=== PATIENT | female | born 1960 | race Caucasian/White ===

== ENCOUNTER 2021-11-20 15:12 | Emergency (ER) | payer OTHER, SELFPAY ==
[2021-11-20 15:18] VITALS: BP 172/86; PULSE 90; RESP 14; TEMP 36.7; O2SAT 97
[2021-11-20 15:22] VITALS: O2SAT 97
[2021-11-20 15:30] VITALS: O2SAT 96
--- NOTE | 2021-11-20 15:30 | DI.CT_ITS ---
Exam(s) CT HEAD WO EXAM: CT HEAD WO CLINICAL HISTORY: R frontal headache. TECHNIQUE: Imaging Protocol: Axial computed tomography images with coronal and sagittal reformatted images were created and reviewed COMPARISON: No exams were available for comparison FINDINGS: There are aneurysm clips on the right superior to the region of the sella creating artifact in the ri ght temporal lobe and right frontal lobe as well as portion of the left frontal lobe. A right-sided temporoparietal craniotomy defect is seen. No acute and infarct, hemorrhage or mass is seen. There is no evidence of skull fracture. There is mucosal thickening of the sinuses with some mucous retent ion in the left maxillary sinus. Mucous retention is also seen in the right sphenoid sinus. The mas toid air cells are clear. IMPRESSION: Prior aneurysm clipping. Chronic appearing sinus disease. No acute intracranial abnormality. RADIATION DOSE DELIVERED: 778.62mGy.cm Total DLP DATA REPOSITORY: All CT scans at this facility are submitted to the National Radiology Data Registry (NRDR) Dose Index Registry (DIR) with the [employer] ([employer]). RADIATION OPTIMIZATION: All CT scans at this facility use at least one of these dose optimization te chniques: automated exposure control; mA and/or kV adjustment per patient size (includes targeted exa ms where dose is matched to clinical indication); or iterative reconstruction.
--- NOTE | 2021-11-20 15:31 | ED.GENADUL_ITS ---
Discharge Plan Disposition Patient Disposition: HOME Condition: Improving Discharge Details Clinical Impression: Headache Primary Care Provider: Barry Hernandez ED Provider: Apollo Choi Home Meds and New Rx's Prescriptions: Continued zolpidem 5 MG tablet 5 mg PO HS PRN Qty: 30 RF: 5 valacyclovir 500 MG tablet 500 mg PO DAILY Qty: 90 RF: 0 Discharge Instructions Instructions: General Headache (ED) Additional Instructions: Your work-up included CAT scan of the head, blood laboratory analysis. Your CAT scan was reassuring. Home to rest today. May use Tylenol if needed for pain. Small, frequent sips of fluids so that you maintain good hydration. Return to the emerge department if you have recurrent headache, or any other acute concerns. Medical Decision Making This is a 61-year-old female who reports blowing her nose this morning, with the onset of abrupt right retro-orbital pain that lasted approximately 2 minutes and then dissipated on its own. He states the pain was severe and self-limited. She then developed a dull 1 out of 10 headache. She had no difficulty with speech, no facial droop or other focal neurologic deficits. She denies neck pain. Patient concerned because she had aneurysm coiling performed a proximal 10 years ago. Patient is afebrile, pleasant, well-appearing, without evidence of focal neurologic deficits. Patient screening labs obtained and referred for noncontrast CT scan of the head. There is no evidence of acute intracranial hemorrhage, mass-effect or midline shift. Mucosal thickening is present in the bilateral maxillary, left ethmoid and right sphenoid sinuses. Laboratories reveal white count 4, mild 42, platelets 185 chemistries reassuring. Patient improved and with no further headache. She feels better. Discussed with her the findings of likely chronic sinusitis. She is stable and appropriate for discharge to home HPI General Mode of arrival: ambulatory . Date/Time Provider Initiated Documentation: 11/20/21 15:15 . Limitations to Documentation: no limitations . Information obtained by: patient . History of Present Illness 61 year old F presents to the emergency department with the chief complaint of Right frontal headache, now improving, described as moderate, Quality is described as dull, and is localized to the head and right. Patient reports no radiation. Patient started experiencing this hour(s) No relieving factors improve symptom(s), No exacerbating factors reported . Patient notes headaches; denies nausea/vomiting, seizure, shortness of breath, syncope and weakness. Patient did receive the following treatments prior to arrival, none Related Data Home Medications Medication Instructions Recorded Confirmed zolpidem 5 mg PO HS PRN #30 tab 10/24/17 valacyclovir 500 mg PO DAILY #90 tab-cap 05/16/18 Previous Rx's Medication Instructions Recorded zolpidem 5 mg PO HS PRN #30 tab 10/24/17 valacyclovir 500 mg PO DAILY #90 tab-cap 05/16/18 Allergies Allergy/AdvReac Type Severity Reaction Status Date / Time No Known Allergies Allergy Unverified 03/29/15 12:38 General Stated Complaint: Headache [place]: 3 Review of Systems Narrative: Denies recent illness. She has otherwise been well. No fall or injury. No vomiting. 8 systems reviewed and otherwise negative. PFSH All Active Problems (Updated 11/20/21 @ 16:55 by Apollo Choi MD) Headache (Acute) Medical History Endometrial cancer stage III C Ovarian cancer stage IB Surgical History (Updated 08/07/18 @ 14:35 by [employer] [place]) Abdominal hysterectomy Oophrectomy, Both Social History Smoking/Tobacco Use Status: Never Smoking risk assessment performed?: Yes Alcohol Intake: current Alcohol Intake frequency: holidays/special occasions only Drug use: Never Substance use type: does not use Do you feel safe at home: Yes Do you feel safe in your relationship?: Yes Exam Narrative Exam Narrative: GEN: awake, alert, oriented 3. Pleasant, well groomed, interactive. HEAD: Normocephalic, atraumatic ENT: Mucous membranes moist, oropharynx unremarkable, External ear exam unremarkable EYES: PERRL, EOMI NECK: Full ROM, no KASSIE, no menigismus CHEST/RESP: Nontender, clear to auscultation bilateral, no wheeze/rhonchi/rales CARDIOVASCULAR: RRR, no murmur, rub susan. 2+ Rad pulse bilateral ABDOMEN: Soft, nontender, no mass. +Bowel sounds EXT: Full ROM, no edema, no rash Neuro: Cranial nerves II through XII intact, conversant, interactive. Psych: Speech fluent, thoughts congruent, affect normal Course Vital Signs Vital signs: Vital Signs Temperature 36.7 C 11/20/21 15:18 Pulse 90 11/20/21 15:18 Respiratory Rate 14 11/20/21 15:18 Blood Pressure 172/86 H 11/20/21 15:18 Pulse Oximetry 97 11/20/21 15:18 Temperature 36.7 C 11/20/21 15:18 Temperature Source Oral 11/20/21 15:18 Pulse 90 11/20/21 15:18 Respiratory Rate 14 11/20/21 15:18 Respiratory Effort Non-Labored 11/20/21 15:21 Blood Pressure 172/86 H 11/20/21 15:18 Blood Pressure Position Sitting 11/20/21 15:18 Pulse Oximetry 97 11/20/21 15:18 Oxygen Delivery Method Room Air 11/20/21 15:18 Oxygen Flow Rate 0 11/20/21 15:18 Pain Level 0 11/20/21 15:18
[2021-11-20 15:40] VITALS: O2SAT 97
[2021-11-20 15:40] LABS: Abs Immature Grans 0.01 10^3/uL (0.0-0.06); Absolute Basophil Count 0.05 10^3/uL (0.0-0.2); Absolute Eosinophil Count 0.25 10^3/uL (0.0-0.7); Absolute Lymphocyte Count 1.23 10^3/uL (1.2-3.4); Absolute Monocyte Count 0.49 10^3/uL (0.1-0.8); Absolute Neutrophil Count 2.13 10^3/uL (1.2-6.7); Basophils % 1.2; HCT 42.5 % (36.0-46.0); HGB 14.3 g/dL (11.2-15.7); Immature Grans % 0.2; Lymphocytes % 29.6; MCH 28.9 pg (27.0-33.0); MCHC 33.6 % (32.0-36.0); MPV 11.3 fL (8.0-11.0); Monocytes % 11.8; Neutrophils % 51.2; Nucleated RBC 0 %; Platelet Count 185 10^3/uL (130-400); RBC 4.94 10^6/uL (3.93-5.22); RDW-SD 40.4 fL; WBC 4.16 10^3/uL (4.4-10.8)
[2021-11-20 15:53] LABS: ALT 56 U/L (14-59); Albumin 4.2 g/dL (3.4-5.0); Alkaline Phosphatase 62 U/L (46-116); Anion Gap 8.3 mmol/L (3-11); BUN 15 mg/dL (7-18); Bilirubin, Total 0.5 mg/dL (0.2-1.0); CO2 25.7 mmol/L (21.0-32.0); Calcium 9.1 mg/dL (8.5-10.1); Chloride 105 mmol/L (98-107); Estimated GFR 56.75 (mL/min/1.73m2); Glucose 129 mg/dL (74-106); Sodium 139 mmol/L (136-145); Total Protein 7.7 g/dL (6.4-8.2)
[2021-11-20] MEDS: Normal Saline 1,000 ML 150 ML IV (16:00)
[2021-11-20 16:13] LABS: AST 40 U/L (15-37)
--- NOTE | 2021-11-20 16:24 | DI.VRAD_ITS ---
PROCEDURE INFORMATION: Exam: CT Head Without Contrast Exam date and time: 11/20/2021 3:31 PM Age: 61 years old Clinical indication: R frontal headache TECHNIQUE: Imaging protocol: Computed tomography of the head without contrast. COMPARISON: No relevant prior studies available. FINDINGS: Limitations: There is streak artifact from right aneurysm clipping, limiting evaluation of the brain parenchyma in this region. Brain: There is no acute intracranial hemorrhage in the regions well visualized. There is no mass effect or midline shift. There is no large acute territorial cerebral infarct. Cerebral ventricles: No ventriculomegaly. Paranasal sinuses: Mucosal thickening is seen in the bilateral maxillary, left ethmoid and right sphenoid sinuses. Mastoid air cells: Visualized mastoid air cells are well aerated. Vasculature: There is evidence of prior right ICA/MCA aneurysm clipping. Bones/joints: There is evidence of prior right frontotemporal craniotomy. No acute fracture. Soft tissues: Unremarkable. IMPRESSION: Slightly limited evaluation of the right frontal region secondary to streak artifact from aneurysm clipping. No definite acute intracranial hemorrhage, mass effect or midline shift. Dictated and Authenticated by: Kate Cruz MD. Ordering:PANDA Bustillos MD
[2021-11-20 16:50] VITALS: BP 128/84; PULSE 82; RESP 14; TEMP 36.6; O2SAT 97
[2021-11-20 16:53] VITALS: BP 128/84; PULSE 86; O2SAT 97
== END 2021-11-20 17:05 | disposition home or self-care (01) ==
PROVIDERS: Emergency Provider Emergency Medicine; PCP Internal Medicine
DX: R51.9 Headache, unspecified (principal); Z86.79 Personal history of other diseases of the circulatory system
CPT/HCPCS: 36415; 80053; 96360; 99284; 70450; 85025; 99283

== ENCOUNTER 2022-02-22 14:44 | Outpatient (REF) | payer OTHER, SELFPAY ==
[2022-02-22 15:34] LABS: ALT 67 U/L (14-59); AST 44 U/L (15-37); Albumin 4.1 g/dL (3.4-5.0); Alkaline Phosphatase 53 U/L (46-116); Anion Gap 10.9 mmol/L (3-11); BUN 16 mg/dL (7-18); Bilirubin, Total 0.4 mg/dL (0.2-1.0); CO2 26.1 mmol/L (21.0-32.0); Calcium 8.8 mg/dL (8.5-10.1); Calculated LDL 128 mg/dL (<100); Chloride 105 mmol/L (98-107); Cholesterol 223 mg/dL (<200); Estimated GFR 56.75 (mL/min/1.73m2); Glucose 116 mg/dL (74-106); HDL Cholesterol 34 mg/dL (40-60); Potassium 4.2 mmol/L (3.5-5.1); Sodium 142 mmol/L (136-145); Total Protein 7.2 g/dL (6.4-8.2); Triglyceride 305 mg/dL (<150)
[2022-02-23 02:01] LABS: Vitamin D 25 Total 14.6 ng/mL (30-100)
== END 2022-02-22 14:45 | disposition home or self-care (01) ==
LOC: NCHCN 14:44
PROVIDERS: PCP Internal Medicine; Visit Provider Family Medicine
DX: I10 Essential (primary) hypertension (principal); R53.83 Other fatigue; R19.7 Diarrhea, unspecified; Z79.899 Other long term (current) drug therapy
CPT/HCPCS: 80053; 80061; 82306

== ENCOUNTER 2023-02-25 19:15 | Emergency (ER) | payer OTHER, SELFPAY ==
[2023-02-25 19:18] VITALS: BP 141/95; PULSE 86; RESP 16; TEMP 37; O2SAT 98
--- NOTE | 2023-02-25 20:03 | W.ED.GENAD ---
Discharge Plan Disposition Patient Disposition: Home Condition: Stable Discharge Details Clinical Impression: Pain of right eyelid, Right facial pain Primary Care Provider: Barry Hernandez ED Provider: Tatum Vasquez Home Meds and New Rx's Prescriptions: New prednisone 20 mg tablet See Rx Instructions .ROUTE .COMPLEX Qty: 18 0RF Rx Instructions: Take 3 tabs daily for 3 days, then 2 tabs daily for 3 days, then 1 tab daily for 3 days. Continued valacyclovir 500 MG tablet 500 mg PO DAILY Qty: 90 0RF lisinopril 5 mg tablet 2.5 mg PO DAILY zolpidem 5 mg tablet 6.25 mg PO HS PRN Qty: 30 5RF Rx Instructions: 1 tab PO HS PRN early insomnia diphenoxylate-atropine 2.5-0.025 mg tablet 2 tab PO Q6H PRN Rx Instructions: take 1-2 tabs by mouth four times a day as directed Discharge Instructions Instructions: Trigeminal Neuralgia (ED), Atypical Facial Pain (ED) Additional Instructions: The cause of your symptoms is not clear at this time but possibilities include trigeminal neuralgia which is pain along the nerve in your face, shingles which is a viral rash related to a reactivation of chicken pox or a developing sinus infection. Drink plenty of fluids and get plenty of rest. Alternate tylenol and motrin as needed and directed for pain. Take the gabapentin for pain relief when you get home. Prescriptions for oral steroids for inflammation and pain and gabapentin for nerve pain relief-sent electronically to your pharmacy to take as directed. You have been placed on care management list to arrange for a follow-up appoint with your primary care doctor for reevaluation this week. Return immediately to the emergency department if you develop any worsening or new concerning symptoms. Discharge Data Discharge Date/Time-TO BE ENTERED AT DEPARTURE: 02/25/23 22:51 Discharge Physician: Tatum Vasquez Medical Decision Making 62 -year-old female with a history of brain aneurysm with clipping, endometrial and ovarian cancer, abdominal hysterectomy presents for tenderness to the skin of her upper lower eyelid since yesterday. She does admit to a hour long episode of right eye pain yesterday but denies any pain since then. No report of blurry vision. Patient appears fairly comfortable and nontoxic. PERRLA. EOMI. No focal deficits. She has exquisite tenderness to light palpation of her supraorbital infraorbital region. There is no edema, erythema, rash or lesions. Her right eye intraocular pressure was normal at 17. She has no fever or nasal discharge to suggest sinus infection. She has no dental pain or swelling to suggest dental infection. She has no rash and had a similar presentation of symptoms 1 year ago which would be unlikely to be shingles. She has no blurry vision, focal deficits or severe headache to suggest CVA. She has no fever, sore throat, neck pain, altered mental status to suggest meningitis. Discussed with patient that differential diagnosis can include trigeminal neuralgia or possibly shingles. Also discussed potential of developing sinus infection. Discussed that I do not see indication for antibiotics at this time but discussed the possibility of gabapentin or Tegretol. She states she had read about side effects of gabapentin in the past and had been nervous to take it. She will be staying with her daughter tao. We will give a dose of prednisone here and send home with 1 dose of gabapentin. Will send prescriptions for prednisone and gabapentin electronically to her pharmacy. She was placed on care management's list to arrange for follow-up appointment with her primary care doctor in the next week for reevaluation. Usual and customary return precautions given prior to discharge. Medical Records Medical records reviewed: Yes I reviewed the patient's medical records. HPI General Mode of arrival: ambulatory. Date/Time Provider Initiated Documentation: 02/25/23 20:02. Limitations to Documentation: no limitations. Information obtained by: patient. HPI Narrative: Patient is a 62-year-old female with a history of brain aneurysm status post clipping, endometrial and ovarian cancer with hysterectomy, hypertension who presents for pain around the outside of her right eye since yesterday. Patient states that when she even touches her eye with light touch, she has significant pain. She does admit to some tearing in her right eye and when she attempts to wipe her eye with the tissue it causes significant pain. She does admit to a brief episode of pain within her right eye yesterday for about 1 hour but then it resolved. She denies any pain within her eye since then. She denies any fever, blurry vision, eye discharge, injury to her eye or foreign body sensation. She states she had a similar history occur 1 year ago and was seen by her doctor and told it was possibly shingles. She states she never developed a rash or was treated with antivirals and states that resolved after 1 month. She denies any new soaps, lotions, detergents or exposures. She denies any significant pain with chewing or brushing her teeth. She denies any fever, headache, slurred speech, facial droop, neck pain, chest pain, difficulty breathing, abdominal pain or unilateral extremity numbness or weakness. Related Data Home Medications Medication Instructions Recorded Confirmed valacyclovir 500 mg tablet 500 mg PO DAILY #90 tab-caps 05/16/18 02/25/23 diphenoxylate-atropine 2.5 2 tab PO Q6H PRN 11/23/21 02/25/23 mg-0.025 mg tablet lisinopril 5 mg tablet 2.5 mg PO DAILY 11/23/21 02/25/23 zolpidem 5 mg tablet 6.25 mg PO HS PRN #30 tabs 11/23/21 02/25/23 prednisone 20 mg tablet See Rx Instructions .Route 02/25/23 .COMPLEX #18 tabs Previous Rx's Medication Instructions Recorded valacyclovir 500 mg tablet 500 mg PO DAILY #90 tab-caps 05/16/18 zolpidem 5 mg tablet 6.25 mg PO HS PRN #30 tabs 11/23/21 prednisone 20 mg tablet See Rx Instructions .Route 02/25/23 .COMPLEX #18 tabs Allergies Allergy/AdvReac Type Severity Reaction Status Date / Time No Known Allergies Allergy Unverified 02/25/23 19:27 General Stated Complaint: Headache [place]: 3 Review of Systems All systems reviewed & are unremarkable except as noted in HPI and below Constitutional Constitutional: Reports as per HPI, Denies chills, Denies fever(s) and Denies headache(s) Eyes Eyes: Denies blurry vision, Denies eye discharge, Denies floaters, Denies itchy eyes, Denies loss of vision, Reports eye pain (tenderness of skin of right upper and lower eyelid ) and Denies seeing flashes ENT Ears, Nose, Mouth, and Throat: Denies dizziness, Denies headache(s), Denies sore throat and Denies throat swelling Cardiovascular Cardiovascular: Denies chest pain and Denies dyspnea Respiratory Respiratory: Denies cough and Denies dyspnea Gastrointestinal Gastrointestinal: Denies abdominal pain, Denies diarrhea and Denies vomiting Genitourinary Genitourinary: Denies hematuria and Denies dysuria Musculoskeletal Musculoskeletal: Denies back pain and Denies numbness Integumentary/Breasts Skin/Breast: Denies lesions and Denies rash Neurologic Neurologic: Denies dizziness, Denies headache(s), Denies localized weakness, Denies loss of vision and Denies numbness Allergic/Immunologic Allergic/Immunologic: Denies itchy eyes and Denies throat swelling PFSH All Active Problems (Updated 02/25/23 @ 22:26 by Tatum Vasquez DO) Pain of right eyelid (Acute) Right facial pain (Acute) Hypertension (Chronic) Pain, eye, right (Acute) Medical History Endometrial cancer stage III C Ovarian cancer stage IB Surgical History (Updated 08/07/18 @ 14:35 by [employer] [place]) Abdominal hysterectomy Oophrectomy, Both Social History Smoking/Tobacco Use Status: Never Smoking risk assessment performed?: Yes Alcohol Intake: current Alcohol Intake frequency: holidays/special occasions only Drug use: Never Substance use type: does not use Do you feel safe at home: Yes Do you feel safe in your relationship?: Yes Exam Const General: cooperative and no acute distress Orientation: alert, awake and oriented x3 HENMT Head: normal to inspection Ears: hearing grossly normal bilaterally, external ears normal and TM's normal bilaterally General nose exam: external nose normal Face and sinus: normal facial exam Mouth: oral mucosae normal Throat: posterior oropharynx normal Eyes General: appearance normal, both eyes and all related structures Eyelids: eyelid abnormality right upper eyelid tenderness; without erythema and with no swelling and right lower eyelid tenderness; without erythema, without foreign bodies and with no swelling Conjunctivae: conjunctivae normal Sclera: sclerae normal Pupils: PERRL EOM: EOM intact bilaterally Neck Neck: normal visual inspection and No submandibular swelling Lymphatic: no lymphadenopathy noted Chest Chest: normal inspection of the chest and no tenderness Resp Effort & Inspection: normal respiratory effort and able to speak in complete sentences Auscultation: clear to auscultation bilaterally Cardio Rate: regular rate Rhythm: regular rhythm GI Inspection: normal to inspection Palpation: soft, not firm, not rigid and nontender Auscultation: normal bowel sounds Back/Spine/Pelvis Thoracic/Lumbar Spine: thoracic and lumbar spine normal to inspection Pelvis: no pain with anterior-posterior compression Skin General skin exam: no rashes or lesions noted Neuro General: patient alert, patient awake, patient oriented x3, moves all extremities and no meningeal signs Cranial Nerves: CN's II-XI intact bilaterally Cognition: normal cognition Speech: speech normal Motor: muscle tone normal throughout Sensory Exam: no sensory deficits noted Extrem General: normal to inspection, full ROM, capillary refill normal, no calf tenderness bilaterally and no edema Psych Appearance: grossly normal Mental Status: mental status grossly normal Speech and Movement: speech and movement normal Affect: normal affect Course Vital Signs Vital signs: Vital Signs Temperature 98.6 F 02/25/23 19:18 Pulse 86 02/25/23 19:18 Respiratory Rate 16 02/25/23 19:18 Blood Pressure 141/95 H 02/25/23 19:18 Pulse Oximetry 98 02/25/23 19:18 Temperature 98.6 F 02/25/23 19:18 Temperature Source Oral 02/25/23 19:18 Pulse 86 02/25/23 19:18 Respiratory Rate 16 02/25/23 19:18 Respiratory Effort Normal 02/25/23 19:24 Blood Pressure 141/95 H 02/25/23 19:18 Blood Pressure Position Sitting 02/25/23 19:18 Pulse Oximetry 98 02/25/23 19:18 Oxygen Delivery Method Room Air 02/25/23 19:18 Oxygen Flow Rate 0 02/25/23 19:18 Pain Level 0 02/25/23 19:24 Comment No pain currently. 02/25/23 19:18
[2023-02-25] MEDS: predniSONE 20 MG TAB 60 MG PO (21:16)
[2023-02-25] MEDS: Gabapentin 300 MG CAP PO (21:16)
[2023-02-25 22:58] VITALS: BP 148/88; PULSE 88; RESP 16; TEMP 36.5; O2SAT 98
--- NOTE | 2023-02-26 04:51 | NUR.NOTE ---
Referral to [facility] to f/u week of 02/26 for r eyelid/face pain.Nursing Note:
== END 2023-02-25 22:51 | disposition home or self-care (01) ==
PROVIDERS: Emergency Provider Physician Assistant; PCP Internal Medicine
DX: G50.1 Atypical facial pain (principal); Z86.79 Personal history of other diseases of the circulatory system
CPT/HCPCS: 99283; 99284; J7512

== ENCOUNTER 2023-02-27 23:38 | Emergency (ER) | payer OTHER, SELFPAY ==
[2023-02-27 23:40] VITALS: BP 142/92; PULSE 94; RESP 16; TEMP 36.4; O2SAT 95
--- NOTE | 2023-02-28 00:23 | ED.GENADUL_ITS ---
Discharge Plan Disposition Patient Disposition: Home Condition: Stable Discharge Details Clinical Impression: Pain of right eyelid, Right facial pain Primary Care Provider: Barry Hernandez ED Provider: Tatum Vasquez Home Meds and New Rx's Prescriptions: New gabapentin 300 mg capsule 300 mg PO TID PRN (Reason: pain) Qty: 14 0RF Continued valacyclovir 500 MG tablet 500 mg PO DAILY Qty: 90 0RF lisinopril 5 mg tablet 2.5 mg PO DAILY zolpidem 5 mg tablet 6.25 mg PO HS PRN Qty: 30 5RF Rx Instructions: 1 tab PO HS PRN early insomnia diphenoxylate-atropine 2.5-0.025 mg tablet 2 tab PO Q6H PRN Rx Instructions: take 1-2 tabs by mouth four times a day as directed prednisone 20 mg tablet See Rx Instructions .ROUTE .COMPLEX Qty: 18 0RF Rx Instructions: Take 3 tabs daily for 3 days, then 2 tabs daily for 3 days, then 1 tab daily for 3 days. Discharge Instructions Instructions: Trigeminal Neuralgia (ED) Additional Instructions: The source of your symptoms may be secondary to trigeminal neuralgia which is pain along the distribution of a specific nerve supply in your face. The pain can be worsened with light touch, chewing or brushing her teeth. Drink plenty of fluids and get plenty of rest. A prescription for gabapentin for pain relief has been sent electronically to your pharmacy. Take your steroids as directed until finished. Follow-up with your scheduled appointment with your primary care provider tomorrow morning. Another possible medication for pain relief includes carbamazepine or Tegretol. You may be referred to a specialist such as ENT or neurology for further evaluation of your symptoms. Return immediately to the emergency department if you develop any worsening or new concerning symptoms. Discharge Data Discharge Physician: Tatum Vasquez Medical Decision Making 62-year-old female with history of brain aneurysm status post coiling, endometrial and ovarian cancer presents for worsening pain of the skin around her right eye this evening. Patient was seen here 2 days ago for the same complaint that started the day prior and diagnosed with possible trigeminal neuralgia. Patient appears generally comfortable and nontoxic. She currently has no pain and the area around her eye appears normal to inspection without rash, cellulitis or trauma. PERRLA. EOMI and no pain with EOM. She has no focal deficits. She has no fever, periorbital edema or erythema to suggest periorbital or orbital cellulitis. She has no rash to suggest shingles. She has no focal deficits, blurry vision, significant headache or vomiting to suggest cva. As she now has worsening pain with chewing, brushing her teeth and even light touch or exposure to the wound, discussed with patient that I still suspect trigeminal neuralgia at this time. She is advised to continue her steroids until finished. Discussed that a prescription for gabapentin was supposed to be sent electronically to her pharmacy. We will give a dose of gabapentin now and send this prescription electronically and give a dose for her to take tomorrow morning. She was advised to follow-up with her appointment with her primary care doctor tomorrow. Usual and customary return precautions given prior to discharge. HPI General Mode of arrival: ambulatory . Date/Time Provider Initiated Documentation: 02/27/23 23:38 . Limitations to Documentation: no limitations . Information obtained by: patient . HPI Narrative: Patient is a 62-year-old female with a history of brain aneurysm status post coiling, endometrial and ovarian cancer who was seen here 2 days ago for pain on the skin of her right upper and lower eyelid and diagnosed with possible trigeminal neuralgia and started on steroids presents with worsening pain today. She states she has been taking her steroids as prescribed. Patient states she had relief when she took the gabapentin she was sent home with the other day. She states the prescription for gabapentin was not sent to her pharmacy after seen here 2 days ago. She states she had been doing well until this evening. She states she has had a few episodes of pain of the skin on the outside of her right eye. She states that it is exquisitely tender to touch as before. She states the pain today was worse with chewing when she ate a piece of pie and with brushing her teeth today. She states she was at a soccer game this evening and also noted significant pain just with the wind blowing on the right side of her face around her eye. She denies any fever, rash, blurry vision, nasal discharge, sore throat, ear pain, dizziness, unilateral extremity numbness or weakness. She states she has an appoint with her primary care doctor tomorrow. Related Data Home Medications Medication Instructions Recorded Confirmed valacyclovir 500 mg tablet 500 mg PO DAILY #90 tab-caps 05/16/18 02/25/23 diphenoxylate-atropine 2.5 2 tab PO Q6H PRN 11/23/21 02/25/23 mg-0.025 mg tablet lisinopril 5 mg tablet 2.5 mg PO DAILY 11/23/21 02/25/23 zolpidem 5 mg tablet 6.25 mg PO HS PRN #30 tabs 11/23/21 02/25/23 prednisone 20 mg tablet See Rx Instructions .Route 02/25/23 .COMPLEX #18 tabs gabapentin 300 mg capsule 300 mg PO TID PRN pain #14 caps 02/28/23 Previous Rx's Medication Instructions Recorded valacyclovir 500 mg tablet 500 mg PO DAILY #90 tab-caps 05/16/18 zolpidem 5 mg tablet 6.25 mg PO HS PRN #30 tabs 11/23/21 prednisone 20 mg tablet See Rx Instructions .Route 02/25/23 .COMPLEX #18 tabs gabapentin 300 mg capsule 300 mg PO TID PRN pain #14 caps 02/28/23 Allergies Allergy/AdvReac Type Severity Reaction Status Date / Time No Known Allergies Allergy Unverified 02/25/23 19:27 General Stated Complaint: FacialProb [place]: 3 Review of Systems All systems reviewed & are unremarkable except as noted in HPI and below Constitutional Constitutional: Reports as per HPI, Denies chills and Denies fever(s) Eyes Eyes: Denies blurry vision ENT Ears, Nose, Mouth, and Throat: Denies dizziness, Reports facial pain, Denies sore throat and Denies throat swelling Cardiovascular Cardiovascular: Denies chest pain and Denies dyspnea Respiratory Respiratory: Denies cough and Denies dyspnea Gastrointestinal Gastrointestinal: Denies abdominal pain, Denies diarrhea and Denies vomiting Genitourinary Genitourinary: Denies hematuria and Denies dysuria Musculoskeletal Musculoskeletal: Denies back pain and Denies numbness Integumentary/Breasts Skin/Breast: Denies lesions and Denies rash Neurologic Neurologic: Denies dizziness, Denies localized weakness and Denies numbness Allergic/Immunologic Allergic/Immunologic: Denies throat swelling PFSH All Active Problems (Updated 02/28/23 @ 00:23 by Tatum Vasquez DO) Pain of right eyelid (Acute) Right facial pain (Acute) Pain of right eyelid (Acute) Right facial pain (Acute) Hypertension (Chronic) Pain, eye, right (Acute) Medical History Endometrial cancer stage III C Ovarian cancer stage IB Surgical History (Updated 08/07/18 @ 14:35 by [facility]) Abdominal hysterectomy Oophrectomy, Both Social History Smoking/Tobacco Use Status: Never Smoking risk assessment performed?: Yes Alcohol Intake: current Alcohol Intake frequency: holidays/special occasions only Drug use: Never Substance use type: does not use Do you feel safe at home: Yes Do you feel safe in your relationship?: Yes Exam Const General: cooperative and no acute distress Orientation: alert, awake and oriented x3 HENMT Head: normal to inspection Ears: hearing grossly normal bilaterally, external ears normal and TM's normal bilaterally Face and sinus: normal facial exam Mouth: oral mucosae normal Teeth and gingiva: poor dentition Throat: posterior oropharynx normal Eyes General: appearance normal, both eyes and all related structures Eyelids: eyelids normal Conjunctivae: conjunctivae normal Sclera: sclerae normal Pupils: PERRL EOM: EOM intact bilaterally Neck Neck: normal visual inspection and No submandibular swelling Lymphatic: no lymphadenopathy noted Chest Chest: normal inspection of the chest and no tenderness Resp Effort & Inspection: normal respiratory effort and able to speak in complete sentences Cardio Rate: regular rate Rhythm: regular rhythm GI Inspection: normal to inspection Palpation: soft, not firm, not rigid and nontender Auscultation: normal bowel sounds Back/Spine/Pelvis Thoracic/Lumbar Spine: thoracic and lumbar spine normal to inspection Pelvis: no pain with anterior-posterior compression Skin General skin exam: no rashes or lesions noted Neuro General: patient alert, patient awake, patient oriented x3, moves all extremities and no meningeal signs Cranial Nerves: CN's II-XI intact bilaterally Cognition: normal cognition Speech: speech normal Motor: muscle tone normal throughout and strength 5/5 throughout Sensory Exam: no sensory deficits noted Extrem General: normal to inspection, full ROM, capillary refill normal, no calf tenderness bilaterally and no edema Psych Appearance: grossly normal Mental Status: mental status grossly normal Speech and Movement: speech and movement normal Affect: normal affect Course Vital Signs Vital signs: Vital Signs Temperature 97.6 F 02/27/23 23:40 Pulse 94 H 02/27/23 23:40 Respiratory Rate 16 05/09/23 23:40 Blood Pressure 142/92 H 02/27/23 23:40 Pulse Oximetry 95 02/27/23 23:40 Temperature 97.6 F 02/27/23 23:40 Temperature Source Oral 02/27/23 23:40 Pulse 94 H 02/27/23 23:40 Respiratory Rate 16 02/27/23 23:40 Respiratory Effort Normal, Non-Labored 02/27/23 23:47 Blood Pressure 142/92 H 02/27/23 23:40 Blood Pressure Position Sitting 02/27/23 23:40 Pulse Oximetry 95 02/27/23 23:40 Oxygen Delivery Method Room Air 02/27/23 23:40 Oxygen Flow Rate 0 02/27/23 23:40 Pain Level 0 02/27/23 23:40
[2023-02-28] MEDS: Gabapentin 300 MG CAP PO ×2 (00:33→00:46)
== END 2023-02-28 00:40 | disposition home or self-care (01) ==
PROVIDERS: Emergency Provider Physician Assistant; PCP Internal Medicine
DX: G50.1 Atypical facial pain (principal)
CPT/HCPCS: 99283; 99284

== ENCOUNTER 2023-03-28 12:51 | Outpatient (REF) | payer OTHER, SELFPAY ==
[2023-03-28 15:05] LABS: Abs Immature Grans 0.02 10^3/uL (0.0-0.06); Absolute Basophil Count 0.03 10^3/uL (0.0-0.2); Absolute Eosinophil Count 0.15 10^3/uL (0.0-0.7); Absolute Lymphocyte Count 1.14 10^3/uL (1.2-3.4); Absolute Monocyte Count 0.39 10^3/uL (0.1-0.8); Absolute Neutrophil Count 2.05 10^3/uL (1.2-6.7); Basophils % 0.8; HCT 41.5 % (36.0-46.0); HGB 13.7 g/dL (11.2-15.7); Immature Grans % 0.5; Lymphocytes % 30.2; MCH 29.1 pg (27.0-33.0); MCV 88 fL (80-95); Monocytes % 10.3; Neutrophils % 54.2; Platelet Count 198 10^3/uL (130-400); RDW 13.6 % (11.7-14.6); RDW-SD 42.8 fL; WBC 3.78 10^3/uL (4.4-10.8)
[2023-03-28 15:11] LABS: ESR 3 mm/hr (0-30)
[2023-03-28 15:33] LABS: Anion Gap 6.7 mmol/L (3-11); BUN 17 mg/dL (7-18); C-Reactive Protein 0.59 mg/dL (0.0-0.3); CO2 30.3 mmol/L (21.0-32.0); CREATININE 1.1 mg/dL (0.55-1.02); Calcium 9.5 mg/dL (8.5-10.1); Chloride 101 mmol/L (98-107); Estimated GFR 57.52 (mL/min/1.73m2); Glucose 218 mg/dL (74-106); Potassium 4.2 mmol/L (3.5-5.1); Sodium 138 mmol/L (136-145); TSH 3.41 uIU/mL (0.36-3.74)
[2023-03-28 22:06] LABS: FREE T4 0.83 ng/dL (0.76-1.46)
== END 2023-03-28 12:52 | disposition home or self-care (01) ==
LOC: NCHCN 12:51
PROVIDERS: PCP Family Medicine; Visit Provider Family Medicine
DX: I10 Essential (primary) hypertension (principal); R53.83 Other fatigue; G50.0 Trigeminal neuralgia; R79.89 Other specified abnormal findings of blood chemistry
CPT/HCPCS: 80048; 85652; 84436; 84439; 84443; 85025; 86140

== ENCOUNTER 2023-06-26 18:31 | Outpatient (REF) | payer OTHER, SELFPAY ==
[2023-06-26 17:22] LABS: ALT 76 U/L (14-59); AST 60 U/L (15-37); Albumin 4.4 g/dL (3.4-5.0); Alkaline Phosphatase 44 U/L (46-116); Anion Gap 8.2 mmol/L (3-11); BUN 17 mg/dL (7-18); Bilirubin, Total 0.9 mg/dL (0.2-1.0); CO2 27.8 mmol/L (21.0-32.0); CREATININE 1.1 mg/dL (0.55-1.02); Calcium 9.6 mg/dL (8.5-10.1); Calculated LDL 87 mg/dL (<100); Chloride 102 mmol/L (98-107); Cholesterol 172 mg/dL (<200); Estimated GFR 57.52 (mL/min/1.73m2); Glucose 113 mg/dL (74-106); HDL Cholesterol 36 mg/dL (40-60); Sodium 138 mmol/L (136-145); Total Protein 7.4 g/dL (6.4-8.2); Triglyceride 246 mg/dL (<150)
== END 2023-06-26 18:32 | disposition home or self-care (01) ==
LOC: NCHCN 18:31
PROVIDERS: PCP Family Medicine; Visit Provider Family Medicine
DX: Z00.00 Encounter for general adult medical examination without abnormal findings (principal); I10 Essential (primary) hypertension; R73.03 Prediabetes; E78.1 Pure hyperglyceridemia; Z79.899 Other long term (current) drug therapy
CPT/HCPCS: 80053; 80061; 82306

== ENCOUNTER → 2023-07-18 00:40 | Outpatient (CLI) | payer OTHER, SELFPAY ==
--- NOTE | 2023-07-18 | DI.MAMMO_ITS ---
Exam(s) MAMMO SCREENING EXAM: MAMMO SCREENING CLINICAL HISTORY: SCREENING, Z12.31 TECHNIQUE: Bilateral full field digital CC and MLO mammographic images were obtained with 3D tomosyn thesis and utilizing computer aided detection (CAD). COMPARISON: Available for comparison. FINDINGS: Masses/Architectural Distortion: There is a new area of nodularity in the retroareolar region of the right breast on the craniocaudad view. Additional right CC and MLO views are requested. In the left breast, there is an area of nodularity in the upper central left breast on the MLO view. Spot compr ession views requested for further evaluation. Microcalcifications: No suspicious pleomorphic-type are seen. Skin Thickening/Nipple Retraction: None. IMPRESSION: 1. Bilateral additional views as described above. 2. Bilateral breast ultrasound may be indicated at that time. BI-RADS Category 0 - Assessment Incomplete: Need additional imaging evaluation Breast Density - Category B - Scattered areas of fibroglandular density Breast density category C or D implies that the patient has dense breast tissue. Dense breast tissue is very common and is not abnormal but dense breast tissue can make it harder to find cancer on a ma mmogram. Also, dense breast tissue may increase their breast cancer risk. This information about the result of the mammogram report was provided to the patient to raise their awareness. Use this report when you speak with the patient about their risks for breast cancer, which includes their family hist ory. At that time, you may recommend for more screening tests (Ultrasound or MRI) as they might be us eful based on their risk. A negative radiographic report should not delay biopsy if a dominant or clinically suspicious mass is present. Up to ten percent of cancers are not identified on mammography. A negative report may reinforce clinical impression. Adenosis and dense breasts may obscure an underlying neoplasm. False positive reports average 6 to 10%. Patient will receive a letter notifying them of these results.
== END ==
PROVIDERS: PCP Family Medicine; Visit Provider Family Medicine
DX: Z12.31 Encounter for screening mammogram for malignant neoplasm of breast (principal); N63.21 Unspecified lump in the left breast, upper outer quadrant
CPT/HCPCS: 77063; 77067

== ENCOUNTER → 2023-07-27 00:23 | Outpatient (CLI) | payer OTHER, SELFPAY ==
--- NOTE | 2023-07-27 | DI.US_ITS ---
Exam(s) US BREAST RT LIMITED MG MAMMO SCREEN CALL BACK BI EXAM: MG MAMMO SCREEN CALL BACK BI CLINICAL HISTORY: NODULARITY BILAT BREAST R92.8 ABNL MAMMO. TECHNIQUE: Craniocaudal and mediolateral oblique spot compression digital Mammography views of the right breast with Tomosynthesis and right breast ultrasound. COMPARISON: MG Screening Bilat Mammo from 02/10/2015 MG Screening Bilat Mammo from 03/01/2017 MG SCREEN MAMMO BL INCLUDES CAD from 09/06/2021 MG MG MAMMO SCREENING from 07/18/2023 US US BREAST RT LIMITED from 07/27/2023 FINDINGS: Mammography/Tomosynthesis: Masses/Architectural Distortion: Stable areas nodularity the subareolar region the right breast sligh tly lateral to the level of the nipple. Microcalcifictions: No suspicious pleomorphic-type are seen. Skin Thickening/Nipple Retraction: None. Right breast US: Echotexture: Normal appearance of the glandular tissue. Shadowing: No suspicious foci. Cyst: cluster of microcysts measuring 10 by 5 by 6 millimeter in the 9 o'clock position, lateral to t he nipple. This likely accounts for the nodule seen on mammogram. Solid lesions: None seen. Ductal dilation: None. IMPRESSION: 1. No evidence of malignancy is noted. Cluster of cysts in lateral subareolar region. 2. Unless there is more urgent need, follow-up screening mammography is recommended, as per [place] [employer] guidelines. 3. The findings were discussed with the patient on the date of the examination. BI-RADS Category 2 - Benign Findings Breast Density - Category B - Scattered areas of fibroglandular density A negative radiographic report should not delay biopsy if a dominant or clinically suspicious mass is present. Up to ten percent of cancers are not identified on mammography. A negative report may reinforce clinical impression. Adenosis and dense breasts may obscure an underlying neoplasm. False positive reports average 6 to 10%. Patient will receive a letter notifying them of these results.
== END ==
PROVIDERS: PCP Family Medicine; Visit Provider Obstetrics & Gynecology Gynecology
DX: Z12.31 Encounter for screening mammogram for malignant neoplasm of breast (principal); N63.15 Unspecified lump in the right breast, overlapping quadrants
CPT/HCPCS: 76642; 77063; 77067

== ENCOUNTER 2024-04-18 14:19 | Emergency (ER) | payer OTHER, SELFPAY ==
[2024-04-18 14:27] VITALS: BP 134/89; PULSE 86; RESP 18; TEMP 36.6; O2SAT 96
[2024-04-18] MEDS: Tetracaine 0.5% 4 ML BTL (14:45)
[2024-04-18] MEDS: Fluorescein STRIPS 100/BOX 1 MG OP (14:45)
--- NOTE | 2024-04-18 15:27 | ED.GENADUL_ITS ---
Discharge Plan Disposition Patient Disposition: Home Discharge Details Clinical Impression: Corneal abrasion of left eye due to contact lens Primary Care Provider: Linda Gaytan ED Provider: Sourav Jo Home Meds and New Rx's Prescriptions: New cyclopentolate 1 % drops 1 drp ophthalmic (eye) ONCE PRN5 Days Qty: 2 0RF Rx Instructions: compress lacrimal sac for 1-2 minutes after instillation Continued lisinopril 5 mg tablet 2.5 mg PO DAILY diphenoxylate-atropine 2.5-0.025 mg tablet 2 tab PO Q6H PRN Rx Instructions: take 1-2 tabs by mouth four times a day as directed trazodone 100 mg tablet 100 mg PO DAILY PRN Patient Comments: TAKE ONE TABLET BY MOUTH EVERY EVENING Discharge Instructions Instructions: Corneal Abrasion ED Additional Instructions: You are seen in the emergency department for your left eye pain. You are found to have a corneal abrasion. Please go to [facility] eye care this afternoon. Please take these antibiotics and use 2 drops every 2 hours for 5 days. Please return to the emergency department if you develop any fevers or have any other concerns. HPI General Date/Time Provider Initiated Documentation: 04/18/24 14:21 . HPI Narrative: MDM This is an overall well-appearing normothermic and not tachycardic 63-year-old female with left corneal abrasion contact lens use for which patient will receive moxifloxacin. No pain out of proportion to suggest necrotizing soft tissue infection. In the event that there is a component of ciliary spasm we will treat with cyclopentolate. Health equal opportunity officer Jasmina was in touch with [facility] who advised that the patient could be sent over for assessment today. She had a negative Roxi sign so I was not concerned for globe rupture. No trauma and no hyphema so no indication to avoid NSAIDs. Her anterior chamber was deep and quiet so I was not suspicious for endophthalmitis. No proptosis nor trauma to suggest retrobulbar hematoma. No fevers nor skin changes so I was not concerned for orbital cellulitis. Her pain did not occur after leaving a dark room and she had only minor headache so I was not suspicious for acute closed angle glaucoma. She was neurologically intact so my suspicion was low for CVA so I did not feel that she required an MRI. Given no significant trauma to eye there was no suspicious for retained foreign body. I discussed with patient that she should return to the ED if she developed any worsening pain nausea vomiting or if she had any other concerns. Her pain felt markedly improved following tetracaine. Visual acuity was concerning and that she could only count fingers on the left. She had no purulent drainage to suggest conjunctivitis. We discussed return indications including any fevers worsening pain or any falls. She understood her return indications and was discharged with empiric trial of expectant outpatient management. HPI This is a 63-year-old contact lens wearing female arrived to the emergency department via private vehicle in the setting of left eye pain. Patient reports that she wears her contacts for approximately 1 week at a time. She had not been wearing them for several days but put them back in yesterday. This morning she woke up and had left eye pain. She had difficulty in opening her left eye. She denies any trauma to her eye. She reported that her symptoms began approximately 30 minutes after waking up. This is led to a slight headache. She denies any fevers nausea vomiting chest pain and shortness of breath. Exam General: Uncomfortable-appearing in no acute distress speaking in complete sentences. Head: Normocephalic, atraumatic. Eye:[Pupils equal, round reactive to light.] Extraocular eye movements intact. Left-sided conjunctival injection. No scleral icterus. Visual acuity as documented by nursing both eyes 20/20. Right eye 20/30. Left eye patient was unable to see. For me on the left eye she was able to count fingers. On fluorescein stain patient had increased uptake at approximately the 4 o'clock position just off of the visual axis. Negative Roxi sign. On slit-lamp exam Lids and lashes appear normal. Patient has significant left-sided conjunctival injection. Anterior chamber deep and quiet. No hypopyon. No hyphema. No proptosis. Ear, nose, mouth, throat: Grossly normal inspection. Normal voice, handling secretions normally. No signs of cellulitis around the eye. Neck: Trachea midline. Cardiovascular: Well-perfused distal extremities. Respiratory: Nonlabored respiration. Gastrointestinal: Nondistended abdomen. Musculoskeletal: No edema. Moving all 4 extremities spontaneously. Skin: Normal for age and race, grossly normal temperature and turgor. No acute rash. Neurologic: Alert and appropriate, no apparent acute deficits. Psychiatric: Mood and manner are appropriate. Grooming and personal hygiene are appropriate. Related Data Home Medications Medication Instructions Recorded Confirmed diphenoxylate-atropine 2.5 2 tab PO Q6H PRN 11/23/21 04/18/24 mg-0.025 mg tablet lisinopril 5 mg tablet 2.5 mg PO DAILY 11/23/21 04/18/24 cyclopentolate 1 % eye drops 1 drp ophthalmic (eye) ONCE PRN 5 04/18/24 days #2 mL trazodone 100 mg tablet 100 mg PO DAILY PRN 04/18/24 04/18/24 Previous Rx's Medication Instructions Recorded cyclopentolate 1 % eye drops 1 drp ophthalmic (eye) ONCE PRN 5 04/18/24 days #2 mL Allergies Allergy/AdvReac Type Severity Reaction Status Date / Time No Known Allergies Allergy Unverified 04/18/24 14:29 General Stated Complaint: EyeProblem [place]: 4 Course Vital Signs Vital signs: Vital Signs Temperature 36.6 C 04/18/24 14:27 Pulse 86 04/18/24 14:27 Respiratory Rate 18 04/18/24 14:27 Blood Pressure 134/89 04/18/24 14:27 Pulse Oximetry 96 04/18/24 14:27 Temperature 36.6 C 04/18/24 14:27 Temperature Source Temporal Artery Scan 04/18/24 14:27 Pulse 86 04/18/24 14:27 Respiratory Rate 18 04/18/24 14:27 Respiratory Effort Normal, Non-Labored 04/18/24 14:29 Blood Pressure 134/89 04/18/24 14:27 Blood Pressure Position Sitting 04/18/24 14:27 Pulse Oximetry 96 04/18/24 14:27 Oxygen Delivery Method Room Air 04/18/24 14:27 Oxygen Flow Rate 0 04/18/24 14:27 Pain Level 6 04/18/24 14:27 Medical Decision Making Quality:SDOH Health Related Social Needs: No Data to Display PFSH All Active Problems (Updated 04/18/24 @ 15:28 by Sourav Jo MD) Corneal abrasion of left eye due to contact lens (Acute) Hypertension (Chronic) Pain, eye, right (Acute) Medical History Endometrial cancer stage III C Ovarian cancer stage IB Surgical History (Updated 08/07/18 @ 14:35 by [facility]) Oophrectomy, Both Abdominal hysterectomy Social History Smoking/Tobacco Use Status: Never Smoking risk assessment performed?: Yes Alcohol Intake: current Alcohol Intake frequency: holidays/special occasions only Drug use: Never Substance use type: does not use Do you feel safe at home: Yes Do you feel safe in your relationship?: Yes
--- NOTE | 2024-04-18 15:38 | NUR.NOTE ---
medication was not available from [facility]. [facility] called and stated pt needed to leave now to get to there in time to be seen. [facility] stated they would give all medications necessary for patient. Pt was discharged without medication.
== END 2024-04-18 15:41 | disposition home or self-care (01) ==
PROVIDERS: Emergency Provider Emergency Medicine; PCP Family Medicine
DX: H57.12 Ocular pain, left eye (principal); H18.822 Corneal disorder due to contact lens, left eye
CPT/HCPCS: 99283

== ENCOUNTER 2024-09-09 09:30 | Outpatient (REF) | payer OTHER, SELFPAY ==
--- OUTSIDE RECORDS SUMMARY | 2024-09-09 09:33 | XMS_ITS | Encounter Summary ---
Author Organization [facility] Address [address] [place] [address] Care Team Providers Care Carpet Layer Name Role Phone Unavailable Primary Care Provider Unavailabl e Encounter Details Date Type Department Care Team (Late st Contact Info) Description 06/06/2011 Results Only [facility] [phone] Mary Nunez MD [address] [place] [address] Social History Tobacco Use Types Packs/Day Years Used Date Smoking Tobacco: Never Assessed Comments Unknown Sex and Gender Information Value Date Recorded Sex Assigned at Not on file Legal Sex Female 17:29 EST Gender Identity Not on file Sexual Orientation Not on file documented as of this encounter Plan of Treatment Not on file documented as of this encounter Procedures Procedure Name Priority Date/Time Associated Diagnosis Comments PAP TEST- RESULT ONLY Routine 06/06/2011 0:00 EDT SURGICAL PATHOLOGY Routine 06/06/2011 0:00 EDT documented in this encounter Results * PAP TEST- RESULT ONLY (06/06/2011 0:00 EDT) Pathology Report: CYTOPATHOLOGY REPORT ? Reports generated via electronic interface contain original data; ? however they are lacking the format of the original report. ? Caution should be taken when reading/interpreti ng unformatted reports. ? Name: ? SUNDAY KATZ ? Accession #: ? [id number] ? : ? 1960 (Age: 50) ??F ?Collect Date: ? 06/06/2011 ? Location: ? [facility] ? Receive Date: ? 06/07/2011 ? Provider: MARY S LUDWIG MD ? Copy to: ? Final Report ? SPECIMEN ADEQUACY ? Satisfactory for Evaluation ? - transformation zone component present ? - scant squamous epithelial component secondary to excessive blood ? GENERAL CATEGORIZATION ? Malignant Neoplasm ? INTERPRETATION ? Adenocarcinoma, endometrial. ? Specimen/Source: ??Pap Test, Cervix/Endocervix, ThinPrep Imaging System with ? manual evaluation ? Document reviewed and electronically signed by: ? GLADWAXEL GEORGESMAN MBBCh ? Report ??Date: 06/08/2011 13:26 ? HPV with Pap Test ? Date Ordered: ? 06/08/2011 ? Status: ?? Signed Out ?Date Complete: ? 06/09/2011 ? By: ??System Interface ? Date Reported: ? 06/09/2011 ? Interpretation ? RESULT: Quantity not sufficient. ? Credit Issued ? [email or web address] ? Comments ? Document reviewed and electronically signed by: ? System Interface ? Report date: 06/09/2011 ? By the signature above, the attending physician certifies that he/she has ? personally conducted a gross and/or microscopic examination of the described ? specimens and rendered or confirmed the above diagnosis. ? End of Report ? [facility] 06/06/2011 06/07/2011 us Mary Nunez MD PATHOLOGY ORDERABLES Final Resu lt [facility] [address] [place] [address] * SURGICAL PATHOLOGY (06/06/2011 0:00 EDT) Pathology Report: SURGICAL PATHOLOGY REPORT ? Reports generated via electronic interface contain original data; ? however they are lacking the format of the original report. ? Caution should be taken when reading/interpreting unformatted reports. ? Name: ? BRILL, SUNDAY ? Accession #: ? [id number] ? : ? 1960 (Age: 50) ??F ? Collect Date: ? 06/06/2011 ? Location: ? [facility] ? Receive Date: ? 06/07/2011 ? Provider: MARY S LUDWIG MD ? Copy to: RIVERA CARMEN MD ? Final Pathologic Diagnosis: ? A. ?Cervix, polyp, biopsy: ? 1. ?Endocervical polyp with squamous metaplasia. ? B. ?Endocervix, curettage: ? 1. ?Adenocarcinoma, endometrioid type, FIGO grade II. ??See comment. ? C. ?Endometrium, biopsy: ? 1. ?Adenocarcinoma, endometrioid type, FIGO grade III. ? 2. ? Complex hyperplasia. ? Comment: ? The results of this report were communicated to Dr. Nunez's nurse on June 08, 2011, at 9:00 a.m. ??Director Of Product Marketing sections of this case have been reviewed at the intradepartmental consultation conference. ??(Dr. Pate)/carly ? Document reviewed and electronically signed by: ? ANAND PATE MD ? Report ??Date: 06/08/2011 14:55 ? By the signature above, the attending physician certifies that he/she has ? personally conducted a gross and/or microscopic examination of the described ? specimens and rendered or confirmed the above diagnosis. ? Specimen(s) Received: ? A. ?Cervical polyp ? B. ? ECC ? C. ? Endometrial bx ? Clinical History: ? A ??cervical polyp; B+C ??menorrhagia to anemia ? Gross Description: ? Received in formalin labelled Brking, Sunday and cervix polyp is a ? ames-pink 0.5 x 0.5 x 0.3 cm polypoid soft tissue. ??The specimen is entirely ? submitted as (A). ? Received in formalin labelled Brking, Sunday and ECC is 2.5 x 2.0 x 1.5 cm of ames-red, hemorrhagic soft tissue fragments. ??The specimen is entirely submitted as (B1) to (B3) following filtration. ? Received in formalin labelled Brill, Sunday and endometrial bx is 3.0 x 3.0 x 1.0 cm of multiple ames-pink to red, hemorrhagic, irregular soft tissue ? fragments. ??The specimen is entirely submitted as (C1) to (C4) following ? filtration. ??(M. Pulido)/ljn ? End of Report ? [facility] 06/06/2011 06/07/2011 8:1 9 EDT us Mary Nunez MD PATHOLOGY ORDERABLES Final Resu lt [facility] [address] [place] [address] documented in this encounter Visit Diagnoses Not on filedocumented in this encounter
--- OUTSIDE RECORDS SUMMARY | 2024-09-09 09:33 | XMS_ITS | Referral Summary ---
Author Organization [facility] Address [address] [place] [address] Care Team Providers Care Weld Fitter Name Role Phone Barry Hernandez MD Primary Care Provider [phone] Allergies No known active allergies Medications zolpidem (AMBIEN) 5 mg tablet Take 5 mg by mouth daily. Active lisinopril (PRINIVIL) 2.5 mg tablet Take 2.5 mg by mouth daily. Active diphenoxylate-at ropine (LOMOTIL) 2.5-0.025 mg/5 mL liquid Take 5 mg by mouth 4 times daily. Active Social History Tobacco Use Types Packs/Day Years Used Date Smoking Tobacco: Never Assessed Comments Unknown Sex and Gender Information Value Date Recorded Sex Assigned at Not on file Legal Sex Female 17:29 EST Gender Identity Not on file Sexual Orientation Not on file Plan of Treatment Not on file Insurance [facility] Care Teams Weld Fitter Relationship Specialty Start Date End Date Barry Hernandez MD [address] [place] [address] PCP - General 06/09/11
--- OUTSIDE RECORDS SUMMARY | 2024-09-09 09:33 | XMS_ITS | Clinical Summary ---
Author Organization [facility] Address [address] [place] [address] Care Team Providers Care Senior Premium Auditor Name Role Phone Barry Hernandez MD Primary Care Provider [phone] Allergies No known active allergies Medications zolpidem (AMBIEN) 5 mg tablet Take 5 mg by mouth daily. Active lisinopril (PRINIVIL) 2.5 mg tablet Take 2.5 mg by mouth daily. Active diphenoxylate-at ropine (LOMOTIL) 2.5-0.025 mg/5 mL liquid Take 5 mg by mouth 4 times daily. 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 History of blood transfusion Family History Medical History Relation Comments Cataract Father Diabetes Father Arthritis Maternal Aunt Cancer Maternal Aunt Cancer Mother Diabetes Mother Hypertension Mother Blindness Neg Hx Glaucoma Neg Hx Keratoconus Neg Hx Kidney Disease Neg Hx Macular Degeneration Neg Hx Retinal Detachment Neg Hx Retinitis Pigmentosa Neg Hx SLE Neg Hx Stroke Neg Hx Thyroid Disease Neg Hx Tuberculosis Neg Hx Relation Status Comments Father Maternal Aunt Mother Social History Tobacco Use Types Packs/Day Years Used Date Smoking Tobacco: Never Assessed Comments Unknown Sex and Gender Information Value Date Recorded Sex Assigned at Not on file Legal Sex Female 17:29 EST Gender Identity Not on file Sexual Orientation Not on file Obstetrics History Plan of Treatment Health Maintenance Due Date Last Done Comments Hepatitis C Screen 1960 COVID-19 Vaccine (2023-25 season) 2024 RSV Immunization ( o r 60+ Years) (1 - 1-dose 75+ series) 2037 Insurance [facility] Care Teams Senior Premium Auditor Relationship Specialty Start Date End Date Barry Hernandez MD [address] [place] [address] PCP - General 06/09/11
--- OUTSIDE RECORDS SUMMARY | 2024-09-09 09:33 | XMS_ITS | Encounter Summary ---
Author Organization [facility] Address [address] [place] [address] Care Team Providers Care Telephone Plant Power Operator Name Role Phone Barry Hernandez MD Primary Care Provider [phone] Reason for Visit * Reason Comments Eye Problem * Consult, Test and Treat (Urgent) - Receiving Office to Obtain Authorization Specialty Diagnoses / Procedures Referred By Anyi palma Referred To Contact Diagnoses Vitreous degeneration, right eye Jami Esquivel, OD [address] [place] [address] Phone: tel: fax: [facility] - [facility] [address] [place] [address] Phone: tel: fax: Referral ID Status Reason Start Date Expiration Date Visits Requested Visits Authorized [id number] Receiving Office to Obtain Authorization 1 1 Encounter Details Date Type Department Care Team (Late st Contact Info) Description 06/21/2022 10:30 EDT Office Visit [facility] - [address] [place] [address] Cal Mascorro MD [address] [facility], [facility] [address] [place] [address] Social History Tobacco Use Types Packs/Day Years Used Date Smoking Tobacco: Never Assessed Comments Unknown Sex and Gender Information Value Date Recorded Sex Assigned at Not on file Legal Sex Female 17:29 EST Gender Identity Not on file Sexual Orientation Not on file documented as of this encounter Progress Notes * Cal Mascorro MD - 06/21/2022 1030 EDT Chief Complaint Patient presents with ??? Eye Problem Comments ERV- PVD with pre retinal heme right eye HPI Location: Right eye Pain: 0 - No pain Quality: Blurry Severity: Mild Duration: Days Timing: Constant Lasts: Continuous Context: ERV- PVD with pre retinal heme right eye Modifying factors: Associated Signs & Symptoms: Flashes and floaters right eye- spider web likex x 4 days. Vison stable both eyes- denies loss of peripheral vision. Slight FIELDS. No pain No F/F left eye Visual Fluctuations: Attestation: The above HPI has been reviewed by the Attending PhysicianNew flashes and floaters right eye since the weekened. No pain no visual loss Base Eye Exam Visual Acuity (Snellen - Linear) Right Left Dist cc 20/25 -2 20/25 Correction: Glasses Tonometry (Applanation, 10:56) Right Left Pressure 20 20 Pupils Pupils Right PERRL Left PERRL Visual Hannah Right Left Full Full Extraocular Movement Right Left Full Full Neuro/Psych Oriented x3: Yes Mood/Affect: Normal Dilation Both eyes: Tropicamide 1%, Phenylephrine 2.5% @ 10:56 Slit Lamp and Fundus Exam Slit Lamp Exam Right Left Lids/Lashes Normal Normal Conjunctiva/Sclera White and quiet White and quiet Cornea Clear Clear Anterior Chamber Deep and quiet Deep and quiet Iris Round and reactive Round and reactive Lens Nuclear sclerosis Nuclear sclerosis Vitreous PVD Normal Fundus Exam Right Left Disc Healthy Rim C/D Ratio 0.3 0.3 Macula Normal Normal Vessels Normal Normal Periphery line of inferior pre retinal heme, premacular/prepapillary pre retinal heme, tiny fully operculated hole at 7 o'clock, 360SD exam pig clump, white without pressure at 10 o'clock Please refer to large retinal drawing. IMPRESSION: 1. PVD (posterior vitreous detachment), right eye 2. Retinal hole of right eye 3. Nuclear sclerosis of both eyes PLAN: Posterior vitreous detachment right eye With pre retinal heme With small fully operculated hole not requiring treatment Retinal detachment symptoms were reviewed with the patient. The patient was instructed to return immediately for flashing lights, floaters in the vision, or curtaining of the vision. No restrictions Follow Fully operculated retinal hole left eye No tx required Retinal detachment Follow Nuclear sclerotic cataract both eyes Not visually significant follow Return in about 6 weeks (around 08/02/2022), or if symptoms worsen or fail to improve. I, Dr. Cal Mascorro, have performed my own HPI and reviewed the tech's ROS. I have also reviewed the patient's past medical, family, social and surgical history, as well as the patient's medications, allergies, and problem list. I am scribing for Dr. Cal Mascorro MD while he is personally performing the service. Emily LICEA (Scribe) documented in this encounter Plan of Treatment Not on file documented as of this encounter Visit Diagnoses Diagnosis PVD (posterior vitreous detachment), right eye- Primary Vitreous degeneration Retinal hole of right eye Nuclear sclerosis of both eyes documented in this encounter Historical Medications * This list may reflect changes made after this encounter. diphenoxylate-atro pine (LOMOTIL) 2.5-0.025 mg/5 mL liquid Take 5 mg by mouth 4 times daily. lisinopril (PRINIVIL) 2.5 mg tablet Take 2.5 mg by mouth daily. zolpidem (AMBIEN) 5 mg tablet Take 5 mg by mouth daily. added in this encounter Eye Exam Visual Acuity (Snellen - Linear) Right eye Left eye Dist cc 20/25 -2 20/25 Correction: Glasses Tonometry (Applanation, 10:56) Right eye Left eye Pressure 20 20 Pupils Pupils Right eye PERRL Left eye PERRL Visual Hannah Right eye Left eye Full Full Extraocular Movement Right eye Left eye Full Full Neuro/Psych Oriented x3: Yes Mood/Affect: Normal Dilation Both eyes: Tropicamide 1%, P henylephrine 2.5% @ 10:56 Slit Lamp Exam Right eye Left eye Lids/Lashes Normal Normal Conjunctiva/Sclera White and quiet White and jane et Cornea Clear Clear Anterior Chamber Deep and quiet Deep and quiet Iris Round and reactive Round and kemi ctive Lens Nuclear sclerosis Nuclear sclero sis Vitreous PVD Normal Fundus Exam Right eye Left eye Disc Healthy Rim C/D Ratio 0.3 0.3 Macula Normal Normal Vessels Normal Normal Periphery line of inferior pre retinal heme, premacular/prepapillary pre retinal heme, tiny fully operculated hole at 7 o'clock, 360SD exam pig clump, white without pressure at 10 o'clock Care Teams Telephone Plant Power Operator Relationship Specialty Start Date End Date Barry Hernandez MD [address] [place] [address] PCP - General 06/09/11 documented as of this encounter
--- OUTSIDE RECORDS SUMMARY | 2024-09-09 09:33 | XMS_ITS | Encounter Summary ---
Author Organization [facility] Address [address] [place] [address] Care Team Providers Care Medical Support Assistant Name Role Phone Barry Hernandez MD Primary Care Provider [phone] Reason for Visit * Reason Comments Follow-up Encounter Details Date Type Department Care Team (Late st Contact Info) Description 07/27/2022 9:30 EDT Office Visit [facility] - [address] [address] Cal Mascorro MD [address] [facility], [facility] [address] [place] [address] Social History Tobacco Use Types Packs/Day Years Used Date Smoking Tobacco: Never Assessed Comments Unknown Sex and Gender Information Value Date Recorded Sex Assigned at Not on file Legal Sex Female 17:29 EST Gender Identity Not on file Sexual Orientation Not on file documented as of this encounter Progress Notes * Cal Mascorro MD - 07/27/2022 0930 EDT Chief Complaint Patient presents with ??? Follow-up Comments 6 week follow PVD right eye. HPI Location: Right eye Pain: 0 - No pain Quality: Blurry Severity: Mild Duration: Weeks Timing: Constant Lasts: Continuous Context: 6 week follow PVD right eye, Modifying factors: Operculated retinal hole right eye, high myopia and NSC both eyes. Associated Signs & Symptoms: Vision is stable. Still has the same floaters but no more flashes in the right eye. Left eye is stable, no new floater or flashes. No eye pain Visual Fluctuations: Floaters Attestation: The above HPI has been reviewed by the Attending Physician Base Eye Exam Visual Acuity (Snellen - Linear) Right Left Dist cc 20/25 -1 20/25 +1 Correction: Glasses Tonometry (Applanation, 9:50) Right Left Pressure 20 18 Neuro/Psych Oriented x3: Yes Mood/Affect: Normal Dilation Right eye: Tropicamide 1%, Phenylephrine 2.5% @ 9:50 Slit Lamp and Fundus Exam Slit Lamp Exam Right Left Lids/Lashes Normal Normal Conjunctiva/Sclera White and quiet White and quiet Cornea Clear Clear Anterior Chamber Deep and quiet Deep and quiet Iris Dilated Dilated Lens Nuclear sclerosis Nuclear sclerosis Vitreous Posterior vitreous detachment Fundus Exam Right Left Disc Healthy Rim C/D Ratio 0.3 Macula Normal Vessels Normal Periphery Retina attached with pigment clump at 4, tiny fully operculated retinal hole at 7 and white without pressure temporally. Please refer to large retinal drawing. IMAGING: IMPRESSION: 1. PVD (posterior vitreous detachment), right eye 2. Retinal hole of right eye 3. Nuclear sclerosis of both eyes PLAN: Posterior vitreous detachment right eye Resolved pre-retinal hemorrhage Stable tiny fully operculated hole, no treatment required No new holes, tear or breaks seen on scleral depressed exam Retinal detachment symptoms were reviewed with the patient. The patient was instructed to return immediately for flashing lights, floaters in the vision, or curtaining of the vision. Fully operculated hole right eye No treatment required Retinal detachment precautions Monitor Nuclear sclerosis both eyes Not visually significant No surgical intervention needed att this time Follow up with Retina PRN Continue general eye lerma with Dr. Cabral and will send over our findings from today's visit I, Dr. Cal Mascorro, have performed my own HPI and reviewed the tech's ROS. I have also reviewed the patient's past medical, family, social and surgical history, as well as the patient's medications, allergies, and problem list. I am scribing for Dr. Cal Mascorro MD while he is personally performing the service. TASHIA ARAYA (Scribe) documented in this encounter Plan of Treatment Not on file documented as of this encounter Visit Diagnoses Diagnosis PVD (posterior vitreous detachment), right eye- Primary Vitreous degeneration Retinal hole of right eye Nuclear sclerosis of both eyes documented in this encounter Eye Exam Visual Acuity (Snellen - Linear) Right eye Left eye Dist cc 20/25 -1 20/25 +1 Correction: Glasses Tonometry (Applanation, 9:50) Right eye Left eye Pressure 20 18 Neuro/Psych Oriented x3: Yes Mood/Affect: Normal Dilation Right eye: Tropicamide 1%, P henylephrine 2.5% @ 9:50 Slit Lamp Exam Right eye Left eye Lids/Lashes Normal Normal Conjunctiva/Sclera White and quiet White and jane et Cornea Clear Clear Anterior Chamber Deep and quiet Deep and quiet Iris Dilated Dilated Lens Nuclear sclerosis Nuclear sclero sis Vitreous Posterior vitreous detachment Fundus Exam Right eye Left eye Disc Healthy Rim C/D Ratio 0.3 Macula Normal Vessels Normal Periphery Retina attached with pigment clump at 4, tiny fully operculated retinal hole at 7 and white without pressure temporally. Care Teams Medical Support Assistant Relationship Specialty Start Date End Date Barry Hernandez MD [address] [place] [address] PCP - General 06/09/11 documented as of this encounter
--- OUTSIDE RECORDS SUMMARY | 2024-09-09 09:33 | XMS_ITS | Encounter Summary ---
Author Organization [facility] Address [address] [place] [address] Care Team Providers Care Portrait Consultant Name Role Phone Unavailable Primary Care Provider Unavailabl e Encounter Details Date Type Department Care Team (Late st Contact Info) Description 12/12/2001 Results Only [facility] [address] [place] [address] Sourav Rizvi MD [address] [place] [address] Social History Tobacco Use Types Packs/Day Years [...] Procedure Name Priority Date/Time Associated Diagnosis Comments SURGICAL PATHOLOGY Routine 12/12/2001 0:00 EST documented in this encounter Results * SURGICAL PATHOLOGY (12/12/2001 0:00 EST) Pathology Report: SURGICAL PATHOLOGY REPORT Reports generated via electronic interface contain original data; however they are lacking the format of the original report. Caution should be taken when reading/interpreti ng unformatted reports. Name: ? SUNDAY KATZ ? Accession #: ? [id number] ? : ? 1960 (Age: 41) ??F ? Collect Date: ? 12/12/2001 ? Location: ? [facility] ? Receive Date: ? 12/13/2001 ? Provider: JESUS RIZVI MD Copy to: RIVERA RODGERS MD ? Final Pathologic Diagnosis: ? Gallbladder, cholecystectomy: 1. ?Chronic cholecystitis with fibrosis. 2. ?Cholelithiasis. Comment: ? Deeper levels have been examined. This case was reviewed at the intradepartmental consultation conference. ??(Dr. Garcia)/[facility] Document reviewed and electronically signed by: Chyna Zhu MD Report ??Date: 12/20/2001 06:36 By the signature above, the attending physician certifies that he/she has personally conducted a gross and/or microscopic examination of the described specimens and rendered or confirmed the above diagnosis. Specimen(s) Received: ? Gallbladder Clinical History: ? Cholelithiasis Gross Description: ? Received in formalin labelled Brill and gallbladder is the product of an intact cholecystectomy measuring 10.2 cm in length, 4.3 cm in diameter, and is surfaced by a ames, glistening serosa. ??Upon sectioning, the mucosa is ames-pink, smooth to granular, and the underlying wall averages 0.3 cm in thickness. ??The lumen contains two yellow-mulberry choleliths measuring 1.6 in greatest dimension. ??There is scant amount of slightly mucoid bile. The cystic duct measures 0.3 cm in length, 0.2 cm in diameter, and is not grossly patent. The cystic duct node is not grossly identified. ??Three traveling representative sections, including the cystic duct margin, are submitted in one cassette. ??(Kenn De Guzman)/[facility] End of Report [facility] 12/12/2001 12/13/2001 14: 29 EST us Sourav Rizvi MD PATHOLOGY ORDERABLES Final Res ult Performing Organization Address City/State/[facility] Co de Phone Number [facility] [address] [place] [address] documented in this encounter Visit Diagnoses Not on filedocumented in this encounter
--- OUTSIDE RECORDS SUMMARY | 2024-09-09 09:34 | XMS_ITS | Encounter Summary ---
Author Organization [facility] Address [facility] [place] [address] Care Team Providers Care Associate Professor Of Musicology Name Role Phone Barry Hernandez MD Primary Care Provider [phone] Reason for Visit * Reason Comments Established 6 month check Encounter Details Date Type Department Care Team (Late st Contact Info) Description 09/15/2015 12:30 PM EST Office Visit [place] [address] Kelsey Sandoval, SET STA[employer]TER [facility] [place] [address] Endometrial cancer; Vulvar lesion Social History Tobacco Use Types Packs/Day Years Used Date Smoking Tobacco: Never Smokeless Tobacco: Never Alcohol Use Standard Drinks/Week Comments Yes 0 (1 standard drink = 0.6 oz pur e alcohol) very seldom; once a year Sex and Gender Information Value Date Recorded Sex Assigned at Not on file Gender Identity Not on file Sexual Orientation Not on file documented as of this encounter Last Filed Vital Signs Vital Sign Reading Time Taken Comments Blood Pressure - - Pulse - - Temperature - - Respiratory Rate - - Oxygen Saturation - - Inhaled Oxygen Concentration - - Weight 72.6 kg (160 lb 0.9 oz) 09/15/2015 1:03 P M EST Height - - Body Mass Index 28.97 01/05/2015 2:36 PM EDT documented in this encounter Progress Notes * Kelsey Sandoval APRN - 09/15/2015 12:38 PM EST Division [place] [address] Reason For Visit: Post Treatment Surveillance Exam History of Present Illness: Farzana Garcia is a 55 y.o. woman who presents today for her surveillance exam. She has a hx of stage IIIC1, FIGO grade 3 adenocarcinoma of endometrium - s/p robotic TLH/BSO, pelvic + paraaortic lymphadenectomy 06/27/11 - final path stage IIIC1, bilateral ovarian involvement associated w/endometriosis - felt to be endometrial primaries. 1 L pelvic nodes positive, 0/ Rpelvic nodes, no leroy-aortic nodes identified in paraaortic specimen. March 2012 she completed sandwich therapy of carboplatin/paclitaxel chemotherapy x 3 cycles, RT and an additional 3 cycles of carboplatin/paclitaxel. (chemo done in [place], [place]) Interim Health: Feeling pretty good. No new medical issues, surgeries or hospitalizations since her last visit 02/2015. No questions/concerns today. ROS: No fever, chills, nausea, vomiting, diarrhea No Pelvic/abdominal pain or bloating No Bowel changes. Continues to have loose stool 2x day. Will take imodium prn. No incontinence. No bladder changes or concerns. No hematuria, dysuria, urgency or frequency. Energy level: better No Vaginal bleeding or discharge No Lower extremity edema Weight is stable Reports appetite is good No SOB, cough or chest pain Sexual function: sexually active with decreased frequency d/t partner's medical issues, no discomfort. Health Habits: Tobacco:non-smoker ETOH: 1-3 drinks a month Exercise: No formal exercise. Health Maintenance: Mammogram: Doesn't recall, has them at [facility], ? over due. Colonoscopy: 03/2015, repeat 5 years Social History: Lives with her boyfriend, though things are not going well- she is looking for her own place. 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 2 adult children Patient Active Problem List Diagnosis Code ??? Endometrial cancer C54.1 ??? Brain aneurysm I67.1 ??? Diverticulitis K57.92 Past Surgical History Procedure Laterality Date ??? Brain aneurysm surgery 2000 ? ? Pro laparoscopy w tot hysterectuterus <=250 gram w tube/ovary 06/27/2011 LAPAROSCOPY,TOTAL HYST, UTERUS<250GM, SYDNEY TYBE &/OR OVARY, ROBOTIC ASSIST performed by DECLAN POWERS at [facility] MAIN OR ??? Pro lap, pelvic lymphadenectomy/bx 06/27/2011 LAPAROSCOPY,W\BILATERAL TOTAL PELVIC LYMPHADENECTOMY, PERIAORTIC LYMPH NODE SAMPLING, ROBOTIC performed by DECLAN POWERS at [facility] MAIN OR ??? Cholecystectomy 2001 For gallstones Allergies Allergen Reactions ??? Red Blood Cells Other (See Comments) Antibodies-Difficult to Crossmatch ??? Dilaudid [Hydromorphone] Nausea And Vomiting Current Outpatient Prescriptions on File Prior to Visit Medication Sig Dispense Refill ??? zolpidem (AMBIEN) 5 mg tablet Take 5 mg by mouth nightly as needed. ??? valACYclovir (VALTREX) 500 mg tablet Take 500 mg by mouth daily. No current facility-administered medications on file prior to visit. Vital Signs: Wt 72.6 kg (160 lb 0.9 oz) PHYSICAL EXAM: Gen: Pleasant, NAD, Alert, appears well HEENT: No clavicular adenopathy or thyromegaly Lungs: clear to auscultation Cor: heart RRR without appreciable murmurs. Abdomen: soft, not distended, not tender, no masses palpable, no appreciable inguinal adenopathy Lower Extremities: without edema Pelvic exam: external female genitalia: 3-4 mm area of raised, grainy, white epithelium at the posterior fourchette/perineum at 5 o'clock. Speculum exam: Vagina with atrophic changes and mild erythema/petechiae (post radiation changes). Bimanual exam: cuff with scarring, no appreciable masses, nodularity or tenderness. Uterus and adnexae surgically absent. Rectovaginal exam: no appreciable massesor tenderness. Vulvar biopsy:Procedure for vulvar biopsy discussed with patient. Verbal consent obtained. Lesion was cleansed with betadine x 3, f/b injection of 1% lidocaine. 3.5 mm vulvar biopsy was obtained without difficulty. Bleeding was controlled with silver nitrate stick. Specimen placed in container and sent to pathology. ASSESSMENT/PLAN: Farzana Garcia is a 55 y.o. woman who is 3.5 years post treatment of stage IIIC1, FIGO grade 3 adenocarcinoma of endometrium with bilateral ovarian involvement . She has no evidence of recurrent disease. We reviewed signs and symptoms of recurrent disease. Vulvar lesion: Biopsy taken and sent to pathology. Will f/u once results are available. She will RTC in 6 months per current surveillance guidelines, (Current Society of Gynecologic Oncologists (SGO) Surveillance Guidelines: Posttreatment surveillance and diagnosis of recurrence in women with gynecologic malignancies: Society of Gynecologic Oncologists recommendations (Forrest, et al; AJOG, March 2011). She will call/rtc sooner prn with questions/concerns. Kelsey Sandoval APRN documented in this encounter Plan of Treatment Not on file documented as of this encounter Procedures Procedure Name Priority Date/Time Associated Diagnosis Comments SPECIMEN TO PATHOLOGY (NON-OR) Routine 09/15/2015 1:38 PM EST Endometrial cancer SURGICAL PATHOLOGY REPORT Routine 09/15/2015 1:38 PM EST documented in this encounter Results * Surgical Pathology Report (09/15/2015 1:38 PM EST) Final Diagnosis The signing pathologist has (i) examined the relevant preparation(s) for the specimen(s) and (ii) rendered or confirmed the diagnosis(es). Accession Number: [id number] ?Location: . ?Surgical Pathology DIAGNOSIS Vulvar biopsy: Condyloma. CR-0 09/17/15 LJT 09/20/15 Verified by: ? Evan LUNSFORD, Poonam Benavidez ?Pathologist ?(Electronic Signature) The attending pathologist whose signature appears on this report has reviewed all diagnostic slides and has edited the gross and/or microscopic portion of the report in rendering the final pathologic diagnosis. DISCUSSION Multiple step levels were examined. CLINICAL INFORMATION Specimen Submitted: A - Vulvar biopsy Clinical History: Raised white epithelium Clinical Diagnosis: Rule out RICHAR SPECIMEN PROCESSING A - Labeled/Fixativ e: Patient demographics, formalin. Quantity/Size: Single, 0.3 x 0.3 x 0.2 cm. Tissue Description: Soft, ames-pink tissue. Sections/Proces sing: (T1) ??kef 09/20/2015 9:53 AM EST [facility] VULVAL STRUCTURE / Unknown 09/15/2015 1:38 PM EST 09/15/2015 1:38 PM EST Kelsey Sandoval APRN PATHOLOGY/CYTOLO GY ORDERABLES [facility] [place] [address] * Specimen to Pathology (NON-OR) (09/15/2015 1:38 PM EST) AP Specimen 09/15/2015 1:38 PM EST 09/15/2015 1:38 PM EST Narrative [facility] - 09/15/2015 1:38 PM EST Specimen requisition ordered. ??Separate Pathology report to follow Sissy Parisi MD PATHOLOGY/CYTOLOGY O RDERABLES Performing Organization Address City/[facility]/ZIP Co de Phone Number [facility] documented in this encounter Visit Diagnoses Diagnosis Endometrial cancer Malignant neoplasm of corpus uteri, except isthmus Vulvar lesion Other specified noninflammatory disorder of vulva and perineum documented in this encounter Care Teams Associate Professor Of Musicology Relationship Specialty Start Date End Date Barry Hernandez MD [address] [place] [address] PCP - General 11/26/14 03/05/23 documented as of this encounter
--- OUTSIDE RECORDS SUMMARY | 2024-09-09 09:34 | XMS_ITS | Encounter Summary ---
Author Organization [facility] [place] [address] Care Team Providers Care Seat Mender Name Role Phone Barry Hernandez MD Primary Care Provider [phone] Encounter Details Date Type Department Care Team (Late st Contact Info) Description 06/17/2020 Telephone [place] [address] Tri Patel MD [facility] OBSTETRICS [place] [address] Social History Tobacco Use Types Packs/Day Years [...] on file documented as of this encounter Miscellaneous Notes * Telephone Encounter - Tri Patel MD - 06/17/2020 3:00 PM EDT Tel call: pathology benign. Patient reassured. documented in this encounter Plan of Treatment Not on file documented as of this encounter Visit Diagnoses Not on filedocumented in this encounter Care Teams Seat Mender Relationship Specialty Start Date End Date Barry Hernandez MD [address] [place] [address] PCP - General 11/26/14 03/05/23 documented as of this encounter
--- OUTSIDE RECORDS SUMMARY | 2024-09-09 09:34 | XMS_ITS | Encounter Summary ---
Author Organization [facility] Address [facility] [address] Care Team Providers Care Head Of Merchandise Buying Name Role Phone Ricky Casieluis angel Miranda APRN Primary Care Provider [phone] Encounter Details Date Type Department Care Team (Latest Contact Info) Description 10/10/2012 11:25 AM EST - 10/10/2012 11:59 PM [facility] Hospital Encounter [place] [address] Judy Horton MD [facility] [place] [address] Discharge Disposition: Home Social History Tobacco Use Types Packs/Day Years [...] on file documented as of this encounter Medications at Time of Discharge Medication Sig Dispensed Refills Start Date End Date HYDROmorphone (DILAUDID) 2 mg tablet Take 1 tablet by mouth every 3 hours as needed for Pain. 40 tablet 0 10/10/2012 10/18/2012 cephALEXin (KEFLEX) 500 mg capsule Take 1 capsule by mouth 3 times daily. 30 capsule 0 10/10/2012 12/19/2012 ESZOPICLONE (LUNESTA ORAL) Take 5 mg by mouth daily. 06/19/2013 documented as of this encounter Miscellaneous Notes * Miscellaneous - Provider, Scanning - 10/17/2012 10:44 AM EST documented in this encounter Plan of Treatment Not on file documented as of this encounter Visit Diagnoses Not on filedocumented in this encounter Care Teams Head Of Merchandise Buying Relationship Specialty Start Date End Date Casie García APRN PCP - General 01/15/12 11/25/14 documented as of this encounter
--- OUTSIDE RECORDS SUMMARY | 2024-09-09 09:34 | XMS_ITS | Encounter Summary ---
Author Organization [facility] [place] [address] Care Team Providers Care Clinical Trials Assistant Name Role Phone Casie García APRN Primary Care Provider [phone] Reason for Visit * Reason Comments Endometrial Cancer Encounter Details Date Type Department Care Team (Late st Contact Info) Description 12/19/2012 3:00 PM EST Follow-Up Hematology Oncology at [address] [id number] Augustus Grimes MD [address] [place] [address] Endometrial carcinoma (Primary Dx) Discharge Disposition: Home Social History Tobacco Use [...] Sign Reading Time Taken Comments Blood Pressure 112/74 12/19/2012 2:57 PM EST Pulse 81 12/19/2012 2:57 PM EST Temperature 37 ??C (98.6 ??F) 12/19/2012 2:57 PM EST Respiratory Rate 18 12/19/2012 2:57 PM EST Oxygen Saturation 100% 12/19/2012 2:57 PM EST Inhaled Oxygen Concentration - - Weight 59.4 kg (131 lb) 12/19/2012 2:57 PM EST Height 157.4 cm (5' 1.97) 12/19/2012 2:57 PM ES T Body Mass Index 23.98 12/19/2012 2:57 PM EST documented in this encounter Progress Notes * Augustus Grimes MD - 12/19/2012 4:23 PM EST Diagnosis: Adenocarcinoma of the endometrium, endometrioid type with squamous differentiation FIGO grade 3 with tumor 4.8 cm in diameter and 50% invasion of the myometrium. Status post hysterectomy and bilateral salpingo-oophorectomy and total pelvic lymphadenectomy both ovaries showed involvement with adenocarcinoma representing either metastatic spread or synchronous primary's (tumor was better differentiated in the ovaries than in the uterus) she had one of 5 left pelvic nodes involved cervix was free of tumor. S/P chemotherapy and radiation therapy completed February 2012. 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 Fortunately they confirm the infection and things have gotten better on acyclovir. She is currently on her suppressive dosage and not having any lesions or symptoms. She feels fine otherwise. Review systems is negative.she will be seeing radiation therapy for followup next week and also has followup appointments with GI at [facility] and oncology. Past medical history and social history are reviewed and unchanged from when I saw her 8 weeks ago. Review of Systems Constitutional: Negative for fever, chills, activity change, fatigue and unexpected weight change. HENT: Negative for sore throat, mouth sores and trouble swallowing. Eyes: Negative. Respiratory: Negative for cough, shortness of breath and wheezing. Cardiovascular: Negative for chest pain, palpitations and leg swelling. Gastrointestinal: Positive for nausea, vomiting, abdominal pain, diarrhea, but no constipation or abdominal distention. Genitourinary: Negative for dysuria and difficulty urinating. Musculoskeletal: Negative. Skin: Negative. Neurological: Negative. Hematological: Negative for adenopathy. Head: Normocephalic, without obvious abnormality, atraumatic Eyes: PERRL, conjunctiva/corneas clear, EOM's intact, fundi benign, both eyes Ears: Normal TM's and external ear canals, both ears Nose: Nares normal, septum midline, mucosa normal, no drainage or sinus tenderness Throat: Lips, mucosa, and tongue normal; teeth and gums normal.I really do not see any significant gum disease or evidence for active infection. Neck: Supple, symmetrical, trachea midline, no adenopathy, thyroid: not enlarged, symmetric, no tenderness/mass/nodules, no carotid bruit or JVD Back: Symmetric, no curvature, ROM normal, no CVA tenderness Lungs: Clear to auscultation bilaterally, respirations unlabored Chest Wall: No tenderness or deformity Heart: Regular rate and rhythm, S1, S2 normal, no murmur, rub or gallop Abdomen: Soft, non-tender, bowel sounds active all four quadrants, no masses, no organomegaly. She has some small well-healed incisions in her upper abdomen from her robot assisted surgery. Extremities: Extremities normal, atraumatic, no cyanosis or edema Pulses: 2+ and symmetric Skin: Skin color, texture, turgor normal, no rashes or lesions Lymph nodes: Cervical, supraclavicular, and axillary nodes normal Neurologic: Normal CBC continues to show somewhat depressed blood counts from her therapy. White count is 2.03 neutrophil count 1.2 hemoglobin of 11.4 and platelet count 125. CMP is completely normal with creatinine of1.0 and normal of her tests and electrolytes. Assessment/Plan: Farzana is doing well overall. She has no evidence recurrent cancer at this time. Her blood counts are a bit lower than one would like to see at this point, however she did have both combined chemotherapy and radiation therapy. Considering this I think her counts are probably appropriate and should slowly improve. Her hemoglobin is continuing to come up and that's good to see. We'll see her back in6 months time with a CBC and CMP. She is also being followed closely by [facility] and radiation therapy in the interim.She knows to call if she has other issues. documented in this encounter Procedure Notes * Provider, Scanning - 12/19/2012 2:48 PM ESTAssociated Order(s): SCAN DOC: LAB documented in this encounter Plan of Treatment Not on file documented as of this encounter Procedures Procedure Name Priority Date/Time Associated Diagnosis Comments LAB SCAN 12/19/2012 2:48 PM EST documented in this encounter Results * SCAN DOC: LAB (12/19/2012 2:48 PM EST) Narrative 12/19/2012 2:48 PM EST Procedure Note Provider, Scanning - 12/19/2012 2:48 PM EST Scanning Provider MEDIA MGR SCAN EXT O RDR/RSLT documented in this encounter Visit Diagnoses Diagnosis Endometrial carcinoma- Primary Malignant neoplasm of corpus uteri, except isthmus documented in this encounter Care Teams Clinical Trials Assistant Relationship Specialty Start Date End Date Casie García APRN PCP - General 01/15/12 11/25/14 documented as of this encounter
--- OUTSIDE RECORDS SUMMARY | 2024-09-09 09:34 | XMS_ITS | Encounter Summary ---
Author Organization [facility] Address [facility] [place] [address] Care Team Providers Care Collar Packer Name Role Phone Barry Hernandez MD Primary Care Provider [phone] Reason for Visit * Reason Onset Date Comments Results 09/21/2015 Encounter Details Date Type Department Care Team (Late st Contact Info) Description 09/21/2015 Telephone [place] [address] Kelsey Sandoval APRN [facility] [place] [address] Results Social History Tobacco Use Types Packs/Day Years [...] encounter Miscellaneous Notes * Telephone Encounter - Kelsey Sandoval APRN - 09/21/2015 4:12 PM EST TC to patient to review recent vulvar biopsy which showed condyloma. Discussion re: treatment with aldara vs. continued observation. She would like continued observation for now. She will continue tomonitor and RTC in 6 months as scheduled, she will RTC sooner with questions/concerns. documented in this encounter Plan of Treatment Not on file documented as of this encounter Visit Diagnoses Not on filedocumented in this encounter Care Teams Collar Packer Relationship Specialty Start Date End Date Barry Hernandez MD [address] [place] [address] PCP - General 11/26/14 03/05/23 documented as of this encounter
--- OUTSIDE RECORDS SUMMARY | 2024-09-09 09:34 | XMS_ITS | Encounter Summary ---
Author Organization [facility] [place] [address] Care Team Providers Care Skiver Uppers Or Linings Name Role Phone García Casieluis angel Miranda APRN Primary Care Provider [phone] Reason for Visit * Reason Onset Date Comments Pain 10/11/2012 Pain medication not effective Encounter Details Date Type Department Care Team (Late st Contact Info) Description 10/11/2012 Telephone [place] [address] Judy Millard MD [facility] [place] [address] Pain (Pain medication not effective) Social History Tobacco Use Types Packs/Day Years [...] encounter Miscellaneous Notes * Telephone Encounter - Judy Millard MD - 10/11/2012 12:16 PM EST Returned patient's call as requested. No answer on home phone. Requested patient to call back or will need to talk to design verification engineer physician. * Telephone Encounter - Georgie Davies RN - 10/11/2012 10:38 AM EST TC from pt = Seen by Veronika Duvall APRN on 10/10/12. Given Dilaudid 2 mg PO every 3 hours. It'snot even touching it Pt called to request another pain medication. Still having abdominal pain even though taking Dilaudid as ordered. Pt taking Keflex as ordered. Scheduled to return to clinic on 10/18/[address] Millard. Pt's request communicated to Dr Millard via In Basket. documented in this encounter Plan of Treatment Not on file documented as of this encounter Visit Diagnoses Not on filedocumented in this encounter Care Teams Skiver Uppers Or Linings Relationship Specialty Start Date End Date Casie García APRN PCP - General 01/15/12 11/25/14 documented as of this encounter
--- OUTSIDE RECORDS SUMMARY | 2024-09-09 09:34 | XMS_ITS | Encounter Summary ---
Author Organization [facility] Address [facility] [address] Care Team Providers Care Content Coordinator Name Role Phone Barry Hernandez MD Primary Care Provider [phone] Reason for Visit * Reason Comments Established Encounter Details Date Type Department Care Team (Late st Contact Info) Description 05/21/2018 3:30 PM EDT Office Visit [place] [address] Kelsey Sandoval, MILL RECORDER [facility] [address] Endometrial cancer Social History Tobacco Use Types Packs/Day Years [...] Sign Reading Time Taken Comments Blood Pressure 120/79 05/21/2018 3:42 PM EDT Pulse 101 05/21/2018 3:42 PM EDT Temperature 36.4 ??C (97.6 ??F) 05/21/2018 3:42 PM ED T Respiratory Rate - - Oxygen Saturation 99% 05/21/2018 3:42 PM EDT Inhaled Oxygen Concentration - - Weight 76.7 kg (169 lb 1.5 oz) 05/21/2018 3:42 P M EDT Height 158.3 cm (5' 2.32) 05/21/2018 3:42 PM ED T Body Mass Index 30.61 05/21/2018 3:42 PM EDT documented in this encounter Progress Notes * Kelsey Sandoval, MILL RECORDER - 05/21/2018 3:30 PM EDT Division [place] [address] Reason For Visit: Post Treatment Surveillance Exam History of Present Illness: Farzana Garcia is a 57 y.o. woman who presents today for her surveillance exam. She has a hx of stage IIIC1, FIGO grade 3 adenocarcinoma of endometrium - s/p robotic TLH/BSO, pelvic + paraaortic lymphadenectomy 06/27/11 - final path stage IIIC1, bilateral ovarian involvement associated w/endometriosis - felt to be endometrial primaries. 1/5 L pelvic nodes positive, 0/11 Rpelvic nodes, no leroy-aortic nodes identified in paraaortic specimen. March 2012 she completed sandwich therapy of carboplatin/paclitaxel chemotherapy x 3 cycles, RT and an additional 3 cycles of carboplatin/paclitaxel. (chemo done in [place], [place]) Interim Health: Feeling good. No new medical issues, surgeries or hospitalizations since her last visit. No SILVER SOLUTION MIXER concerns/complaints ROS: No Pelvic/abdominal pain or bloating No Bowel changes. Continues to have loose stool. Will take imodium prn. occasional incontinence. No bladder changes or concerns. Treated for UTI. Energy level is fine No Vaginal bleeding or discharge No Lower extremity edema Weight is up Reports appetite is good No SOB, cough or chest pain Sexual function: Not sexually active. Hasn't been using her dilator Health Habits: Tobacco:non-smoker ETOH: occasional wine cooler Exercise: walks when she can. Health Maintenance: Mammogram: up to date, done annually . Colonoscopy: 03/2015, repeat 5 years Social History: . Lives with her son and his family- which she enjoys and has been working out well. Working at [employer]) full-time, which has been much better. Patient Active Problem List Diagnosis Code ??? Endometrial cancer C54.1 ??? Brain aneurysm I67.1 ??? Diverticulitis K57.92 Past Surgical History: Procedure Laterality Date ??? BRAIN ANEURYSM SURGERY 2000 ??? CHOLECYSTECTOMY 2001 For gallstones ??? PRO LAP, PELVIC LYMPHADENECTOMY/BX 06/27/2011 LAPAROSCOPY,W\BILATERAL TOTAL PELVIC LYMPHADENECTOMY, PERIAORTIC LYMPH NODE SAMPLING, ROBOTIC performed by DECLAN POWERS at [facility] MAIN OR ? ? PRO LAPAROSCOPY W TOT HYSTERECTUTERUS <=250 GRAM W TUBE/OVARY 06/27/2011 LAPAROSCOPY,TOTAL HYST, UTERUS<250GM, SYDNEY TYBE &/OR OVARY, ROBOTIC ASSIST performed by DECLAN POWERS at [facility] MAIN OR Allergies Allergen Reactions ??? Red Blood Cells Other (See Comments) Antibodies-Difficult to Crossmatch ??? Dilaudid [Hydromorphone] Nausea And Vomiting Current Outpatient Prescriptions on File Prior to Visit Medication Sig Dispense Refill ??? diphenoxylate-atropine (LOMOTIL) 2.5-0.025 mg Tablet Take 1 tablet by mouth 4 times daily as needed for Diarrhea. May take 1 or 2 tablets 4 times daily as needed for Diarrhea 30 tablet 5 ??? diphenhydrAMINE (BENADRYL) 25 mg Capsule Take 25 mg by mouth nightly. ??? loperamide (IMODIUM) 2 mg Capsule Take 2 mg by mouth 3 times daily as needed for Diarrhea. ??? zolpidem (AMBIEN) 5 mg tablet Take 5 mg by mouth nightly as needed. ??? valACYclovir (VALTREX) 500 mg tablet Take 500 mg by mouth daily. No current facility-administered medications on file prior to visit. Vital Signs: BP 120/79 (Patient Position: Sitting) Pulse (!) 101 Temp 36.4 ??C (97.6 ??F) (Tympanic) Wt 76.7 kg (169 lb 1.5 oz) SpO2 99% BMI 30.61 kg/m2 PHYSICAL EXAM: Gen: Pleasant, NAD, Alert, appears well HEENT: No clavicular adenopathy or thyromegaly Lungs: clear to auscultation Cor: heart RRR without appreciable murmurs. Abdomen: soft, not distended, not tender, no masses palpable, no appreciable inguinal adenopathy Lower Extremities: without edema Pelvic exam: Mons with 2 hyperpigmented skin tags, otherwise external female genitalia with atrophic changes, no visible lesions. Speculum exam: Vagina with atrophic changes, scarring at the cuff, vagina with erythema/petechiae c/w post radiation changes. Bimanual exam: cuff with scarring, adhesions are lysed digitally. no appreciable masses, nodularity or tenderness. Uterus and adnexae surgically absent. Rectovaginal exam: no appreciable masses or tenderness. ASSESSMENT/PLAN: Farzana Garcia is a 57 y.o. 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 She has no evidence of recurrent disease. We reviewed signs and symptoms of recurrent disease. Explained rationale for dilator and recommended use 1x week. She will RTC 1 year, sooner prn with questions/concerns. Kelsey Sandoval APRN documented in this encounter Plan of Treatment Not on file documented as of this encounter Visit Diagnoses Diagnosis Endometrial cancer Malignant neoplasm of corpus uteri, except isthmus documented in this encounter Care Teams Content Coordinator Relationship Specialty Start Date End Date Barry Hernandez MD [address] [place] [id number] PCP - General 11/26/14 03/05/23 documented as of this encounter
--- OUTSIDE RECORDS SUMMARY | 2024-09-09 09:34 | XMS_ITS | Encounter Summary ---
Author Organization [facility] [place] [address] Care Team Providers Care Financial Sales Associate Name Role Phone Linda Gaytan MD Primary Care Provider [phone] Encounter Details Date Type Department Care Team (Latest Contact Info) Description 03/27/2023 Travel Social History Tobacco Use Types Packs/Day Years [...] on filedocumented in this encounter Care Teams Financial Sales Associate Relationship Specialty Start Date End Date Linda Gaytan MD [address] [place] [address] PCP - General Family Medicine 03/06/23 documented as of this encounter
--- OUTSIDE RECORDS SUMMARY | 2024-09-09 09:34 | XMS_ITS | Encounter Summary ---
Author Organization [facility] [place] [address] Care Team Providers Care Horse Doctor Name Role Phone Linda Gaytan MD Primary Care Provider [phone] Encounter Details Date Type Department Care Team (Latest Contact Info) Description 06/03/2023 Travel Social History Tobacco Use Types Packs/Day [...] on filedocumented in this encounter Care Teams Horse Doctor Relationship Specialty Start Date End Date Linda Gaytan MD [address] [place] [address] PCP - General Family Medicine 03/06/23 documented as of this encounter
--- OUTSIDE RECORDS SUMMARY | 2024-09-09 09:34 | XMS_ITS | Encounter Summary ---
Author Organization [facility] Address [facility] [place] [address] Care Team Providers Care Hand Hose Cutter Name Role Phone Barry Hernandez MD Primary Care Provider [phone] Reason for Visit * Reason Comments Follow-up Encounter Details Date Type Department Care Team (Late st Contact Info) Description 05/11/2017 2:00 PM EDT Office Visit [place] [address] Kelsey Sandoval, RISK ENGINEER [facility] [place] [address] Endometrial cancer Social History Tobacco Use Types [...] Sign Reading Time Taken Comments Blood Pressure 111/64 05/11/2017 1:50 PM EDT Pulse 80 05/11/2017 1:50 PM EDT Temperature 37 ??C (98.6 ??F) 05/11/2017 1:50 PM EDT Respiratory Rate 18 05/11/2017 1:50 PM EDT Oxygen Saturation 97% 05/11/2017 1:50 PM EDT Inhaled Oxygen Concentration - - Weight 75.6 kg (166 lb 10.7 oz) 05/11/2017 1:50 PM EDT Height 158.3 cm (5' 2.32) 05/11/2017 1:50 PM ED T Body Mass Index 30.17 05/11/2017 1:50 PM EDT documented in this encounter Progress Notes * Kelsey Sandoval, RISK ENGINEER - 05/11/2017 2:00 PM EDT Division [place] [address] Reason For Visit: Post Treatment Surveillance Exam History of Present Illness: Farzana Garcia is a 56 y.o. woman who presents today for her [...] 3 cycles of carboplatin/paclitaxel. (chemo done in [place], [place]) Interim Health: Feeling overall ok. Recently dx with hypertension and started on medication (does not recall the name of her new med). No surgeries or hospitalizations since her last visit. No PRINT LINE SUPERVISOR concerns/complaints ROS: No fever, chills, nausea, vomiting No Pelvic/abdominal pain or bloating No Bowel changes. Continues to have loose stool. Will take imodium prn. occasional incontinence. No bladder changes or concerns. Occasional slow stream Energy level is ok No Vaginal bleeding or discharge No Lower extremity edema Weight is up a few pounds Reports appetite is good No SOB, cough or chest pain Sexual function: Not sexually active, has not been using dilator. Mood: Overall ok. Feels like she is managing/coping fine, up and down days. Good supports with friends and family. Health Habits: Tobacco:non-smoker ETOH: glass of wine nightly Exercise: No formal exercise Health Maintenance: Mammogram: up to date, done this past winter. . Colonoscopy: 03/2015, repeat 5 years Social History: Partner [employer] of many years Summer 2015. She is living with her son and his family. 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 Things have been stressful at work lately. Patient Active Problem List Diagnosis Code ??? Endometrial cancer C54.1 ??? Brain aneurysm I67.1 ??? Diverticulitis K57.92 Past Surgical History: Procedure Laterality Date ??? BRAIN ANEURYSM SURGERY 2000 ??? CHOLECYSTECTOMY 2001 For gallstones ??? PRO LAP, PELVIC LYMPHADENECTOMY/BX 06/27/2011 LAPAROSCOPY,W\BILATERAL TOTAL PELVIC LYMPHADENECTOMY, PERIAORTIC LYMPH NODE SAMPLING, ROBOTIC performed by DECLAN POWERS at [facility] MAIN OR ? ? PRO LAPAROSCOPY W TOT HYSTERECTUTERUS <=250 GRAM W TUBE/OVARY 06/27/2011 LAPAROSCOPY,TOTAL HYST, UTERUS<250GM, SYDNEY TYBE &/OR OVARY, ROBOTIC ASSIST performed by DECLAN POWERS at [facility] MAIN OR Allergies Allergen Reactions ??? Red Blood Cells Other (See Comments) Antibodies-Difficult to Crossmatch ??? Dilaudid [Hydromorphone] Nausea And Vomiting Current Outpatient Prescriptions on File Prior to Visit Medication Sig Dispense Refill ??? diphenhydrAMINE (BENADRYL) 25 mg Capsule Take 25 mg by mouth nightly. ??? loperamide (IMODIUM) 2 mg Capsule Take 2 mg by mouth 3 times daily as needed for Diarrhea. ??? diphenoxylate-atropine (LOMOTIL) 2.5-0.025 mg Tablet Take 1 tablet by mouth 4 times daily as needed for Diarrhea. May take 1 or 2 tablets 4 times daily as needed for Diarrhea 30 tablet 3 ??? zolpidem (AMBIEN) 5 mg tablet Take 5 mg by mouth nightly as needed. ??? valACYclovir (VALTREX) 500 mg tablet Take 500 mg by mouth daily. No current facility-administered medications on file prior to visit. Vital Signs: BP 111/64 (Patient Position: Sitting) Pulse 80 Temp 37 ??C (98.6 ??F) (Oral) Resp 18 Ht 158.3 cm (5' 2.32) Wt 75.6 kg (166 lb 10.7 oz) SpO2 97% BMI 30.17 kg/m2 PHYSICAL EXAM: Gen: Pleasant, NAD, Alert, appears well HEENT: No clavicular adenopathy or thyromegaly Lungs: clear to auscultation Cor: heart RRR without appreciable murmurs. Abdomen: soft, not distended, not tender, no masses palpable, no appreciable inguinal adenopathy Lower Extremities: without edema Pelvic exam: external female genitalia with atrophic changes, no visible lesions. Speculum exam: Vagina with atrophic changes, scarring at the cuff, vagina with erythema/petechiae c/w post radiation changes. Bimanual exam: cuff with scarring, adhesions are lysed digitally. no appreciable masses, nodularity or tenderness. Uterus and adnexae surgically absent. Rectovaginal exam: no appreciable masses or tenderness. ASSESSMENT/PLAN: Farzana Garcia is a 56 y.o. 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 She has no evidence of recurrent disease. We reviewed signs and symptoms of recurrent disease. Explained rationale for dilator and recommended use 1x week. Per SGO guidelines, patient may resume care with her local PCP or PRINT LINE SUPERVISOR for on- going follow up care. Pap testing is no longer indicated. Farzana prefers to continue [place] [facility] She will RTC 1 year, sooner prn with questions/concerns. Kelsey Sandoval APRN documented in this encounter Plan of Treatment Not on file documented as of this encounter Visit Diagnoses Diagnosis Endometrial cancer Malignant neoplasm of corpus uteri, except isthmus documented in this encounter Care Teams Hand Hose Cutter Relationship Specialty Start Date End Date Barry Hernandez MD [address] [place] [address] PCP - General 11/26/14 03/05/23 documented as of this encounter
--- OUTSIDE RECORDS SUMMARY | 2024-09-09 09:34 | XMS_ITS | Encounter Summary ---
Author Organization [facility] Address [facility] [place] [address] Care Team Providers Care Transverse Abdominal Muscle Nurse Name Role Phone García Casieluis angel Miranda APRN Primary Care Provider [phone] Reason for Visit * Reason Comments Established recurrence? /plan Encounter Details Date Type Department Care Team (Late st Contact Info) Description 10/18/2012 11:20 AM EST Follow-Up Gynecology [place] [address] Judy Millard MD [facility] [place] [address] Vulvitis (Primary Dx) Discharge Disposition: Home Social History [...] Sign Reading Time Taken Comments Blood Pressure 100/70 10/18/2012 11:07 AM EST Pulse - - Temperature - - Respiratory Rate - - Oxygen Saturation - - Inhaled Oxygen Concentration - - Weight 53.5 kg (117 lb 15.1 oz) 012 11:07 AM EST Height - - Body Mass Index 21.59 09/19/2012 1:48 PM EST documented in this encounter Progress Notes * Judy Millard MD - 10/23/2012 7:30 PM EST Provider: Dr. Millard Division [place] [address] Follow-up Visit: Patient Active Problem List Diagnoses Code ??? Endometrial cancer 182.0 ??? Brain aneurysm 437.3 ??? Diverticulitis 562.11 Subjective: Sunday Katz returns to the office today in follow-up of her c/o pelvic pain, fever, watery vaginal discharge and pain with urination. She is S/P sandwich chemotherapy and radiation for stage 11B endometrial cancer. She completed therapy in March 2012 in [place], [place] She was seen by MALINI Keith and thought to have possible recurrent disease. 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 She continue to have exquisitely painful vulva with ongoing vaginal discharge. She has been afebrile recently, but she reports low grade fevers to 101 at home prior to her visit with Veronika. Nausea with little appetite. Bowels are regular but infrequent, which she attributes to decreased oral intake. The pain is rated 7/10, is aggravated with urination. She was given dilaudid for pain, which she did not tolerate, and was not effective. She would like to try additional pain medication. CT scan done for suspicion of recurrent disease: Findings Chest: Dependent bibasilar atelectasis. No pulmonary nodules, pleural effusions or pneumothorax. No filling defects within the main pulmonary arteries to suggest pulmonary embolism. The bronchial airways are patent. No mediastinal, hilar or axillary lymphadenopathy. Heart appears normal with no evidence pericardial effusion. Abdomen: No free intraperitoneal air. The gallbladder is surgically removed no evidence of intra or extrahepatic biliary ductal dilatation. The liver, pancreas, spleen, adrenal glands and kidneys appear normal. No hydronephrosis or hydroureter. The small bowel is normal in course and caliber without evidence of wall thickening oredema. The appendix is not visualized but there are no inflammatory mesenteric changes in the rightlower quadrant. No abdominal free fluid or lymphadenopathy. Pelvis: The uterus and adnexa are absent. There is thickening and enhancement of the vagina with stranding of the adjacent ischiorectal fat. There also appears to be thickening of the posterior bladder wall.Without prior imaging for comparison is are none of these are new findings or sequelae of prior treatment. Otherwise, the bladder appears normal. The large bowel appears normal in caliber with no evidence of obstruction. No pelvic or inguinal lymphadenopathy. No pelvic free fluid. No suspicious osseous abnormalities. Impression 1. Enhancement and thickening of the vagina with associated ischiorectal fat stranding and slight thickening of the posterior bladder wall. These findings may be secondary to a prior treatment versusa malignant process and followup MRI is recommended to better evaluate these findings. Prior to Admission medications Medication Sig Start Date End Date Taking? Authorizing Provider cephALEXin (KEFLEX) 500 mg capsule Take 1 capsule by mouth 3 times daily. 10/10/12 Yes Veronika Duvall APRN ESZOPICLONE (LUNESTA ORAL) Take 5 mg by mouth daily. Yes Casie García APRN OXYcodone (ROXICODONE) 5 mg immediate release tablet Take 1-2 tablets by mouth every 4 hours as needed for Pain. 10/18/12 Judy Millard MD lidocaine (XYLOCAINE) 2 % jelly Apply topically as needed. 10/18/12 Judy Millard MD Allergies Allergen Reactions ??? Red Blood Cells Other (See Comments) Antibodies-Difficult to Crossmatch ??? Dilaudid (Hydromorphone) Nausea And Vomiting Review of systems ABOVE Objective: Filed Vitals: 10/18/12 1107 BP: 100/70 General: Sunday Yanes is conversant, able to ambulate, sitting in chair. Abdomen: soft, non-distended, non-tender, no inguinal adenopathy Extremities: no edema Pelvic: On the vulva are large violaceous ulcers that are exquisitely tender to touch, with 5 smallvesicles on an erythematous base on the left buttock. By speculum exam the cuff is intact and without lesion. Vaginal anguiano show WE and ulceration. Bimanual exam done using lidocaine jelly for lubrication shows no abnormal masses or nodularity. Vulva cleaned and area anesthetized with 1% lidocaine. 3mm punch biopsy done. 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 Biopsy pending. If herpes, this should resolve soon, no indication at present for antiviral therapy. Will check biopsy. Script given for lidocaine jelly and oxycodone. Patient instructed to keep lesions clean and dry. documented in this encounter Plan of Treatment Not on file documented as of this encounter Procedures Procedure Name Priority Date/Time Associated Diagnosis Comments SURGICAL PATHOLOGY REPORT Routine 10/18/2012 3:39 PM EST SPECIMEN TO PATHOLOGY (NON-OR) Routine 10/18/2012 12:12 PM EST Vulvitis documented in this encounter Results * Surgical Pathology Report (10/18/2012 3:39 PM EST) Surgical Pathology Report ? [facility] ? Provider: ?? JUDY MILLARD ?Pt. Name: ?? SUNDAY KATZ ? Acc #: ?[id number] ?Pt. ? Col Date: ?? 10/18/2012 ?/Sex: ?1960,(52 years),Female ? Rec Date: ?? 10/18/2012 ?LOC: ?3K ? SURGICAL PATHOLOGY ? ---Pathologic Diagnosis--- ? Right labia, biopsy; ?Ulceration with herpesvirus infection (see Comment). ? CR-0 ? 10/21/12 ? ARS ? 10/21/12 Verified by: ? Perico Ponce MD ? Pathologist ? (Electronic Signature) ? The attending pathologist whose signature appears on this report has ? reviewed all diagnostic slides and has edited the gross and/or ? microscopic portion of the report in rendering the final pathologic ? diagnosis. ? ---Comment--- ? Multiple step sections are examined. ??Dr. Villalpando reviewed this biopsy and ? concurs with this interpretation. ? ---Microscopic Description--- ? Slides reviewed, microscopic description not recorded. ? Special Stains: ? Formalin-fixed, paraffin-embedd ed tissue sections are studied with ? appropriate positive controls. ? Block ?Special Stain ?Result (Positive/Negat pj) ? A1 ? PAS/Fungal ? Negative ? ---Gross Description--- ? Labeled/Fixativ e: ? R labia, formalin. ? Qty/Size/Weight : ?Single punch, 0.3 cm, with a pale ames-friend skin ? surface. ? Sections/Proces sing: ??(T1) ??aje/PPS ? ---Clinical Information--- ? Specimen Submitted: ? A - Right labia biopsy (1) ? Clinical History/Diagnos is: ? Two weeks intense vulvar pain, swelling, ulceration ? herpes vulvitis [facility] 10/18/2012 3:39 PM EST Judy Millard MD PATHOLOGY/CYTOLOGY O RDERABLES [facility] * Specimen to Pathology (NON-OR) (10/18/2012 12:12 PM EST) AP Specimen 10/18/2012 12:1 2 PM EST 10/18/2012 12:12 PM EST Narrative MELANIE QUIROZ - 10/18/2012 12:12 PM EST Specimen requisition ordered. ??Separate Pathology report to follow Judy Millard MD PATHOLOGY/CYTOLOGY O RDERABLES MELANIE QUIROZ documented in this encounter Visit Diagnoses Diagnosis Vulvitis- Primary Vaginitis and vulvovaginitis, unspecified documented in this encounter Care Teams Transverse Abdominal Muscle Nurse Relationship Specialty Start Date End Date Casie García, HOUSING MANAGEMENT REPRESENTATIVE PCP - General 01/15/12 11/25/14 documented as of this encounter
--- OUTSIDE RECORDS SUMMARY | 2024-09-09 09:34 | XMS_ITS | Encounter Summary ---
Author Organization [facility] [place] [address] Care Team Providers Care Chef Teacher Name Role Phone Barry Hernandez MD Primary Care Provider [phone] Encounter Details Date Type Department Care Team (Late st Contact Info) Description 02/09/2020 Telephone [place] [address] Kelsey Sandoval JIG AND FIXTURE BUILDER APPRENTICE [facility] [place] [address] Social History Tobacco Use Types Packs/Day Years [...] Telephone Encounter - Kelsey Sandoval APRN - 02/09/2020 1:30 PM EDT TC to patient to notifiy that I will be leaving [facility] and to discuss transition of care. She has a hx of stage IIIC1, FIGO grade 3 adenocarcinoma of endometrium - s/p robotic TLH/BSO, pelvic + paraaortic lymphadenectomy 06/27/11 - final path stage IIIC1, bilateral ovarian involvement associated w/endometriosis - felt to be endometrial primaries. 1/5 L pelvic nodes positive, 0/11 R pelvicnodes, no leroy- aortic nodes identified in paraaortic specimen. March 2012 she completed sandwich therapy of carboplatin/paclitaxel chemotherapy x 3 cycles, RT and an additional 3 cycles of carboplatin/paclitaxel. (chemo done in [place], [place]) ?? Due to the degree of post radiation changes, she has been continuing to follow here in [facility]. Shewill f/u in [facility] for her next surveillance exam due 05/2020, and will discuss with MD at that time if referral to HOUSE DETECTIVE is appropriate or if she should cont follow up with [facility]. She will call/RTC sooner if she has any urgent issues/concerns. * Telephone Encounter - Kelsey Sandoval APRN - 02/09/2020 1:30 PM EDT ----- Message from Olimpia Montano RN sent at 02/09/2020 9:22 AM EDT ----- ----- Message ----- From: Anel Gonzalez Sent: 02/09/2020 8:54 AM EDT To: Olimpia Montano RN Patient called and stated that she got a letter letting her know that Kelsey is leaving. She called wondering what this means for her if she is needing to stay in as CK told her that she would have to keep coming back for the rest of her life? She is also wondering if she just needs to follow up with regular Collar [employer] Cre[employer] if she can just do this with her primary care? She is asking for a call back at Thank you, Mary Jane documented in this encounter Plan of Treatment Not on file documented as of this encounter Visit Diagnoses Not on filedocumented in this encounter Care Teams Chef Teacher Relationship Specialty Start Date End Date Barry Hernandez MD [address] [place] [address] PCP - General 11/26/14 03/05/23 documented as of this encounter
--- OUTSIDE RECORDS SUMMARY | 2024-09-09 09:34 | XMS_ITS | Encounter Summary ---
Author Organization [facility] [place] [address] Care Team Providers Care Director Of Housing And Energy Services Name Role Phone Barry Hernandez MD Primary Care Provider Encounter Details Date Type Department Care Team (Late st Contact Info) Description 08/02/2017 Orders Only [facility] at [address] [address] Bhavana Cuellar APRN Diarrhea, unspecified type Social History Tobacco Use Types Packs/Day Years [...] as of this encounter Visit Diagnoses Diagnosis Diarrhea, unspecified type documented in this encounter Care Teams Director Of Housing And Energy Services Relationship Specialty Start Date End Date Barry Hernandez MD [address] [place] [address] PCP - General 11/26/14 03/05/23 documented as of this encounter
--- OUTSIDE RECORDS SUMMARY | 2024-09-09 09:34 | XMS_ITS | Encounter Summary ---
Author Organization [facility] Address [facility] [place] [address] Care Team Providers Care Media Production Support Manager Name Role Phone Linda Gaytan MD Primary Care Provider [phone] Reason for Referral * Diagnostic Test (Routine) - Closed Specialty Diagnoses / Procedures Referred By Contac t Referred To Contact Radiology Diagnoses [place] (trigeminal neuralgia) Procedures MRI Brain wwo Contrast (Generic) Susanna Strong APRN [facility] [place] [address] [place] [address] Referral ID Status Reason Start Date Expiration Date V isits Requested Visits Authorized [id number] Closed Specialty Service Requested 03/27/2023 09/26/2024 1 1 Reason for Visit * Diagnostic Test (Routine) - Closed Specialty Diagnoses / Procedures Referred By Contac t Referred To Contact Radiology Diagnoses TN (trigeminal neuralgia) Procedures MRI Brain wwo Contrast (Generic) Susanna Strong APRN [facility] [place] [address] [place] [address] Referral ID Status Reason Start Date Expiration Date V isits Requested Visits Authorized [id number] Closed Specialty Service Requested 03/27/2023 09/26/2024 1 1 Encounter Details Date Type Department Care Team (Latest Contact Info) Description 06/03/2023 12:22 PM EDT - 06/03/2023 11:59 PM EDT Hospital Encounter MRI at [facility] [place] [address] [facility] [place] [address] [place] (trigeminal neuralgia) Discharge Disposition: Home Social History Tobacco Use [...] Sig Dispensed Refills Start Date End Date gabapentin (Neurontin) 600 mg tablet Take 1,200 mg by mouth 3 times daily. 03/10/2023 sucralfate (Carafate) 1 gram tablet TAKE 1 TABLET BY MOUTH FOUR TIMES A DAY NEEDED 12/21/2022 diazePAM (Valium) 2 mg tablet Take 1 tablet by mouth 4 times daily as needed for Anxiety (as needed prior to MRI. Start with 1 tablet 30 minutes away from hospital, take 1 tablet upon arrival to hospital, and may repeat up to 2 times as needed after initial dosing). 4 tablet 03/27/2023 lisinopril (PRINIVIL;ZESTRIL) 5 mg Tablet TAKE ONE TABLET BY MOUTH EVERY DAY 3 03/24/2018 diphenoxylate-atropine (LOMOTIL) 2.5-0.025 mg TabletIndications:Diarrh ea, unspecified type Take 1 tablet by mouth 4 times daily as needed for Diarrhea. May take 1 or 2 tablets 4 times daily as needed for Diarrhea 30 tablet 5 08/02/2017 loperamide (IMODIUM) 2 mg Capsule Take 2 mg by mouth 3 times daily as needed for Diarrhea. zolpidem (AMBIEN) 5 mg tablet Take 5 mg by mouth nightly as needed. valACYclovir (VALTREX) 500 mg tablet Take 500 mg by mouth daily. documented as of this encounter Plan of Treatment Not on file documented as of this encounter Procedures Procedure Name Priority Date/Time Associated Diagnosis Comments MRI BRAIN WWO CONTRAST (GENERIC) Routine 06/03/2023 1:52 PM EDT TN (trigeminal neuralgia) documented in this encounter Results * MRI Brain wwo Contrast (Generic) (06/03/2023 1:52 PM EDT) Anatomical Region Laterality Modality Head Magnetic Resonan ce Impressions 06/03/2023 2:01 PM EDT Small artery courses adjacent to the right 5th cranial nerve. There is no mass or abnormal enhancement. Thank you for letting us participate in the care of this patient. ??If you are a health care provider and have any questions regarding this report, please contact the number below. ??For patients who have questions please contact the health medical care administrator that requested your imaging first. ? Electronically signed by: Osvaldo Wilder MD, [facility] ([phone]), at 06/03/2023 2:01 PM Narrative 06/03/2023 2:01 PM EDT EXAMINATION: MRI BRAIN WWO CONTRAST (GENERIC) CLINICAL HISTORY: right sided TN, rule out trigeminal compression or abnormality, ??trigeminal ganglion and heavy T2 weighted TECHNIQUE: MRI of the brain was performed before and after the intravenous administration of 16cc Dotarem. COMPARISON: None FINDINGS: Metallic artifact related to PCOM region clip obscures the right cavernous sinus. The right 5th cranial nerve is fairly well-visualized. There is no abnormal enhancement along the course of the 5th cranial nerve. The artery passes adjacent to the mesial aspect of the 5th cranial nerve. There is nondisplaced. There is no facial soft tissue abnormality. Ventricles are normal in size and contour. Areas of T2 signal alteration are present in the periventricular white matter. Procedure Note Osvaldo Wilder MD - 06/03/2023 EXAMINATION: MRI BRAIN WWO CONTRAST (GENERIC) CLINICAL HISTORY: right sided TN, rule out trigeminal compression or abnormality, trigeminal ganglion and heavy T2 weighted TECHNIQUE: MRI of the brain was performed before and after the intravenousadministration of 16cc Dotarem. COMPARISON: None FINDINGS: Metallic artifact related to PCOM region clip obscures the rightcavernous sinus. The right 5th cranial nerve is fairly well-visualized. There isno abnormal enhancement along the course of the 5th cranial nerve. Theartery passes adjacent to the mesial aspect of the 5th cranial nerve. There is nondisplaced. There is no facial soft tissue abnormality. Ventricles arenormal in size and contour. Areas of T2 signal alteration are present in the periventricular white matter. IMPRESSION Small artery courses adjacent to the right 5th cranial nerve. There is nomass or abnormal enhancement. Thank you for letting us participate in the care of this patient. If youare a health care provider and have any questions regarding this report,please contact the number below. For patients who have questions please contactthe health medical care administrator that requested your imaging first. Electronically signed by: Osvaldo Wilder MD, [facility]([phone]), at 06/03/2023 2:01 PM Susanna Strong APRN IMMelyssa MRI ORDERABLE S documented in this encounter Visit Diagnoses Diagnosis TN (trigeminal neuralgia) Trigeminal neuralgia documented in this encounter Administered Medications Inactive Administered Medications - up to 3 most recent administrations Medication Order MAR Action Action Date Dose Rate Site gadoterate meglumine (Dotarem) (0.5 mMol/mL) injection solution 0-100 mL 0-100 mL, Intravenous, ONCE PRN, 1 dose, Starting on 06/03/23 at 1329, Until 06/03/23 at 1329, Per Protocol, Radiology Contrast, Routine Given 06/03/2023 1:29 PM EDT 16 mLs documented in this encounter Care Teams Media Production Support Manager Relationship Specialty Start Date End Date Linda Gaytan MD [address] [place] [address] PCP - General Family Medicine 03/06/23 documented as of this encounter
--- OUTSIDE RECORDS SUMMARY | 2024-09-09 09:34 | XMS_ITS | Encounter Summary ---
Author Organization [facility] [address] Care Team Providers Care Foot Caster Name Role Phone Casie García APRN Primary Care Provider [phone] Reason for Visit * Reason Comments Endometrial Cancer Encounter Details Date Type Department Care Team (Late st Contact Info) Description 06/19/2013 3:30 PM EDT Follow-Up Hematology Oncology at [address] [address] Augustus Grimes MD [address] [place] [address] Endometrial cancer (Primary Dx) Discharge Disposition: Home Social History [...] Sign Reading Time Taken Comments Blood Pressure 123/79 06/19/2013 3:06 PM EDT Pulse 73 06/19/2013 3:06 PM EDT Temperature 37 ??C (98.6 ??F) 06/19/2013 3:06 PM EDT Respiratory Rate 18 06/19/2013 3:06 PM EDT Oxygen Saturation 99% 06/19/2013 3:06 PM EDT Inhaled Oxygen Concentration - - Weight 65.3 kg (144 lb) 06/19/2013 3:06 PM EDT Height 157.4 cm (5' 1.97) 06/19/2013 3:06 PM ED T Body Mass Index 26.36 06/19/2013 3:06 PM EDT documented in this encounter Progress Notes * Augustus Grimes MD - 06/19/2013 3:26 PM EDT Diagnosis: Adenocarcinoma of the endometrium, endometrioid type [...] 2012. Subjective: Farzana comes in today for followup. And doing quite well overall with the only sequelae as far she can tell from her treatment being a bit more frequent bowel movements usually postprandial. She's doing well with no specific complaints. She's having no bladder problems. Review systems is otherwise negative Past medical history and social history are reviewed and unchanged from when I saw her 6 months ago. 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 Review of Systems Constitutional: Negative for fever, chills, activity change, fatigue and unexpected weight change. HENT: Negative for sore throat, mouth sores and trouble swallowing. Eyes: Negative. Respiratory: Negative for cough, shortness of breath and wheezing. Cardiovascular: Negative for chest pain, palpitations and leg swelling. Gastrointestinal:negative for nausea, vomiting, abdominal pain, diarrhea, no constipation or abdominal distention. Bowel movements are more frequent Genitourinary: Negative for dysuria and difficulty urinating. [...] supraclavicular, and axillary nodes normal Neurologic: Normal Lab today has improved. Her white count is 2.5 to but neutrophil count is up in the normal range. Post radiation her lymphocyte count is low as expected. Hemoglobin is 12.9 hematocrit 38% and platelet count is 134. CMP is completely normal. Assessment/Plan: Farzana is doing well overall. She has no evidence recurrent cancer at this time. Except for lymphopenia her blood counts have returned to normal. At this point in time she has regular followup with [facility] [facility] oncology at [facility] and does not need to come here to the [facility] Office office unless there is a specific problem. She knows that, and we'll see her back on a when necessary basis. documented in this encounter Procedure Notes * Provider, Scanning - 06/19/2013 3:35 PM EDTAssociated Order(s): SCAN DOC: LAB documented in this encounter Plan of Treatment Not on file documented as of this encounter Procedures Procedure Name Priority Date/Time Associated Diagnosis Comments LAB SCAN 06/19/2013 3:35 PM EDT documented in this encounter Results * SCAN DOC: LAB (06/19/2013 3:35 PM EDT) Narrative 06/19/2013 3:35 PM EDT Procedure Note Provider, Scanning - 06/19/2013 3:35 PM EDT Scanning Provider MEDIA MGR SCAN EXT O RDR/RSLT documented in this encounter Visit Diagnoses Diagnosis Endometrial cancer- Primary Malignant neoplasm of corpus uteri, except isthmus documented in this encounter Care Teams Foot Caster Relationship Specialty Start Date End Date Casie García APRN PCP - General 01/15/12 11/25/14 documented as of this encounter
--- OUTSIDE RECORDS SUMMARY | 2024-09-09 09:34 | XMS_ITS | Encounter Summary ---
Author Organization [facility] Address [facility] [place] [address] Care Team Providers Care Purifying Plant Operator Name Role Phone Barry Hernandez MD Primary Care Provider [phone] Reason for Visit * Reason Onset Date Comments Medication Refill 08/02/2017 lomotil needs refill please Encounter Details Date Type Department Care Team (Late st Contact Info) Description 08/02/2017 Telephone Hematology/Oncology at [address] [address] Maeve Harmon, bench carpenter Refill (lomotil needs refill please) Social History Tobacco Use Types Packs/Day Years [...] encounter Miscellaneous Notes * Telephone Encounter - Maeve Harmon, RN - 08/02/2017 11:35 AM EDT [place], [facility]. I spoke to patient and she needs a refill send to this pharmacy before the end of the month please. Diphenoxylate-Atropine 2.5-0.025; 1-2 tablets by mouth four times daily as needed for diarrhea, dispense 30 tablets documented in this encounter Plan of Treatment Not on file documented as of this encounter Visit Diagnoses Not on filedocumented in this encounter Care Teams Purifying Plant Operator Relationship Specialty Start Date End Date Barry Hernandez MD [address] [place] [address] PCP - General 11/26/14 03/05/23 documented as of this encounter
--- OUTSIDE RECORDS SUMMARY | 2024-09-09 09:34 | XMS_ITS | Encounter Summary ---
Author Organization [facility] Address [facility] [place] [address] Care Team Providers Care Gear Shaver Set Up Operator Name Role Phone Barry Hernandez MD Primary Care Provider [phone] Reason for Visit * Reason Comments Established 6 month check Encounter Details Date Type Department Care Team (Late st Contact Info) Description 11/21/2016 3:00 PM EST Office Visit [place] [address] Kelsey Sandoval, JUSTICE COURT DEPUTY CLERK [facility] [place] [address] Endometrial cancer Social History Tobacco Use Types [...] Sign Reading Time Taken Comments Blood Pressure 142/86 11/21/2016 3:03 PM EST Pulse 78 11/21/2016 3:03 PM EST Temperature 36.8 ??C (98.2 ??F) 11/21/2016 3:03 PM ES T Respiratory Rate 18 11/21/2016 3:03 PM EST Oxygen Saturation 100% 11/21/2016 3:03 PM EST Inhaled Oxygen Concentration - - Weight 73.5 kg (162 lb 0.6 oz) 11/21/2016 3:03 P M EST Height - - Body Mass Index 29.33 01/05/2015 2:36 PM EDT documented in this encounter Progress Notes * Kelsey Sandoval, JUSTICE COURT DEPUTY CLERK - 11/21/2016 3:00 PM EST Division [place] [address] Reason For Visit: Post Treatment Surveillance Exam [...] 3 cycles of carboplatin/paclitaxel. (chemo done in [place], [place]) Interim Health: Feeling pretty good. No new medical issues, surgeries or hospitalizations since her last visit. No vulvar/vaginal concerns/comlaints. Hx of vulvar condyloma, elected for observation, reports no vulvar sx or noticeable bumps. ROS: No fever, chills, nausea, vomiting, diarrhea No Pelvic/abdominal pain or bloating No Bowel changes. Continues to have loose stool. Will take imodium prn. occasional incontinence. No bladder changes or concerns. No hematuria, dysuria, urgency or frequency, occasional nocturia. Energy level seems to be better No Vaginal bleeding or discharge No Lower extremity edema Weight is overall stable Reports appetite is good No SOB, cough or chest pain Sexual function: Not sexually active, has not been using dilator. Mood: Overall ok. Health Habits: Tobacco:non-smoker ETOH: glass of wine nightly Exercise: No formal exercise- active with her grand kids Health Maintenance: Mammogram: over due, will plan to schedule. Colonoscopy: 03/2015, repeat 5 years Social History: Boyfriend Que of many years Summer 2015. She is living with her son and his family, things are going well. 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 Patient Active Problem List Diagnosis Code ??? Endometrial cancer C54.1 ??? Brain aneurysm I67.1 ??? Diverticulitis K57.92 Past Surgical History Procedure Laterality Date ??? Brain aneurysm surgery 2000 ? ? Pro laparoscopy w tot hysterectuterus <=250 gram w tube/ovary 06/27/2011 LAPAROSCOPY,TOTAL HYST, UTERUS<250GM, SYDNEY TYBE &/OR OVARY, ROBOTIC ASSIST performed by DECLAN POWERS at [facility] MA[facility] OR ??? Pro lap, pelvic lymphadenectomy/bx 06/27/2011 LAPAROSCOPY,W\BILATERAL TOTAL PELVIC LYMPHADENECTOMY, PERIAORTIC LYMPH NODE SAMPLING, ROBOTIC performed by DECLAN POWERS at [facility] OR ??? Cholecystectomy 2001 For gallstones [...] file prior to visit. Vital Signs: BP 142/86 Pulse 78 Temp 36.8 ??C (98.2 ??F) Resp 18 Wt 73.5 kg (162 lb 0.6 oz) SpO2 100% BMI 29.33 kg/m2 PHYSICAL EXAM: Gen: Pleasant, NAD, Alert, appears well HEENT: No clavicular adenopathy or thyromegaly Lungs: clear to auscultation Cor: heart RRR without appreciable murmurs. Abdomen: soft, not distended, not tender, no masses palpable, no appreciable inguinal adenopathy Lower Extremities: without edema Pelvic exam: external female genitalia with atrophic changes, no visible lesions, condyloma appearsto have resolved. Speculum exam: Vagina with atrophic changes and mild erythema/petechiae (post radiation changes). Bimanual exam: cuff with scarring, no appreciable masses, nodularity or tenderness.Uterus and adnexae surgically absent. Rectovaginal exam: no appreciable masses or tenderness. ASSESSMENT/PLAN: Farzana Garcia is a 56 y.o. 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 She has no evidence of recurrent disease. We reviewed signs and symptoms of recurrent disease. She will RTC 6 months for her next surveillance exam.She will call/rtc sooner prn with questions/concerns. Kelsey Sandoval APRN documented in this encounter Plan of Treatment Not on file documented as of this encounter Visit Diagnoses Diagnosis Endometrial cancer Malignant neoplasm of corpus uteri, except isthmus documented in this encounter Care Teams Gear Shaver Set Up Operator Relationship Specialty Start Date End Date Barry Hernandez MD [address] [place] [id number] PCP - General 11/26/14 03/05/23 documented as of this encounter
--- OUTSIDE RECORDS SUMMARY | 2024-09-09 09:34 | XMS_ITS | Encounter Summary ---
Author Organization [facility] Address [facility] [place] [address] Care Team Providers Care Mamma Logist Name Role Phone Jovana Garcíaluis angel Miranda APRN Primary Care Provider [phone] Reason for Visit * Reason Comments Established 6 month check Encounter Details Date Type Department Care Team (Late st Contact Info) Description 07/14/2013 10:20 AM EDT Follow-Up [place] [address] Judy Millard MD [facility] [address] [place] [address] Endometrial cancer Discharge Disposition: Home Social History Tobacco Use [...] Sign Reading Time Taken Comments Blood Pressure 124/80 07/14/2013 10:17 AM EDT Pulse - - Temperature - - Respiratory Rate - - Oxygen Saturation - - Inhaled Oxygen Concentration - - Weight 67 kg (147 lb 11.3 oz) 07/14/2013 10:17 A M EDT Height - - Body Mass Index 27.04 06/19/2013 3:06 PM EDT documented in this encounter Progress Notes * Gianni Tinoco MD - 07/14/2013 10:39 AM EDT Division [place] [address] Follow-up Visit: Endometrial cancer surveillance Patient Active Problem List Diagnosis ??? Diverticulitis ??? Endometrial cancer Overview Note: Stage IIIC1, FIGO grade 3 adenocarcinoma of endometrium - s/p robotic TLH/BSO, pelvic + paraaortic lymphadenectomy 06/27/11 - final path stage IIIC1, bilateral ovarian involvement associated w/endometriosis - felt to be endometrial primaries. 1/5 L pelvic nodes positive, 0/11 R pelvic nodes, no leroy-aortic nodes identified in paraaortic specimen followed by sandwich carboplatin + paclitaxel chemo (3 cycles)/RT/chemo (3 cycles) completed March 2012 (chemo done in [place], [place]) ??? Brain aneurysm Overview Note: S/p surgery 2000 Subjective: Ms Garcia returns to the office today for surveillance visit. She is s/p robotic TLH/BSO, pelvic+paraaortic lymphadenectomy 06/27/11 and completion of [place] chemotherapy/radiation (Carbo/Taxol, total 6 cycles) for stage IIIC1 endometrial cancer. Her disease is followed by exam. She complains of patches of dry skin on anterior thighs and previously on her arms which have been new. She has had a 30# unintentional weight gain over the past year, as well as continued hod flashes which awaken her from sleep 2-3x/night. She also notes chronic diarrhea since completion of radiation treatment. She is sexually active and denies pain with intercourse. Complete ROS is otherwise negative (as below). ROS: 12 systems reviewed, otherwise negative. Prior to Admission medications Medication Sig Start Date End Date Taking? Authorizing Provider ALPRAZolam (XANAX) 0.5 mg tablet Take 0.5 mg by mouth nightly as needed. Yes Provider, MD Jessy valACYclovir (VALTREX) 500 mg tablet Take 500 mg by mouth daily. Yes Provider, MD Jessy Allergies Allergen Reactions ??? Red Blood Cells Other (See Comments) Antibodies-Difficult to Crossmatch ??? Dilaudid (Hydromorphone) Nausea And Vomiting Objective: BP 124/80 Wt 67 kg (147 lb 11.3 oz) Gen: appears comfortable, in no acute distress HEENT: no cervical/supraclavicular adenopathy, no thyromegaly Cardiac: RRR, S1, S2, no rub/gallop/murmur Pulm: CTAB, no rales/wheeze/rhonchi Abd: soft, symmetric, nontender, no palpable masses : NEFG, BUS negative. Speculum exam shows normal, atrophic appearing vaginal tissue and cuff withmild erythema/petechiae Bimanual exam shows no abnormal masses or nodularity, slight irregularity of vaginal cuff consistent with prior radiation.. RV confirms Extremities: nontender, no edema Assessment and Plan: Farzana Garcia is a 53 year old with history of IIIC1 endometrial cancer s/p robotic TLH/BSO, pelvic+paraaortic lymphadenectomy 06/27/11 and completion of [place] chemotherapy/radiation (Carbo/Taxol, total 6 cycles). 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 Signs/symptoms of recurrent disease discussed. Strategies for weight loss and regular exercise discussed in detail. No evidence of recurrent disease by history or exam. Return in 6 months for routine surveillance. Patient seen/examined and plan formulated with Dr. Millard, attending Gianni Tinoco MD, PGY3 resident I saw and evaluated the patient with Dr. Tinoco, and I confirmed the history and physical findingsas outlined, and I agree with the note as written. documented in this encounter Plan of Treatment Not on file documented as of this encounter Visit Diagnoses Diagnosis Endometrial cancer Malignant neoplasm of corpus uteri, except isthmus documented in this encounter Care Teams Mamma Logist Relationship Specialty Start Date End Date Casie García APRN PCP - General 01/15/12 11/25/14 documented as of this encounter
--- OUTSIDE RECORDS SUMMARY | 2024-09-09 09:34 | XMS_ITS | Encounter Summary ---
Author Organization [facility] Address [facility] [place] [address] Care Team Providers Care Baling Press Operator Name Role Phone Casie García APRN Primary Care Provider [phone]- [phone] Reason for Visit * Reason Comments Established pain bleeding Encounter Details Date Type Department Care Team (Late st Contact Info) Description 10/10/2012 9:00 AM EST Follow-Up [place] [address] Veronika Duvall CONTA[facility] CONSULTANT [facility] [place] [address] Ovarian cancer; Endometrial cancer Discharge Disposition: Home Social History [...] Sign Reading Time Taken Comments Blood Pressure 120/74 10/10/2012 8:53 AM EST Pulse - - Temperature - - Respiratory Rate - - Oxygen Saturation - - Inhaled Oxygen Concentration - - Weight 55.5 kg (122 lb 5.7 oz) 10/10/2012 8:53 A M EST Height - - Body Mass Index 22.4 09/19/2012 1:48 PM EST documented in this encounter Progress Notes * Veronika Duvall - 10/10/2012 9:33 AM EST Division [place] [address] Follow-up Visit: Patient Active Problem List Diagnoses Code ??? Endometrial cancer 182.0 ??? Brain aneurysm 437.3 ??? Diverticulitis 562.11 Subjective: Farzana Garcia returns to the office today with C/o pelvic pain, fever, watery vaginal discharge andpain with urination. She is S/P sandwich chemotherapy and radiation for stage 11B endometrial cancer. She completed therapy in March 2012 in [place], [place] She presented to her oncologist there with these above complaints. The thought was that she had a UTI, and was given a sulfa drug on Sunday.The office called her yesterday to report a negative urine culture. Today she reports low grade fevers to 101 at home. Nausea with little appetite. Bowels are regular but infrequent, which she attributes to decreased oral intake. The pain is rated 7/10, is aggravatedwith urination. She is having watery clear vaginal discharge. Review of systems ABOVE Objective: Filed Vitals: 10/10/12 0853 BP: 120/74 General: Farzana Garcia Appears to be in obvious pain. She is holding onto her lower abdomen.she is here withher parents. Abdomen: soft, hypoactive BS x4. Pelvic: moderate amount of clear grayish fluid in vagina. There is necrotic, friend friable mass on the right side of the vaginal wall, which bleed easily with exam Assessment and Plan: Farzana Garcia is a 52 y.o. year old with History of stage 11B endometrial cancer. Exam concerning for recurrent disease.CT scan today. Preliminary report from CT - vaginal fornices abnormal. Areas of enhancement and thickening in the anterior of the perineum, concerning for metastasis Discussed result with Jesus and her parents. They understand that the final report will be available later this week. I have written for Keflex TID and Dilaudid 2mg , 40 tab every 3 hours prn for pain. No sexual intercourse. Appointment made with Dr. Horton next Sunday at 1120 for follow up and plan of care. documented in this encounter Plan of Treatment Not on file documented as of this encounter Procedures Procedure Name Priority Date/Time Associated Diagnosis Comments CREATININE STAT 10/10/2012 9:45 AM EST Ovarian cancer documented in this encounter Results * (ABNORMAL) Creatinine, serum (10/10/2012 9:45 AM EST) Creatinine 1.22(H) 0.70 - 1.20 mg/dL [facility] Comment: Please note that the pediatric reference intervals supplied above were not validated at [facility]. Results from pediatric patients should be interpreted in conjunction to the patient's age, height and muscle mass. Est Glomerular Filtration Rate 47(L) >=60 [facility] Comment: The National Kidney Disease Education Program (NKDEP) has recommended all laboratories report estimated GFR (eGFR) along with plasma creatinine measurements to assist you with recognition of early kidney disease. Caveats: ??Plasma creatinine should be at steady-state (unchanged within the past week). For patients multiply eGFR by 1.2. The MDRD equation was developed using patients between the ages of 18 and 70 years. ?? The MDRD equation has not been validated for patients < 18 years of age and should not be used to assess renal function in the pediatric population. ??The MDRD eGFR equation will also overestimate the true GFR of patients above the age of 70. ??This overestimation is variable but increases with age. At present, NKDEP does NOT recommend using the MDRD equation for drug dosing purposes and pharmacists should continue to use their current dosing methods. In addition, numerical eGFR values greater than 60 ml/min/1.73 square meters should be treated as > 60, and not an exact number due to greater inaccuracies at these higher values. Per NKDEP, they classify normal renal function as any GFR >60ml/min/1.73 square meters; chronic kidney disease when GFR <60, and renal failure when GFR <15. ??This calculation may not be valid for patients with atypical muscle mass (very lean or obese), acute renal failure, and in patients with diabetic kidney disease. References: http://nkdep.nih.gov/resources/NKDEP_Suggestn4Labs_0606_508.pdf http://www.kidney.org/professionals/kls/pdf/faq_gfr.pdf Naman K, Negrito NA, Paloma AK, David TS, Elsa AD, Ashley CHRISTIE. Relative performance of the MDRD and CKD-EPI equations for estimating glomerular filtration rate among patients with varied clinical presentations. Clin J Am Soc Nephrol;6:1963-72. Blood specimen (specimen) 10/10/2012 9:45 AM EST 10/10/2012 10:19 AM EST Narrative Resulting Agency Comment Spec In Lab Judy Horton MD CHEMISTRY ORDERABLES [facility] documented in this encounter Visit Diagnoses Diagnosis Ovarian cancer Malignant neoplasm of ovary Endometrial cancer Malignant neoplasm of corpus uteri, except isthmus documented in this encounter Care Teams Baling Press Operator Relationship Specialty Start Date End Date Casie García APRN PCP - General 01/15/12 11/25/14 documented as of this encounter
--- OUTSIDE RECORDS SUMMARY | 2024-09-09 09:34 | XMS_ITS | Clinical Summary ---
Author Organization [facility] Address [facility] [place] [address] Care Team Providers Care General Partner Name Role Phone Jai Gaytan MD Primary Care Provider [phone] Allergies Active Allergy Reactions Criticality Noted Date Comments Hydromorphone Nausea And Vomiting 10/18/2012 Red Blood Cells Other (See Comments) High 06/27/2011 Antibodies-Difficult to Crossmatch Medications Medication Sig Dispensed Refills Start Date End Date Status valACYclovir (VALTREX) 500 mg tablet Take 500 mg by mouth daily. Active zolpidem (AMBIEN) 5 mg tablet Take 5 mg by mouth nightly as needed. Active loperamide (IMODIUM) 2 mg Capsule Take 2 mg by mouth 3 times daily as needed for Diarrhea. Active diphenoxylate-atropin e (LOMOTIL) 2.5-0.025 mg TabletIndications:Jovana rrhea, unspecified type Take 1 tablet by mouth 4 times daily as needed for Diarrhea. May take 1 or 2 tablets 4 times daily as needed for Diarrhea 30 tablet 5 08/02/2017 Active lisinopril (PRINIVIL;ZESTRIL) 5 mg Tablet TAKE ONE TABLET BY MOUTH EVERY DAY 3 03/24/2018 Active gabapentin (Neurontin) 600 mg tablet Take 1,200 mg by mouth 3 times daily. 03/10/2023 Active sucralfate (Carafate) 1 gram tablet TAKE 1 TABLET BY MOUTH FOUR TIMES A DAY NEEDED 12/21/2022 Active diazePAM (Valium) 2 mg tablet Take 1 tablet by mouth 4 times daily as needed for Anxiety (as needed prior to MRI. Start with 1 tablet 30 minutes away from hospital, take 1 tablet upon arrival to hospital, and may repeat up to 2 times as needed after initial dosing). 4 tablet 03/27/2023 Active Active Problems Problem Noted Date Diagnosed Date TN (trigeminal neuralgia) 03/27/2023 Diverticulitis 08/16/2012 Endometrial cancer 06/20/2011 Cancer Staging:Clinical:Stage IIIC- Unsigned Pathologic:FIGO Stage IIIB- Unsigned Overview (07/14/2013): Stage IIIC1, FIGO grade 3 adenocarcinoma of [...] cycles) completed March 2012 (chemo done in [place], [place]) Brain aneurysm 06/20/2011 Overview (07/21/2012): S/p surgery 2001 Family History Medical History Relation Comments Breast Cancer Maternal Aunt Cancer Maternal Grandfather colon cance r Cancer Paternal Grandmother not sure wh ere the cancer was Cancer Paternal Uncle leukemia Lung Cancer Paternal Uncle Relation Status Comments Maternal Aunt Maternal Grandfather Paternal Grandmother Paternal Uncle Social History Tobacco Use Types Packs/Day Years Used Date Smoking Tobacco: Never Smokeless Tobacco: Never Alcohol Use Standard Drinks/Week Comments Yes 0 (1 standard drink = 0.6 oz pur e alcohol) very seldom; once a year Sex and Gender Information Value Date Recorded Sex Assigned at Not on file Gender Identity Not on file Sexual Orientation Not on file Last Filed Vital Signs Vital Sign Reading Time Taken Comments Blood Pressure 137/83 03/27/2023 3:15 PM EDT Pulse 83 03/27/2023 3:15 PM EDT Temperature 36.2 ??C (97.1 ??F) 05/17/2020 8:37 AM ED T Respiratory Rate 16 05/17/2020 8:37 AM EDT Oxygen Saturation 98% 05/17/2020 8:37 AM EDT Inhaled Oxygen Concentration - - Weight 77.1 kg (170 lb) 03/27/2023 3:15 PM EDT Height 157.5 cm (5' 2) 03/27/2023 3:15 PM EDT r eported Body Mass Index 31.09 03/27/2023 3:15 PM EDT Plan of Treatment Health Maintenance Due Date Last Done Comments CT Colonography 1962 Colonoscopy 1962 Colorectal Cancer Screening 1962 FIT DNA 1962 FIT 1962 Sigmoidoscopy (10 year) with FIT yearly 1962 Sigmoidoscopy 1962 HIV screen 1980 Hepatitis C Screening 1980 Lipid Screening 1980 Tetanus/Diphtheria/Pertussis Vaccines (1 - Tdap) 1981 HPV test 1992 PAP Smear 1992 Breast Cancer Share Decision Needed 2002 Zoster vaccine (1 of 2) 2012 Diabetes Screening (HgbA1C or Glucose) 02/17/2017 Advance Directive 2017 Breast Cancer screening 09/06/2023 09/06/2021, 09/06 Covid-19 Vaccine ( - 2023- season) 2024 Influenza (Flu) vaccine (1 o f 1 - Influenza standard series) 06/22/2024 Medical Devices Implanted Type Area Inpatient Care Manager Rn Device Identifier Shelf Expiration Date Model / Serial / Lot [employer] Anerysm Clip-11/15/2000 Implanted:Qty: 2 on 11/15/2000 by Jace Greenberg MD IMPLANTS Brain Description:All Aneurysm Cli ps placed here @ [facility], after 1992 that are Titanium are MRI Safe Davy Duque RT(R)(CT)(MR)(ARRT), MRI Safety Technologist, 05/02/2023 Procedures Procedure Name Priority Date/Time Associated Diagnosis Comments MAMMO SCREENING CAD BILATERAL Routine 09/06/2021 4:57 PM EST COMPREHENSIVE METABOLIC PANEL Routine 02/17/2014 3:35 PM EDT Fatigue from Last 3 Months or Most Recently Relevant to Health Maintenance Results * Mammo Screening Cad Bilateral (09/06/2021 4:57 PM EST) PT CLASS O RAD ADMITDTTM RAD PT RAD INFO [id number]^BI SSON^JAI RAD EXAM DESC MADDSC^SCREEN MAMMO BL INCLUDES CAD^RIS RAD Anatomical Region Laterality Modality Breast Bilateral Mammography Impressions 09/07/2021 4:18 PM EST BI-RADS ??category 1: negative- No mammographic evidence of malignancy. RECOMMENDATION: * ??Regular screening mammograms starting between age 40 and 50 reduces the risk of from breast cancer. * ??All screening tests have both risks and benefits. These risks and benefits should be assessed for each individual patient through discussion with their provider to determine their preferred breast cancer screening schedule. * ??Women should report any breast changes to a health care provider right away. * ??Some women, because of their family history, a genetic tendency, or other factors, should be screened with annual breast MRI as well as with mammograms. (The number of women who fall into this category is very small). Patients and health care providers should discuss the history of each patient to decide if earlier screening and/or breast MRI are appropriate. * ??Screening should continue as long as a woman is in good health and is expected to live 10 years or longer. * ??Screening mammography may not detect 10-15% of breast cancers. Thank you for letting us participate in the care of this patient. ??If you are a health care provider and have any questions regarding this report, please contact the number below. ??For patients who have questions please contact the health wound care nurse that requested your imaging first. ? Narrative 09/07/2021 4:18 PM EST EXAMINATION: BREAST SCREEN TOMOSYNTHESIS BI, SCREEN MAMMO BL INCLUDES CAD CLINICAL HISTORY: screen Family history of breast cancer: None Reproductive history: Parous No personal history of breast cancer. COMPARISON: Previous mammograms were reviewed. TECHNIQUE: ??Bilateral MLO and CC digital mammograms were obtained and reviewed with CAD. ?? 2-D and 3-D tomosynthesis images were obtained. FINDINGS: There are no suspicious microcalcifications, masses, or areas of distortion. No changes compared to prior studies. Breast density: There are scattered areas of fibroglandular density. Procedure Note Rashi Sharma MD - 09/07/2021 EXAMINATION: BREAST SCREEN TOMOSYNTHESIS BI, SCREEN MAMMO BL INCLUDESCAD CLINICAL HISTORY: screen Family history of breast cancer: None Reproductive history: Parous No personal history of breast cancer. COMPARISON: Previous mammograms were reviewed. TECHNIQUE: Bilateral MLO and CC digital mammograms were obtained andreviewed with CAD. 2-D and 3-D tomosynthesis images were obtained. FINDINGS: There are no suspicious microcalcifications, masses, or areasof distortion. No changes compared to prior studies. Breast density: There are scattered areas of fibroglandular density. IMPRESSION BI-RADS category 1: negative- No mammographic evidence of malignancy. RECOMMENDATION: * Regular screening mammograms starting between age 40 and 50 reduces therisk of from breast cancer. * All screening tests have both risks and benefits. These risks andbenefits should be assessed for each individual patient through discussion withtheir provider to determine their preferred breast cancer screening schedule. * Women should report any breast changes to a health care provider rightaway. * Some women, because of their family history, a genetic tendency, orother factors, should be screened with annual breast MRI as well as withmammograms. (The number of women who fall into this category is very small). Patientsand health care providers should discuss the history of each patient to decideif earlier screening and/or breast MRI are appropriate. * Screening should continue as long as a woman is in good health and is expected to live 10 years or longer. * Screening mammography may not detect 10-15% of breast cancers. Thank you for letting us participate in the care of this patient. If youare a health care provider and have any questions regarding this report,please contact the number below. For patients who have questions please contactthe health wound care nurse that requested your imaging first. Jai Gaytan MD IMG MAMMO ORDERABLES * (ABNORMAL) Comprehensive metabolic panel (non-fasting) (02/17/2014 3:35 PM EDT) Glucose 89 60 - 199 mg/dL [facility] Comment:Diabetes: >=200 mg/d L plus symptoms Blood Urea Nitrogen 16 8 - 18 mg/dL [facility] Creatinine 1.00 0.70 - 1.20 mg/dL [facility] Comment: Please note that the pediatric reference intervals supplied above were not validated at [facility]. Results from pediatric patients should be interpreted in conjunction to the patient's age, height and muscle mass. Sodium 140 135 - 145 mmol/L [facility] Potassium 3.9 3.5 - 5.0 mmol/L [facility] Comment: Please note: ??Patients with WBC >100,000 may have falsely elevated Potassium levels. ??For accurate Potassium quantification in these patients send serum separator tube (gold top) for subsequent determinations. ??Contact the Clinical Chemistry Laboratory if there are any questions. Chloride 104 98 - 107 mmol/L [facility] Carbon Dioxide 25 22 - 31 mmol/L [facility] Anion Gap 11 5 - 15 mmol/L [facility] Calcium 10.0 8.5 - 10.5 mg/dL [facility] Protein, Total 7.5 6.4 - 8.3 gm/dL [facility] Albumin 4.6 3.2 - 5.2 gm/dL [facility] Aspartate Aminotransferase 41(H) 0 - 30 unit/L [facility] Alanine Aminotransferase 57(H) 0 - 30 unit/L [facility] Alkaline Phosphatase 48 40 - 104 unit/L [facility] Bilirubin, Total 0.6 0.2 - 1.3 mg/dL [facility] Bilirubin, Direct 0.1 0.0 - 0.3 mg/dL [facility] Est Glomerular Filtration Rate 58(L) >=60 [facility] Comment: This estimated GFR (eGFR) value was calculated using the MDRD equation which has been validated on patients between the ages of 18 and 70. The MDRD should not be used to assess kidney function in patients < 18 years of age or in patients with extremes of body mass, or in patients with acute kidney failure. This value should be multiplied by 1.2 for patients. For further information please copy and paste the following links into your internet browser. http://www.nkdep.nih.gov/lab-evaluation.shtml http://www.kidney.org/professionals/ Blood specimen (specimen) 02/17/2014 3:35 PM EDT 02/17/2014 3:38 PM EDT Narrative Resulting Agency Comment Spec In Lab Judy Horton MD CHEMISTRY ORDERABLES [facility] from Last 3 Months or Most Recently Relevant to Health Maintenance Advance Directives * Full Code (Latest Code Status on File) Date Activated Date Inactivated Comments 06/27/2011 9:00 PM 06/28/2011 6:03 PM Question Answer Comments Order Status: Initial Order Does patient have decision m aking capacity? Yes, Order is based on Patients wishes. * Full Code Date Activated Date Inactivated Comments 06/27/2011 11:03 AM 06/27/2011 7:45 PM Question Answer Comments Order Status: Initial Order Does patient have decision m aking capacity? Yes, Order is based on Patients wishes. Care Teams General Partner Relationship Specialty Start Date End Date Jai Gaytan MD [address] [place] [address] PCP - General Family Medicine 03/06/23
--- OUTSIDE RECORDS SUMMARY | 2024-09-09 09:34 | XMS_ITS | Encounter Summary ---
Author Organization [facility] [place] [address] Care Team Providers Care Neuropsychiatrist Name Role Phone Casie García APRN Primary Care Provider [phone]- [phone] Reason for Visit * Reason Comments Radiation Follow-up endometrial cancer Encounter Details Date Type Department Care Team (Late st Contact Info) Description 01/30/2013 3:30 PM EDT Follow-Up Radiation Oncology at [address] [phone] Manju Farris APRN [address] [place] [address] [place] [address] Endometrial cancer (Primary Dx) Discharge Disposition: [...] Sign Reading Time Taken Comments Blood Pressure 113/70 01/30/2013 3:25 PM EDT Pulse 69 01/30/2013 3:25 PM EDT Temperature 36.7 ??C (98.1 ??F) 01/30/2013 3:25 PM ED T Respiratory Rate 16 01/30/2013 3:25 PM EDT Oxygen Saturation 98% 01/30/2013 3:25 PM EDT Inhaled Oxygen Concentration - - Weight 61.9 kg (136 lb 8 oz) 01/30/2013 3:25 PM EDT Height - - Body Mass Index 24.99 12/19/2012 2:57 PM EST documented in this encounter Progress Notes * Manju Farris, [employer] - 01/30/2013 3:40 PM EDT Subjective: Patient ID: Farzana Garcia is a 52 y.o. female who was treated with radiation therapy for endometrial cancer. She is in clinic for scheduled follow up. HPI Mrs Garcia presented with severe anemia requiring transfusions and was found to have endometrial ca,endometrioid type w/squamous diff, FIGO gr 3, s/p total laparoscopic/robotic hys w/BSO, laparoscopic pelvic & paraaortic lymphadenectomy followed by carbo/taxol x 3; path showing ovarian mets vs synchronous ovarian primary; + involvement 1 L pelvic lymph node; stage IIIC1, pN1. Her xrt was comprised of external beam to pelvis followed by 3 intravag brachy. Chemotherapy: -- 10/05/11 - cycle 2 Carbo/Taxol - 3 planned cycles, then see Rad Onc. -- 10/26/10 - cycle #3 Carbo/Taxol - final prior to Rad Onc. -- XRT 11/20/11 - - 01/25/12 - cycle #4 Carbo/Taxol plan to complete six cycles. -- 02/15/12 - C#5: held, neutropenia, and dental infection - on ABX --03/28/2012--final cycle of chemotherapy Surveillance: --CT of abdomen and pelvis: Impression Enhancement and thickening of the vagina with associated ischiorectal fat stranding and slight thickening of the posterior bladder wall. These findings may be secondary to a prior treatment versus a malignant process and followup MRI is recommended to better evaluate these findings. Past Medical History Diagnosis Date ??? Endometrial cancer 06/20/2011 ??? Brain aneurysm 2000 Found incidentally when eval'd for headache; clipped. Past Surgical History Procedure Date ??? Brain aneurysm surgery 2000 ? ? Laparoscopy w tot hysterectuterus <=250 gram w tube/ovary 06/27/2011 LAPAROSCOPY,TOTAL HYST, UTERUS<250GM, SYDNEY TYBE &/OR OVARY, ROBOTIC ASSIST performed by DECLAN HORTON at [facility] MAIN OR ??? Lap, pelvic lymphadenectomy/bx 06/27/2011 LAPAROSCOPY,W\BILATERAL TOTAL PELVIC LYMPHADENECTOMY, PERIAORTIC LYMPH NODE SAMPLING, ROBOTIC performed by DECLAN HORTON at [facility] MAIN OR ??? Cholecystectomy 2001 For gallstones Allergies Allergen Reactions ??? Red Blood Cells Other (See Comments) Antibodies-Difficult to Crossmatch ??? Dilaudid (Hydromorphone) Nausea And Vomiting Current Outpatient Prescriptions on File Prior to Visit Medication Sig Dispense Refill ??? valACYclovir (VALTREX) 500 mg tablet Take 500 mg by mouth daily. ??? ESZOPICLONE (LUNESTA ORAL) Take 5 mg by mouth daily. ??? DISCONTD: OXYcodone (ROXICODONE) 5 mg immediate release tablet Take 1-2 tablets by mouth every 4 hours as needed for Pain. 30 tablet 0 Interim History: Mrs Garcia reports that she is doing well. She does continues with fatigue and requires a nap daily. She was hospitalized (06/2012) due to diverticulitis. A Ct of the abdomen done in September 2012 was negative for cancer recurrence. She was seen by Dr Horton again 12/2012 who did a complete pelvic exam. She remains sexually active and has no bleeding vaginally. She has no dyspareunia, no vaginal discharge. She continues with a vaginal dilator and reports no difficulty. She denies any other pain. Shedenies any urinary problems ie no dysuria, no hematuria, no urinary flow resistance. She continues with some loose bowels with bowels moving 2-4 times a day. She denies hematochezia and melena. She asked if she should be screened with a colonoscopy and this was encouraged. She will discuss having the screening done at [facility]. Review of Systems Constitutional: Positive for fatigue. Negative for chills, activity change and unexpected weight change. Exercises daily walking one mile tolerating exercise well. Working 20 hours a week and it is a flexible schedule. HENT: Negative. Respiratory: Negative. Negative for cough and shortness of breath. Cardiovascular: Negative. Negative for chest pain and leg swelling. Gastrointestinal: Negative. Negative for nausea, abdominal pain, constipation, blood in stool and rectal pain. Bowels move 2-4 times a day. No blood. + mucus. Stomach cramps occ does not take imodium bowels are not really a problem Genitourinary: Negative. Negative for dysuria, urgency, frequency, hematuria, decreased urine volume, vaginal bleeding, vaginal discharge, difficulty urinating, vaginal pain and pelvic pain. No burning No blood urine Good stream Nocturia--none Sexually active--no pain--no blood with sexual activity--adequate lubrication No leakage of urine. Musculoskeletal: Negative. Skin: Negative. Neurological: Negative. Negative for dizziness, weakness and headaches. Hematological: Negative. Psychiatric/Behavioral: Negative. Recent Review Flowsheet Data Oncology Vitals Recent Review Flowsheet Data View Complete Flowsheet Oncology Vitals 01/30/2013 Weight 61.916 kg Temp 98.1 Temp src 1 Pulse 69 Heart Rate Source Right;NIBP Resp 16 BP 113/70 BP Location Right arm Patient Position Sitting SpO2 98 Pain Level 0 KPS: 100 Objective: Physical Exam Vitals reviewed. Constitutional: She is oriented to person, place, and time. She appears well- developed and well-nourished. No distress. HENT: Head: Normocephalic and atraumatic. Eyes: Conjunctivae and EOM are normal. Right eye exhibits no discharge. Left eye exhibits no discharge. No scleral icterus. Neck: Normal range of motion. Neck supple. No tracheal deviation present. No thyromegaly present. Cardiovascular: Normal rate, regular rhythm and normal heart sounds. Exam reveals no gallop and no friction rub. No murmur heard. Pulmonary/Chest: Effort normal and breath sounds normal. No stridor. No respiratory distress. She has no wheezes. She has no rales. She exhibits no tenderness. Abdominal: Soft. Bowel sounds are normal. She exhibits no distension and no mass. There is no tenderness. There is no rebound and no guarding. Genitourinary: Pelvic exam was performed with patient supine. Patient did not want speculum exam given recent exam by Dr Horton. Musculoskeletal: Normal range of motion. She exhibits no edema and no tenderness. Lymphadenopathy: Head (right side): No submental, no submandibular, no preauricular, no posterior auricular and no occipital adenopathy present. Head (left side): No submental, no submandibular, no preauricular, no posterior auricular and no occipital adenopathy present. She has no cervical adenopathy. Right: No inguinal and no supraclavicular adenopathy present. Left: No inguinal and no supraclavicular adenopathy present. Neurological: She is alert and oriented to person, place, and time. No cranial nerve deficit. She exhibits normal muscle tone. Coordination normal. Skin: Skin is warm and dry. No rash noted. She is not diaphoretic. No erythema. No pallor. Psychiatric: She has a normal mood and affect. Her behavior is normal. Judgment and thought contentnormal. Assessment and Plan: Endometrial cancer. Mrs Garcia is doing well with CARMEN. Diverticulitis: Provided patient with dietary information for persons with diverticulitis. Given that she had pelvic radiation she was also advised to start metamucil 1 tsp a day to help regulate bowel function. We reviewed late effects of radiation therapy to the pelvis including risk for radiation cystitis and radiation proctitis. He is encouraged to keep well hydrated and we reviewed bowel care. We reviewed signs and symptoms he needs to report including blood in his urine or stool, problems with urinary flow or new persistent pain. She will discuss with her PCP having a screening colonoscopy done at [facility]. She continues follow up with Dr Grimes and Dr Horton and she is to F/U in Rad Onc in 9 months documented in this encounter Plan of Treatment Not on file documented as of this encounter Visit Diagnoses Diagnosis Endometrial cancer- Primary Malignant neoplasm of corpus uteri, except isthmus documented in this encounter Care Teams Neuropsychiatrist Relationship Specialty Start Date End Date Casie García APRN PCP - General 01/15/12 11/25/14 documented as of this encounter
--- OUTSIDE RECORDS SUMMARY | 2024-09-09 09:34 | XMS_ITS | Encounter Summary ---
Author Organization [facility] Address [facility] [place] [address] Care Team Providers Care Embedded Firmware Engineer Name Role Phone Barry Hernandez MD Primary Care Provider Reason for Visit * Reason Comments Radiation Follow-up cancer of the endome trium Encounter Details Date Type Department Care Team (Late st Contact Info) Description 11/26/2014 2:30 PM EST Follow-Up Radiation Oncology at [address] [place] [phone] Manju Farris APRN [address] [place] [address] [place] [address] Cancer of endometrium; Acquired hypothyroidism; Exposure to hepatitis C Discharge Disposition: Home Social History Tobacco Use [...] Sign Reading Time Taken Comments Blood Pressure 136/85 11/26/2014 2:27 PM EST Pulse 85 11/26/2014 2:27 PM EST Temperature 37.2 ??C (99 ??F) 11/26/2014 2:27 PM EST Respiratory Rate 18 11/26/2014 2:27 PM EST Oxygen Saturation 96% 11/26/2014 2:27 PM EST Inhaled Oxygen Concentration - - Weight 73.9 kg (163 lb) 11/26/2014 2:27 PM EST Height - - Body Mass Index 29.84 11/20/2013 11:21 AM EST documented in this encounter Progress Notes * Manju Farris, POLICY DIRECTOR - 11/26/2014 12:01 PM EST Subjective: Patient ID: Farzana Garcia is a 54 y.o. female who was treated with radiation therapy for endometrial cancer. She is in clinic for scheduled follow up. HPI Mrs Garcia presented with severe anemia requiring transfusions and was found to have endometrialca, endometrioid type w/squamous diff, FIGO gr 3, s/p total laparoscopic/robotic hys w/BSO, laparoscopic pelvic & paraaortic lymphadenectomy followed by carbo/taxol x 3; path showing ovarian metsvs synchronous ovarian primary; + involvement 1 L pelvic lymph node; stage IIIC1, pN1. Her xrt was comprised of external beam to pelvis followed by 3 intravag brachy. Chemotherapy: -- 10/05/11 - cycle 2 Carbo/Taxol - 3 planned cycles, then see Rad Onc. -- 10/26/10 - cycle #3 Carbo/Taxol - final prior to Rad Onc. -- XRT --11/20/11 through 12/25/11 45 Gy/25 fxs to pelvis. 12/29/11 through 01/12/12, 15 Gy/3 fxs to vaginal apex w/Ir-192 HDR & 2.6 cm vaginal cylinder. - - 01/25/12 - cycle #4 Carbo/Taxol plan to complete six cycles. -- 02/15/12 - C#5: held, neutropenia, and dental infection - on ABX --03/28/2012--final cycle of chemotherapy Surveillance: --10/10/2012--CT of abdomen and pelvis: Impression Enhancement and thickening of the vagina with associated ischiorectal fat stranding and slight thickening of the posterior bladder wall. These findings may be secondary to a prior treatment versus a malignant process and followup MRI is recommendedto better evaluate these findings. Past Medical History Diagnosis Date ??? Endometrial cancer 06/20/2011 ??? Brain aneurysm 2001 Found incidentally when eval'd for headache; clipped. Past Surgical History Procedure Laterality Date ??? Brain aneurysm surgery 2000 ? ? Laparoscopy w tot hysterectuterus <=250 gram w tube/ovary 06/27/2011 LAPAROSCOPY,TOTAL HYST, UTERUS<250GM, SYDNEY TYBE &/OR OVARY, ROBOTIC ASSIST performed by DECLAN MILLARD at [facility] MAIN OR ??? Lap, pelvic lymphadenectomy/bx 06/27/2011 LAPAROSCOPY,W\BILATERAL TOTAL PELVIC LYMPHADENECTOMY, PERIAORTIC LYMPH NODE SAMPLING, ROBOTIC performed by DECLAN MILLARD at [facility] MAIN OR ??? Cholecystectomy 2001 For gallstones Allergies Allergen Reactions ??? Red Blood Cells Other (See Comments) Antibodies-Difficult to Crossmatch ??? Dilaudid [Hydromorphone] Nausea And Vomiting Current Outpatient Prescriptions on File Prior to Visit Medication Sig Dispense Refill ??? zolpidem (AMBIEN) 5 mg tablet Take 5 mg by mouth nightly as needed. ??? ALPRAZolam (XANAX) 0.5 mg tablet Take 0.5 mg by mouth nightly as needed. ??? valACYclovir (VALTREX) 500 mg tablet Take 500 mg by mouth daily. No current facility-administered medications on file prior to visit. History Social History ??? Marital Status: Spouse Name: N/A Number of Children: N/A ??? 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 Smoking status: Never Smoker ??? Smokeless tobacco: Never Used ??? Alcohol Use: 0.0 oz/week 0 drink(s) per week Comment: very seldom; once a year ??? Drug Use: No ??? Sexual Activity: Yes Other Topics Concern ??? Not on file Social History Narrative Patient is . Two children. Alienated from daughter. One son with whom she is close. Four grand daughters. Son's daughter with Down's syndrome. 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 She does continues with fatigue and requires a nap daily. She is now working about 20 hours a week which has been well tolerated. She was last seen by Dr Millard again 02/17/2014. She remains sexually active but is finding that she has no libido and as a result has not been sexually active as often. She has no pain with intercourse. She has no bleeding vaginally. She does not use dilator. She reports that her boyfriend was recently diagnosed with hepatitis C and is concernedabout her exposure. She denies any urinary problems ie no dysuria, no hematuria, no urinary flow resistance. She continues with some loose bowels with bowels moving 2-4 times a day. She denies hematochezia and melena. Review of Systems Constitutional: Positive for diaphoresis and fatigue. Negative for chills, activity change and unexpected weight change. Working 20 hours a week and it is a flexible schedule. She has tolerated working up to 40 hours a week occasionally + hot flashes--not bad Patient has not been exercising No pain HENT: Negative. Respiratory: Negative. Negative for cough, chest tightness and shortness of breath. Cardiovascular: Negative. Negative for chest pain and leg swelling. Gastrointestinal: Negative. Negative for nausea, abdominal pain, constipation, blood in stool, abdominal distention and rectal pain. Bowels move 2-4 times a day. No blood. + mucus. --does not take imodium and has taken Metamucil occasionally No abdominal pain Genitourinary: Negative. Negative for dysuria, urgency, frequency, hematuria, decreased urine volume, vaginal bleeding, vaginal discharge, difficulty urinating, vaginal pain and pelvic pain. No burning No blood urine Good stream Nocturia--none Sexually active--no pain--no blood with sexual activity--adequate lubrication --no desire for intercourse No leakage of urine. Musculoskeletal: Negative. Skin: Negative. Dry skin patches resolved currently Neurological: Negative. Negative for dizziness, weakness and headaches. Hematological: Negative. Psychiatric/Behavioral: Negative. Recent Review Flowsheet Data Filed Vitals: 11/26/14 1427 BP: 136/85 Pulse: 85 Temp: 37.2 ??C (99 ??F) TempSrc: Oral Resp: 18 Weight: 73.936 kg (163 lb) SpO2: 96% VVC=788 Pain: none Objective: Physical Exam Constitutional: She is oriented to person, place, [...] Effort normal and breath sounds normal. No respiratory distress. She has no wheezes. She has no rales. She exhibits no tenderness. Abdominal: Soft. Bowel sounds are normal. She exhibits no distension and no mass. There is no tenderness. There is no rebound and no guarding. Genitourinary: Guaiac negative stool. Pelvic exam was performed with patient supine. No vaginal discharge found. External genitalia without masses, no lesions, no induration, no tenderness, no vaginal discharge, no bleeding Speculum exam shows normal, atrophic appearing vaginal tissue and cuff with mild erythema/petechiae Bimanual exam shows no abnormal masses or nodularity. Guaiac negative Musculoskeletal: Normal range of motion. She exhibits no edema or tenderness. Lymphadenopathy: Head (right side): No submental, [...] behavior is normal. Judgment and thought contentnormal. Vitals reviewed. Assessment and Plan: Ms Garcia is a atilio 54 year old woman with endometrial ca, endometrioid type w/squamous diff, FIGOgr 3, s/p total laparoscopic/robotic hys w/BSO, laparoscopic pelvic & paraaortic lymphadenectomy followed by carbo/taxol x 3; path showing ovarian mets vs synchronous ovarian primary; + involvement 1 L pelvic lymph node; stage IIIC1, pN1. She was treated with adjuvant radiation therapy Her xrt was comprised of external beam to pelvis followed by 3 intravag brachy. Chemotherapy: -- 10/05/11 - cycle 2 Carbo/Taxol - 3 planned cycles, then see Rad Onc. -- 10/26/10 - cycle #3 Carbo/Taxol - final prior to Rad Onc. -- XRT --11/20/11 through 12/25/11 45 Gy/25 fxs to pelvis. 12/29/11 through 01/12/12, 15 Gy/3 fxs to vaginal apex w/Ir-192 HDR & 2.6 cm vaginal cylinder. - - 01/25/12 - cycle #4 Carbo/Taxol plan to complete six cycles. -- 02/15/12 - C#5: held, neutropenia, and dental infection - on ABX --03/28/2012--final cycle of chemotherapy Mrs Garcia is doing well with CARMEN. Bowel frequency: Given that she had pelvic radiation she was also advised to start metamucil 1 tsp a day to help regulate bowel function. We reviewed late effects of radiation therapy to the pelvis including risk for radiation cystitis and radiation proctitis. She is encouraged to keep well hydrated and we reviewed bowel care. Exposure to hepatitis C-- serum antibody to be done tomorow Patient given new vaginal dilator given that she is not frequently sexually active--discussed use of condom by partner Labs--CBC, CMP to be done. We will see patient again in six months for clinical evaluation. Patient is to call in the interim if she has any questions or concerns, documented in this encounter Plan of Treatment Not on file documented as of this encounter Visit Diagnoses Diagnosis Cancer of endometrium Malignant neoplasm of corpus uteri, except isthmus Acquired hypothyroidism Unspecified hypothyroidism Exposure to hepatitis C Contact with or exposure to other viral diseases documented in this encounter Care Teams Embedded Firmware Engineer Relationship Specialty Start Date End Date Barry Hernandez MD [address] [place] [address] PCP - General 11/26/14 03/05/23 documented as of this encounter
--- OUTSIDE RECORDS SUMMARY | 2024-09-09 09:34 | XMS_ITS | Encounter Summary ---
Author Organization [facility] [place] [address] Care Team Providers Care Boat Assembler Name Role Phone Casie García APRN Primary Care Provider [phone] Encounter Details Date Type Department Care Team (Late st Contact Info) Description 10/10/2012 11:26 AM EST - 10/10/2012 11:59 PM [facility] Hospital [place] [address] Ovarian cancer Social History Tobacco Use Types Packs/Day [...] daily. 06/19/2013 documented as of this encounter Plan of Treatment Not on file documented as of this encounter Procedures Procedure Name Priority Date/Time Associated Diagnosis Comments CT CHEST ABDOMEN PELVIS W CONTRAST (GENERIC) STAT 10/10/2012 2:06 PM EST Malignant neoplasm of ovary documented in this encounter Results * CT chest, abdomen, & pelvis with contrast (10/10/2012 2:06 PM EST) Anatomical Region Laterality Modality Computed Tomogra phy 10/10/2012 2:06 PM EST Narrative 10/11/2012 8:[address] Chest / Abdomen / Pelvis With Contrast Clinical History Abdominal or pelvic pain, fever Completed radiation and chemotherapy March 2012 for stage 1b endometrial cancer Comparison CT of the abdomen dated July 11, 2012. Technique On CT of the chest, abdomen and pelvis following the administration 110 cc of Omnipaque 350. Coronal and sagittal reformats obtained. Findings Chest: ?? Dependent bibasilar atelectasis. No pulmonary nodules, pleural effusions or pneumothorax. No filling defects within the main pulmonary arteries to suggest pulmonary embolism. The bronchial airways are patent. No mediastinal, hilar or axillary lymphadenopathy. Heart appears normal with no evidence pericardial effusion. ?? Abdomen: ?? No free intraperitoneal air. The gallbladder is surgically removed no evidence of intra or extrahepatic biliary ductal dilatation. The liver, pancreas, spleen, adrenal glands and kidneys appear normal. No hydronephrosis or hydroureter. The small bowel is normal in course and caliber without evidence of wall thickening or edema. The appendix is not visualized but there are no inflammatory mesenteric changes in the right lower quadrant. No abdominal free fluid or lymphadenopathy. ?? Pelvis: ?? The uterus and adnexa are absent. There is thickening and enhancement of the vagina with stranding of the adjacent ischiorectal fat. There also appears to be thickening of the posterior bladder wall. Without prior imaging for comparison is are none of these are new findings or sequelae of prior treatment. ??Otherwise, the bladder appears normal. The large bowel appears normal in caliber with no evidence of obstruction. No pelvic or inguinal lymphadenopathy. No pelvic free fluid. ?? No suspicious osseous abnormalities. ?? Impression 1. Enhancement and thickening of the vagina with associated ischiorectal fat stranding and slight thickening of the posterior bladder wall. These findings may be secondary to a prior treatment versus a malignant process and followup MRI is recommended to better evaluate these findings. ?? Film and interpretation reviewed by the attending Procedure Note Dante Richardson MD - 10/11/[address] Chest / Abdomen / Pelvis With Contrast Clinical History Abdominal or pelvic pain, fever Completed radiation and chemotherapy March 2012 for stage 1b endometrialcancer Comparison CT of the abdomen dated July 11, 2012. Technique On CT of the chest, abdomen and pelvis following the administration 110 ccof Omnipaque 350. Coronal and sagittal reformats obtained. Findings Chest: Dependent bibasilar atelectasis. No pulmonary nodules, pleural effusionsor pneumothorax. No filling defects within the main pulmonary arteries tosuggest pulmonary embolism. The bronchial airways are patent. No mediastinal,hilar or axillary lymphadenopathy. Heart appears normal with no evidencepericardial effusion. Abdomen: No free intraperitoneal air. The gallbladder is surgically removed noevidence of intra or extrahepatic biliary ductal dilatation. The liver, pancreas, spleen, adrenal glands and kidneys appear normal. No hydronephrosis or hydroureter. The small bowel is normal in course and caliber withoutevidence of wall thickening or edema. The appendix is not visualized but there areno inflammatory mesenteric changes in the right lower quadrant. No abdominalfree fluid or lymphadenopathy. Pelvis: The uterus and adnexa are absent. There is thickening and enhancement ofthe vagina with stranding of the adjacent ischiorectal fat. There also appearsto be thickening of the posterior bladder wall. Without prior imaging for comparison is are none of these are new findings or sequelae of prior treatment. Otherwise, the bladder appears normal. The large bowel appears normal in caliber with no evidence of obstruction. No pelvic or inguinal lymphadenopathy. No pelvic free fluid. No suspicious osseous abnormalities. Impression 1. Enhancement and thickening of the vagina with associated ischiorectalfat stranding and slight thickening of the posterior bladder wall. Thesefindings may be secondary to a prior treatment versus a malignant process andfollowup MRI is recommended to better evaluate these findings. Film and interpretation reviewed by the attending Judy Horton MD IM CT ORDERABLES documented in this encounter Visit Diagnoses Diagnosis Ovarian cancer Malignant neoplasm of ovary documented in this encounter Administered Medications Inactive Administered Medications - up to 3 most recent administrations Medication Order MAR Action Action Date Dose Rate Site iohexol (OMNIPAQUE) 350 mg iodine/mL injection 17,500 mg 17,500 mg (50 mL), Oral, ONCE PRN, 1 dose, Starting on Sue 10/10/12 at 1400, Until Sue 10/10/12 at 1130, Per Protocol, Routine Given 10/10/2012 11:30 AM EST 17,500 mg iohexol (OMNIPAQUE) 350 mg iodine/mL injection 38,500 mg 38,500 mg (110 mL), Intravenous, ONCE PRN, 1 dose, Starting on Sue 10/10/12 at 1400, Until Sue 10/10/12 at 1402, Per Protocol, Routine Given 10/10/2012 2:02 PM EST 38,500 mg documented in this encounter Care Teams Boat Assembler Relationship Specialty Start Date End Date Casie García APRN PCP - General 01/15/12 11/25/14 documented as of this encounter
--- OUTSIDE RECORDS SUMMARY | 2024-09-09 09:34 | XMS_ITS | Encounter Summary ---
Author Organization [facility] [address] Care Team Providers Care Medicare Insurance Specialist Name Role Phone Barry Hernandez MD Primary Care Provider Reason for Visit * Reason Comments Radiation Follow-up endometrial cancer Encounter Details Date Type Department Care Team (Late st Contact Info) Description 12/02/2015 2:30 PM EST Office Visit Radiation Oncology at [address] [phone] Manju Farris APRN [address] [place] [address] RADIATION ONCOLOGY [place], [place] [id number] Health care maintenance Social History Tobacco Use Types Packs/Day Years [...] Sign Reading Time Taken Comments Blood Pressure 119/82 12/02/2015 2:40 PM EST Pulse 90 12/02/2015 2:40 PM EST Temperature 36 ??C (96.8 ??F) 12/02/2015 2:40 PM EST Respiratory Rate 16 12/02/2015 2:40 PM EST Oxygen Saturation 99% 12/02/2015 2:40 PM EST Inhaled Oxygen Concentration - - Weight 76.9 kg (169 lb 8 oz) 12/02/2015 2:40 PM EST Height - - Body Mass Index 30.68 01/05/2015 2:36 PM EDT documented in this encounter Progress Notes * Manju Farris, ETHNOLOGY PROFESSOR - 12/02/2015 1:01 PM EST Patient ID: Farzana Garcia is a 55 y.o. female who was treated with radiation [...] MRI is recommendedto better evaluate these findings. --09/15/2015--biopsy of 3 mm lesion vulva--condyloma. Past Medical History Diagnosis Date ??? Endometrial cancer 06/20/2011 ??? Brain aneurysm 2000 Found incidentally when eval'd for headache; clipped. Past Surgical History Procedure Laterality Date ??? Brain aneurysm surgery 2000 ? ? Pro laparoscopy w tot hysterectuterus <=250 gram w tube/ovary 06/27/2011 LAPAROSCOPY,TOTAL HYST, UTERUS<250GM, SYDNEY TYBE &/OR OVARY, ROBOTIC ASSIST performed by DECLAN POWERS at [facility] MAIN OR ??? Pro lap, pelvic lymphadenectomy/bx 06/27/2011 LAPAROSCOPY,W\BILATERAL TOTAL PELVIC LYMPHADENECTOMY, PERIAORTIC LYMPH NODE SAMPLING, ROBOTIC performed by DECLAN POWERS at [facility] MAIN OR ??? Cholecystectomy 2001 For [...] Years of Education: N/A Occupational History ??? 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 Son's daughter with Down's syndrome. 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 Stressors with boyfriend due to health issues. Advance Directive: not on file Interim History: Mrs Garcia reports that she is doing well. She reports that her energy level has improved and that she would like to find multimedia developer work at this time. She was last seen at [facility] 08/2015--there was a small lesion involving her vulva which was biopsied and was found to be a condyloma. She is not currently sexually active reporting that her boyfriend has ED issues. She has a dilator but has not been using it and does not intend to use it. She has no bleeding vaginally. She denies any urinary problems ie no dysuria, no hematuria, no urinary flow resistance. She continues with some loose bowels with bowels moving 2-4 times a day. She denies hematochezia and melena. She reports no pain. Review of Systems Constitutional: Negative for chills, diaphoresis, activity change, fatigue and unexpected weight change. Working 20 hours a week and it is a flexible schedule. Patient has not been exercising No pain HENT: Positive for dental problem. Patient has broken plate and was seen by dentist--cannot afford dental work that was recommended. Respiratory: Negative. Negative for cough, chest tightness and shortness of breath. Cardiovascular: Negative. Negative for chest pain and leg swelling. Gastrointestinal: Negative. Negative for nausea, abdominal pain, constipation, blood in stool, abdominal distention and rectal pain. Bowels move 2-4 times a day. No blood. + mucus. --takes imodium if she will be traveling to slow bowel function. Has not been using metamucil No abdominal pain Genitourinary: Negative. Negative for [...] Negative. Psychiatric/Behavioral: Negative. Recent Review Flowsheet Data There were no vitals filed for this visit. YMA=[id number] Pain: none Objective: Physical Exam Constitutional: She [...] adenopathy present. She has no cervical adenopathy. She has no axillary adenopathy. Right: No inguinal and no supraclavicular [...] and Plan: Ms Garcia is a atilio 55 year old woman with endometrial ca, endometrioid [...] tsp a day to help regulate bowel function and that imodium can be used for diarrhea We reviewed late effects of radiation therapy to the pelvis including risk for radiation cystitis and radiation proctitis. She is encouraged to keep well hydrated and we reviewed bowel care. Patient is encouraged to use her vaginal dilator. Screening follow up--patient has not screening mammogram in a couple of years and is encouraged to schedule We will see patient again in six months for clinical evaluation. Patient is to call in the interim if she has any questions or concerns, documented in this encounter Plan of Treatment Not on file documented as of this encounter Visit Diagnoses Diagnosis Health care maintenance Unspecified general medical examination documented in this encounter Care Teams Medicare Insurance Specialist Relationship Specialty Start Date End Date Barry Hernandez MD [address] [place] [address] PCP - General 11/26/14 03/05/23 documented as of this encounter
--- OUTSIDE RECORDS SUMMARY | 2024-09-09 09:34 | XMS_ITS | Encounter Summary ---
Author Organization [facility] [place] [address] Care Team Providers Care Rotary Cutter Name Role Phone Casie García APRN Primary Care Provider [phone]- [phone] Encounter Details Date Type Department Care Team (Late st Contact Info) Description 10/10/2012 11:30 AM EST Clinical Support [facility] [place] [address] Social History Tobacco Use Types Packs/Day Years [...] on filedocumented in this encounter Care Teams Rotary Cutter Relationship Specialty Start Date End Date Casie García APRN PCP - General 01/15/12 11/25/14 documented as of this encounter
--- OUTSIDE RECORDS SUMMARY | 2024-09-09 09:34 | XMS_ITS | Encounter Summary ---
Author Organization [facility] [place] [address] Care Team Providers Care Pensionholder Information Clerk Name Role Phone Linda Gaytan MD Primary Care Provider [phone] Encounter Details Date Type Department Care Team (Late st Contact Info) Description 07/13/2023 Notes Only Neurology at [facility] [address] [place] [address] Susanna Strong, CORPORATE ACCOUNTING MANAGER [facility] [place] [address] Social History Tobacco Use Types Packs/Day Years [...] as of this encounter Progress Notes * Susanna Strong APRN - 07/13/2023 7:11 AM EDT Neurology Headache Clinic Follow up via telephone Patient name: Farzana Garcia Date of : 1960 PCP: Linda Gaytan MD HPI: Farzana Garcia is a 63 y.o. female with PMH brain aneurysm, right sided TN V1, V2 distribution, endometrial cancer, and diverticulosis. I called the patient this morning to have discussion about brainMRI. [facility] 07/2022 Ophthalmology IMPRESSION: 1. PVD (posterior vitreous detachment), right [...] No surgical intervention needed att this time TN first remembered: Right sided facial pain started in 2021. She denies inciting event like illness or trauma. She was seen in the ED for this r/t concern that this was related to brain aneurysm. Dull headaches happens after TN episodes that are bilateral and achy pain. She went for a year without TN episodes, but in January 2023 experienced right sided pain again. No pain/TN episodes with gabapentin increase dose after mother's day February 2023 She might experience up to Four episodes in an hour period. Each episode of stabbing pain up to 5 minutes. Denies agitation or gritty feeling in eye. Family Hx: No TN history Yes -intracranial aneurysm in the patient Vision changes?: Denies Hearing changes?: Denies Time to peak: Immediate, severe pain Quality: sharp, stabbing, burning, electric, morel, stab, pressure Severity of pain: 10/10 pain Location: Right sided V1, V2 Neck pain and or tension? No Is your headache worse with activity, improve with rest? Doesn't matter Associated sx: denies nausea, vomiting, photophobia, phonophobia, or osmophobia Autonomic symptoms: yes +tearing in her right eye Triggers: Chewing, wind, brushing teeth, touching her face, talking Trauma: Denies Previous work-up: MRI brain wwo contrast 05/2023 FINDINGS: Metallic artifact related to PCOM region [...] There is no mass or abnormal enhancement. Head CT wo contrast 2021 Aneurysm clips noted region of the sella No acute intracranial abnormality Component Ref Range & Units 9 yr ago TSH 0.27 - 4.20 mcIU/mL 4.55 High Resulting Agency [facility] Lab Contraception: post menopausal Interval History: Farzana has weaned herself off gabapentin, and is not having TN pain at this time. Medications Tried ([x] checked have been tried in the past) Anti-seizure: [] Carbamazepine (Tegretol) [x] Gabapentin (Neurontin) -effective at 1200mg TID [] Lamotragine (Lamictal) [] Levetiracetam (Keppra) [] Oxcarbazepine (Trileptal) [] Phenobarbital [] Phenytoin (Dilantin) [] Pregabalin (Lyrica) [] Sodium Valproate (Depakote) [] Topiramate (Topamax) [] Zonisamide (Zonegran) Anti-Depressants: SSRI: [] Citalopram (Celexa) [] Escitalopram (Lexapro) [] Fluvoxamine (Luvox) [] Fluoxetine (Prozac) [] Sertraline (Zoloft) [] Paroxetine (Paxil) SNRI: [] Desvenlafaxine (Pristiq/Khedezla) [] Duloxetine (Cymbalta) [] Venlafaxine (Effexor) [] Milnacipran (Savella) [] Levomilnacipran (Fetzima) TCA: [] Amitriptyline (Elavil) [] Amoxapine [] Clomipramine (Anafranil) [] Desipramine (Norpramin) [] Doxepin (Sinequan) [] Imipramine (Tofranil) [] Maprotiline (Ludiomil) [] Nortriptiline (Pamelor) [] Protriptyline (Vivactil) [] Trimipramine (Surmontil) MAOI: [] Phenelzine (Nardil) [] Selegiline (Emsam) [] Tranylcypromine (Parnate) Atypicals: [] Bupropion (Wellbutrin) [] Mirtazapine (Remeron) [] Nefazodone (Serzone) [] Trazodone [] Vilazodone (Viibryd) [] Vortioxetine (Trintellix) Anti-Hypertensives: WENDY Inhibitors: [] Benazepril (Lotensin) [] Captopril [] Enalapril (Vasotec) [] Fosinopril [] Lisinopril (Prinivil) Angiotensin II Receptor Blockers: [] Azilsartan (Edarbi) [] Candesartan (Atacand) [] Eprosartan [] Irbesartan (Avapro) [] Losartan (Cozaar) [] Olmesartan (Benicar) [] Telmisartan (Misardis) [] Valsartan (Diovan) Beta Blockers [] Acebutolol (Sectral) [] Atenolol (Tenormin) [] Bisoprolol (Zebeta) [] Metoprolol (Lopressor) [] Nadolol (Cogard) [] Nebivolol (Bystolic) [] Propranolol (Inderal) [] Timolol Calcium Channel Blockers: [] Amlodipine (Norvasc) [] Bepridil (Vascor) [] Diltiazem (Cardiazem) [] Felodipine (Plendil) [] Nicardipine (Cardene) [] Nifedipine (Procardia) [] Nisoldipine (Sular) [] Verapamil Alpha-1 Blockers [] Doxazosin [] Prazosin [] Tetrazosin Diuretics: [] Furosemide (Lasix) [] Hydrochlorothiazide (Microzide) [] Spironolactone (Aldactone) Monoclonal Antibodies: [] Erenumab (Aimovig) [] Fgremanezumab (Ajovy) [] Galcanezumab (Emgality) [] Eptinezumab (Vyepti) Other Headache Management: [] Doxycycline [] Memantine (Namenda) [] Montelukast (Singulair) [] OnabotulinumtoxinA (Botox) Ditan: [] Lasmiditan (Reyvow) 2nd Generation gPANTS: [] Ubrelvy (Ubrogepant) [] Nurtec (Remigepant) Supplements: [] Butterbur [] Coenzyme Q10 [] Feverfew [] Magnesium [] Melatonin [] Vit. B2 (riboflavin) NSAIDS: [] Aspirin [] Celecoxib (Celebrex) [] Diclofenac potassium [] Ibuprofen (Advil) [] Indomethacin [] Ketoprofen [] Ketorolac (Toradol) [] Meloxicam (Mobic) [] Nabumetone [] Naproxen sodium (Aleve) [] Acetaminophen (tylenol) Combination Analgesics: Anti-Histamines: [] Cyproheptadine (Periactin) [] Diphenhydramine (Benadryl) [] Hydroxyzine (vistaril/atarax) Anti-emetics: [] Aprepitant (Emend) [] Granisetron [] Metoclopramide (Reglan) [] Ondansetron (Zofran) [] Meclizine (Bonine) [] Prochlorperazine (compazine) [] Promethazine (Phenergan) [] Chlorpromazine (thorazine) Muscle relaxers: [] Baclofen (lioresal) [] Cyclobenzaprine (flexeril) [] Metaxalone (skelaxin) [] Methocarbamol (robaxin) [] Tizanidine (zanaflex) Steroids: [] Dexamethasone (decadron) [] Prednisone Benzodiazepines: [] Diazepam (Valium) Opioids/Narcotics/Controlled Substances: [] Procedures: [] Auriculotemporal blocks [] Lumbar puncture [] Occipital nerve blocks [] Sphenopalatine ganglion blocks [] Supraorbital blocks [] Trigger point injections Neuromodulation: [] Cefaly [] nVNS/Gammacore [] Nerivio Migra [] Spring TMS [] Relivion Non-pharmacologic Tx [] Acupuncture [] Acupressure [] Biofeedback [] Freezer Operator [] Cognitive Behavioral Therapy [] Massage therapy [] Physical therapy [] Craniosacral therapy Past Medical History: Past Medical History: Diagnosis Date Brain aneurysm 2000 Found incidentally when eval'd for headache; clipped. Endometrial cancer 06/20/2011 Past Surgical History: Procedure Laterality Date BRAIN ANEURYSM SURGERY 2000 CHOLECYSTECTOMY 2001 For gallstones PRO LAP, PELVIC LYMPHADENECTOMY/BX 06/27/2011 LAPAROSCOPY,W\BILATERAL TOTAL PELVIC LYMPHADENECTOMY, PERIAORTIC LYMPH NODE SAMPLING, ROBOTIC performed by DECLAN POWERS at [facility] MAIN OR PRO LAPAROSCOPY W TOT HYSTERECTUTERUS <=250 GRAM W TUBE/OVARY 06/27/2011 LAPAROSCOPY,TOTAL HYST, UTERUS<250GM, SYDNEY TYBE &/OR OVARY, ROBOTIC ASSIST performed by DECLAN POWERS at [facility] MAIN OR Medications: Current Outpatient Medications Medication Sig Dispense Refill gabapentin (Neurontin) 600 mg tablet Take 1,200 mg by mouth 3 times daily. sucralfate (Carafate) 1 gram tablet TAKE 1 TABLET BY MOUTH FOUR TIMES A DAY NEEDED diazePAM (Valium) 2 mg tablet Take 1 tablet by mouth 4 times daily as needed for Anxiety (as neededprior to MRI. Start with 1 tablet 30 minutes away from hospital, take 1 tablet upon arrival to hospital, and may repeat up to 2 times as needed after initial dosing). 4 tablet 0 lisinopril (PRINIVIL;ZESTRIL) 5 mg Tablet TAKE ONE TABLET BY MOUTH EVERY DAY 3 diphenoxylate-atropine (LOMOTIL) 2.5-0.025 mg Tablet Take 1 tablet by mouth 4 times daily as neededfor Diarrhea. May take 1 or 2 tablets 4 times daily as needed for Diarrhea 30 tablet 5 loperamide (IMODIUM) 2 mg Capsule Take 2 mg by mouth 3 times daily as needed for Diarrhea. zolpidem (AMBIEN) 5 mg tablet Take 5 mg by mouth nightly as needed. valACYclovir (VALTREX) 500 mg tablet Take 500 mg by mouth daily. No current facility-administered medications for this visit. Allergy: Allergies Allergen Reactions Red Blood Cells Other (See Comments) Antibodies-Difficult to Crossmatch Dilaudid [Hydromorphone] Nausea And Vomiting Family History: Family History Problem Relation Age of Onset Cancer Maternal Grandfather colon cancer Breast Cancer Maternal Aunt Lung Cancer Paternal Uncle Cancer Paternal Uncle leukemia Cancer Paternal Grandmother not sure where the cancer was Labs: No results found for this or any previous visit (from the past 24 hour(s)). Diagnostic Tests and Imaging: See HPI Assessment: Farzana Garcia is a 63 y.o. female with PMH brain aneurysm, right sided TN V1, V2 distribution, endometrial cancer, and diverticulosis. I called the patient this morning to have discussion about brain MRI. #TN Patient's history and physical examination is consistent with a dx of right sided TN with V1V2 distribution. Patient has completed MRI in order to better visualize trigeminal nerve and to rule out compression or structural brain lesions. Results are discussed with the patient: Metallic artifact related to PCOM region clip [...] There is no mass or abnormal enhancement. Patient has weaned off gabapentin and denies pain at this time. We discussed that she may continue gabapentin as needed or switch to carbamazepine if pain not well controlled. Investigations to date: Please see HPI for further details. PLAN: INVESTIGATIONS: -Nothing further REFERRALS: -None at the present time NON-PHARMACOLOGICAL TREATMENTS: - avoid triggers ACUTE TREATMENT OF TN: -Future considerations for: baclofen if needed TN PREVENTION: -continue gabapentin as needed for TN -consider Trileptal in the future FOLLOW UP: - as needed The pathophysiology, natural history, aggravating factors, and my diagnostic/management plan were discussed with the patient. The risks and benefits of this treatment plan were discussed with the patient. Individual side effect profiles for each medication were discussed in detail. Instructions on how to properly take each medication was discussed in detail. The patient was given an opportunity to askquestions. All questions were answered and the patient was satisfied with the explanations. Susanna Strong (she/her) ABNER, BREASTFEEDING EDUCATOR-[facility] Neurology Headache Clinic Please note that this consultative letter was completed with the assistance of voice recognition software. As result unintentional beach expert errors and/or typographical mistakes are possible. If you notice errors please bring them to my attention. If any area requires explanation or clarification please do not hesitate to contact me. documented in this encounter Plan of Treatment Not on file documented as of this encounter Visit Diagnoses Diagnosis TN (trigeminal neuralgia) Trigeminal neuralgia documented in this encounter Care Teams Pensionholder Information Clerk Relationship Specialty Start Date End Date Linda Gaytan MD [address] [place] [address] PCP - General Family Medicine 03/06/23 documented as of this encounter
--- OUTSIDE RECORDS SUMMARY | 2024-09-09 09:34 | XMS_ITS | Encounter Summary ---
Author Organization [facility] [place] [address] Care Team Providers Care Dopeman Name Role Phone Linda Gaytan MD Primary Care Provider [phone] Reason for Referral * Consultation (Urgent) - Closed Specialty Diagnoses / Procedures Referred By Contac t Referred To Contact Neurology Diagnoses Trigeminal neuralgia Linda Gaytan MD [address] [place] [address] [facility] Neurology [address] [place] [address] Referral ID Status Reason Start Date Expiration Date V isits Requested Visits Authorized [id number] Closed Consult, Test & Treat PCP Updated and/or Approved 03/06/2023 03/05/2024 6 6 Encounter Details Date Type Department Care Team (Latest Contact Info) Description 03/06/2023 Transcribe Orders eDH Incoming Referrals [phone] Linda Gaytan MD [address] [place] [address] Trigeminal neuralgia Social History Tobacco Use Types Packs/Day Years [...] as of this encounter Plan of Treatment Scheduled Referrals Name Type Priority Associated Diagnoses Orde r Schedule Referral to Neurology Outpatient Referral Urgent Trigeminal neuralgia Ordered: 03/06/2023 documented as of this encounter Visit Diagnoses Diagnosis Trigeminal neuralgia documented in this encounter Care Teams Dopeman Relationship Specialty Start Date End Date Linda Gaytan MD [address] [place] [address] PCP - General Family Medicine 03/06/23 documented as of this encounter
--- OUTSIDE RECORDS SUMMARY | 2024-09-09 09:34 | XMS_ITS | Encounter Summary ---
Author Organization [facility] Address [facility] [place] [address] Care Team Providers Care Mixer Runner Name Role Phone Barry Hernandez MD Primary Care Provider [phone] Reason for Visit * Reason Comments Established 6 month check Encounter Details Date Type Department Care Team (Late st Contact Info) Description 06/23/2016 2:00 PM EDT Office Visit [place] [address] Kelsey Sandoval, PEDODONTIST [facility] [place] [address] Endometrial cancer Social History Tobacco Use Types [...] Sign Reading Time Taken Comments Blood Pressure 148/86 06/23/2016 1:46 PM EDT Pulse 64 06/23/2016 1:46 PM EDT Temperature 36.9 ??C (98.4 ??F) 06/23/2016 1:46 PM ED T Respiratory Rate 18 06/23/2016 1:46 PM EDT Oxygen Saturation 99% 06/23/2016 1:46 PM EDT Inhaled Oxygen Concentration - - Weight 71.8 kg (158 lb 4.6 oz) 06/23/2016 1:46 P M EDT Height - - Body Mass Index 28.65 01/05/2015 2:36 PM EDT documented in this encounter Progress Notes * [place], PEDODONTIST - 06/23/2016 2:00 PM EDT Division [place] [address] Reason For Visit: Post Treatment Surveillance Exam [...] 3 cycles of carboplatin/paclitaxel. (chemo done in [place], [place]) Interim Health: Her health has been good, though notes increase life stressors d/t her partner Que's recent . Farzana notes no new medical issues, surgeries or hospitalizations since her last visit 02/2015. No questions/concerns today. She was dx with condyloma at her last visit, reports no vulvar sx or noticeable bumps. ROS: No fever, chills, nausea, vomiting, diarrhea No Pelvic/abdominal pain or bloating No Bowel changes. Continues to have loose stool. Will take imodium prn if she is going out/work. occasional incontinence. No bladder changes or concerns. No hematuria, dysuria, urgency or frequency, occasional nocturia. Energy level ok, some days better than others No Vaginal bleeding or discharge No Lower extremity edema Weight is down 11 lbs Reports appetite is good No SOB, cough or chest pain Sexual function: Not sexually active, has not been using dilator. Mood: Overall ok, feels like she is coping all right, has good supports. Health Habits: Tobacco:non-smoker ETOH: a wine cooler in the evening Exercise: No formal exercise, tries to walk Health Maintenance: Mammogram: over due, will plan to schedule. Colonoscopy: 03/2015, repeat 5 years Social History: Living with her son and his family. Boyfriend recently from liver cancer. 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 Patient Active Problem List Diagnosis Code ??? Endometrial cancer C54.1 ??? Brain aneurysm I67.1 ??? Diverticulitis K57.92 Past Surgical History Procedure Laterality Date ??? Brain aneurysm surgery 2000 ? ? Pro laparoscopy w tot hysterectuterus <=250 gram w tube/ovary 06/27/2011 LAPAROSCOPY,TOTAL HYST, UTERUS<250GM, SYDNEY TYBE &/OR OVARY, ROBOTIC ASSIST performed by DECLAN POWERS at [facility] MAIN OR ??? Pro lap, pelvic lymphadenectomy/bx 06/27/2011 LAPAROSCOPY,W\BILATERAL TOTAL PELVIC LYMPHADENECTOMY, PERIAORTIC LYMPH NODE SAMPLING, ROBOTIC performed by DECLAN POWERS at [facility] MAIN OR ??? Cholecystectomy 2001 For [...] file prior to visit. Vital Signs: BP 148/86 Pulse 64 Temp 36.9 ??C (98.4 ??F) Resp 18 Wt 71.8 kg (158 lb 4.6 oz) SpO2 99% BMI 28.65 kg/m2 PHYSICAL EXAM: Gen: Pleasant, NAD, Alert, appears well HEENT: No clavicular adenopathy or thyromegaly Lungs: clear to auscultation Cor: heart RRR without appreciable murmurs. Abdomen: soft, not distended, not tender, no masses palpable, no appreciable inguinal adenopathy Lower Extremities: without edema Pelvic exam: external female genitalia: 2 mm area of raised white epithelium at the posterior fourchette/perineum at 5 o'clock.(bx proven condyloma) Speculum exam: Vagina with atrophic changes and mild erythema/petechiae (post radiation changes). Bimanual exam: cuff with scarring, no appreciable masses, nodularity or tenderness. Uterus and adnexae surgically absent. Rectovaginal exam: no appreciable masses or tenderness. ASSESSMENT/PLAN: Farzana Garcia is a 55 y.o. 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 She has no evidence of recurrent disease. We reviewed signs and symptoms of recurrent disease. She will RTC in 6 months per current surveillance guidelines, (Current Society of Gynecologic Oncologists (SGO) Surveillance Guidelines: Posttreatment surveillance and diagnosis of recurrence in women with gynecologic malignancies: Society of Gynecologic Oncologists recommendations (Forrest, et al; AJOG, March 2011). She will call/rtc sooner prn with questions/concerns. Condyloma: reviewed treatment options including destruction with TCA, Aldara or continued observation. She desires continued observation for now. Kelsey Sandoval APRN documented in this encounter Plan of Treatment Not on file documented as of this encounter Visit Diagnoses Diagnosis Endometrial cancer Malignant neoplasm of corpus uteri, except isthmus documented in this encounter Care Teams Mixer Runner Relationship Specialty Start Date End Date Barry Hernandez MD [address] [place] [address] PCP - General 11/26/14 03/05/23 documented as of this encounter
--- OUTSIDE RECORDS SUMMARY | 2024-09-09 09:34 | XMS_ITS | Encounter Summary ---
Author Organization [facility] Address [facility] [place] [address] Care Team Providers Care Diaphragm Builder Name Role Phone Linda Gaytan MD Primary Care Provider [phone] Reason for Visit * Reason Onset Date Comments Other 04/25/2023 Aneurysm Clip in formation Encounter Details Date Type Department Care Team (Late st Contact Info) Description 04/25/2023 Telephone Neurology at [facility] [address] [place] [phone] Susanna Strong APRN [facility] [place] [address] Other (Aneurysm Clip information) Social History Tobacco Use Types Packs/Day Years [...] encounter Miscellaneous Notes * Telephone Encounter - Emeli Osborne RN - 04/25/2023 9:40 AM EDT documented in this encounter Plan of Treatment Not on file documented as of this encounter Visit Diagnoses Not on filedocumented in this encounter Care Teams Diaphragm Builder Relationship Specialty Start Date End Date Linda Gaytan MD [address] [place] [address] PCP - General Family Medicine 03/06/23 documented as of this encounter
--- OUTSIDE RECORDS SUMMARY | 2024-09-09 09:34 | XMS_ITS | Encounter Summary ---
Author Organization [place] [address] Care Team Providers Care Broadcast Operations Director Name Role Phone Barry Hernandez MD Primary Care Provider [phone] Encounter Details Date Type Department Care Team (Late st Contact Info) Description 12/07/2016 3:15 PM EST Office Visit Hematology/Oncology at [address] [address] Bhavana Cuellar APRN Diarrhea, unspecified type Social [...] Sign Reading Time Taken Comments Blood Pressure 134/95 12/07/2016 3:16 PM EST Pulse 91 12/07/2016 3:16 PM EST Temperature 36.9 ??C (98.4 ??F) 12/07/2016 3:16 PM ES T Respiratory Rate 18 12/07/2016 3:16 PM EST Oxygen Saturation 99% 12/07/2016 3:16 PM EST Inhaled Oxygen Concentration - - Weight 74.1 kg (163 lb 6.4 oz) 12/07/2016 3:16 P M EST Height - - Body Mass Index 29.58 01/05/2015 2:36 PM EDT documented in this encounter Patient Instructions * Patient Instructions* Bhavana Cuellar APRN - 12/07/2016 3:15 PM EST She will not need any followup at this time. documented in this encounter Progress Notes * Bhavana Cuellar APRN - 12/07/2016 3:15 PM EST Patient ID: Farzana Garcia is a 56 y.o. female who was treated with radiation [...] vulva--condyloma. Past Medical History Diagnosis Date ??? Brain aneurysm 2000 Found incidentally when eval'd for headache; clipped. ??? Endometrial cancer 06/20/2011 Past Surgical History Procedure Laterality Date ??? Brain aneurysm surgery 2000 ? ? Pro laparoscopy w tot hysterectuterus <=250 gram w tube/ovary 06/27/2011 LAPAROSCOPY,TOTAL HYST, UTERUS<250GM, SYDNEY TYBE &/OR OVARY, ROBOTIC ASSIST performed by DECLAN POWERS at [facility] MAIN OR ??? Pro lap, pelvic lymphadenectomy/bx 06/27/2011 LAPAROSCOPY,W\BILATERAL TOTAL PELVIC LYMPHADENECTOMY, PERIAORTIC LYMPH NODE SAMPLING, ROBOTIC performed by DECLAN POWERS at [facility] MA[facility] OR ??? Cholecystectomy 2001 For [...] facility-administered medications on file prior to visit. Social History Social History ??? Marital status: Spouse name: N/A ??? Number of children: N/A ??? Years of education: N/A Occupational History ??? 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 Smoking status: Never Smoker ??? Smokeless tobacco: Never Used ??? Alcohol use 0.0 oz/week 0 drink(s) per week Comment: very seldom; once a year ??? Drug use: No ??? Sexual activity: Yes Other Topics Concern ??? Not on file Social History Narrative Patient is . Two children. Alienated from daughter. One son with whom she is close. Four grand daughters. Son's daughter with Down's syndrome. 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 Stressors have continued in her life. Her boyfriend was diagnosed with advanced cancer and 8 months ago. Shecared for him until his . 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 She had to move out of the apartment they shared and move in with her son and daughter in law. It is working but she has little privacy. At some point she will look for an apartment for herself again but not right now. Her son and his family are supportive and helpful for her. Advance Directive: not on file Interim History: Mrs Garcia reports that she is doing well. She reports that her energy level is good. She was last seen at [facility] several weeks ago-- She is not currently sexually active. Her boyfriend and she is now living with her son. She has no bleeding vaginally. She denies [...] dentist--cannot afford dental work that was recommended. this has not been done yet. Respiratory: Negative. Negative for cough, chest tightness [...] blood urine Good stream Nocturia--none Sexually active--no she has not been active for at least 12 months. --no desire for intercourse No leakage of urine. Musculoskeletal: Negative. Skin: Negative. Neurological: Negative. Negative for dizziness, weakness and headaches. Hematological: Negative. Psychiatric/Behavioral: Negative. Recent Review Flowsheet Data Vitals: 12/07/16 1516 BP: (!) 134/95 Patient Position: Sitting Pulse: 91 Resp: 18 Temp: 36.9 ??C (98.4 ??F) TempSrc: Oral SpO2: 99% Weight: 74.1 kg (163 lb 6.4 oz) [id number] Pain: none Objective: Physical Exam Constitutional: She is oriented to person, place, and time. She appears well- developed and well-nourished. No distress. HENT: Head: Normocephalic and atraumatic. Eyes: Conjunctivae and EOM are normal. Neck: Normal range of motion. Neck supple. Cardiovascular: Normal rate, regular rhythm and normal heart sounds. No murmur heard. Pulmonary/Chest: Effort normal and breath sounds normal. No respiratory distress. Abdominal: Soft. Bowel sounds are normal. She exhibits no distension and no mass. There is no tenderness. There is no rebound and no guarding. Genitourinary: Guaiac negative stool. Pelvic exam was not performed External genitalia without masses, no lesions, no induration, no tenderness, no vaginal discharge, no bleeding Guaiac negative Musculoskeletal: Normal range of motion. She exhibits no edema or tenderness. Lymphadenopathy: She has no cervical adenopathy. She has [...] and Plan: Ms Garcia is a atilio 56 y.o. woman with endometrial ca, endometrioid type w/squamous diff, FIGO gr 3, s/p total laparoscopic/robotic hys w/BSO, laparoscopic pelvic & paraaortic lymphadenectomy followed by carbo/taxol x 3; path showing ovarian mets vs synchronous ovarian primary; + involvement 1L pelvic lymph node; stage IIIC1, pN1. She [...] Mrs Garcia is doing well with CARMEN. She is now 5 yrs from her diagnosis. She continues to be followedby [facility] Sales Representative Oncology. Bowel frequency: Given that she had pelvic radiation she was also advised to start metamucil 1 tsp a day to help regulate bowel function and that imodium can be used for diarrhea. She uses the imodium only for the diarrhea when she goes out. She does not want to take any other medication. She will not need any followup at this time. She will continue with every 6 month followup with GynOncology. Patient is to call in the interim if she has any questions or concerns, documented in this encounter Plan of Treatment Not on file documented as of this encounter Visit Diagnoses Diagnosis Diarrhea, unspecified type documented in this encounter Care Teams Broadcast Operations Director Relationship Specialty Start Date End Date Barry Hernandez MD [address] [place] [address] PCP - General 11/26/14 03/05/23 documented as of this encounter
--- OUTSIDE RECORDS SUMMARY | 2024-09-09 09:34 | XMS_ITS | Encounter Summary ---
Author Organization [facility] Address [facility] [place] [address] Care Team Providers Care Environmental Services Tech Name Role Phone Jovana Garcíaluis angel Miranda APRN Primary Care Provider [phone] Reason for Visit * Reason Comments Established 6 MONTH CHECK Encounter Details Date Type Department Care Team (Late st Contact Info) Description 01/08/2013 2:00 PM EDT Follow-Up [place] [address] Judy Millard MD [facility] [place] [address] Endometrial cancer (Primary Dx) Discharge Disposition: Home [...] Sign Reading Time Taken Comments Blood Pressure 108/60 01/08/2013 2:11 PM EDT Pulse - - Temperature - - Respiratory Rate - - Oxygen Saturation - - Inhaled Oxygen Concentration - - Weight 60 kg (132 lb 4.4 oz) 01/08/2013 2:11 PM EDT Height - - Body Mass Index 24.22 12/19/2012 2:57 PM EST documented in this encounter Progress Notes * Judy Millard MD - 01/08/2013 3:19 PM EDT Provider: Dr. Millard Division [place] [address] Follow-up Visit: Patient Active Problem List Diagnoses ??? Diverticulitis ??? 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 Brain aneurysm S/p surgery 2000 Subjective: Farzana Garcia returns to the office today for surveillance visit. She is S/P sandwich chemotherapy and radiation for stage 11B endometrial cancer. She completed therapy in March 2012 in [place] Since her last visit, when she was diagnosed with herpes and treated with acyclovir, she has not had any recurrence of herpes. She feels much better and had has no vaginal bleeding, back pain, leg swelling or other symptoms to suggest recurrent disease. Jesus reports that she has developed loose stools over the last two months. She has not changed herdiet. She has not seen any blood in her stools or urine. She has had no fevers or chills. Her granddaughter recently had a viral illness with diarrhea. Prior to Admission medications Medication Sig Start Date End Date Taking? Authorizing Provider valACYclovir (VALTREX) 500 mg tablet Take 500 mg by mouth daily. Yes Provider, MD Jessy ESZOPICLONE (LUNESTA ORAL) Take 5 mg by mouth daily. Yes Casie García APRN OXYcodone (ROXICODONE) 5 mg immediate release tablet Take 1-2 tablets by mouth every 4 hours as needed for Pain. 10/18/12 Judy Millard MD Allergies Allergen Reactions ??? Red Blood Cells Other (See Comments) Antibodies-Difficult to Crossmatch ??? Dilaudid (Hydromorphone) Nausea And Vomiting Review of systems: otherwise negative Objective: Filed Vitals: 01/08/13 1411 BP: 108/60 Farzana is conversant, in NAD HEENT: no adenopathy or thyromegaly Abdomen: soft, non-distended, non-tender, no inguinal adenopathy Extremities: no edema Pelvic: NEFG, BUS negative. Speculum exam shows normal vagina and cuff. Bimanual exam shows no abnormal masses or nodularity. RV confirms Assessment and Plan: No evidence of recurrent disease. Return in 6 months. Loose stools either viral illness that should be resolving shortly, but might be related to acyclovir, as it started after Farzana started the medication. She will manage loose stools with immodium, but if persistent, she'll stop acyclovir. If still persistent, consider GI evaluation. documented in this encounter Plan of Treatment Not on file documented as of this encounter Visit Diagnoses Diagnosis Endometrial cancer- Primary Malignant neoplasm of corpus uteri, except isthmus documented in this encounter Care Teams Environmental Services Tech Relationship Specialty Start Date End Date Casie García APRN PCP - General 01/15/12 11/25/14 documented as of this encounter
--- OUTSIDE RECORDS SUMMARY | 2024-09-09 09:34 | XMS_ITS | Encounter Summary ---
Author Organization [facility] [place] [address] Care Team Providers Care Resident Caregiver Name Role Phone Barry Hernandez MD Primary Care Provider Encounter Details Date Type Department Care Team (Late st Contact Info) Description 09/06/2021 Interpretation Only [address] [phone] Jai Gaytan MD [address] [place] [address] Social History Tobacco Use Types Packs/Day Years [...] Date/Time Associated Diagnosis Comments MAMMO SCREENING CAD AND TANNER BILATERAL Routine 09/06/2021 4:57 PM EST documented in this encounter Results * Mammo Screening Cad and Tanner Bilateral (09/06/2021 4:57 PM EST) PT CLASS O RAD ADMITDTTM RAD PT SUZAN LUNSFORD INFO [id number]^VALENTÍN ^JAI DH RAD EXAM DESC MADDSCTO^BREAST SCREEN TOMOSYNTHESIS BI^RIS RAD Anatomical Region Laterality Modality Breast Bilateral [...] who have questions please contact the health career development coordinator/teacher that requested your imaging first. ? Narrative [...] patients who have questions please contactthe health career development coordinator/teacher that requested your imaging first. Jai Gaytan MD IMG MAMMO ORDERABLES documented in this encounter Visit Diagnoses Not on filedocumented in this encounter Care Teams Resident Caregiver Relationship Specialty Start Date End Date Barry Hernandez MD [address] [place] [address] PCP - General 11/26/14 03/05/23 documented as of this encounter
--- OUTSIDE RECORDS SUMMARY | 2024-09-09 09:34 | XMS_ITS | Encounter Summary ---
Author Organization [facility] Address [facility] [place] [address] Care Team Providers Care Outer Diameter Technician Name Role Phone Casie García APRN Primary Care Provider [phone] Encounter Details Date Type Department Care Team (Late st Contact [facility]) Description 10/11/2012 Telephone Hematology Oncology at [address] [phone] Augustus Grimes MD [address] [place] [address] Social History Tobacco Use Types Packs/Day Years [...] encounter Miscellaneous Notes * Telephone Encounter - Kira Raymond RN - 10/11/2012 10:28 AM EST Patient called and stated, my cancer is back, I went and saw Dr. Duvall [facility] yesterday. States she had a CAT scan and the cancer showed up in her bladder and is havingabdominal pain. Adds the pain medication Dr. Duvall gave her is not touching it. She would like to call Dr. Duvall's office, but does not know the number. Gave Farzana the number to [facility], and told her to call us back if we could help her in any other way. documented in this encounter Plan of Treatment Not on file documented as of this encounter Visit Diagnoses Not on filedocumented in this encounter Care Teams Outer Diameter Technician Relationship Specialty Start Date End Date Casie García APRN PCP - General 01/15/12 11/25/14 documented as of this encounter
--- OUTSIDE RECORDS SUMMARY | 2024-09-09 09:34 | XMS_ITS | Encounter Summary ---
Author Organization [facility] Address [facility] [place] [address] Care Team Providers Care Cryptographer Name Role Phone Barry Hernandez MD Primary Care Provider [phone] Reason for Visit * Reason Comments Established 1 yr follow up Encounter Details Date Type Department Care Team (Late st Contact Info) Description 06/18/2019 3:30 PM EDT Office Visit [place] [phone] Kelsey Sandoval, AUTOMATIC PACKER OPERATOR [facility] [place] [address] Endometrial cancer Social History Tobacco Use Types [...] Sign Reading Time Taken Comments Blood Pressure 115/79 06/18/2019 3:14 PM EDT Pulse 80 06/18/2019 3:14 PM EDT Temperature 36.4 ??C (97.6 ??F) 06/18/2019 3:14 PM ED T Respiratory Rate 16 06/18/2019 3:14 PM EDT Oxygen Saturation 100% 06/18/2019 3:14 PM EDT Inhaled Oxygen Concentration - - Weight 76 kg (167 lb 8 oz) 06/18/2019 3:14 PM ED T Height 157.5 cm (5' 2) 06/18/2019 3:14 PM EDT Body Mass Index 30.64 06/18/2019 3:14 PM EDT documented in this encounter Progress Notes * Kelsey Sandoval, AUTOMATIC PACKER OPERATOR - 06/18/2019 3:30 PM EDT Division [place] [address] Reason For Visit: Post Treatment Surveillance Exam History of Present Illness: Farzana Garcia is a 58 y.o. woman who presents today for her surveillance exam. She has a hx of stage IIIC1, FIGO grade 3 adenocarcinoma of endometrium - s/p robotic TLH/BSO, pelvic + paraaortic lymphadenectomy 06/27/11 - final path stage IIIC1, bilateral ovarian involvement associated w/endometriosis - felt to be endometrial primaries. 1/ L pelvic nodes positive, 0/ Rpelvic nodes, no leroy-aortic nodes identified in paraaortic specimen. March 2012 she completed sandwich therapy of carboplatin/paclitaxel chemotherapy x 3 cycles, RT and an additional 3 cycles of carboplatin/paclitaxel. (chemo done in [place], [place]) Interim Health: Health has been stable this past year, feeling well. No new medical issues, surgeries or hospitalizations since her last visit. 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 Continues to have loose stool. Will take imodium prn. occasional incontinence. No bladder changes or concerns. Energy level is good No Vaginal bleeding or discharge No Lower extremity edema Weight is stable Reports appetite is good No SOB, cough or chest pain Sexual function: Not sexually active. Health Habits: Tobacco:non-smoker ETOH: occasional wine cooler Exercise: nothing formal Health Maintenance: Mammogram: up to date, done annually . Colonoscopy: 03/2015, repeat 5 years Social History: . Lives with her son and his family.Enjoys her 2 grandchildren. Working at [employer] Patient Active Problem List Diagnosis Code ??? Endometrial cancer C54.1 ??? Brain aneurysm I67.1 ??? Diverticulitis K57.92 Past Surgical History: Procedure Laterality Date ??? BRAIN ANEURYSM SURGERY 2000 ??? CHOLECYSTECTOMY 2001 For gallstones ??? PRO LAP, PELVIC LYMPHADENECTOMY/BX 06/27/2011 LAPAROSCOPY,W\BILATERAL TOTAL PELVIC LYMPHADENECTOMY, PERIAORTIC LYMPH NODE SAMPLING, ROBOTIC performed by DECLAN POWERS at [facility] MAIN OR ? ? PRO LAPAROSCOPY W TOT HYSTERECTUTERUS <=250 GRAM W TUBE/OVARY 06/27/2011 LAPAROSCOPY,TOTAL HYST, UTERUS<250GM, SYDNEY TYBE &/OR OVARY, ROBOTIC ASSIST performed by DECLAN POWERS at [facility] MAIN OR Allergies Allergen Reactions ??? Red Blood Cells Other (See Comments) Antibodies-Difficult to Crossmatch ??? Dilaudid [Hydromorphone] Nausea And Vomiting Current Outpatient Medications on File Prior to Visit Medication Sig Dispense Refill ??? lisinopril (PRINIVIL;ZESTRIL) 5 mg Tablet TAKE ONE TABLET BY MOUTH EVERY DAY 3 ??? diphenoxylate-atropine (LOMOTIL) 2.5-0.025 mg Tablet Take [...] file prior to visit. Vital Signs: BP 115/79 (Patient Position: Sitting) Pulse 80 Temp 36.4 ??C (97.6 ??F) (Tympanic) Resp 16 Ht 157.5 cm (5' 2) Wt 76 kg (167 lb 8 oz) SpO2 100% BMI 30.64 kg/m?? PHYSICAL EXAM: Gen: Pleasant, NAD, Alert, appears [...] radiation changes. Bimanual exam: cuff with scarring, no appreciable masses, nodularity or tenderness. Uterus and adnexae surgically absent. Rectovaginal exam: noappreciable masses or tenderness. ASSESSMENT/PLAN: Farzana Garcia is a 58 y.o. 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 She has no evidence of recurrent disease. We reviewed signs and symptoms of recurrent disease. She will RTC 1 year, sooner prn with questions/concerns. Kelsey Sandoval APRN documented in this encounter Plan of Treatment Not on file documented as of this encounter Visit Diagnoses Diagnosis Endometrial cancer Malignant neoplasm of corpus uteri, except isthmus documented in this encounter Care Teams Cryptographer Relationship Specialty Start Date End Date Barry Hernandez MD [address] [place] [address] PCP - General 11/26/14 03/05/23 documented as of this encounter
--- OUTSIDE RECORDS SUMMARY | 2024-09-09 09:34 | XMS_ITS | Encounter Summary ---
Author Organization [facility] [place] [address] Care Team Providers Care Wallpaper Printer Helper Name Role Phone Casie García APRN Primary Care Provider [phone] Reason for Visit * Reason Comments Radiation Follow-up endometrial cancer Encounter Details Date Type Department Care Team (Late st Contact Info) Description 05/28/2014 11:00 AM EDT Follow-Up Radiation Oncology at [address] [phone] Manju Farris ACID REGENERATOR [address] [place] [address] [place] [address] Endometrial ca (Primary Dx) Discharge Disposition: Home Social History [...] Sign Reading Time Taken Comments Blood Pressure 129/89 05/28/2014 10:40 AM EDT Pulse 79 05/28/2014 10:40 AM EDT Temperature 36.6 ??C (97.9 ??F) 05/28/2014 10:40 AM E DT Respiratory Rate 18 05/28/2014 10:40 AM EDT Oxygen Saturation 97% 05/28/2014 10:40 AM EDT Inhaled Oxygen Concentration - - Weight 74.2 kg (163 lb 8 oz) 05/28/2014 10:40 AM EDT Height - - Body Mass Index 29.93 11/20/2013 11:21 AM EST documented in this encounter Progress Notes * Manju Farris, ACID REGENERATOR - 05/28/2014 11:00 AM EDT Subjective: Patient ID: Farzana Garcia is a 53 y.o. female who was treated with radiation [...] ROBOTIC ASSIST performed by DECLAN MILLARD at [facility] MAIN OR ??? Lap, pelvic lymphadenectomy/bx 06/27/2011 LAPAROSCOPY,W\BILATERAL TOTAL PELVIC LYMPHADENECTOMY, PERIAORTIC LYMPH NODE SAMPLING, ROBOTIC performed by DECLAN MILLARD at [facility] MAIN OR ??? Cholecystectomy 2001 For gallstones Allergies Allergen Reactions ??? Red Blood Cells Other (See Comments) Antibodies-Difficult to Crossmatch ??? Dilaudid (Hydromorphone) Nausea And Vomiting Current Outpatient Prescriptions on File Prior to Visit Medication Sig Dispense Refill ??? valACYclovir (VALTREX) 500 mg tablet Take 500 mg by mouth daily. ??? zolpidem (AMBIEN) 5 mg tablet Take 5 mg by mouth nightly as needed. ??? ALPRAZolam (XANAX) 0.5 mg tablet Take 0.5 mg by mouth nightly as needed. History Social History ??? Marital Status: Spouse Name: N/A Number of Children: N/A ??? 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 Smoking status: Never Smoker ??? Smokeless tobacco: Never Used ??? Alcohol Use: 0.0 oz/week 0 drink(s) per week Comment: very seldom; once a year ??? Drug Use: No ??? Sexually Active: Yes Other Topics Concern ??? Not on file Social History Narrative Patient is . Two children. Alienated from daughter. One son with whom she is close. Four grand daughters. Son's daughter with Down's syndrome. 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 She does continues with fatigue and requires a nap daily. She was hospitalized (06/2012) due to diverticulitis. A Ct of the abdomen done in September 2012 was negative for cancer recurrence. She was seen by Dr Millard again 02/17/2014 who did acomplete pelvic exam. Patient will be seen by her again in July. She remains sexually active and has no bleeding vaginally. She does not use dilator. She has no dyspareunia, no vaginal discharge and no vaginal bleeding.She denies any pain. She denies any urinary problems ie no [...] 40 hours a week occasionally + hot flashes. Trying to lose weight HENT: Negative. Respiratory: Negative. Negative for cough, chest tightness and shortness of breath. Cardiovascular: Negative. Negative for chest pain and leg swelling. Gastrointestinal: Negative. Negative for nausea, abdominal pain, constipation, blood in stool and rectal pain. Bowels move 2-4 times a day. No blood. + mucus. does not take imodium and has not started metamuci No abdominal pain Genitourinary: Negative. Negative for [...] weakness and headaches. Hematological: Negative. Psychiatric/Behavioral: Negative. Stress due to son Recent Review Flowsheet Data Filed Vitals: 05/28/14 1040 BP: 129/89 Pulse: 79 Temp: 36.6 ??C (97.9 ??F) TempSrc: Oral Resp: 18 Weight: 74.163 kg (163 lb 8 oz) SpO2: 97% LGZ=945 Pain: none Objective: Physical Exam Vitals reviewed. Constitutional: She is oriented to person, place, and time. She appears well- developed and well-nourished. No distress. HENT: Head: Normocephalic and atraumatic. Eyes: Conjunctivae normal and EOM are normal. Right eye exhibits no discharge. Left eye exhibits nodischarge. No scleral icterus. Neck: Normal range of [...] supine. Patient did not want speculum exam External genitalia without masses, no lesions, no induration, no tenderness, no vaginal discharge, no bleeding Musculoskeletal: Normal range of motion. She exhibits [...] is not diaphoretic. No erythema. No pallor. D Psychiatric: She has a normal mood and affect. Her behavior is normal. Judgment and thought contentnormal. Assessment and Plan: Endometrial cancer. Mrs Garcia is doing well with CARMEN. Bowel frequency: Given that she had pelvic radiation she was also advised to start metamucil 1 tsp a day to help regulate bowel function. Dry skin patch: resolved We reviewed late effects of radiation therapy to the pelvis including risk for radiation cystitis and radiation proctitis. She is encouraged to keep well hydrated and we reviewed bowel care. She continues follow up with Dr Millard in July and she is to F/U in Rad Onc in 6 months She is to call ifshe has questions or concerns. documented in this encounter Plan of Treatment Not on file documented as of this encounter Visit Diagnoses Diagnosis Endometrial ca- Primary Malignant neoplasm of corpus uteri, except isthmus documented in this encounter Care Teams Wallpaper Printer Helper Relationship Specialty Start Date End Date Casie García APRN PCP - General 01/15/12 11/25/14 documented as of this encounter
--- OUTSIDE RECORDS SUMMARY | 2024-09-09 09:34 | XMS_ITS | Encounter Summary ---
Author Organization [facility] [place] [address] Care Team Providers Care Tracer Bullet Charging Machine Operator Name Role Phone Barry Hernandez MD Primary Care Provider [phone] Encounter Details Date Type Department Care Team (Late st Contact Info) Description 09/06/2021 Interpretation Only [address] [phone] Jai Gaytan MD [address] [place] [address] Social History Tobacco Use Types [...] CAD BILATERAL Routine 09/06/2021 4:57 PM EST documented in this encounter Results * Mammo Screening Cad Bilateral (09/06/2021 4:57 PM EST) PT CLASS O RAD ADMITDTTM RAD PT RAD INFO [id number]^BI SSON^JAI RAD EXAM [facility]^SCREEN MAMMO BL INCLUDES CAD^RIS RAD Anatomical Region [...] who have questions please contact the health rn progressive care that requested your imaging first. ? Electronically signed by: Rashi hSarma MD, [facility] ([phone]), at 09/07/2021 4:18 PM Narrative 09/07/2021 4:18 PM EST EXAMINATION: BREAST [...] patients who have questions please contactthe health rn progressive care that requested your imaging first. Jai Gaytan MD IMG MAMMO ORDERABLES documented in this encounter Visit Diagnoses Not on filedocumented in this encounter Care Teams Tracer Bullet Charging Machine Operator Relationship Specialty Start Date End Date Barry Hernandez MD [address] [place] [address] PCP - General 11/26/14 03/05/23 documented as of this encounter
--- OUTSIDE RECORDS SUMMARY | 2024-09-09 09:34 | XMS_ITS | Encounter Summary ---
Author Organization [facility] [address] Care Team Providers Care Woodworking Belt Sander Name Role Phone Barry Hernandez MD Primary Care Provider [phone] Encounter Details Date Type Department Care Team (Late st Contact Info) Description 08/02/2017 Orders Only [facility] at [address] [phone] Bhavana Cuellar APRN Diarrhea, unspecified [...] type documented in this encounter Care Teams Woodworking Belt Sander Relationship Specialty Start Date End Date Barry Hernandez MD [address] [place] [address] PCP - General 11/26/14 03/05/23 documented as of this encounter
--- OUTSIDE RECORDS SUMMARY | 2024-09-09 09:34 | XMS_ITS | Encounter Summary ---
Author Organization [facility] Address [facility] [place] [address] Care Team Providers Care Employment Legal Assistant Name Role Phone Barry Hernandez MD Primary Care Provider [phone] Reason for Visit * Reason Comments Established endometrial ca, March 2012 completed sandwich therapy Encounter Details Date Type Department Care Team (Late st Contact Info) Description 05/17/2020 8:40 AM EDT Office Visit [place] [address] Tri Patel MD [facility] OBSTETRICS [place] [address] Endometrial cancer determined by uterine biopsy; Vaginal atrophy; Vulvar lesion; S/P chemotherapy, time since greater than 12 weeks; Functional diarrhea; Effects of radiation, sequela Social History Tobacco Use Types Packs/Day Years [...] Sign Reading Time Taken Comments Blood Pressure 131/79 05/17/2020 8:37 AM EDT Pulse 85 05/17/2020 8:37 AM EDT Temperature 36.2 ??C (97.1 ??F) 05/17/2020 8:37 AM ED T Respiratory Rate 16 05/17/2020 8:37 AM EDT Oxygen Saturation 98% 05/17/2020 8:37 AM EDT Inhaled Oxygen Concentration - - Weight 76 kg (167 lb 8.8 oz) 05/17/2020 8:37 AM EDT Height 158.3 cm (5' 2.32) 05/17/2020 8:37 AM ED T Body Mass Index 30.33 05/17/2020 8:37 AM EDT documented in this encounter Progress Notes * Tri Patel MD - 05/17/2020 8:40 AM EDT Division of [place]necologic [place] [address] Farzana KATZ 05/16/2020 Reason For Visit: Post Treatment Surveillance Exam History of Present Illness: Farzana Katz is a 59 y.o. woman who presents today for her [...] 3 cycles of carboplatin/paclitaxel. (chemo done in [place], [place]) Last visit: 05/2019 [facility]: Health has been stable this past year, feeling well. No new medical issues, surgeries or hospitalizations since her last visit. 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 Working at [employer]) Patient Active Problem List Diagnosis Code ??? Endometrial cancer C54.1 ??? Brain aneurysm I67.1 ??? Diverticulitis K57.92 Past Surgical History: Procedure Laterality Date ??? BRAIN ANEURYSM SURGERY 2000 ??? CHOLECYSTECTOMY 2001 For gallstones ??? PRO LAP, PELVIC LYMPHADENECTOMY/BX 06/27/2011 LAPAROSCOPY,W\BILATERAL TOTAL PELVIC LYMPHADENECTOMY, PERIAORTIC LYMPH NODE SAMPLING, ROBOTIC performed by DECLAN POWERS at [facility] MAIN OR ? ? PRO LAPAROSCOPY W TOT HYSTERECTUTERUS <=250 GRAM W TUBE/OVARY 06/27/2011 LAPAROSCOPY,TOTAL HYST, UTERUS<250GM, SYDNEY TYBE &/OR OVARY, ROBOTIC ASSIST performed by DECLAN POWERS at [facility] MAIN OR Allergies Allergen Reactions ??? Red Blood Cells Other (See Comments) Antibodies-Difficult to Crossmatch ??? Dilaudid [Hydromorphone] Nausea And Vomiting DATA: CT 2011 no evidence of disease Current Outpatient Medications on File Prior to [...] on file prior to visit. Vital Signs: There were no vitals taken for this visit. PHYSICAL EXAM: Gen: Pleasant, NAD, Alert, appears [...] exam: noappreciable masses or tenderness. ASSESSMENT/PLAN: Farzana Katz is a 59 y.o. 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 She has no evidence of recurrent disease. We reviewed signs and symptoms of recurrent disease. She will RTC 1 year, sooner prn with questions/concerns. Kelsey Sandoval APRN * Fabiola Tran MD - 05/17/2020 8:40 AM EDT Division of [place]necologic [place] [address] Farzana KATZ 05/16/2020 Reason For Visit: Post Treatment Surveillance Exam History of Present Illness: Farzana Katz is a 59 y.o. woman who presents today for her [...] 3 cycles of carboplatin/paclitaxel. (chemo done in [place], [place]) Last visit: 05/2019 [facility]: Health has been stable this past year, feeling well. No new medical issues, surgeries or hospitalizations since her last visit. 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 States she has moved to [place] apartment down the [address] from her grandchildren. Patient notes new hyperpigmented lesion of right mons irritation. Patient has smaller hyperpigmented area mons chronic nature. ROS: No Pelvic/abdominal pain or bloating No Bowel changes. Continues to have loose stool. Will take imodium prn. occasional incontinence. No bladder changes or concerns. Energy level is good No Vaginal bleeding or discharge No Lower extremity edema Weight is stable Reports appetite is good No SOB, cough or chest pain Sexual function: Not sexually active, boyfriend 4 years ago. Health Habits: Tobacco:non-smoker ETOH: occasional wine cooler Exercise: nothing formal Health Maintenance: Mammogram: up to date, done annually, last done this year. Colonoscopy: 03/2015, repeat 5 years Social History: . Lives with her son and his family.Enjoys her 2 grandchildren. Patient Active Problem List Diagnosis Code ??? Endometrial cancer C54.1 ??? Brain aneurysm I67.1 ??? Diverticulitis K57.92 Past Surgical History: Procedure Laterality Date ??? BRAIN ANEURYSM SURGERY 2000 ??? CHOLECYSTECTOMY 2001 For gallstones ??? PRO LAP, PELVIC LYMPHADENECTOMY/BX 06/27/2011 LAPAROSCOPY,W\BILATERAL TOTAL PELVIC LYMPHADENECTOMY, PERIAORTIC LYMPH NODE SAMPLING, ROBOTIC performed by DECLAN POWERS at [facility] MAIN OR ? ? PRO LAPAROSCOPY W TOT HYSTERECTUTERUS <=250 GRAM W TUBE/OVARY 06/27/2011 LAPAROSCOPY,TOTAL HYST, UTERUS<250GM, SYDNEY TYBE &/OR OVARY, ROBOTIC ASSIST performed by DECLAN POWERS at [facility] MAIN OR Allergies Allergen Reactions ??? Red Blood Cells Other (See Comments) Antibodies-Difficult to Crossmatch ??? Dilaudid [Hydromorphone] Nausea And Vomiting DATA: CT 2011 no evidence of disease Current Outpatient Medications on File Prior to [...] on file prior to visit. Vital Signs: There were no vitals taken for this visit. PHYSICAL EXAM: Gen: Pleasant, NAD, Alert, appears well HEENT: No clavicular adenopathy or thyromegaly Lungs: clear to auscultation FARRUKH SURVEY: NO masses or asymmetry or tenderness. CARDIOVASCULAR: Chest expands symmetrically without any labored breathing. BREASTS: No masses, adenopathy or asymmetry AXILLA: No masses or adenopathy Abdomen: soft, not distended, not tender, no masses palpable, no appreciable inguinal adenopathy Lower Extremities: without edema Psych: appropriate with questions and responses during interview Pelvic exam: Mons with 2 hyperpigmented skin tags. One is flat and the patient reports a new pruritic raised lesion on the right aspect of her perineum. On visual examination, appears to be a new seborrheic keratosis. Otherwise external female genitalia with atrophic changes, no visible lesions. Speculum exam: Vagina with atrophic changes, scarring at the cuff, vagina with erythema/petechiae c/w post radiation changes. Mild bleeding after palpation with a sponge stick. Bimanual exam: cuff with scarring, no appreciable masses, nodularity or tenderness. Uterus and adnexae surgically absent. Rectovaginal exam: no appreciable masses or tenderness. PROCEDURE: After obtaining verbal consent, the raised lesion was covered with numbing cream, then prepped with iodine and alcohol. About 3 cc of 1% lidocaine with epinephrine was infiltrated at the base. After ensuring appropriate numbness, the lesion was removed with a scalpel and sent to Pathology. Hemostasis was achieved with silver nitrate, following by a subcuticular closure with 4-0 monocryl. ASSESSMENT/PLAN: Farzana Katz is a 59 y.o. 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 She has no evidence of recurrent disease. We reviewed signs and symptoms of recurrent disease. The patient would like one more visit with our clinicprior to returning to her PCP or establishing with a benign superintendent nonselling for her care. She will 10 years s/p treatment in 2021. We discussed that her lesion was likely a seborrheic keratosis, however, there is always concern for malignancy for any new onset lesion and therefore, for diagnostic and symptom relief purposes, the lesion was removed. Patient tolerated the procedure well and was recommended to ice the area for 24 hours. Patient agrees with this plan. RTC in one year. Fabiola Tran MD PGy-3 Discussed and seen with Dr. Patel, Attending Block Breaker Operator-Oncologist I have seen the patient and reviewed the resident's above history and I agree with the details as written. The assessment and plan were formulated in discussion with me and I agree with them as documented. Pertinent History: Remote history IIIC1 endometrial carcinoma in 2010 treated with chemoRT. Patientremains no evidence of disease. Discussed with the patient that her lack of any significant symptoms or findings on physical exam are reassuring that the patient has no change in disease status. D/w the patient again rationale for ongoing surveillance and limitations of exam. The patient and I reviewed symptoms associated with disease that might merit further evaluation. Plan for repeat exam in 12 months. We discussed use of and rationale for subsequent imaging based upon any new symptoms or findings on exam. We dicussed at 10 years patient could likely follow with local primary care providerwho can do pelvic exams annually. Pertinent Exam: S/p hyst, atrophy of vagina cervix uterus and adnexa surgically absent., raised hyperpigmented 1.5 x 1 cm flap of right mons. No associated ulceration or induration. Major issues addressed: Endometrial carcinoma S/p chemotherapy S/p RT Vulvar lesion Vaginal atrophy could use lubricants for additional symptoms Diarrhea radiation therapy induced Health care maintenance Ongoing cancer screening with primary care provider D/w patient surveillance natural history endometrial carcinoma. D/w patient likely seborrheic keratosis of mons. Plan: Call patient with path. Return to clinic 1 year. Tri Patel MD documented in this encounter Plan of Treatment Not on file documented as of this encounter Procedures Procedure Name Priority Date/Time Associated Diagnosis Comments SPECIMEN TO PATHOLOGY Routine 05/17/2020 10:40 AM EDT Endometrial cancer determined by uterine biopsy SURGICAL PATHOLOGY REPORT Routine 05/17/2020 8:40 AM EDT documented in this encounter Results * Specimen to Pathology (05/17/2020 10:40 AM EDT) AP Specimen 05/17/2020 10:4 0 AM EDT 05/17/2020 10:40 AM EDT Narrative [facility] - 05/17/2020 10:40 AM EDT Specimen requisition ordered. ??Separate Pathology report to follow Tri Patel MD PATHOLOGY/CYTOLOGY O [facility] [place] [address] * Surgical Pathology Report (05/17/2020 8:40 AM EDT) Final Diagnosis [id number] ? Location: 3K The signing pathologist has (i) examined the relevant preparation(s) for the specimen(s) and (ii) rendered or confirmed the diagnosis(es). . ?Surgical Pathology DIAGNOSIS Mons right, biopsy: Seborrheic keratosis. Electronically signed by: ??Poonam Gordon MD Verified: ??05/25/2020 ?Pathologist Performed at: ??-[facility] [place], [place], [place] SPECIMEN(S) SUBMITTED A - mons right, biopsy (1) CLINICAL INFORMATION History of uterine cancer 2010 status post radiation and chemo. New vulvar lesion, irritation SPECIMEN PROCESSING A - Labeled/Fixative : Patient demographics, formalin. Quantity/Size: ??Two, 0.7 and 1.0 cm. Tissue Description: Medina-brown, lobulated, pedunculated papules. Sections/Process ing: Inked, trisected and entirely submitted in 2 cassettes labeled A1-A2. ??sns 05/25/2020 12:34 PM EDT [facility] VULVAL STRUCTURE / Unknown 05/17/2020 8:40 AM EDT 05/17/2020 8:40 AM EDT Tri Patel MD PATHOLOGY/CYTOLOGY O KG [facility] [place] [address] documented in this encounter Visit Diagnoses Diagnosis Endometrial cancer determined by uterine biopsy Vaginal atrophy Postmenopausal atrophic vaginitis Vulvar lesion Other specified noninflammatory disorder of vulva and perineum S/P chemotherapy, time since greater than 12 weeks Convalescence following chemotherapy Functional diarrhea Effects of radiation, sequela documented in this encounter Care Teams Employment Legal Assistant Relationship Specialty Start Date End Date Barry Hernandez MD [address] [place] [id number] PCP - General 11/26/14 03/05/23 documented as of this encounter
--- OUTSIDE RECORDS SUMMARY | 2024-09-09 09:34 | XMS_ITS | Encounter Summary ---
Author Organization [facility] Address [facility] [place] [address] Care Team Providers Care File Conversion Operator Name Role Phone Jovana Garcíaluis angel Miranda APRN Primary Care Provider [phone] Reason for Visit * Reason Comments Established 6 month check Encounter Details Date Type Department Care Team (Late st Contact Info) Description 02/17/2014 2:40 PM EDT Follow-Up [place] [address] Judy Millard MD [facility] DR [place] [address] Fatigue (Primary Dx); Endometrial cancer; Unspecified vitamin D deficiency Discharge Disposition: Home Social History Tobacco Use [...] Sign Reading Time Taken Comments Blood Pressure 130/84 02/17/2014 2:44 PM EDT Pulse - - Temperature - - Respiratory Rate - - Oxygen Saturation - - Inhaled Oxygen Concentration - - Weight 72 kg (158 lb 11.7 oz) 02/17/2014 2:44 PM EDT Height - - Body Mass Index 29.06 11/20/2013 11:21 AM EST documented in this encounter Progress Notes * Judy Millard MD - 02/17/2014 2:58 PM EDT Division [place] [address] Follow-up Visit: Endometrial cancer surveillance Patient Active Problem List Diagnosis ??? Diverticulitis ??? Endometrial cancer Overview Note: Stage IIIC1, FIGO grade 3 adenocarcinoma of endometrium - s/p robotic TLH/BSO, pelvic + paraaortic lymphadenectomy 06/27/11 - final path stage IIIC1, bilateral ovarian involvement associated w/endometriosis - felt to be endometrial primaries. 1 L pelvic nodes positive, 0 R pelvic nodes, no leroy-aortic nodes identified in paraaortic specimen followed by sandwich carboplatin + paclitaxel chemo (3 cycles)/RT/chemo (3 cycles) completed March 2012 (chemo done in [place], [place]) ??? Brain aneurysm Overview Note: S/p surgery 2000 Subjective: Ms Garcia returns to the office today for surveillance visit. She is s/p robotic TLH/BSO, pelvic+paraaortic lymphadenectomy 06/27/11 and completion of sandwich chemotherapy/radiation (Carbo/Taxol, total 6 cycles) for stage IIIC1 endometrial cancer. Her disease is followed by exam. She complains of patches of dry skin on anterior thighs and previously on her arms which have been new. She has had a 30# unintentional weight gain over the past year, as well as continued hod flashes which awaken her from sleep 2-3x/night. She is also concerned about ongoing fatigue. She is unable to perform her normal functions. Farzana notes that her diarrhea has improved. She is infrequently sexually active and denies pain with intercourse. Complete ROS is otherwise negative (as below). ROS: 12 systems reviewed, otherwise negative. Prior to Admission medications Medication Sig Start Date End Date Taking? Authorizing Provider zolpidem (AMBIEN) 5 mg tablet Take 5 mg by mouth nightly as needed. Yes Provider, MD Jessy ALPRAZolam (XANAX) 0.5 mg tablet Take 0.5 mg by mouth nightly as needed. Yes Provider, MD Jessy valACYclovir (VALTREX) 500 mg tablet Take 500 mg by mouth daily. Yes Provider, MD Jessy Allergies Allergen Reactions ??? Red Blood Cells Other (See Comments) Antibodies-Difficult to Crossmatch ??? Dilaudid (Hydromorphone) Nausea And Vomiting Filed Vitals: 02/17/14 1444 BP: 130/84 Weight: 72 kg (158 lb 11.7 oz) Objective: Gen: appears comfortable, in no acute distress [...] TLH/BSO, pelvic+paraaortic lymphadenectomy 06/27/11 and completion of [place] chemotherapy/radiation (Carbo/Taxol, total 6 cycles). 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 Signs/symptoms of recurrent disease discussed. No evidence of recurrent disease by history or exam. Persistent fatigue is a concern for Farzana. Etiology is not clear at this point, but disturbed sleep, hypothyroid, depression, metabolic abnormalities all a concern. Will check CBC, CMP, vit D, TSH Plan: Check labs, notify patient of results. Return in 6 months for routine surveillance. documented in this encounter Plan of Treatment Not on file documented as of this encounter Procedures Procedure Name Priority Date/Time Associated Diagnosis Comments DIFFERENTIAL, AUTOMATED Routine 02/17/2014 3:35 PM EDT VITAMIN D, 25-HYDROXY Routine 02/17/2014 3:35 PM EDT Unspecified vitamin D deficiency Fatigue CBC (WITH DIFF) Routine 02/17/2014 3:35 PM EDT Fatigue TSH Routine 02/17/2014 3:35 PM EDT Fatigue COMPREHENSIVE METABOLIC PANEL Routine 02/17/2014 3:35 PM EDT Fatigue documented in this encounter Results * (ABNORMAL) Differential, Automated (02/17/2014 3:35 PM EDT) Neutrophil % 54.6 34.0 - 71.0 % CERNER MILLENNIUM Neutrophil Absolute 1.76 1.50 - 6.30 x10(3)/mc L CERNER MILLENNIUM Lymph % 28.0 19.0 - 53.0 % CERNER MILLENNIUM Lymphocytes Abs 0.9(L) 1.0 - 3.6 x10(3)/mc L CERNER MILLENNIUM Monocyte % 11.5 4.0 - 13.0 % CERNER MILLENNIUM Monocyte Abs 0.4 0.2 - 1.0 x10(3)/mc L CERNER MILLENNIUM Eos % 4.7 0.0 - 7.0 % CERNER MILLENNIUM Eosinophils Abs 0.2 0.0 - 0.5 x10(3)/mc L CERNER MILLENNIUM Basophil % 0.9 0.0 - 2.0 % CERNER MILLENNIUM Baso Absolute 0.0 0.0 - 0.2 x10(3)/mc L CERNER MILLENNIUM Immature Gran % 0.30 0.00 - 0.66 % CERNER MILLENNIUM Comment: Immature granulocytes(IG's)percentage and absolute count will include metamyelocytes, myelocytes, and promyelocytes. Blood smears from CBCs yielding IG's will be scanned manually for concordance. If this scan disagrees with the automated IG or if promyelocytes are noted, a manual differential will be performed. Immature Gran Absolute 0.01 0.00 - 0.05 x10(3)/mc L CERNER MILLENNIUM Blood specimen (specimen) 02/17/2014 3:35 PM EDT 02/17/2014 3:38 PM EDT Judy Millard MD HEMATOLOGY ORDERABLE S CERNER MILLENNIUM * (ABNORMAL) VIT D Total Evaluation (02/17/2014 3:35 PM EDT) Vitamin D Total 25 OH 25(L) 30 - 100 ng/mL [facility] Comment: Deficient <10 ng/mL Insufficient 10 to 29 ng/mL Sufficient 30 to 100 ng/mL Potential Intoxication >100 ng/mL According to the [place] National Osteoporosis Foundation, Vitamin D concentrations >30 ng/mL are sufficient to protect bone health. ??The National Kidney Foundation has similarly stated that patients with Vitamin D concentrations <30ng/mL should be considered to be insufficient or deficient. http://www.kidney.org/professionals/KDOQI/guidelines_bone/Guide7.htm http://nof.org/files/nof/public/content/clinicalupdates/clinicalupdates/Issue2 5VitaminD/2012_VitaminD.html The IDS iSYS Vitamin D Immunoassay detects both 25-OH Vitamin D2 and 25-OH Vitamin D3, but only a total Vitamin D concentration is reported. Blood specimen (specimen) 02/17/2014 3:35 PM EDT 02/17/2014 3:38 PM EDT Narrative Resulting Agency Comment Spec In Lab Judy Millard MD CHEMISTRY ORDERABLES Performing Organization Address City/[facility]/ZIP Co de Phone Number [facility] * (ABNORMAL) TSH (02/17/2014 3:35 PM EDT) Thyroid Stimulating Hormone 4.55(H) 0.27 - 4.20 mcIU/mL [facility] Blood specimen (specimen) 02/17/2014 3:35 PM EDT 02/17/2014 3:38 PM EDT Narrative Resulting Agency Comment Spec In Lab Judy Millard MD CHEMISTRY ORDERABLES Performing Organization Address [facility]/ZIP Co de Phone Number [facility] * (ABNORMAL) Comprehensive metabolic panel (non-fasting) (02/17/2014 3:35 PM EDT) Glucose 89 60 - 199 mg/dL CERNER MILLENNIUM Comment:Diabetes: >=200 mg/d L plus symptoms Blood Urea Nitrogen 16 8 - 18 mg/dL CERNER MILLENNIUM Creatinine 1.00 0.70 - 1.20 mg/dL CERNER MILLENNIUM Comment: Please note that the pediatric reference intervals supplied above were not validated at [facility]. Results from pediatric patients should be interpreted [...] Resulting Agency Comment Spec In Lab Judy Millard MD CHEMISTRY ORDERABLES Performing Organization Address City/[facility]/ZIP Co de Phone Number [facility] * (ABNORMAL) CBC (with Diff) (02/17/2014 3:35 PM EDT) White Blood Cell 3.2(L) 4.0 - 10.0 x10(3)/mc L CERNER MILLENNIUM Red Blood Cell 4.74 3.93 - 5.22 x10(6)/mc L CERNER MILLENNIUM Hemoglobin 13.9 11.2 - 15.7 gm/dL CERNER MILLENNIUM Hematocrit 40.7 34.0 - 45.0 % CERNER MILLENNIUM Mean Cell Volume 85.9 79.0 - 94.0 fL CERNER MILLENNIUM Mean Cell Hemoglobin 29.3 26.6 - 32.2 pg CERNER MILLENNIUM Mean Cell Hemoglobin Concentration 34.2 32.0 - 36.5 gm/dL CERNER MILLENNIUM Platelet 155 145 - 370 x10(3)/mc L CERNER MILLENNIUM RDW Standard Deviation 43.0 35.0 - 46.0 fL CERNER MILLENNIUM RDW coefficient of variation 14.0 10.9 - 14.4 % CERNER MILLENNIUM Mean Platelet Volume 11.1 9.0 - 12.0 fL CERNER MILLENNIUM Blood specimen (specimen) 02/17/2014 3:35 PM EDT 02/17/2014 3:38 PM EDT Narrative Resulting Agency Comment Spec In Lab Judy Millard MD HEMATOLOGY ORDERABLE S MELANIE QUIROZ documented in this encounter Visit Diagnoses Diagnosis Fatigue- Primary Other malaise and fatigue Endometrial cancer Malignant neoplasm of corpus uteri, except isthmus Unspecified vitamin D deficiency Unspecified vitamin D deficiency documented in this encounter Care Teams File Conversion Operator Relationship Specialty Start Date End Date Casie García APRN PCP - General 01/15/12 11/25/14 documented as of this encounter
--- OUTSIDE RECORDS SUMMARY | 2024-09-09 09:34 | XMS_ITS | Encounter Summary ---
Author Organization Formerly [facility] Address [facility] [place] [address] Care Team Providers Care Fruit Pitter Name Role Phone Barry Hernandez MD Primary Care Provider [phone] Reason for Visit * Reason Comments Established 6 month check Encounter Details Date Type Department Care Team (Late st Contact Info) Description 01/05/2015 3:00 PM EDT Follow-Up [place] [address] Kelsey Sandoval INSTANT PRINT OPERATOR [facility] [place] [address] Endometrial cancer Discharge Disposition: Home Social History [...] Sign Reading Time Taken Comments Blood Pressure 120/80 01/05/2015 2:36 PM EDT Pulse - - Temperature - - Respiratory Rate - - Oxygen Saturation - - Inhaled Oxygen Concentration - - Weight 74.8 kg (164 lb 14.5 oz) 01/05/2015 2:36 PM EDT Height 158.3 cm (5' 2.32) 01/05/2015 2:36 PM ED T Body Mass Index 29.85 01/05/2015 2:36 PM EDT documented in this encounter Progress Notes * ElizabethKelsey, INSTANT PRINT OPERATOR - 01/05/2015 2:56 PM EDT [place] [address] Reason For Visit: Post Treatment Surveillance Exam History of Present Illness: Farzana Garcia is a 54 y.o. woman who presents today with her boyfriend for her surveillance exam. She has a hx of stage IIIC1, FIGO grade 3 adenocarcinoma of endometrium -s/p robotic TLH/BSO, pelvic + paraaortic lymphadenectomy 06/27/11 - final path stage IIIC1, bilateralovarian involvement associated w/endometriosis - felt to be endometrial primaries. 1/ L pelvic node s positive, 0/11 R pelvic nodes, no leroy-aortic nodes identified in paraaortic specimen. Followed by sandwich carboplatin + paclitaxel chemo (3 cycles)/RT/chemo (3 cycles) completed March 2012 (chemo done in [place], [place]) Interim Health: Feeling fine. No new medical issues, surgeries or hospitalizations since her last visit. No questions/concerns or complaints today. ROS: No Pelvic/abdominal pain or bloating No Bowel changes. Continues to have loose stool 2x day. She typically doesn't take metamucil, but will take imodium if she is traveling. No incontinence. No bladder changes or concerns. No hematuria, dysuria, urgency or frequency. Energy level: varies, still has some difficulty with insomnia-- though notes it is overall better. . No Vaginal bleeding or discharge No Lower extremity edema No reports of Wt. Loss Reports appetite is good No SOB, cough or chest pain Sexual function: Occasionally sexually active, no discomfort. Health Habits: Tobacco:non-smoker ETOH: 1-2 drinks a month Exercise: No formal exercise. Hopes to start walking again in the nicer weather. Health Maintenance: Mammogram: Done locally- over due. Colonoscopy: No baseline yet. Social History: Lives with her boyfriend of >2 years. 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 2 adult children Patient Active Problem List Diagnosis Code ??? Endometrial cancer 182.0 ??? Brain aneurysm 437.3 ??? Diverticulitis 562.11 Past Surgical History Procedure Laterality Date ??? Brain aneurysm surgery 2000 ? ? Laparoscopy w tot hysterectuterus <=250 gram w tube/ovary 06/27/2011 LAPAROSCOPY,TOTAL HYST, UTERUS<250GM, SYDNEY TYBE &/OR OVARY, ROBOTIC ASSIST performed by DECLAN POWERS at [facility] MAIN OR ??? Lap, pelvic lymphadenectomy/bx 06/27/2011 LAPAROSCOPY,W\BILATERAL TOTAL PELVIC LYMPHADENECTOMY, PERIAORTIC LYMPH NODE SAMPLING, ROBOTIC performed by DECLAN POWERS at [facility] MAIN OR ??? Cholecystectomy 2001 For [...] file prior to visit. Vital Signs: BP 120/80 Ht 158.3 cm (5' 2.32) Wt 74.8 kg (164 lb 14.5 oz) BMI 29.85 kg/m2 PHYSICAL EXAM: Gen: Pleasant, NAD, Alert, appears well HEENT: No clavicular adenopathy or thyromegaly Lungs: clear to auscultation Cor: heart RRR without appreciable murmurs. Abdomen: soft, not distended, no organomegaly, not tender, no masses palpable, no appreciable inguinal adenopathy Lower Extremities: without edema Pelvic exam: normal appearing external female genitalia; vulva, urethral meatus, perineum and perianal area without lesions. Speculum exam: Vagina with atrophic changes and mild erythema/petechiae (post radiation changes). Bimanual exam: cuff with scarring, no appreciable masses, nodularity or tenderness. Uterus and adnexae surgically absent Rectovaginal exam: no appreciable masses or tenderness. ASSESSMENT/PLAN: Farzana Garcia is a 54 y.o. 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 She has no evidence of recurrent disease. We reviewed signs and symptoms of recurrent disease. She will RTC in 6 months, sooner prn with questions/concerns. She will f/u with her PCP re: scheduling colonoscopy. Kelsey Sandoval APRN documented in this encounter Plan of Treatment Not on file documented as of this encounter Visit Diagnoses Diagnosis Endometrial cancer Malignant neoplasm of corpus uteri, except isthmus documented in this encounter Care Teams Fruit Pitter Relationship Specialty Start Date End Date Barry Hernandez MD [address] [place] [id number] PCP - General 11/26/14 03/05/23 documented as of this encounter
--- OUTSIDE RECORDS SUMMARY | 2024-09-09 09:34 | XMS_ITS | Encounter Summary ---
Author Organization [facility] Address [facility] [place] [address] Care Team Providers Care Network Security Engineer Name Role Phone Linda Gaytan MD Primary Care Provider [phone] Reason for Visit * Reason Onset Date Comments Other 06/27/2023 Encounter Details Date Type Department Care Team (Late st Contact Info) Description 06/27/2023 Telephone Neurology at [facility] [address] [place] [phone] Susanna Strong APR[place] [facility] [place] [address] Other Social History Tobacco Use Types Packs/Day Years [...] encounter Miscellaneous Notes * Telephone Encounter - Evelyn Herrera RN - 07/12/2023 12:56 PM EDT Called and spoke to patient. I apologized for the delay in responding to her phone call request andrelayed that staffing issues have affected our usual response time and we are working to respond asquickly as possible. I relayed that I sent a message to Susanna Strong APRN regarding patient's request to review her MRI results. * Telephone Encounter - Waldo Hickey - 07/12/2023 10:26 AM EDT Farzana Garcia called to ask again for the test results for this imaging from 06/03/23. Please contact Farzana to discuss. * Telephone Encounter - Michael Clarke - 07/10/2023 1:24 PM EDT Patient called to check status of this request. Please call to advise. * Telephone Encounter - Cari Hendricks LNA - 06/27/2023 2:36 PM EDT Copied from [facility] #[id number]. Topic: Specialty Dept CRMs - Test Results >> Jun 27, 2023 11:07 AM Nneka Gomes wrote: Test Results Request Specialist: Susanna Strong Relationship (if other than patient-full name): patient Ordering Provider: Susanna Strong Type of Test: MRI BRAIN WWO CONTRAST Date of Test: 06/03 Where Was This Test Performed: [facility] – [place] documented in this encounter Plan of Treatment Not on file documented as of this encounter Visit Diagnoses Not on filedocumented in this encounter Care Teams Network Security Engineer Relationship Specialty Start Date End Date Linda Gaytan MD [address] [place] [address] PCP - General Family Medicine 03/06/23 documented as of this encounter
--- OUTSIDE RECORDS SUMMARY | 2024-09-09 09:34 | XMS_ITS | Encounter Summary ---
Author Organization [facility] [place] [address] Care Team Providers Care Weigher Packing Name Role Phone Casie García APRN Primary Care Provider [phone] Reason for Visit * Reason Comments Endometrial Cancer Encounter Details Date Type Department Care Team (Late st Contact Info) Description 11/20/2013 11:30 AM EST Follow-Up Radiation Oncology at [address] [phone] Manju Farris MACHINE FILLER [address] [place] [address] [place] [address] Endometrial cancer (Primary Dx) Discharge [...] Sign Reading Time Taken Comments Blood Pressure 128/81 11/20/2013 11:21 AM EST Pulse 80 11/20/2013 11:21 AM EST Temperature 36.8 ??C (98.2 ??F) 11/20/2013 11:[address] Respiratory Rate 16 11/20/2013 11:21 AM EST Oxygen Saturation 96% 11/20/2013 11:21 AM EST Inhaled Oxygen Concentration - - Weight 71.7 kg (158 lb) 11/20/2013 11:21 AM EST Height 157.4 cm (5' 1.97) 11/20/2013 11:[address] copied Body Mass Index 28.93 11/20/2013 11:21 AM EST documented in this encounter Progress Notes * Manju Farris, MACHINE FILLER - 11/20/2013 11:54 AM EST Subjective: Patient ID: Farzana Garcia is [...] ROBOTIC ASSIST performed by DECLAN MILLARD at [facility] MAIN OR ??? Lap, pelvic lymphadenectomy/bx 06/27/2011 LAPAROSCOPY,W\BILATERAL TOTAL PELVIC LYMPHADENECTOMY, PERIAORTIC LYMPH NODE SAMPLING, ROBOTIC performed by DECLAN MILLARD at [facility] MAIN OR ??? Cholecystectomy 2001 For gallstones Allergies Allergen Reactions ??? Red Blood Cells Other (See Comments) Antibodies-Difficult to Crossmatch ??? Dilaudid (Hydromorphone) Nausea And Vomiting Current Outpatient Prescriptions on File Prior to Visit Medication Sig Dispense Refill ??? ALPRAZolam (XANAX) 0.5 mg tablet Take 0.5 mg by mouth nightly as needed. ??? valACYclovir (VALTREX) 500 mg tablet Take 500 mg by mouth daily. History Social History ??? Marital Status: Spouse Name: N/A Number of Children: N/A ??? 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 Son's daughter with Down's syndrome. 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 She does continues with fatigue and requires a nap daily. She was hospitalized (06/2012) due to diverticulitis. A Ct of the abdomen done in September 2012 was negative for cancer recurrence. She was seen by Dr Millard again 12/2012 who did a complete pelvic exam. She remains sexually active and has no bleeding vaginally. She has no dyspareunia, no vaginal discharge. She does not use her vaginal dilator because she is sexually active. She denies any pain. She denies any urinary problems ie no dysuria, no hematuria, no urinary flow resistance. She continues with some loose bowels with bowels moving 2-4 times a day. She denies hematochezia and melena. Review of Systems Constitutional: Positive for fatigue. [...] of urine. Musculoskeletal: Negative. Skin: Negative. Dry patches of skin x couple of months--moves and goes away. + itching Not using anything on this Neurological: Negative. Negative for dizziness, weakness and headaches. Hematological: Negative. Psychiatric/Behavioral: Negative. Stress due to son Recent Review Flowsheet Data Filed Vitals: 11/20/13 1121 BP: 128/81 Pulse: 80 Temp: 36.8 ??C (98.2 ??F) TempSrc: Oral Resp: 16 Height: 157.4 cm (5' 1.97) Weight: 71.668 kg (158 lb) SpO2: 96% AHT=005 Pain: none Objective: Physical Exam Vitals reviewed. [...] want speculum exam External genitalia without masses, lesion,no vaginal discharge, no bleeding Musculoskeletal: Normal range [...] normal. Skin: Skin is warm and dry. Rash noted. She is not diaphoretic. No erythema. No pallor. Dry flaking--psoriatic appearing rash scattered Psychiatric: She has a normal mood and affect. Her behavior is normal. Judgment and thought contentnormal. Assessment and Plan: Endometrial cancer. Mrs Garcia is doing well with CARMEN. Bowel frequency: Given that she had pelvic radiation she was also advised to start metamucil 1 tsp a day to help regulate bowel function. Dry skin patch: mild psoriatic appearing rash --steroid cream--to follow up with dermatology if no improvement We reviewed late effects of radiation therapy to the pelvis including risk for radiation cystitis and radiation proctitis. She is encouraged to keep well hydrated and we reviewed bowel care. She continues follow up with Dr Millard in December and she is to F/U in Rad Onc in 6 months She is to call if she has questions or concerns. documented in this encounter Plan of Treatment Not on file documented as of this encounter Visit Diagnoses Diagnosis Endometrial cancer- Primary Malignant neoplasm of corpus uteri, except isthmus documented in this encounter Care Teams Weigher Packing Relationship Specialty Start Date End Date Casie García APRN PCP - General 01/15/12 11/25/14 documented as of this encounter
--- OUTSIDE RECORDS SUMMARY | 2024-09-09 09:34 | XMS_ITS | Encounter Summary ---
Author Organization [facility] [place] [address] Care Team Providers Care Audio Engineer Name Role Phone Linda Gaytan MD Primary Care Provider [phone] Reason for Referral * Diagnostic Test (Routine) - Closed Specialty Diagnoses / Procedures Referred By Contac t Referred To Contact Radiology Diagnoses TN (trigeminal neuralgia) Procedures MRI Brain wwo Contrast (Generic) [place] [address] [place] [address] Referral ID Status Reason Start Date Expiration Date V isits Requested Visits Authorized [id number] Closed Specialty Service Requested 03/27/2023 09/26/2024 1 1 Reason for Visit * Consultation (Urgent) - Closed Specialty Diagnoses / Procedures Referred By Contac t Referred To Contact Neurology Diagnoses Trigeminal neuralgia Linda Gaytan MD [address] [place] [address] [facility] Neurology [address] [place] [address] Referral ID Status Reason Start Date Expiration Date V isits Requested Visits Authorized [id number] Closed Consult, Test & Treat PCP Updated and/or Approved 03/06/2023 03/05/2024 6 6 Encounter Details Date Type Department Care Team (Late st Contact Info) Description 03/27/2023 3:30 PM EDT [facility] [place] [phone] Susanna Strong APRN [facility] [place] [address] [place] (trigeminal neuralgia) Social History Tobacco Use Types Packs/Day Years [...] Pulse 83 03/27/2023 3:15 PM EDT Temperature - - Respiratory Rate - - Oxygen Saturation - - Inhaled Oxygen Concentration - - Weight 77.1 kg (170 lb) 03/27/2023 3:15 PM EDT Height 157.5 cm (5' 2) 03/27/2023 3:15 PM EDT r eported Body Mass Index 31.09 03/27/2023 3:15 PM EDT documented in this encounter Patient Instructions * Patient Instructions* Susanna Strong APRN - 03/27/2023 3:30 PM EDT Gabapentin 1200mg three times a day To wean 7 days at a time at each dose change 900mg in am 1200mg noon 1200mg nightly 900mg in am 900mg noon 1200mg nightly 900mg in am 900mg noon 900mg nightly And continue to decrease by 300mg increments documented in this encounter Progress Notes * Susanna Strong APRN - 03/27/2023 3:30 PM EDT Neurology Headache Clinic Initial Consultation Patient name: Farzana Garcia Date of : 1960 PCP: Linda Gaytan MD CC: Headache I have been asked to see Farzana Garcia in consultation by Linda Gaytan for TN in my capacity as Headache Medicine Specialist. HPI: Farzana Garcia is a 62 y.o. female with PMH brain aneurysm, right sided TN V1, V2 distribution, endometrial cancer, and diverticulosis who presents to the headache clinic to establish care. [facility] 07/2022 Ophthalmology IMPRESSION: 1. PVD (posterior [...] her face, talking Trauma: Denies Previous work-up: Head CT wo contrast 2021 Aneurysm clips noted region of the sella No acute intracranial abnormality Component Ref Range & Units 9 yr ago TSH 0.27 - 4.20 mcIU/mL 4.55 High Resulting Agency [facility] Lab Contraception: post menopausal Medications Tried ([x] checked have been tried in the past) Anti-seizure: [] Acetazolamide (Diamox) [] Carbamazepine (Tegretol) [] Clobazam (Onfi) [x] Gabapentin (Neurontin) -effective at 1200mg TID [...] [] Acupuncture [] Acupressure [] Biofeedback [] Paperhanger Pipe [] Cognitive Behavioral Therapy [] Massage therapy [...] SAMPLING, ROBOTIC performed by DECLAN POWERS at [facility] MAIN OR PRO LAPAROSCOPY W TOT HYSTERECTUTERUS <=250 GRAM W TUBE/OVARY 06/27/2011 LAPAROSCOPY,TOTAL HYST, UTERUS<250GM, SYDNEY TYBE &/OR OVARY, ROBOTIC ASSIST performed by DECLAN POWERS at [facility] MAIN OR Medications: Current Outpatient Medications Medication Sig Dispense Refill gabapentin (Neurontin) 600 mg tablet Take 1,200 mg by mouth 3 times daily. sucralfate (Carafate) 1 gram tablet TAKE 1 TABLET BY MOUTH FOUR TIMES A DAY NEEDED lisinopril (PRINIVIL;ZESTRIL) 5 mg Tablet TAKE ONE [...] tablet Take 500 mg by mouth daily. diazePAM (Valium) 2 mg tablet Take 1 tablet by mouth 4 times daily as needed for Anxiety (as neededprior to MRI. Start with 1 tablet 30 minutes away from hospital, take 1 tablet upon arrival to hospital, and may repeat up to 2 times as needed after initial dosing). 4 tablet 0 No current facility-administered medications for this visit. Allergy: Allergies Allergen Reactions Red Blood Cells Other (See Comments) Antibodies-Difficult to Crossmatch Dilaudid [Hydromorphone] Nausea And Vomiting Family History: Family History Problem Relation Age of Onset Cancer Maternal Grandfather colon cancer Breast Cancer Maternal Aunt Lung Cancer Paternal Uncle Cancer Paternal Uncle leukemia Cancer Paternal Grandmother not sure where the cancer was Review of systems (bold are positive): Constitutional: No fevers or chills Eyes: No vision changes, no diplopia, no blurry vision ENT: No rhinorrhea or pharyngitis, no meningismus CV: No chest pain or palpitations Resp: No cough, no shortness of breath GI: No nausea, vomiting, diarrhea or constipation : No dysuria, no incontinence Heme: No bleeding or bruising Endo: No diabetes or thyroid disease Neuro: See HPI Psych: No depression, normal sleep [x] Review of systems otherwise negative Physical Exam: Patient Vitals for the past 24 hrs: Pulse BP 03/27/23 1515 83 137/83 Neuro exam: MSE: alert, oriented to person, place, time, situation, follows simple and complex commands, speechfluent with no dysarthria, able to repeat a sentence, names objects. CN: PERRL, no nystagmus, EOMI, visual woody intact to confrontation, facial sensation intact, no facial droop or asymmetry Motor: RUE 5/5 throughout LUE 5/5 throughout RLE 5/5 throughout LLE 5/5 throughout Normal bulk and tone No pronator drift Sensation: intact light touch, vibration, proprioception, and temperature diffusely Coordination: no dysmetria, no tremor Gait: normal stride and arm swing, Negative romberg. Labs: No results found for this or any previous visit (from the past 24 hour(s)). Diagnostic Tests and Imaging: See HPI Assessment: Farzana Garcia is a 62 y.o. female with PMH brain aneurysm, right sided TN V1, V2 distribution, endometrial cancer, and diverticulosis who presents to the headache clinic to establish care. #TN Patient's history and physical examination is consistent with a dx of right sided TN with V1V2 distribution. She has not had MRI at this time. Will order MRI in order to better visualize trigeminal nerve and to rule out compression or structural brain lesions. Neurological exam is normal. Investigations to date: Please see HPI for further details. Appt duration: 60 minutes More the 50% of the appt was spent in counseling and coordination of care. PLAN: INVESTIGATIONS: - Brain MRI wwo contrast REFERRALS: -None at the present time NON-PHARMACOLOGICAL TREATMENTS: - avoid triggers ACUTE TREATMENT OF TN: -Future considerations for: baclofen if needed [place] PREVENTION: -continue gabapentin -consider Trileptal in the future FOLLOW UP: - after image The pathophysiology, natural history, aggravating factors, and [...] the patient was satisfied with the explanations. It was a pleasure seeing Farzana in consultation and I am pleased to be involved in her care. If there are any questions or concerns please do not hesitate to contact me. Susanna Strong (she/her) ABNER, [facility] Neurology Headache Clinic Please note that this consultative letter was completed with the assistance of voice recognition software. As result unintentional pot holder binder errors and/or typographical mistakes are possible. If you notice errors please bring them to my attention. If any area requires explanation or clarification please do not hesitate to contact me. documented in this encounter Plan of Treatment Not on file documented as of this encounter Results * MRI Brain wwo [...] questions please contact the health career development specialist that requested your imaging first. ? Narrative 06/03/2023 2:01 PM EDT EXAMINATION: MRI [...] have questions please contactthe health career development specialist that requested your imaging first. Susanna Strong APRN IMG MRI ORDERABLE S documented in this encounter Visit Diagnoses Diagnosis TN (trigeminal neuralgia) Trigeminal neuralgia TN (trigeminal neuralgia) Trigeminal neuralgia documented in this encounter Care Teams Audio Engineer Relationship Specialty Start Date End Date Linda Gaytan MD [address] [place] [address] PCP - General Family Medicine 03/06/23 documented as of this encounter
--- OUTSIDE RECORDS SUMMARY | 2024-09-09 09:34 | XMS_ITS | Encounter Summary ---
[place] [address] Care Team Providers Care Certified Nurse Operating Room Name Role Phone Barry Hernandez MD Primary Care Provider [phone] Encounter Details Date Type Department Care Team (Late st Contact Info) Description 12/10/2014 Telephone [place] [phone] Manju Farris APRN [address] [place] [address] [place] [address] Social History Tobacco Use Types Packs/Day [...] encounter Miscellaneous Notes * Telephone Encounter - Manju Farris APRN - 12/10/2014 9:55 AM EST Call to patient to report the results of her recent labs done 11/27/2014 (see scanned documents) Her boyfriend has Hep C. She is negative and we discussed use of condoms to prevent transmission. documented in this encounter Plan of Treatment Not on file documented as of this encounter Visit Diagnoses Not on filedocumented in this encounter Care Teams Certified Nurse Operating Room Relationship Specialty Start Date End Date Barry Hernandez MD [address] [place] [address] PCP - General 11/26/14 03/05/23 documented as of this encounter
--- OUTSIDE RECORDS SUMMARY | 2024-09-09 09:34 | XMS_ITS | Encounter Summary ---
[place] [address] Care Team Providers Care Hospital Receptionist Name Role Phone Barry Hernandez MD Primary Care Provider [phone] Encounter Details Date Type Department Care Team (Late st Contact Info) Description 06/20/2016 2:30 PM EDT Office Visit Hematology/Oncology at [address] [phone] Bhavana Cuellar APRN Endometrial cancer Social History Tobacco Use Types [...] Sign Reading Time Taken Comments Blood Pressure 129/87 06/20/2016 2:33 PM EDT Pulse 91 06/20/2016 2:33 PM EDT Temperature 36.8 ??C (98.2 ??F) 06/20/2016 2:33 PM ED T Respiratory Rate 18 06/20/2016 2:33 PM EDT Oxygen Saturation 99% 06/20/2016 2:33 PM EDT Inhaled Oxygen Concentration - - Weight - - Height - - Body Mass Index - - documented in this encounter Patient Instructions * Patient Instructions* Bhavana Cuellar APRN - 06/20/2016 2:30 PM EDT She will return for followup in 6months. documented in this encounter Progress Notes * Bhavana Cuellar APRN - 06/20/2016 2:30 PM EDT Patient ID: Farzana Garcia is a 55 [...] ROBOTIC ASSIST performed by DECLAN POWERS at [facility] ??? Pro lap, pelvic lymphadenectomy/bx 06/27/2011 LAPAROSCOPY,W\BILATERAL TOTAL PELVIC LYMPHADENECTOMY, PERIAORTIC LYMPH NODE SAMPLING, ROBOTIC performed by DECLAN POWERS at [facility] ??? 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 Son's daughter with Down's syndrome. 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 Stressors have continued in her life. Her boyfriend was diagnosed with advanced cancer and 2 months ago. Shecared for him until his . 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 She had to move out of the apartment they shared and move in with her son and daughter in law. It is working but she has little privacy. At some point she will look for an apartment for herself again. She is dealing with her grief as one would expect- she has good and bad days. She has had verbal threats from HIS son initially after her boyfriend's but they have stopped for the time being. I encouraged her to call the police if he does it again. Her son and his family are supportive and helping her with her grief as well as serving as a good distraction at times. Advance Directive: not on file Interim History: Mrs Garcia reports that she is doing well. She reports that her energy level is fair at this point due to the recent of her boyfriend. 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 She is on medication for this. She is not currently sexually active reporting [...] has not been active for at least 6 months. --no desire for intercourse No leakage of urine. Musculoskeletal: Negative. Skin: Negative. Neurological: Negative. Negative for dizziness, weakness and headaches. Hematological: Negative. Psychiatric/Behavioral: Negative. Recent Review Flowsheet Data Vitals: 06/20/16 1433 BP: 129/87 Patient Position: Sitting Pulse: 91 Resp: 18 Temp: 36.8 ??C (98.2 ??F) TempSrc: Oral SpO2: 99% NUF=433 Pain: none Objective: Physical Exam Constitutional: She [...] behavior is normal. Judgment and thought contentnormal. she is appropriately sad since the of her boyfriend. Vitals reviewed. Assessment and Plan: Ms Garcia [...] not want to take any other medication. Patient has not used her vaginal dilator and did not know where they were. We have given her another one with instructions. She will start using them again. Emotional support was given. We will see patient again in six months for clinical evaluation. Patient is to call in the interim if she has any questions or concerns, documented in this encounter Plan of Treatment Not on file documented as of this encounter Visit Diagnoses Diagnosis Endometrial cancer Malignant neoplasm of corpus uteri, except isthmus documented in this encounter Care Teams Hospital Receptionist Relationship Specialty Start Date End Date Barry Hernandez MD [address] [place] [address] PCP - General 11/26/14 03/05/23 documented as of this encounter
--- OUTSIDE RECORDS SUMMARY | 2024-09-09 09:34 | XMS_ITS | Encounter Summary ---
Author Organization [facility] Address [facility] [place] [address] Care Team Providers Care Security Inspector Name Role Phone Linda Gaytan MD Primary Care Provider [phone] Reason for Visit * Reason Onset Date Comments Appointment 04/04/2023 Encounter Details Date Type Department Care Team (Late st Contact Info) Description 04/04/2023 Telephone Neurology at [facility] [address] [place] [phone] Susanna Strong APRN [facility] [place] [address] Appointment Social History Tobacco Use Types Packs/Day Years [...] encounter Miscellaneous Notes * Telephone Encounter - Fiona Shetty - 04/18/2023 10:16 AM EDT Spoke to patient in regards to medical research scientist information for the cerebral aneurysm clip and coils patient had surgically implanted at [facility] [place] [place]. Patient does not have a medical research scientist card. She believes her surgery was either in October 1998 or [address] Greenberg. Emeli MI is searching for the surgical documentation so the device(s) can be uploaded into the implant section in patient's medical record. * Telephone Encounter - Fiona Shetty - 04/04/2023 10:07 AM EDT Scheduling Instructions Provider: Susanna Strong APRN Visit Type: Follow Up (paste PEGGY Instructions or manually enter): Return for follow up after imaging complete. Appt Note: Follow up w/MR Results Additional Info Needed: MRI Lead Manufacturing Engineer is checking to see if patient's aneurysm clip is okay with the MRI machine-04.04.2023 Sent text with [facility] sign up information to patient's cell documented in this encounter Plan of Treatment Not on file documented as of this encounter Visit Diagnoses Not on filedocumented in this encounter Care Teams Security Inspector Relationship Specialty Start Date End Date Linda Gaytan MD [address] [place] [id number] PCP - General Family Medicine 03/06/23 documented as of this encounter
--- OUTSIDE RECORDS SUMMARY | 2024-09-09 09:35 | XMS_ITS | Encounter Summary ---
Author Organization [facility] Address [facility] [place] [address] Care Team Providers Care Agency Operator Name Role Phone Gus Pacheco MD Primary Care Provider [phone] Reason for Visit * Reason Comments Radiation Treatment Encounter Details Date Type Department Care Team (Late st Contact Info) Description 12/05/2011 4:30 PM EST Follow-Up Radiation Oncology at [address] [phone] Lucero To MD [facility] [place] [address] Uterine cancer (Primary Dx) Discharge Disposition: Home Social [...] Sign Reading Time Taken Comments Blood Pressure 118/73 12/05/2011 4:00 PM EST Pulse 72 12/05/2011 4:00 PM EST Temperature 37.2 ??C (99 ??F) 12/05/2011 4:00 PM EST Respiratory Rate - - Oxygen Saturation 99% 12/05/2011 4:00 PM EST Inhaled Oxygen Concentration - - Weight 57.6 kg (127 lb) 12/05/2011 4:00 PM EST Height - - Body Mass Index 23.25 11/15/2011 2:04 PM EST documented in this encounter Progress Notes * Lucero To MD - 12/05/2011 5:13 PM EST DIAGNOSIS: Endometrium, endometrioid type w/squamous diff; FIGO gr III; s/p total laparoscopic/robotic hys w/BSO, laparoscopic pelvic & paraaortic lymphadenectomy followed by carbo/taxol x 3. Path: Ovarian mets vs synchronous ovarian primary; + involvement of 1 (L) pelvic lymph node; stage IIIC1, pN1; 3 more carbo/taxol to follow xrt. CURRENT TREATMENT DOSE: 21.6 Gy ANTICIPATED TOTAL DOSE: 45 Gy + HDR Current # of xrt received: 12 Anticipated total # of xrt txs: 25 + 3 HDR Evaluation of port verification films: ok Changes in Medical Condition: Dsyuria & increased frequency of urination. Mild diarrhea, controlled w/imodium. Physical Exam: 127 lbs. A&Ox3, in NAD. Amb stable. Labs: 12/04/11 CBC: WBC 2.97, Hbg 10.8, Hct 32.3, Plts 123K, ANC 1.59. Response to xrt: As expected. Radiation Related Symptoms: Dysuria & increased frequency of urination probably from xrt, but could be related to UTI. Diarrhea. Treatment for Symptom Control: Pyridium if U/A & urine culture neg. Imodium, Isaac's cream. Recommendation on Continuing Course of Tx: Cont. U/A, urine C&S today. Weekly CBC q Mon prior to xrt, starting 12/04. CTsim next wk for intravag cylinder brachy plan. documented in this encounter Procedure Notes * Provider, Scanning - 12/11/2011 7:06 PM ESTAssociated Order(s): SCAN DOC: LAB * Provider, Scanning - 12/08/2011 1:29 PM ESTAssociated Order(s): SCAN DOC: LAB * Provider, Scanning - 12/07/2011 2:49 PM ESTAssociated Order(s): SCAN DOC: LAB documented in this encounter Plan of Treatment Not on file documented as of this encounter Procedures Procedure Name Priority Date/Time Associated Diagnosis Comments LAB SCAN 12/11/2011 7:06 PM EST LAB SCAN 12/08/2011 1:29 PM EST LAB SCAN 12/07/2011 2:49 PM EST documented in this encounter Results * SCAN DOC: LAB (12/11/2011 7:06 PM EST) Narrative 12/11/2011 7:06 PM EST Procedure Note Provider, Scanning - 12/11/2011 7:06 PM EST Scanning Provider MEDIA MGR SCAN EXT O RDR/RSLT * SCAN DOC: LAB (12/08/2011 1:29 PM EST) Narrative 12/08/2011 1:29 PM EST Procedure Note Provider, Scanning - 12/08/2011 1:29 PM EST Scanning Provider MEDIA MGR SCAN EXT O RDR/RSLT * SCAN DOC: LAB (12/07/2011 2:49 PM EST) Narrative 12/07/2011 2:49 PM EST Procedure Note Provider, Scanning - 12/07/2011 2:49 PM EST Scanning Provider MEDIA MGR SCAN EXT O RDR/RSLT documented in this encounter Visit Diagnoses Diagnosis Uterine cancer- Primary Malignant neoplasm of uterus, part unspecified documented in this encounter Care Teams Agency Operator Relationship Specialty Start Date End Date Gus Pacheco MD [address] [place] [address] PCP - General 06/20/11 01/14/12 documented as of this encounter
--- OUTSIDE RECORDS SUMMARY | 2024-09-09 09:35 | XMS_ITS | Encounter Summary ---
Author Organization [facility] [place] [address] Care Team Providers Care Insole Filler Name Role Phone Ricky Casieluis angel Miranda APRN Primary Care Provider [phone] Encounter Details Date Type Department Care Team (Late st Contact Info) Description 07/11/2012 Orders Only [place] [address] Judy Horton MD [facility] [address] Social History Tobacco Use Types Packs/Day Years [...] Procedure Name Priority Date/Time Associated Diagnosis Comments FILM LIBRARY STORAGE ONLY CT ABDOMEN AND PELVIS Routine 07/11/2012 3:16 PM EDT documented in this encounter Results * FILM LIBRARY- STORAGE ONLY CT ABDOMEN & PELVIS (07/11/2012 3:16 PM EDT) 07/11/2012 3:16 PM EDT Narrative [facility] - 04/17/2014 1:56 AM EDT This is a non-reportable exam. Procedure Note Rogelio Dos Santos - 04/17/2014 This is a non-reportable exam. Judy Horton MD [facility] FILM LIBRARY ORD ERABLES RAD [address] [place] [address] documented in this encounter Visit Diagnoses Not on filedocumented in this encounter Care Teams Insole Filler Relationship Specialty Start Date End Date Casie García APRN PCP - General 01/15/12 11/25/14 documented as of this encounter
--- OUTSIDE RECORDS SUMMARY | 2024-09-09 09:35 | XMS_ITS | Encounter Summary ---
Author Organization [facility] [place] [address] Care Team Providers Care Manager Commission Name Role Phone Casie García ABNER Primary Care Provider [phone]- [phone] Reason for Visit * Reason Comments Chemotherapy Carbo/Taxol Cycle 6 Encounter Details Date Type Department Care Team (Late st Contact Info) Description 03/28/2012 10:30 AM EDT Office Visit Hematology Oncology at [address] [phone] CLINIC, DR [facility]OPE[facility] Endometrial cancer (Primary Dx) Social History Tobacco Use Types Packs/Day Years [...] as of this encounter Progress Notes * Areli Avalos RN - 03/28/2012 10:36 AM EDT INFUSION THERAPY ADMINISTRATION NOTES TIME TREATMENT STARTED: 934 TIME TREATMENT ENDED: 1639 DIAGNOSIS: Uterine Cancer PROTOCOL: no CYCLE #: 6 REASON FOR VISIT: Carbo/Taxol infusion SUBJECTIVE Farzana Garcia offers no complaints. OBJECTIVE LAB DATA: Labs reviewed and found adequate for treatment. IF PAIN IS >5, INTERVENTION AND EFFECTIVENESS: n/a 1015 Patient reports that since mediport was accessed this morning she has been experiencing discomfort in area about 1 inch above mediport, annoying discomfort continuously and when she turns headto right it feels like it is pulling. No increased pain when flushing mediport, excellent blood return and no resistance when flushing. Did change outer dressing and no change in discomfort. Pain does start at area of the mediport catheter, no swelling, reddness, etc. Noted. This is patient last scheduled chemotherapy. Report to Dr. Grimes and decision to proceed with chemotherapy via peripheral line. No order for dye study at this time, as Dr. Grimes to discuss removal of mediport further with patient when she returns to clinic next month. Pre administration: Chemotherapy orders independently verified for drug name, route, and dosage per patient's height, weight and BSA by Areli Avalos RN and Coby Plata RN. REACTIONS (DESCRIPTION, TIME, INTERVENTION AND EFFECTIVENESS) none ASSESSMENT Farzana Garcia was awake, alert and he tolerated treatment well. PLAN Return to clinic per routine. documented in this encounter Plan of Treatment Not on file documented as of this encounter Visit Diagnoses Diagnosis Endometrial cancer- Primary Malignant neoplasm of corpus uteri, except isthmus documented in this encounter Administered Medications Inactive Administered Medications - up to 3 most recent administrations Medication Order MAR Action Action Date Dose Rate Site CARBOplatin (PARAPLATIN) 635 mg in dextrose 5% 313.5 mL chemo infusion 635 mg, Intravenous, ONCE, 1 dose, On Sue 03/28/12 at 1030, Administer over 60 Minutes New Bag 03/28/2012 3:27 PM EDT 635 mg 313.5 mL/hr dexamethasone sodium (PF) 10 mg in sodium chloride 0.9% 51 mL IVPB Intravenous, at 204 mL/hr, ONCE, On Sue 03/28/12 at 1030, 1 dose, PRE CHEMO Given 03/28/2012 9:57 AM EDT 204 mL/hr famotidine (PEPCID) 20 mg, diphenhydrAMINE (BENADRYL) 25 mg in sodium chloride 0.9% 52.5 mL IVPB Intravenous, at 210 mL/hr, ONCE, On Sue 03/28/12 at 1030, 1 dose, PRE CHEMO Given 03/28/2012 11:13 AM EDT 210 mL/hr fosaprepitant (EMEND) 150 mg in sodium chloride 0.9% 155 mL infusion 150 mg, Intravenous, ONCE, 1 dose, On Sue 03/28/12 at 1030, Administer over 30 Minutes, PRE CHEMO New Bag 03/28/2012 11:28 AM EDT 150 mg 310 mL/hr paclitaxel (TAXOL) 285 mg in dextrose 5% Non-PVC 547.5 mL chemo infusion 285 mg, Intravenous, ONCE, 1 dose, On Sue 03/28/12 at 1030, Administer over 3 Hours New Bag 03/28/2012 12:17 PM EDT 285 mg 182.5 mL/hr palonosetron (ALOXI) injection 0.25 mg 0.25 mg, Intravenous, ONCE, 1 dose, On Sue 03/28/12 at 1030, Routine Given 03/28/2012 10:15 AM EDT 0.25 mg documented in this encounter Care Teams Manager Commission Relationship Specialty Start Date End Date Casie Garcaí APRN PCP - General 01/15/12 11/25/14 documented as of this encounter
--- OUTSIDE RECORDS SUMMARY | 2024-09-09 09:35 | XMS_ITS | Encounter Summary ---
Author Organization [facility] Address [facility] [place] [address] Care Team Providers Care Innovation Manager Name Role Phone Gus Pacheco MD Primary Care Provider [phone] Reason for Visit * Reason Comments Radiation Treatment HDR Encounter Details Date Type Department Care Team (Latest Contact Info) Description 12/29/2011 1:00 PM EST Procedure visit [place] [address] Lucero To MD [facility] [place] [address] Endometrial ca (Primary Dx) Discharge Disposition: Home [...] on file documented as of this encounter Patient Instructions * Patient Instructions* Nneka Cleray RN - 12/29/2011 1:28 PM EST Follow the low fiber diet you have been on. If experiencing diarrhea, you can take 1 immodium aftereach diarrhea stool up to 4 times/day. Use your pyridium for urinary discomfort as ordered. Drink fluids to stay well hydrated. Your bladder fullness should be as it was at your simulation before each of these treatments. Bringyour fancy pants to each treatment. Here the contact numbers for your treatments here at [facility]: Section of Radiation Oncology Your team members are: Dr. Lucero Platt, Senior Clinical Elastic Attacher Zigzag MALINI Salgado Our normal business hours are- Sunday - Sunday 8 AM to 5 PM If you have questions about your radiation appointments please ask to speak to your secretary book keeper. If you have questions for your nurse about radiation treatments, radiation side effects or you are not feeling well it is best to call early in the day. This allows your nurse to return your call by 5 PM the same day. If you call after 4 PM, your nurse will return your call by 5 PM the following day. If you experience any of the following you need to seek emergency care immediately by calling 911 1. Sudden and unexpected breathing difficulty without any exertion 2. Sudden onset of chest pain 3. Sudden onset of severe pain or uncontrolled pain 4. Sudden onset of severe weakness and/or unable to ambulate 5. Sudden new onset of a seizure 6. Fall resulting in injury A Radiation Oncology doctor is automation clerk after our normal hours and on weekends. To call for urgent medical issues from radiation treatments that can not wait until normal business hours, please call and have the waxing machine operator page the Radiation Oncologist in call. documented in this encounter Progress Notes * Lucero To MD - 12/29/2011 1:45 PM EST Radiation Oncology Nursing on Treatment Note Farzana Has received 500 cGy To the vag apex. For treatment of endometrial ca. Side effects that patient is experiencing: diarrhea a few times daily and some dysuria Anticipatory guidance/ interventions:continue on medications - immodium and pyridium to help with symptoms. Drink plenty of fluids to stay hydrated. Bring fancy pants each time for treatment and replicate bladder fullness to be similar as it was on day of simulation. Other: given discharge instructions- see under pt instructions. Plan: * Lucero To MD - 12/29/2011 1:43 PM EST Intravag brachy done w/Ir-192 HDR, giving 5 Gy/1 fx @ vag surface. Pretx film showed cylinder to bein appropriate position. She tolerated tx well, w/o complication. documented in this encounter Plan of Treatment Not on file documented as of this encounter Visit Diagnoses Diagnosis Endometrial ca- Primary Malignant neoplasm of corpus uteri, except isthmus documented in this encounter Care Teams Innovation Manager Relationship Specialty Start Date End Date Gus Pacheco MD [address] [place] [address] PCP - General 06/20/11 01/14/12 documented as of this encounter
--- OUTSIDE RECORDS SUMMARY | 2024-09-09 09:35 | XMS_ITS | Encounter Summary ---
Author Organization [facility] [place] [address] Care Team Providers Care Water Tanker Driver Name Role Phone Casie García APRN Primary Care Provider +1- [phone] Reason for Visit * Reason Comments Follow-up endometrial cancer Encounter Details Date Type Department Care Team (Late st Contact Info) Description 08/15/2012 9:30 AM EDT Follow-Up Radiation Oncology at [address] [phone] Manju Farris HYDRAULIC RUBBISH COMPACTOR MECHANIC [address] [place] [address] RADIATION ONCOLOGY [place], [place] [id number] Endometrial cancer (Primary Dx) Discharge Disposition: Home [...] Sign Reading Time Taken Comments Blood Pressure 104/60 08/15/2012 9:22 AM EDT Pulse 67 08/15/2012 9:22 AM EDT Temperature 36.8 ??C (98.2 ??F) 08/15/2012 9:22 AM ED T Respiratory Rate 18 08/15/2012 9:22 AM EDT Oxygen Saturation 100% 08/15/2012 9:22 AM EDT Inhaled Oxygen Concentration - - Weight 56.7 kg (125 lb) 08/15/2012 9:22 AM EDT Height - - Body Mass Index 22.89 06/20/2012 2:05 PM EDT documented in this encounter Progress Notes * Manju Farris, HYDRAULIC RUBBISH COMPACTOR MECHANIC - 08/15/2012 9:46 AM EDT Subjective: Patient ID: Farzana Garcia [...] to complete six cycles. -- 02/15/12 - C#5 held, neutropenia, and dental infection - on ABX --03/28/2012--final cycle of chemotherapy Past Medical History Diagnosis Date ??? Endometrial cancer 06/20/2011 ??? Brain aneurysm 2000 Found incidentally when eval'd for headache; clipped. Past Surgical History Procedure Date ??? Brain aneurysm surgery 2000 ? ? Laparoscopy w tot hysterectuterus <=250 gram w tube/ovary 06/27/2011 LAPAROSCOPY,TOTAL HYST, UTERUS<250GM, SYDNEY TYBE &/OR OVARY, ROBOTIC ASSIST performed by DECLAN HORTON at [facility] ??? Lap, pelvic lymphadenectomy/bx 06/27/2011 LAPAROSCOPY,W\BILATERAL TOTAL PELVIC LYMPHADENECTOMY, PERIAORTIC LYMPH NODE SAMPLING, ROBOTIC performed by DECLAN HORTON at [facility] ??? Cholecystectomy 2001 For gallstones Interim History: Mrs Garcia reports that she is doing well. She does continues with fatigue and requires a nap daily. She was recently hospitalized (06/2012) due to diverticulitis. A Ct of the abdomen done at the time was negative for cancer recurrence. She was seen by Dr Horton again 07/15 who did a complete pelvic exam. She remains sexually active and has occasional small amount of spotting at that time. She denies pain. She denies any urinary problems ie no dysuria, no hematuria, no urinary flow resistance. She continues with some loose bowels once a day after she eats. She denies hematochezia and melena. She denies recurrence of sharp abdominal pain. Review of Systems Constitutional: Positive for fatigue. Negative for chills, activity change and unexpected weight change. Takes nap every day No pain No change in fatigue HENT: Negative. Respiratory: Negative. Negative for cough and shortness of breath. Cardiovascular: Negative for chest pain and leg swelling. Gastrointestinal: Negative. Negative for abdominal pain, constipation and blood in stool. Loose stool after eating (eats once a day). Watery stool No blood. No constipation. Genitourinary: Negative. No burning No blood urine Good stream Nocturia--none Sexually active--no pain--occ sl blood with sexual activity Musculoskeletal: Negative. Skin: Negative. Neurological: Negative. Negative for dizziness, weakness and headaches. Hematological: Negative. Psychiatric/Behavioral: Negative. Recent Review Flowsheet Data View Complete Flowsheet Oncology Vitals 08/15/2012 Weight 56.7 kg Height - BSA (Calculated - sq m) - BMI (Calculated) - Temp 98.2 Temp src 1 Pulse 67 Heart Rate Source Left;NIBP Resp 18 BP 104/60 BP Location Left arm Patient Position Sitting SpO2 100 Pain Level 0 FACES Pain Rating: Activity - Karnofsky Score - Oncology Vitals 08/15/2012 Height (cm) - Weight (kg) - BSA (m2) - Objective: Physical Exam Vitals reviewed. Constitutional: She [...] She exhibits no distension and no mass. No tenderness. She has no rebound and no guarding. Genitourinary: Pelvic exam was performed with patient supine. Patient did not want speculum exam given recent exam by Dr Horton. external genitalia normal. No tenderness, no lesions, no masses Musculoskeletal: Normal range of motion. She exhibits [...] is not diaphoretic. No erythema. No pallor. Moderate hyperpigmentation of skin in tx'd area; skin intact. Psychiatric: She has a normal mood and affect. Her behavior is normal. Judgment and thought contentnormal. Assessment and Plan: Endometrial cancer. Mrs Garcia is doing well with CARMEN. Diverticulitis: Provided patient with dietary information for persons with diverticulitis. Given that she had pelvic radiation she was also advised to start metamucil 1 tsp a day to help regulate bowel function. FU 6 mos. documented in this encounter Plan of Treatment Not on file documented as of this encounter Visit Diagnoses Diagnosis Endometrial cancer- Primary Malignant neoplasm of corpus uteri, except isthmus documented in this encounter Care Teams Water Tanker Driver Relationship Specialty Start Date End Date Casie García APRN PCP - General 01/15/12 11/25/14 documented as of this encounter
--- OUTSIDE RECORDS SUMMARY | 2024-09-09 09:35 | XMS_ITS | Encounter Summary ---
Author Organization [facility] Address [facility] [place] [address] Care Team Providers Care Yoga Instructor Name Role Phone Gus Pacheco MD Primary Care Provider [phone] [phone] Reason for Visit * Reason Comments Simulation Encounter Details Date Type Department Care Team (Late st Contact Info) Description 10/31/2011 10:30 AM EST Office Visit Radiation Oncology at [address] [phone] Lucero To MD [facility] [place] [address] Endometrial ca (Primary Dx) Discharge Disposition: Home [...] as of this encounter Progress Notes * Lucero To MD - 10/31/2011 12:56 PM EST In for sim. S/p carbo/taxol x 3, w/last chemo 10/26/11. Sim done (vag marker, knee immobilizer, tx w/MLCs, possibly IMRT). Start xrt 11/20. CBC today shows Hgb 8.8. Repeat CBC planned for 11/09; maybe repeat CBC again prior to start of xrt. Consider weekly CBC during xrt. * Neelima Laboy RN - 10/31/2011 12:54 PM EST Initial Patient Education for Radiation Treatments Literature reviewed and given to patient and her parents: #1 Radiation Therapy and You a Guide to Self-Help During Cancer Treatment U.S. Department of Health and Human Services National Institutes of Health Publication No. 07-7157 National Cancer [place] Revised December 2006 #2 [facility];Shared drive/info for RT Patients: a) Information for Patients Receiving Radiation Therapy Rev 06/26 b) Managing Cancer Treatment Related Fatigue Adapted from Cancersytoms.org Information for understanding cancer on 07/10/2005 c) Skin Care for Patients Receiving Radiation Therapy Rev 07/26 d) Radiation Therapy Billing Information EMD 02/15/05 e) Disease site specific Information: Information for Patients Receiving Radiation Therapy To The pelvis #3 Miscellaneous: Dietary Guidelines:Diarrhea Management([employer] Dietetic Association) Imodium: dosing guidelines for radiation induced diarrhea. Jeans cream supplied with the instructions to apply to site of radiation twice a day, but not less than 3 hours before radiation treatment. Contact information: If you have any questions or concerns regarding your cancer, please call: During business hours: [facility] [phone] ext [phone] or [phone] (nursing extensions) Weekend/holidays/nights: [facility] [phone] and ask for the information tech radiation oncologist For general medical questions not related to cancer; Please contact your primary physician. For medical emergencies needing immediate attention;contact local primary physician, go to local hospital emergency room,or call 911. Patient verbalized understanding of these instructions. documented in this encounter Plan of Treatment Not on file documented as of this encounter Visit Diagnoses Diagnosis Endometrial ca- Primary Malignant neoplasm of corpus uteri, except isthmus documented in this encounter Care Teams Yoga Instructor Relationship Specialty Start Date End Date Gus Pacheco MD [address] [place] [address] PCP - General 06/20/11 01/14/12 documented as of this encounter
--- OUTSIDE RECORDS SUMMARY | 2024-09-09 09:35 | XMS_ITS | Encounter Summary ---
Author Organization [facility] Address [facility] [place] [address] Care Team Providers Care Healthcare Insurance Sales Agent Name Role Phone Gus Pacheco MD Primary Care Provider [phone] -[phone] Encounter Details Date Type Department Care Team (Late st [facility]) Description 10/31/2011 11:00 AM EST Initial consult Radiation Oncology at [address] [phone] Social History Tobacco Use Types Packs/Day Years [...] on filedocumented in this encounter Care Teams Healthcare Insurance Sales Agent Relationship Specialty Start Date End Date Gus Pacheco MD [address] [place], [place] [address] PCP - General 06/20/11 01/14/12 documented as of this encounter
--- OUTSIDE RECORDS SUMMARY | 2024-09-09 09:35 | XMS_ITS | Encounter Summary ---
Author Organization [facility] Address [facility] [place] [address] Care Team Providers Care Lining Closer Name Role Phone Gus Pacheco MD Primary Care Provider +1 -[phone] Reason for Visit * Reason Comments Follow-up Encounter Details Date Type Department Care Team (Late st Contact Info) Description 10/26/2011 9:30 AM EST Follow-Up Hematology Oncology at [address] [phone] Michell Cuellar APRN [address] [place] [address] Endometrial cancer (Primary Dx) Discharge Disposition: [...] Sign Reading Time Taken Comments Blood Pressure 120/81 10/26/2011 9:31 AM EST Pulse 61 10/26/2011 9:31 AM EST Temperature 36.8 ??C (98.2 ??F) 10/26/2011 9:31 AM ES T Respiratory Rate 16 10/26/2011 9:31 AM EST Oxygen Saturation 100% 10/26/2011 9:31 AM EST Inhaled Oxygen Concentration - - Weight 59 kg (130 lb 1.1 oz) 10/26/2011 9:31 AM EST Height 157.4 cm (5' 1.97) 10/26/2011 9:31 AM ES T Body Mass Index 23.81 10/26/2011 9:31 AM EST documented in this encounter Progress Notes * Michell Cuellar, LOADING RACK SUPERVISOR - 10/26/2011 10:05 AM EST Hematology/[facility] [place], [address] (ph) - [phone] (fax) ESTABLISHED PATIENT EVALUATION: Diagnosis: Adenocarcinoma of the endometrium, endometrioid type [...] nodes involved cervix was free of tumor. -- presented with severe iron deficient anemia for which she received several transfusion. -- 10/05/11 - cycle 2 Carbo/Taxol - 3 planned cycles, then see Rad Onc. INTERIM HISTORY: Farzana returns to the clinic today with endometrial cancer, status post surgery andtwo cycles of chemotherapy. She has an occasional ache in her bones intermittently after infusion. Nausea which is relieved with medication. Losing hair. No SOB, some general fatigue, mild. Otherwise, no problems or complaints and generally feels okay. MEDICATIONS: Current outpatient prescriptions ordered prior to encounter Medication Sig Dispense Refill ??? prochlorperazine (COMPAZINE) 10 mg tablet Take 1 tablet by mouth every 6 hours as needed for Nausea for 30 doses. 30 tablet 5 ??? zolpidem (AMBIEN) 5 mg tablet Take 10 mg by mouth nightly as needed. ??? ibuprofen (ADVIL;MOTRIN) 600 mg tablet Take 1 tablet by mouth every 6 hours. 60 tablet 2 ??? OXYcodone (ROXICODONE) 5 mg immediate release tablet Take 1 tablet by mouth every 3 hours as needed for Pain. 30 tablet 0 ??? senna-docusate (PERICOLACE) 8.6-50 mg per tablet Take 1 tablet by mouth 2 times daily. 60 tablet 11 No current facility-administered medications on file prior to encounter. INTERIM SOCIAL/FAMILY HISTORY: No interval change. REVIEW OF SYSTEMS: Energy: FATIGUED Pain: BONE ACHEY Appetite:POOR Fevers/chills/drenching sweats:No Bruising/bleeding/melena:No Recent infections:No HEENT: negative Nausea/vomiting/diarrhea/constipation:No Dysuria: No SOB/cough/chest pain:No Change in adenopathy or other masses:No Unexpected weight loss or gain:No Skin rashes or petechiae:No Musculoskeletal complaints:No Extremities: Negative upper and lower bilaterally Neurologic symptoms:No PHYSICAL EXAM: BP 120/81 Pulse 61 Temp 36.8 ??C (98.2 ??F) Resp 16 Ht 157.4 cm (5' 1.97) Wt 59 kg (130 lb 1.1 oz) BMI 23.81 kg/m2 SpO2 100% NAD, A & O x 3. Alopecia. HEENT: Sclera anicteric, oral pharynx is clear. Skin: Without rash or petechia. Lymph: No cervical, supraclavicular, axillary lymphadenopathy. Lungs: Bronchovesicular breath sounds throughout, no wheezes, rales, rhonci. Cardiac: Regular rate rhythm, S1, S2, no murmur, rub or gallop. Abdomen: Soft, non-tender, spleen and liver non palpable. Extremities: No lower extremity edema. M/S: No sternal or spinal tenderness. Neurologic: Gait steady, speech clear, cognition intact, no focal neurologic deficit. RADIOLOGY: no new studies LABORATORY: anc 1.80, wbc 3.23, hg 8.5, plt 225, BUN 9, CREAT 0.8, ap 61, asT 17, alt 35, nA 141, k3.6. ASSESSMENT/PLAN: Endometrial cancer - Anemia - r/t chemo - no bleeding, asymptomatic. Will recheck her cbc in one week, she understands to call if she is symptomatic. Will transfusion for symtoms and if he Hg drops next week consider transfusion to keep her on trackfor continued tx. Proceed w/ cycle #3 today. She sees Rad Onc in one week, have her RTC in two weeks w/labs to monitor her status recovering from chemo and further planning. Patient was reminded to call in the interim should questions or concerns arise. documented in this encounter Procedure Notes * Provider, Scanning - 10/31/2011 10:06 AM ESTAssociated Order(s): SCAN DOC: LAB * Provider, Scanning - 10/26/2011 9:00 AM ESTAssociated Order(s): SCAN DOC: LAB documented in this encounter Plan of Treatment Not on file documented as of this encounter Procedures Procedure Name Priority Date/Time Associated Diagnosis Comments LAB SCAN 10/31/2011 10:06 AM EST LAB SCAN 10/26/2011 9:00 AM EST documented in this encounter Results * SCAN DOC: LAB (10/31/2011 10:06 AM EST) Narrative 10/31/2011 10:06 AM EST Procedure Note Provider, Scanning - 10/31/2011 10:06 AM EST Scanning Provider MEDIA MGR SCAN EXT O RDR/RSLT * SCAN DOC: LAB (10/26/2011 9:00 AM EST) Narrative 10/26/2011 9:00 AM EST Procedure Note Provider, Scanning - 10/26/2011 9:00 AM EST Scanning Provider MEDIA MGR SCAN EXT O RDR/RSLT documented in this encounter Visit Diagnoses Diagnosis Endometrial cancer- Primary Malignant neoplasm of corpus uteri, except isthmus documented in this encounter Care Teams Lining Closer Relationship Specialty Start Date End Date Gus Pacheco MD [address] [place] [address] PCP - General 06/20/11 01/14/12 documented as of this encounter
--- OUTSIDE RECORDS SUMMARY | 2024-09-09 09:35 | XMS_ITS | Encounter Summary ---
Author Organization [facility] Address [facility] [place] [address] Care Team Providers Care Food Processing Chemist Name Role Phone Gus Pacheco MD Primary Care Provider [phone] [phone] Reason for Visit * Reason Comments Follow-up Encounter Details Date Type Department Care Team (Late st Contact Info) Description 11/15/2011 2:00 PM EST Follow-Up Hematology Oncology at [address] [phone] Michell Cuellar APRN [address] [place] [address] Endometrial cancer (Primary Dx) Discharge Disposition: [...] Sign Reading Time Taken Comments Blood Pressure 123/83 11/15/2011 2:04 PM EST Pulse 63 11/15/2011 2:04 PM EST Temperature 37 ??C (98.6 ??F) 11/15/2011 2:04 PM EST Respiratory Rate 16 11/15/2011 2:04 PM EST Oxygen Saturation 98% 11/15/2011 2:04 PM EST Inhaled Oxygen Concentration - - Weight 57.5 kg (126 lb 12.2 oz) 11/15/2011 2:04 PM EST Height 157.4 cm (5' 1.97) 11/15/2011 2:04 PM ES T Body Mass Index 23.21 11/15/2011 2:04 PM EST documented in this encounter Progress Notes * Michell Cuellar, FARM MACHINERY ASSEMBLER - 11/15/2011 2:36 PM EST Hematology/Oncology [place], [address] (ph) - [phone] (fax) ESTABLISHED PATIENT EVALUATION: Diagnosis: Adenocarcinoma of [...] - final prior to Rad Onc. -- Plan to begin XRT 11/20/11 - then RTC to Med/Onc after completion INTERIM HISTORY OF PRESENT ILLNESS: Farzaan returns to the clinic today with endometrial cancer aftercompletion of her chemotherapy and a blood transfusion for follow up. She does not feel any different since the transfusion. She continues to feel generally well, with no complaints. No infections or fevers or bleeding. INTERIM SOCIAL/FAMILY HISTORY: No interval change. MEDS: Current outpatient prescriptions ordered prior to encounter Medication Sig Dispense Refill ??? ciprofloxacin (CIPRO) 500 mg tablet Take 1 tablet by mouth 2 times daily. 14 tablet 0 ??? prochlorperazine (COMPAZINE) 10 mg tablet Take 1 tablet by mouth every 6 hours as needed for Nausea for 30 doses. 30 tablet 5 ??? ibuprofen (ADVIL;MOTRIN) 600 mg tablet Take 1 tablet by mouth every 6 hours. 60 tablet 2 ??? zolpidem (AMBIEN) 5 mg tablet Take 10 mg by mouth nightly as needed. REVIEW OF SYSTEMS: Energy: stable Pain: no Appetite:good Fevers/chills/drenching sweats:No Bruising/bleeding/melena:No Recent infections:No HEENT: negative Nausea/vomiting/diarrhea/constipation:No Dysuria: No SOB/cough/chest pain:No Change in adenopathy or other masses:No Unexpected weight loss or gain:No Skin rashes or petechiae:No Musculoskeletal complaints:No Extremities: Negative upper and lower bilaterally Neurologic symptoms:No PHYSICAL EXAM: BP 123/83 Pulse 63 Temp(Src) 37 ??C (98.6 ??F) (Oral) Resp 16 Ht 157.4 cm (5' 1.97) Wt 57.5 kg (126 lb 12.2 oz) BMI 23.21 kg/m2 SpO2 98% NAD, A & O x 3. Sclera anicteric.Resp even, non labored. Gait steady, speech clear, cognition intact, no focal neurologic deficit. Remainder of exam is not performed. RADIOLOGY: no new studies LABORATORY: WBC 4.21, Hg 12.6, PLT 134k, ANC 2.21 MCV 70.4, anisocytosis and microcytosis. ASSESSMENT/PLAN: Endometrial cancer - doing well undergoing treatment. Her counts are recovered with time and support of transfusion PRBC. Plan to start her XRT next week. RTCfor follow up in about 7 weeks as scheduled after XRT to see MD mcgregor/chelsea, cmp and further planning Patient was reminded to call in the interim should questions or concerns arise. documented in this encounter Procedure Notes * Provider, Scanning - 11/15/2011 2:31 PM ESTAssociated Order(s): SCAN DOC: LAB documented in this encounter Plan of Treatment Not on file documented as of this encounter Procedures Procedure Name Priority Date/Time Associated Diagnosis Comments LAB SCAN 11/15/2011 2:31 PM EST documented in this encounter Results * SCAN DOC: LAB (11/15/2011 2:31 PM EST) Narrative 11/15/2011 2:31 PM EST Procedure Note Provider, Scanning - 11/15/2011 2:31 PM EST Scanning Provider MEDIA MGR SCAN EXT O RDR/RSLT documented in this encounter Visit Diagnoses Diagnosis Endometrial cancer- Primary Malignant neoplasm of corpus uteri, except isthmus documented in this encounter Care Teams Food Processing Chemist Relationship Specialty Start Date End Date Gus Pacheco MD [address] [place] [address] PCP - General 06/20/11 01/14/12 documented as of this encounter
--- OUTSIDE RECORDS SUMMARY | 2024-09-09 09:35 | XMS_ITS | Encounter Summary ---
Author Organization [facility] Address [facility] [place] [address] Care Team Providers Care Forestry Faculty Member Name Role Phone Casie García APRN Primary Care Provider [phone]- [phone] Encounter Details Date Type Department Care Team (Late st Contact Info) Description 07/13/2012 External Results XRay at [address] [place] [phone] Provider, Scanning Social History Tobacco Use Types Packs/Day Years [...] Name Priority Date/Time Associated Diagnosis Comments CT SCAN (SCAN) Routine 07/11/2012 documented in this encounter Results * Scan Doc: CT Scan (07/11/2012) Anatomical Region Laterality Modality Other Scanning Provider MEDIA MGR SCAN EXT O RDR/RSLT documented in this encounter Visit Diagnoses Not on filedocumented in this encounter Care Teams Forestry Faculty Member Relationship Specialty Start Date End Date Casie García APRN PCP - General 01/15/12 11/25/14 documented as of this encounter
--- OUTSIDE RECORDS SUMMARY | 2024-09-09 09:35 | XMS_ITS | Encounter Summary ---
Author Organization [facility] [place] [address] Care Team Providers Care Mailroom Personnel Name Role Phone Casie García APRN Primary Care Provider +1- [phone] Reason for Visit * Reason Comments Uterine Cancer Encounter Details Date Type Department Care Team (Late st Contact Info) Description 03/28/2012 9:30 AM EDT Follow-Up Hematology Oncology at [address] [phone] Augustus Grimes MD [address] [place] [id number] Uterine cancer (Primary Dx) Discharge Disposition: Home [...] Sign Reading Time Taken Comments Blood Pressure 113/66 03/28/2012 9:27 AM EDT Pulse 62 03/28/2012 9:27 AM EDT Temperature 36.7 ??C (98.1 ??F) 03/28/2012 9:27 AM ED T Respiratory Rate 16 03/28/2012 9:27 AM EDT Oxygen Saturation 100% 03/28/2012 9:27 AM EDT Inhaled Oxygen Concentration - - Weight 59.5 kg (131 lb 2.8 oz) 03/28/2012 9:27 A M EDT Height 157.4 cm (5' 1.97) 03/28/2012 9:27 AM ED T Body Mass Index 24.02 03/28/2012 9:27 AM EDT documented in this encounter Progress Notes * Augustus Grimes MD - 03/28/2012 9:56 AM EDT Diagnosis: Adenocarcinoma of the endometrium, endometrioid [...] nodes involved cervix was free of tumor. Subjective: Farzana comes in today for cycle 6 chemotherapy with carboplatinum and Taxol. We have had to hold chemotherapy for a time to allow her blood counts to come up. She's been having relative problems with delayed blood count recovery since her radiation therapy. She is felt fine over the past couple weeks and really notes no difficulties or problems in particular. Past medical history and social history are reviewed and unchanged from when I saw her 3 weeks ago. Review of Systems Constitutional: Negative [...] supraclavicular, and axillary nodes normal Neurologic: Normal Her laboratory is reviewed. White count is up to 2.67 neutrophil count 1.76 hemoglobin 10.5 and platelet count 141 CMP is completely normal with creatinine of 0.8 and normal liver tests. Assessment/Plan: Farzana is doing well overall. Her blood counts have come up enough to allow us to treat her today. Clearly however she will have a prolonged episode of neutropenia with treatment today and therefore we will arrange for her to have a Neulasta shot tomorrow. She knows the signs and symptoms to look for for infection is done well so far despite having low counts at times. We'll see her back in a month after this final chemotherapy to make sure her counts are recovering as expected. She knows to call if she has any problems or difficulties in the interim documented in this encounter Procedure Notes * Provider, Scanning - 04/25/2012 2:13 PM EDTAssociated Order(s): SCAN DOC: LAB * Provider, Scanning - 03/28/2012 9:16 AM EDTAssociated Order(s): SCAN DOC: LAB documented in this encounter Plan of Treatment Not on file documented as of this encounter Procedures Procedure Name Priority Date/Time Associated Diagnosis Comments LAB SCAN 04/25/2012 2:13 PM EDT LAB SCAN 03/28/2012 9:16 AM EDT documented in this encounter Results * SCAN DOC: LAB (04/25/2012 2:13 PM EDT) Narrative 04/25/2012 2:13 PM EDT Procedure Note Provider, Scanning - 04/25/2012 2:13 PM EDT Scanning Provider MEDIA MGR SCAN EXT O RDR/RSLT * SCAN DOC: LAB (03/28/2012 9:16 AM EDT) Narrative 03/28/2012 9:16 AM EDT Procedure Note Provider, Scanning - 03/28/2012 9:16 AM EDT Scanning Provider MEDIA MGR SCAN EXT O RDR/RSLT documented in this encounter Visit Diagnoses Diagnosis Uterine cancer- Primary Malignant neoplasm of uterus, part unspecified documented in this encounter Care Teams Mailroom Personnel Relationship Specialty Start Date End Date Casie García APRN PCP - General 01/15/12 11/25/14 documented as of this encounter
--- OUTSIDE RECORDS SUMMARY | 2024-09-09 09:35 | XMS_ITS | Encounter Summary ---
Author Organization [facility] [place] [address] Care Team Providers Care Casino Gaming Worker Name Role Phone Gus Pacheco MD Primary Care Provider +1 -[phone] Reason for Visit * Reason Comments Chemotherapy Cycle 3 Carbo/Taxol Encounter Details Date Type Department Care Team (Late st Contact Info) Description 10/26/2011 10:30 AM EST Office Visit Hematology Oncology at [address] [phone] CLINIC, DR LOPEZ HEM/ONC Endometrial [...] Reading Time Taken Comments Blood Pressure 111/64 10/26/2011 4:42 PM EST Pulse 80 10/26/2011 4:42 PM EST Temperature - - Respiratory Rate 20 10/26/2011 4:42 PM EST Oxygen Saturation 99% 10/26/2011 4:42 PM EST Inhaled Oxygen Concentration - - Weight - - Height - - Body Mass Index - - documented in this encounter Progress Notes * Siria Sandoval RN - 10/26/2011 10:40 AM EST INFUSION THERAPY ADMINISTRATION NOTES TIME TREATMENT STARTED: 1010 TIME TREATMENT ENDED: DIAGNOSIS: Endometrial CA CYCLE #: 3 REASON FOR VISIT: Carbo/Taxol Infusion SUBJECTIVE Ms. Garcia is here today for her 3rd cycle of Carbo/Taxol and offers no complaints. OBJECTIVE LAB DATA: wbc 3.23, hgb 8.5, hct 27.7, plts 225k, anc 1.80 IV ACCESS: Mediport Left Chest, accessed by [facility] for lbas BLOOD RETURN: yes, excellent ANY S/S OF INFECTION/EXTRAVASATIONS: No IV FLUSHED WITH: 20cc NS and 500 units Heparin IV DISCONTINUED: yes Pre administration: Chemotherapy orders independently verified for drug name, route, and dosage per patient's height, weight and BSA by Miguel Sandoval RN and Judy Leon RN. REACTIONS (DESCRIPTION, TIME, INTERVENTION AND EFFECTIVENESS) ASSESSMENT 1500 - At end of Taxol infusion patient states that she feels like my heart is racing. Taxol stopped and VS taken showing T- 37, HR 98, RR 16, BP 111/68, O2 Sat - 97%. No other symptoms reported including chest pain, shortness of breath, pain. Michell Cuellar SAL[employer]ERSON [employer] notified and assessed patient. Patient monitored for 30 minutes with no further complaints and improvement of feeling like my heart is racing. 1530 - vitals show HR 86, BP 104/66, O2 97%. Carboplatin started at 1535 with no complications. VS at time of discharge HR - 80, BP 111/64, O2 99%. Patient states that her head feels a little foggy but I'm getting used to that feeling. Patient is not driving herself home. PLAN Patient will have repeat cbc/d on 10/31 with transfusion if needed. Patient was given instructions to call or go to the ER with any shortness of breath, chest pain, palpitations, increased fatigue etc. She verbalized understanding. documented in this encounter Plan of Treatment Not on file documented as of this encounter Visit Diagnoses Diagnosis Endometrial cancer- Primary Malignant neoplasm of corpus uteri, except isthmus documented in this encounter Administered Medications Inactive Administered Medications - up to 3 most recent administrations Medication Order MAR Action Action Date Dose Rate Site CARBOplatin (PARAPLATIN) 600 mg in dextrose 5% 310 mL chemo infusion 600 mg, Intravenous, ONCE, 1 dose, On Sue 10/26/11 at 1030, Administer over 60 Minutes New Bag 10/26/2011 3:35 PM EST 600 mg 310 mL/hr dexamethasone sodium (PF) 10 mg in sodium chloride 0.9% 51 mL IVPB Intravenous, at 204 mL/hr, ONCE, On Sue 10/26/11 at 1030, 1 dose Given 10/26/2011 10:32 AM EST 204 mL/hr famotidine (PEPCID) 20 mg, diphenhydrAMINE (BENADRYL) 25 mg in sodium chloride 0.9% 52.5 mL IVPB Intravenous, at 210 mL/hr, ONCE, On Sue 10/26/11 at 1030, 1 dose Given 10/26/2011 10:50 AM EST 210 mL/hr fosaprepitant (EMEND) 150 mg in sodium chloride 0.9% 155 mL infusion 150 mg, Intravenous, ONCE, 1 dose, On Sue 10/26/11 at 1030, Administer over 30 Minutes New Bag 10/26/2011 11:15 AM EST 150 mg 310 mL/hr paclitaxel (TAXOL) 275 mg in dextrose 5% Non-PVC 545.8333 mL chemo infusion 275 mg, Intravenous, ONCE, 1 dose, On Sue 10/26/11 at 1030, Administer over 3 Hours New Bag 10/26/2011 11:54 AM EST 275 mg 181.9 mL/hr palonosetron (ALOXI) injection 0.25 mg 0.25 mg, Intravenous, ONCE, 1 dose, On Sue 10/26/11 at 1030, Routine Given 10/26/2011 10:30 AM EST 0.25 mg documented in this encounter Care Teams Casino Gaming Worker Relationship Specialty Start Date End Date Gus Pacheco MD [address] [place] [address] PCP - General 06/20/11 01/14/12 documented as of this encounter
--- OUTSIDE RECORDS SUMMARY | 2024-09-09 09:35 | XMS_ITS | Encounter Summary ---
Author Organization [facility] Address [facility] [address] Care Team Providers Care Manager Medical Name Role Phone Gus Pacheco MD Primary Care Provider +1 [phone] Encounter Details Date Type Department Care Team (Late st [facility]) Description 12/12/2011 2:30 PM EST Initial consult Radiation Oncology at [address] [phone] Social History Tobacco Use Types Packs/Day Years [...] on filedocumented in this encounter Care Teams Manager Medical Relationship Specialty Start Date End Date Gus Pacheco MD [address] [place], [place] [address] PCP - General 06/20/11 01/14/12 documented as of this encounter
--- OUTSIDE RECORDS SUMMARY | 2024-09-09 09:35 | XMS_ITS | Encounter Summary ---
Author Organization [facility] [place] [address] Care Team Providers Care Policy Specialist Name Role Phone García, Casieluis angel Miranda APRN Primary Care Provider +1- [phone] Reason for Visit * Reason Comments Uterine Cancer cycle 4 carbo/taxol Encounter Details Date Type Department Care Team (Late st Contact Info) Description 01/25/2012 10:00 AM EDT Office Visit Hematology Oncology at [address] [phone] CLINIC, DR LOPEZ HEM/ONC Augustus Grimes MD [address] [place] [address] Endometrial cancer (Primary Dx) Discharge Disposition: [...] Sign Reading Time Taken Comments Blood Pressure 139/92 01/25/2012 10:05 AM EDT Pulse 93 01/25/2012 10:05 AM EDT Temperature 36.7 ??C (98.1 ??F) 01/25/2012 10:05 AM E DT Respiratory Rate 18 01/25/2012 10:05 AM EDT Oxygen Saturation 98% 01/25/2012 10:05 AM EDT Inhaled Oxygen Concentration - - Weight 60 kg (132 lb 4.4 oz) 01/25/2012 10:05 AM EDT Height 157.4 cm (5' 1.97) 01/25/2012 10:05 AM E DT Body Mass Index 24.22 01/25/2012 10:05 AM EDT documented in this encounter Progress Notes * Coby Plata RN - 01/25/2012 3:46 PM EDT INFUSION THERAPY ADMINISTRATION NOTES TIME TREATMENT STARTED: 1000 TIME TREATMENT ENDED: 1440 DIAGNOSIS: uterine cancer PROTOCOL:na CYCLE #: 4 REASON FOR VISIT: carbo/taxol SUBJECTIVE Farzana Garcia offers no complaints. OBJECTIVE LAB DATA: Labs reviewed and found adequate for treatment. Pre administration: Chemotherapy orders independently verified for drug name, route, and dosage per patient's height, weight and BSA by Jessu Roberts RN and Kenn Plata RN. REACTIONS (DESCRIPTION, TIME, INTERVENTION AND EFFECTIVENESS) none ASSESSMENT Farzana Garcia was awake, alert and he tolerated treatment well. PLAN Return to clinic in 3 weeks. documented in this encounter Procedure Notes * Provider, Hernesto - 01/25/2012 3:21 PM EDTAssociated Order(s): SCAN DOC: CHEMOTHERAPY documented in this encounter Plan of Treatment Not on file documented as of this encounter Procedures Procedure Name Priority Date/Time Associated Diagnosis Comments CHEMOTHERAPY SCAN 01/25/2012 3:2 1 PM EDT documented in this encounter Results * SCAN DOC: CHEMOTHERAPY (01/25/2012 3:21 PM EDT) Narrative 01/25/2012 3:21 PM EDT Procedure Note Provider, Scanning - 01/25/2012 3:21 PM EDT Scanning Provider MEDIA MGR SCAN [...] mg, Intravenous, ONCE, 1 dose, On Sue 01/25/12 at 1000, Administer over 60 Minutes New Bag 01/25/2012 2:31 PM EDT 635 mg 313.5 mL/hr dexamethasone sodium (PF) 10 mg in sodium chloride 0.9% 51 mL IVPB Intravenous, at 204 mL/hr, ONCE, On Sue 01/25/12 at 1000, 1 dose Given 01/25/2012 10:30 AM EDT 204 mL/hr famotidine (PEPCID) 20 mg, diphenhydrAMINE (BENADRYL) 25 mg in sodium chloride 0.9% 52.5 mL IVPB Intravenous, at 210 mL/hr, ONCE, On Sue 01/25/12 at 1000, 1 dose Given 01/25/2012 10:15 AM EDT 210 mL/hr fosaprepitant (EMEND) 150 mg in sodium chloride 0.9% 155 mL infusion 150 mg, Intravenous, ONCE, 1 dose, On Sue 01/25/12 at 1000, Administer over 30 Minutes New Bag 01/25/2012 10:45 AM EDT 150 mg 310 mL/hr paclitaxel (TAXOL) 285 mg in dextrose 5% Non-PVC 547.5 mL chemo infusion 285 mg, Intravenous, ONCE, 1 dose, On Sue 01/25/12 at 1000, Administer over 3 Hours New Bag 01/25/2012 11:28 AM EDT 285 mg 182.5 mL/hr palonosetron (ALOXI) injection 0.25 mg 0.25 mg, Intravenous, ONCE, 1 dose, On Sue 01/25/12 at 1000, Routine Given 01/25/2012 10:12 AM EDT 0.25 mg documented in this encounter Care Teams Policy Specialist Relationship Specialty Start Date End Date Casie García APRN PCP - General 01/15/12 11/25/14 documented as of this encounter
--- OUTSIDE RECORDS SUMMARY | 2024-09-09 09:35 | XMS_ITS | Encounter Summary ---
Author Organization [place] [address] Care Team Providers Care Hair Spring Winder Name Role Phone Casie García APRN Primary Care Provider +1- [phone] Reason for Visit * Reason Comments Endometrial Cancer Encounter Details Date Type Department Care Team (Late st Contact Info) Description 09/19/2012 2:00 PM EST Follow-Up Hematology Oncology at [address] [phone] Augustus Grimes MD [address] [place] [address] Endometrial cancer (Primary Dx) Discharge Disposition: [...] Sign Reading Time Taken Comments Blood Pressure 107/62 09/19/2012 1:48 PM EST Pulse 64 09/19/2012 1:48 PM EST Temperature 37 ??C (98.6 ??F) 09/19/2012 1:48 PM EST Respiratory Rate 18 09/19/2012 1:48 PM EST Oxygen Saturation 99% 09/19/2012 1:48 PM EST Inhaled Oxygen Concentration - - Weight 56 kg (123 lb 7.3 oz) 09/19/2012 1:48 PM EST Height 157.4 cm (5' 1.97) 09/19/2012 1:48 PM ES T Body Mass Index 22.6 09/19/2012 1:48 PM EST documented in this encounter Progress Notes * Augustus Grimes MD - 09/19/2012 2:12 PM EST Diagnosis: Adenocarcinoma of the endometrium, [...] Subjective: Farzana comes in today for followup. She is now feeling great and back to her old self. She is physically active and not having any difficulties or problems. She's been seen by [facility] oncology and had a normal pelvic exam and radiation oncology is seeing her as well with no problems reported there. She tells me she has a new boyfriend and is enjoying life. She still living at home with her parents butis hoping that situation will change at some point. Past medical history and social history are [...] supraclavicular, and axillary nodes normal Neurologic: Normal She did have a CT scan since I last saw her for some abdominal discomfort. The only finding on thatwas some diverticular disease. Lab today is reviewed and her white count has gone down to 1.9 ANC is 1.2 platelet count 120 but hemoglobin is improved to 11.9 CMP is completely normal with normal liver tests and a creatinine of 1.0 Assessment/Plan: Farzana is doing well overall. She has no evidence recurrent cancer at this time. Her blood counts are a bit lower than one would like to see at this point, however she did have both combined chemotherapy and radiation therapy. Considering this I think her counts are probably appropriate and should slowly improve. Her hemoglobin is slowly coming up and that's good to see. We'll see her back in 3 months time with a CBC and CMP. She knows to call if she has other issues or problems in the interim. documented in this encounter Plan of Treatment Not on file documented as of this encounter Visit Diagnoses Diagnosis Endometrial cancer- Primary Malignant neoplasm of corpus uteri, except isthmus documented in this encounter Care Teams Hair Spring Winder Relationship Specialty Start Date End Date Casie García APRN PCP - General 01/15/12 11/25/14 documented as of this encounter
--- OUTSIDE RECORDS SUMMARY | 2024-09-09 09:35 | XMS_ITS | Encounter Summary ---
Author Organization [facility] [place] [address] Care Team Providers Care Fact Checker Name Role Phone Ricky Casieluis angel Miranda APRN Primary Care Provider +1- [phone] Reason for Visit * Reason Onset Date Comments Other 06/26/2012 Encounter Details Date Type Department Care Team (Late st Contact Info) Description 06/26/2012 Telephone [place] [phone] Judy Horton MD [facility] [place] [address] Other Social History Tobacco Use Types Packs/Day [...] encounter Miscellaneous Notes * Telephone Encounter - Lidia Ferraro - 06/26/2012 9:54 AM EDT Please sign order. documented in this encounter Plan of Treatment Not on file documented as of this encounter Visit Diagnoses Diagnosis Endometrial cancer- Primary Malignant neoplasm of corpus uteri, except isthmus documented in this encounter Care Teams Fact Checker Relationship Specialty Start Date End Date Casie García APRN PCP - General 01/15/12 11/25/14 documented as of this encounter
--- OUTSIDE RECORDS SUMMARY | 2024-09-09 09:35 | XMS_ITS | Encounter Summary ---
Author Organization [facility] Address [facility] [place] [address] Care Team Providers Care Near East Archeology Professor Name Role Phone Gus Pacheco MD Primary Care Provider +1 -[phone] Reason for Visit * Reason Onset Date Comments Other 09/18/2011 first time chemo follow-up Encounter Details Date Type Department Care Team (Late st Contact Info) Description 09/18/2011 Telephone Hematology Oncology at [address] [phone] Emeli De Los Santos, RN Other (first time chemo follow-up) Social History Tobacco Use Types Packs/Day Years [...] Miscellaneous Notes * Telephone Encounter - Emeli De Los Santos RN - 09/18/2011 12:36 PM EST TC to inquire about how patient is doing after first chemo infusion on Sunday. Pt states she is feeling quite well - states she is a little tired, and had some nausea this morning, but that the compazine worked well, and she has only had to take it one time. States she is making a point of drinkinglots of fluids. Denies any other adverse symptoms at this time. Instructed pt to call with any quest ions/concerns, and she reminded this nurse that she has an appointment with Dr. Grimes on Sunday- this was verified on the schedule. documented in this encounter Plan of Treatment Not on file documented as of this encounter Visit Diagnoses Not on filedocumented in this encounter Care Teams Near East Archeology Professor Relationship Specialty Start Date End Date Gus Pacheco MD [address] [place] [address] PCP - General 06/20/11 01/14/12 documented as of this encounter
--- OUTSIDE RECORDS SUMMARY | 2024-09-09 09:35 | XMS_ITS | Encounter Summary ---
[place] [address] Care Team Providers Care Metal Molder Name Role Phone Casie García APRN Primary Care Provider +1- [phone] Reason for Visit * Reason Onset Date Comments Other 02/26/2012 follow up Encounter Details Date Type Department Care Team (Late st Contact Info) Description 02/26/2012 Telephone Hematology Oncology at [address] [phone] Linda Tomlinson MSW OFFICE OF CARE MANAGEMENT Other (follow up) Social History Tobacco Use Types Packs/Day Years [...] encounter Miscellaneous Notes * Telephone Encounter - Linda Tomlinson MSW - 02/26/2012 8:47 AM EDT [facility] application for financial assistance with back Satori Brandst. SARAHI pt to inform her. documented in this encounter Plan of Treatment Not on file documented as of this encounter Visit Diagnoses Not on filedocumented in this encounter Care Teams Metal Molder Relationship Specialty Start Date End Date Casie García APRN PCP - General 01/15/12 11/25/14 documented as of this encounter
--- OUTSIDE RECORDS SUMMARY | 2024-09-09 09:35 | XMS_ITS | Encounter Summary ---
Author Organization [facility] Address [facility] [place] [address] Care Team Providers Care Cloth Finishing Range Operator Name Role Phone Casie García ABNER Primary Care Provider +1- [phone] Reason for Visit * Reason Comments Other neulasta injection Encounter Details Date Type Department Care Team (Late st Contact Info) Description 03/29/2012 2:00 PM EDT Office Visit Hematology Oncology at [address] [phone] CLINIC, DR LOPEZ HEM/ONC Mt Rodas MD [facility] [place] [address] Endometrial cancer (Primary Dx) Discharge Disposition: Home [...] Sign Reading Time Taken Comments Blood Pressure 128/67 03/29/2012 3:00 PM EDT Pulse 67 03/29/2012 3:00 PM EDT Temperature 36.8 ??C (98.2 ??F) 03/29/2012 3:00 PM ED T Respiratory Rate 16 03/29/2012 3:00 PM EDT Oxygen Saturation 100% 03/29/2012 3:00 PM EDT Inhaled Oxygen Concentration - - Weight - - Height - - Body Mass Index - - documented in this encounter Progress Notes * Emeli De Los Santos RN - 03/29/2012 3:08 PM EDT Patient in for neulasta injection. Given as ordered. Pt complains of itching last night from the shoulders up, with redness of her face - continuing today, but reported to be much better. Instructed to use benedryl as needed. documented in this encounter Plan of Treatment Not on file documented as of this encounter Visit Diagnoses Diagnosis Endometrial cancer- Primary Malignant neoplasm of corpus uteri, except isthmus documented in this encounter Administered Medications Inactive Administered Medications - up to 3 most recent administrations Medication Order MAR Action Action Date Dose Rate Site pegfilgrastim (NEULASTA) injection 6 mg 6 mg, Subcutaneous, ONCE, 1 dose, On Sun03/29/12 at 1400, Routine Given 03/29/2012 3:05 PM EDT 6 mg documented in this encounter Care Teams Cloth Finishing Range Operator Relationship Specialty Start Date End Date Casie García APRN PCP - General 01/15/12 11/25/14 documented as of this encounter
--- OUTSIDE RECORDS SUMMARY | 2024-09-09 09:35 | XMS_ITS | Encounter Summary ---
Author Organization [facility] [place] [address] Care Team Providers Care Medical Language Specialist Name Role Phone Gus Pacheco MD Primary Care Provider +1 -[phone] Encounter Details Date Type Department Care Team (Late st Contact Info) Description 10/05/2011 Notes Only Hematology Oncology at [address] [phone] Linda Tomlinson, CHEMICAL PROCESS ENGINEER OFFICE OF CARE MANAGEMENT Social History Tobacco Use Types Packs/Day Years [...] as of this encounter Progress Notes * Linda Tomlinson MSW - 10/05/2011 10:40 AM EST Met with pt, father and mother during infusion today. Pt reports she did appeal the SSI decision and is waiting to hear. She also working through the SS Disability process. She has not heard from [facility] re yuniel submitted for financial assistance with transportation costs. [facility] and pt isin the system she just needs to follow up with a brief telephone interview. Reminded pt of this andgave her their phone number to do that. Pt now without income since unemployment ended. Reminded her of the [employer] fund should she need some assistance while she waits for SSI or SSDI. Pt reports she is doing well with day to day activities. Overall she feels she is coping well. Reminded pt of my availability and will continue to follow. documented in this encounter Plan of Treatment Not on file documented as of this encounter Visit Diagnoses Not on filedocumented in this encounter Care Teams Medical Language Specialist Relationship Specialty Start Date End Date Gus Pacheco MD [address] [facility] [place] [address] PCP - General 06/20/11 01/14/12 documented as of this encounter
--- OUTSIDE RECORDS SUMMARY | 2024-09-09 09:35 | XMS_ITS | Encounter Summary ---
Author Organization [place] [address] Care Team Providers Care Process Coordinator Name Role Phone Casie García APRN Primary Care Provider +1- [phone] Reason for Referral * Surgical (Routine) - Closed by system - unspecified Specialty Diagnoses / Procedures Referred By Anyi palma Referred To Contact General Surgery Diagnoses Endometrial cancer Augustus Grimes MD [address] [place] [id number] Cal Gusman, DO [address] [place] [phone] Referral ID Status Reason Start Date Expiration Date Visits Requested Visits Authorized [id number] Closed by system - unspecified Service Not Available In-House 04/25/2012 10/22/2012 1 1 Reason for Visit * Reason Comments Uterine Cancer Encounter Details Date Type Department Care Team (Late st Contact Info) Description 04/25/2012 2:30 PM EDT Follow-Up Hematology Oncology at [address] [phone] Augustus Grimes MD [address] [place] [address] Endometrial cancer (Primary Dx) Discharge Disposition: [...] Sign Reading Time Taken Comments Blood Pressure 106/56 04/25/2012 2:39 PM EDT Pulse 75 04/25/2012 2:39 PM EDT Temperature 36.8 ??C (98.2 ??F) 04/25/2012 2:39 PM ED T Respiratory Rate 18 04/25/2012 2:39 PM EDT Oxygen Saturation 100% 04/25/2012 2:39 PM EDT Inhaled Oxygen Concentration - - Weight 59 kg (130 lb 1.1 oz) 04/25/2012 2:39 PM EDT Height 157.4 cm (5' 1.97) 04/25/2012 2:39 PM ED T Body Mass Index 23.81 04/25/2012 2:39 PM EDT documented in this encounter Progress Notes * Augustus Grimes MD - 04/25/2012 4:19 PM EDT Diagnosis: Adenocarcinoma of the endometrium, [...] tumor. Subjective: Farzana comes in today for followup. She finished her last chemotherapy a little over a month ago. She had been going to [facility] to go down a zip line but turned out to be a bit afraid of heights and was unable to do it. She's fine with that however. She starting to feel a little bit better and really has no complaints or problems at this time. Past medical history and social history are reviewed and unchanged from when I saw her 4 weeks ago. Review of Systems Constitutional: Negative [...] is reviewed. White count is up to 2.49 hemoglobin 9.4 platelet count 175 ANC is 1.68. CMP is normal with creatinine 1.0 normal liver tests. Assessment/Plan: Farzana is doing well overall. Her blood counts are starting to recover but I'm not sure her hemoglobin will not drop again since she has had some transfusions at the latter part of treatment. At like to see her hemoglobin coming up steadily so we'll arrange to see her back in a month for followup. As far as long-term followup goes I'd like to get a baseline scan and coordinate things with [facility] oncology in regards to followup as well. We'll discuss that on her return in a month. We've ordered a CBC and CMP and she will call if any problems develop in the interim documented in this encounter Plan of Treatment Scheduled Referrals Name Type Priority Associated Diagnoses Orde r Schedule REFERRAL TO GENERAL SURGERY Outpatient Referral Routine Endometrial cancer Ordered: 04/25/2012 documented as of this encounter Visit Diagnoses Diagnosis Endometrial cancer- Primary Malignant neoplasm of corpus uteri, except isthmus documented in this encounter Care Teams Process Coordinator Relationship Specialty Start Date End Date Casie García APRN PCP - General 01/15/12 11/25/14 documented as of this encounter
--- OUTSIDE RECORDS SUMMARY | 2024-09-09 09:35 | XMS_ITS | Encounter Summary ---
Author Organization [facility] [place] [address] Care Team Providers Care Marble Setter Helper Name Role Phone Gus Pacheco MD Primary Care Provider +1 -[phone] Encounter Details Date Type Department Care Team (Late st Contact Info) Description 10/26/2011 Notes Only Hematology Oncology at [address] [phone] Linda Tomlinson, SECURITY OPERATIONS ANALYST OFFICE OF CARE MANAGEMENT Social History Tobacco [...] Progress Notes * Linda Tomlinson MSW - 10/26/2011 12:38 PM EST Met with pt during infusion today. Reports she did hear back from SS and reports she is financiallyeligible for assistance but is waiting to hear about the disability determination. Pt indicated shedid get a raise in her food stamps. She continue on [employer] for insurance. Pt indicated she is managing day to day. She does try to get out at least 1 time a week and enjoys meeting with her knitting group. Pt indicated she will starting her radiation therapy soon. Her parents continue to transport her toher appointments. Offered support and will continue to follow. documented in this encounter Plan of Treatment Not on file documented as of this encounter Visit Diagnoses Not on filedocumented in this encounter Care Teams Marble Setter Helper Relationship Specialty Start Date End Date Gus Pacheco MD [address] [place] [address] PCP - General 06/20/11 01/14/12 documented as of this encounter
--- OUTSIDE RECORDS SUMMARY | 2024-09-09 09:35 | XMS_ITS | Encounter Summary ---
Author Organization [facility] [place] [address] Care Team Providers Care Fur Puller Name Role Phone Gus Pacheco MD Primary Care Provider +1 -[phone] Reason for Visit * Reason Comments Ovarian Cancer taxol/carbo cycle 2 Encounter Details Date Type Department Care Team (Late st Contact Info) Description 10/05/2011 10:00 AM EST Office Visit Hematology Oncology at [address] [phone] Endometrial cancer (Primary Dx) Social History Tobacco [...] as of this encounter Progress Notes * Coby Plata RN - 10/05/2011 3:12 PM EST INFUSION THERAPY ADMINISTRATION NOTES TIME TREATMENT STARTED: 914 TIME TREATMENT ENDED: 1509 DIAGNOSIS: endometrial cancer PROTOCOL:na CYCLE #: 2 REASON FOR VISIT: carbo/taxol SUBJECTIVE Farzana Garcia offers no complaints. OBJECTIVE LAB DATA: Labs reviewed and found adequate for treatment. REACTIONS (DESCRIPTION, TIME, INTERVENTION AND EFFECTIVENESS) none ASSESSMENT Farzana Garcia was awake, alert and he tolerated treatment well. PLAN Return to clinic in 3 weeks for cycle 3. documented in this encounter Plan of Treatment [...] mg, Intravenous, ONCE, 1 dose, On Sue 10/05/11 at 1000, Administer over 60 Minutes New Bag 10/05/2011 1:52 PM EST 600 mg 310 mL/hr dexamethasone sodium (PF) 10 mg in sodium chloride 0.9% 51 mL IVPB Intravenous, at 204 mL/hr, ONCE, On Sue 10/05/11 at 1000, 1 dose Given 10/05/2011 9:50 AM EST 204 mL/hr famotidine (PEPCID) 20 mg, diphenhydrAMINE (BENADRYL) 25 mg in sodium chloride 0.9% 52.5 mL IVPB Intravenous, at 210 mL/hr, ONCE, On Sue 10/05/11 at 1000, 1 dose Given 10/05/2011 9:49 AM EST 210 mL/hr Given 10/05/2011 9:34 AM EST 210 mL/hr fosaprepitant (EMEND) 150 mg in sodium chloride 0.9% 155 mL infusion 150 mg, Intravenous, ONCE, 1 dose, On Sue 10/05/11 at 1000, Administer over 30 Minutes New Bag 10/05/2011 10:10 AM EST 150 mg 310 mL/hr paclitaxel (TAXOL) 275 mg in dextrose 5% Non-PVC 545.8333 mL chemo infusion 275 mg, Intravenous, ONCE, 1 dose, On Sue 10/05/11 at 1000, Administer over 3 Hours New Bag 10/05/2011 10:43 AM EST 275 mg 181.9 mL/hr palonosetron (ALOXI) injection 0.25 mg 0.25 mg, Intravenous, ONCE, 1 dose, On Sue 10/05/11 at 1000, Routine Given 10/05/2011 9:30 AM EST 0.25 mg documented in this encounter Care Teams Fur Puller Relationship Specialty Start Date End Date Gus Pacheco MD [address] [place] [address] PCP - General 06/20/11 01/14/12 documented as of this encounter
--- OUTSIDE RECORDS SUMMARY | 2024-09-09 09:35 | XMS_ITS | Encounter Summary ---
Author Organization [facility] Address [facility] [place] [address] Care Team Providers Care Rn Testing Name Role Phone Gus Pacheco MD Primary Care Provider +1 -[phone] Encounter Details Date Type Department Care Team (Late st [facility]) Description 11/16/2011 Orders Only Radiation Oncology at [address] [phone] Lucero To MD [facility] [place] [address] Endometrial ca (Primary Dx) Social History Tobacco Use Types [...] isthmus documented in this encounter Care Teams Rn Testing Relationship Specialty Start Date End Date Gus Pacheco MD [address] [place] [id number] PCP - General 06/20/11 01/14/12 documented as of this encounter
--- OUTSIDE RECORDS SUMMARY | 2024-09-09 09:35 | XMS_ITS | Encounter Summary ---
Author Organization [facility] Address [facility] [place] [address] Care Team Providers Care Guncotton Packer Name Role Phone Gus Pacheco MD Primary Care Provider +1 -[phone] Encounter Details Date Type Department Care Team (Latest Contact Info) Description 01/12/2012 1:52 PM EDT - 01/12/2012 11:59 PM EDT Hospital Encounter Hematology [place] [address] CLINIC, Lucero Fernandez MD [facility] [place] [address] Endometrial ca Discharge Disposition: Home Social History Tobacco Use [...] Sig Dispensed Refills Start Date End Date phenazopyridine (PYRIDIUM) 200 mg tabletIndications:Dysu katty Take 1 tablet by mouth 3 times daily as needed for Pain. 20 tablet 3 12/07/2011 02/22/2012 EMOLLIENT (CREAM BASE TOP)Indications:radiat ion therapy Apply topically 2 times daily. Indications: Radiation Therapy 01/25/2012 loperamide (IMODIUM A-D) 2 mg tabletIndications:diar arden Take by mouth 4 times daily as needed. Maximum 16 mg in 24 hours Indications: Diarrhea 07/15/2012 prochlorperazine (COMPAZINE) 10 mg tabletIndications:Chem otherapy-induced nausea and vomiting Take 1 tablet by mouth every 6 hours as needed for Nausea for 30 doses. 30 tablet 5 08/28/2011 07/15/2012 ibuprofen (ADVIL;MOTRIN) 600 mg tablet Take 1 tablet by mouth every 6 hours. 60 tablet 2 06/28/2011 07/15/2012 zolpidem (AMBIEN) 5 mg tablet Take 10 mg by mouth nightly as needed. 01/23/2012 documented as of this encounter Progress Notes * Daya Corona RN - 01/12/2012 2:04 PM EDT mediport accessed for labs, flushed and deaccessed. documented in this encounter Plan of Treatment Not on file documented as of this encounter Procedures Procedure Name Priority Date/Time Associated Diagnosis Comments SCAN, PERIPHERAL BLOOD Routine 01/12/2012 2:00 PM EDT DIFFERENTIAL, AUTOMATED Routine 01/12/2012 2:00 PM EDT CBC (WITH DIFF) Routine 01/12/2012 2:00 PM EDT Endometrial ca documented in this encounter Results * (ABNORMAL) DIFFERENTIAL, AUTOMATED (01/12/2012 2:00 PM EDT) Neutrophil % 64.4 34.0 - 71.0 % CERNER MILLENNIUM Neutrophil Absolute 1.81 1.50 - 6.30 x10(3)/mc L CERNER MILLENNIUM Lymph % 21.0 19.0 - 53.0 % CERNER MILLENNIUM Lymphocytes Abs 0.6(L) 1.0 - 3.6 x10(3)/mc L CERNER MILLENNIUM Monocyte % 9.6 4.0 - 13.0 % CERNER MILLENNIUM Monocyte Abs 0.3 0.2 - 1.0 x10(3)/mc L CERNER MILLENNIUM Eos % 4.6 0.0 - 7.0 % CERNER MILLENNIUM Eosinophils Abs 0.1 0.0 - 0.5 x10(3)/mc L CERNER MILLENNIUM Basophil % 0.4 0.0 - 2.0 % CERNER MILLENNIUM Baso Absolute 0.0 0.0 - 0.2 x10(3)/mc L CERNER MILLENNIUM Immature Gran % 0.00 0.00 - 0.66 % CERNER MILLENNIUM Comment: Immature granulocytes(IG's)percentage and absolute count will include metamyelocytes, myelocytes, and promyelocytes. Blood smears from CBCs yielding IG's will be scanned manually for concordance. If this scan disagrees with the automated IG or if promyelocytes are noted, a manual differential will be performed. Immature Gran Absolute 0.00 0.00 - 0.05 x10(3)/mc L CERNER MILLENNIUM Blood specimen (specimen) 01/12/2012 2:00 PM EDT 01/12/2012 2:07 PM EDT Lucero To MD HEMATOLOGY ORDERABLE S MELANIE KANGENNIUM * SCAN, PERIPHERAL BLOOD (01/12/2012 2:00 PM EDT) Plat estimate Decreased CERNER MILLENNIUM RBC Morphology Abnormal CERNE R MILLENNIUM Microcyte 6-10 /HPF CERNER MILLENNIUM Ovalocytes 1-5 /HPF CERNER MILLENNIUM Tear Cell 1-5 /HPF CERNER MILLENNIUM Blood specimen (specimen) 01/12/2012 2:00 PM EDT 01/12/2012 2:07 PM EDT Narrative Resulting Agency Comment Spec In Lab Lucero To MD HEMATOLOGY ORDERABLE S MELANIE KANGENNIUM * (ABNORMAL) CBC (with Diff) (01/12/2012 2:00 PM EDT) White Blood Cell 2.8(L) 4.0 - 10.0 x10(3)/mc L CERNER MILLENNIUM Red Blood Cell 4.20 3.93 - 5.22 x10(6)/mc L CERNER MILLENNIUM Hemoglobin 11.2 11.2 - 15.7 gm/dL CERNER MILLENNIUM Hematocrit 33.4(L) 34.0 - 45.0 % CERNER MILLENNIUM Mean Cell Volume 79.5 79.0 - 94.0 fL CERNER MILLENNIUM Mean Cell Hemoglobin 26.7 26.6 - 32.2 pg CERNER MILLENNIUM Mean Cell Hemoglobin Concentration 33.5 32.0 - 36.5 gm/dL CERNER MILLENNIUM Platelet 130(L) 145 - 370 x10(3)/mc L CERNER MILLENNIUM RDW Standard Deviation 57.2(H) 35.0 - 46.0 fL CERNER MILLENNIUM RDW coefficient of variation 19.6(H) 10.9 - 14.4 % CERNER MILLENNIUM Mean Platelet Volume 10.2 9.0 - 12.0 fL CERNER MILLENNIUM Blood specimen (specimen) 01/12/2012 2:00 PM EDT 01/12/2012 2:07 PM EDT Narrative Resulting Agency Comment Spec In Lab Lucero To MD HEMATOLOGY ORDERABLE S MELANIE QUIROZ documented in this encounter Visit Diagnoses Diagnosis Endometrial ca Malignant neoplasm of corpus uteri, except isthmus documented in this encounter Care Teams Guncotton Packer Relationship Specialty Start Date End Date Gus Pacheco MD [address] [place] [address] PCP - General 06/20/11 01/14/12 documented as of this encounter
--- OUTSIDE RECORDS SUMMARY | 2024-09-09 09:35 | XMS_ITS | Encounter Summary ---
Author Organization [facility] [place] [address] Care Team Providers Care Electrical And Radio Mechanic Name Role Phone Casie García APRN Primary Care Provider +1- [phone] Reason for Visit * Reason Onset Date Comments Other 02/07/2012 Encounter Details Date Type Department Care Team (Late st Contact Info) Description 02/07/2012 Telephone Hematology Oncology at [address] [phone] Fiona Pradhan, RN Other Social History Tobacco Use Types Packs/Day [...] Miscellaneous Notes * Telephone Encounter - Fiona Prdahan, RN - 02/07/2012 10:16 AM EDT Farzana has an infected tooth. Dr. Alfred at [facility] ([place], [address], phone [phone], FAX [phone]) wishes to pull the infected tooth 02/09/12. Farzana has been put on an antibiotic (Pen VK x 7 days) and a pain medication (Vicodin) by Dr. Alfred. Her CBC will be checked today and Dr. Alfred's office will be called with the results. 02/07/12 WBC 1.43, ANC 0.60 (neuts 20%, monos 35%) Dr. Grimes consulted. Plan: In face of neutropenia in need of tooth extraction: Neupogen 480 mcg SC daily x 2, 02/06 and 02/07. Recheck CBC 02/08 AM. If ANC adequate proceed with extraction at 11 AM 02/09/12. Dr. Alfred's office was called and informed of plan. Patient called and will proceed to [facility] for Neupogen injection. documented in this encounter Plan of Treatment Not on file documented as of this encounter Visit Diagnoses Not on filedocumented in this encounter Care Teams Electrical And Radio Mechanic Relationship Specialty Start Date End Date Casie García APRN PCP - General 01/15/12 11/25/14 documented as of this encounter
--- OUTSIDE RECORDS SUMMARY | 2024-09-09 09:35 | XMS_ITS | Encounter Summary ---
Author Organization [facility] Address [facility] [place] [address] Care Team Providers Care Electronic Components Assembler Name Role Phone Casie García Hayden LEVINE Primary Care Provider +1- [phone] Reason for Visit * Reason Comments Radiation Follow-up Encounter Details Date Type Department Care Team (Late st Contact Info) Description 02/12/2012 8:30 AM EDT Follow-Up Radiation Oncology at [address] [phone] Lucero To MD [facility] [place] [address] Endometrial ca (Primary Dx) Discharge Disposition: Home [...] this encounter Patient Instructions * Patient Instructions* Lucero To MD - 02/12/2012 9:18 AM EDT Use the vaginal dilator 3 times weekly, 10 mins @ a time, to decrease vaginal shrinkage/narrowing due to scarring caused by radiotherapy. If you are sexually active, you do not need to use the vaginal dilator as often. We will mail you a letter in about 5 months with an appointment to see me in 6 months. documented in this encounter Progress Notes * Lucero To MD - 02/12/2012 9:15 AM EDT Subjective: Patient ID: Farzana Garcia is a 51 y.o. female 1 mo s/p xrt. HPI Xrt for endometrial ca, endometrioid type w/squamous diff, FIGO gr 3, s/p total laparoscopic/robotic hys w/BSO, laparoscopic pelvic & paraaortic lymphadenectomy followed by carbo/taxol x 3; path showing ovarian mets vs synchronous ovarian primary; + involvement 1 L pelvic lymph node; stage IIIC1, pN1. Her xrt was comprised of external beam to pelvis followed by 3 intravag brachy. Since completion of xrt, she has resumed carbo/taxol. Plan is for a total of 3 additional carbo/taxol to follow xrt. Review of Systems Doing not too bad. No pain. No vag disch/blding/diarrhea/constipation/blood in stool. No problem w/urination. No swelling in feet/lower legs. Appetite there. Still tires easily,lies down to rest in afternoon. No nausea. Objective: Physical Exam Constitutional: She is oriented to person, place, and time. She appears well- developed and well-nourished. No distress. HENT: Head: Normocephalic. Eyes: Conjunctivae and EOM are normal. Right eye exhibits no discharge. Left eye exhibits no discharge. No scleral icterus. Neck: Normal range of motion. Neck supple. No tracheal deviation present. No thyromegaly present. Pulmonary/Chest: Effort normal and breath sounds normal. No stridor. No respiratory distress. She has no wheezes. She has no rales. She exhibits no tenderness. Abdominal: Soft. She exhibits no distension and no mass. No tenderness. She has no rebound and no guarding. Genitourinary: Pelvic exam was performed with patient supine. Exam done in dorsolithotomy position. External genitalia normal. Speculum exam shows urethra & vagina to be w/o lesion. Bimanual & rectovag exams w/o worrisome finding. Musculoskeletal: Normal range of motion. She exhibits [...] exhibits normal muscle tone. Coordination normal. Skin: She is not diaphoretic. Moderate hyperpigmentation of skin in tx'd area; skin intact. Psychiatric: She has a normal mood and affect. Her behavior is normal. Judgment and thought contentnormal. Assessment and Plan: CARMEN. Given vag dilator to decrease vaginal shrinkage due to scarring from xrt; instructions & lubricant given. FU 6 mos. No problem-specific visit notes found for this encounter. documented in this encounter Plan of Treatment Not on file documented as of this encounter Visit Diagnoses Diagnosis Endometrial ca- Primary Malignant neoplasm of corpus uteri, except isthmus documented in this encounter Care Teams Electronic Components Assembler Relationship Specialty Start Date End Date Casie García APRN PCP - General 01/15/12 11/25/14 documented as of this encounter
--- OUTSIDE RECORDS SUMMARY | 2024-09-09 09:35 | XMS_ITS | Encounter Summary ---
Author Organization [facility] [place] [address] Care Team Providers Care Hospitalist Nocturnist Physician Name Role Phone Gus Pacheco MD Primary Care Provider [phone] [phone] Reason for Visit * Reason Comments Endometrial Cancer Encounter Details Date Type Department Care Team (Late st Contact Info) Description 09/20/2011 2:30 PM EST Follow-Up Hematology Oncology at [address] [phone] Augustus Grimes MD [address] [place] [address] Endometrial cancer (Primary Dx) Discharge Disposition: [...] Sign Reading Time Taken Comments Blood Pressure 104/79 09/20/2011 2:10 PM EST Pulse 79 09/20/2011 2:10 PM EST Temperature 36.7 ??C (98.1 ??F) 09/20/2011 2:10 PM ES T Respiratory Rate 16 09/20/2011 2:10 PM EST Oxygen Saturation 98% 09/20/2011 2:10 PM EST Inhaled Oxygen Concentration - - Weight 58.5 kg (128 lb 15.5 oz) 09/20/2011 2:10 PM EST Height 157.4 cm (5' 1.97) 09/20/2011 2:10 PM ES T Body Mass Index 23.61 09/20/2011 2:10 PM EST documented in this encounter Progress Notes * Augustus Grimes MD - 09/20/2011 2:07 PM EST Diagnosis: Adenocarcinoma of the endometrium, [...] tumor. Subjective: Farzana comes in today for followup she had her carboplatinum and Taxol chemotherapy for the first time this past Sunday and other than a little bit of nausea that she had Sunday she is doing very wellindeed. She is a little bit of achiness in her knees but no other myalgias or arthritis symptoms. Her bowels are reasonable and she is doing just fine. Review of Systems Constitutional: Negative for fever, chills, activity change, fatigue and unexpected weight change. HENT: Negative for sore throat, mouth sores and trouble swallowing. Eyes: Negative. Respiratory: Negative for cough, shortness of breath and wheezing. Cardiovascular: Negative for chest pain, palpitations and leg swelling. Gastrointestinal: Negative for nausea, vomiting, abdominal pain, diarrhea, constipation and abdominal distention. Genitourinary: Negative for dysuria and [...] supraclavicular, and axillary nodes normal Neurologic: Normal Assessment/Plan: Farzana has tolerated her first cycle of chemotherapy quite well overall. Her next chemotherapy will be due mid September and we'll make arrangements to see her then with a CBC and CMP. She knows to call if she gets any symptoms especially fever as her diana will be in approximately 5-7 days.. She'll also call if any other problems develop in the interim. documented in this encounter Plan of Treatment Not on file documented as of this encounter Visit Diagnoses Diagnosis Endometrial cancer- Primary Malignant neoplasm of corpus uteri, except isthmus documented in this encounter Care Teams Hospitalist Nocturnist Physician Relationship Specialty Start Date End Date Gus Pacheco MD [address] [place] [address] PCP - General 06/20/11 01/14/12 documented as of this encounter
--- OUTSIDE RECORDS SUMMARY | 2024-09-09 09:35 | XMS_ITS | Encounter Summary ---
Author Organization [place] [address] Care Team Providers Care Picking Belt Operator Name Role Phone Ricky Casieluis angel Miranda APRN Primary Care Provider +1- [phone] Reason for Visit * Reason Comments Ovarian Cancer Encounter Details Date Type Department Care Team (Late st Contact Info) Description 03/14/2012 9:00 AM EDT Follow-Up Hematology Oncology at [address] [phone] Augustus Grimes MD [address] [place] [phone] Uterine cancer (Primary Dx) Discharge Disposition: [...] Sign Reading Time Taken Comments Blood Pressure 107/66 03/14/2012 8:48 AM EDT Pulse 77 03/14/2012 8:48 AM EDT Temperature 37.1 ??C (98.8 ??F) 03/14/2012 8:48 AM ED T Respiratory Rate 16 03/14/2012 8:48 AM EDT Oxygen Saturation 100% 03/14/2012 8:48 AM EDT Inhaled Oxygen Concentration - - Weight 59 kg (130 lb 1.1 oz) 03/14/2012 8:48 AM EDT Height 157.4 cm (5' 1.97) 03/14/2012 8:48 AM ED T Body Mass Index 23.81 03/14/2012 8:48 AM EDT documented in this encounter Progress Notes * Augustus Grimes MD - 03/14/2012 9:42 AM EDT Diagnosis: Adenocarcinoma of the endometrium, [...] cycle 6 chemotherapy with carboplatinum and Taxol. Cycle 5 was well tolerated with really no particular problems other than some mild fatigue. She did have some dental work done but her counts were fine for that. Review systems is otherwise essentially negative Past medical history and social history [...] Her laboratory is reviewed. White count is 1.76 hemoglobin 8.7 platelet count is 190,000 ANC is 1.2. CMP is completely normal with creatinine of 0.8 Assessment/Plan: Farzana is doing well overall. Considering her neutrophil count being on the low side and the recent dental problems she's had as well as the fact that she has had previous radiation therapy and heavy pretreatment I suspect if we treated her today her white count would drop and stayed down for quite some time. I discussed giving her a 1-2 week break before the last cycle of treatment and because ofher son getting next week she would like to put this final cycle off to 28 March. She will need Neulasta with that cycle. We'll see her back then with a CBC and CMP. She'll call us before then if she has any issues or problems in the interim. documented in this encounter Procedure Notes * Provider, Scanning - 03/14/2012 8:54 AM EDTAssociated Order(s): SCAN DOC: LAB documented in this encounter Plan of Treatment Not on file documented as of this encounter Procedures Procedure Name Priority Date/Time Associated Diagnosis Comments LAB SCAN 03/14/2012 8:54 AM EDT documented in this encounter Results * SCAN DOC: LAB (03/14/2012 8:54 AM EDT) Narrative 03/14/2012 8:54 AM EDT Procedure Note Provider, Scanning - 03/14/2012 8:54 AM EDT Scanning Provider MEDIA MGR SCAN EXT O RDR/RSLT documented in this encounter Visit Diagnoses Diagnosis Uterine cancer- Primary Malignant neoplasm of uterus, part unspecified documented in this encounter Care Teams Picking Belt Operator Relationship Specialty Start Date End Date Casie García APRN PCP - General 01/15/12 11/25/14 documented as of this encounter
--- OUTSIDE RECORDS SUMMARY | 2024-09-09 09:35 | XMS_ITS | Encounter Summary ---
Author Organization [facility] Address [facility] [place] [address] Care Team Providers Care Card Fixer Name Role Phone Jovana Garcíaluis angel Miranda APRN Primary Care Provider [phone]- [phone] Reason for Visit * Reason Comments Follow-up Encounter Details Date Type Department Care Team (Late st Contact Info) Description 07/15/2012 3:00 PM EDT Follow-Up [place] [phone] CLINIC, DR BASSEM Millard, Judy Ndiaye MD [facility] [place] [address] Endometrial cancer (Primary Dx) Discharge Disposition: Home [...] Sign Reading Time Taken Comments Blood Pressure 102/70 07/15/2012 3:16 PM EDT Pulse - - Temperature - - Respiratory Rate - - Oxygen Saturation - - Inhaled Oxygen Concentration - - Weight 57.2 kg (126 lb 1.7 oz) 07/15/2012 3:16 P M EDT Height - - Body Mass Index 23.09 06/20/2012 2:05 PM EDT documented in this encounter Progress Notes * Judy Millard MD - 07/15/2012 3:55 PM EDT Subjective: Patient ID: Farzana Garcia is a 52 y.o. female here for follow-up of endometrial cancer. Patient Active Problem List Diagnoses ??? 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 Brain aneurysm S/p surgery 2000 HPI: Farzana comes in today 3 months after completing therapy for Stage IIIC grade 3 endometrial cancer. She was node positive and had bilateral ovarian cancers, which could have been synchronous primaries or mets. She tolerated her therapy well and is happy to be done with it. She was hospitalized last week with abdominal pain and was treated for diverticulitis. CT scan of abdomen and pelvis showed no evidence of recurrent disease and no pelvic abcess. She is eating and drinking normally. Bowels and bladder are otherwise working well. She feels that she is at a 10/10 activity level, and is eager to continue having fun. She is sexually active with some spotting at the time of intercourse. She has no complaints today to suggest recurrent disease. She has no peripheral neuropathy. She is eating well. She has no back pain, LE edema. Prior to Admission medications Medication Sig Start Date End Date Taking? Authorizing Provider ciprofloxacin (CIPRO) 500 mg tablet Take 500 mg by mouth 2 times daily. Yes Historical Provider, metroNIDAZOLE (FLAGYL) 500 mg tablet Take 500 mg by mouth 3 times daily. Yes Historical Provider, TRAZODONE HCL (TRAZODONE ORAL) Take 50-100 mg by mouth nightly as needed. 07/15/12 Historical Provider, hydroCODone-acetaminophen (VICODIN) 5-500 mg per tablet Take 1 tablet by mouth every 6 hours as needed. Indications: Pain 02/07/12 07/15/12 Jaylyn Alfred, CARLINE loperamide (IMODIUM A-D) 2 mg tablet Take by mouth 4 times daily as needed. Maximum 16 mg in 24 hours Indications: Diarrhea 07/15/12 Historical Provider, prochlorperazine (COMPAZINE) 10 mg tablet Take 1 tablet by mouth every 6 hours as needed for Nauseafor 30 doses. 08/28/11 07/15/12 Augustus Grimes MD ibuprofen (ADVIL;MOTRIN) 600 mg tablet Take 1 tablet by mouth every 6 hours. 06/28/11 07/15/12 Donnie Munguia MD Allergies Allergen Reactions ??? Red Blood Cells Other (See Comments) Antibodies-Difficult to Crossmatch Review of Systems: otherwise negative Filed Vitals: 07/15/12 1516 BP: 102/70 Weight: 57.2 kg (126 lb 1.7 oz) Objective: Physical Exam Gen: Farzana Garcia appears very well, appropriate in dress and demeanor, NAD HEENT/Neck: no cervical or supraclavicular adenopathy; no thyromegaly. She is anicteric, appears well hydrated Lungs clear Heart RRR without murmurs Abdomen: soft, flat, non-distended, non-tender without abnormal masses, organomegaly or ascites. Mildly tender in the LLQ. Extremities: upper and lower extremities without edema Pelvic exam: NEFG, BUS negative. Vaginal mucosa pink and moist. Cuff intact with radiation telangiectasias noted. Bimanual exam reveals no nodularity, abnormal masses, or tenderness. RV confirms Assessment and Plan: Reminded that she needs mammogram. She is doing well, and has no clinical evidence of recurrent disease. Return in 6 months. documented in this encounter Plan of Treatment Not on file documented as of this encounter Visit Diagnoses Diagnosis Endometrial cancer- Primary Malignant neoplasm of corpus uteri, except isthmus documented in this encounter Care Teams Card Fixer Relationship Specialty Start Date End Date Casie García, PARTS PICKER PCP - General 01/15/12 11/25/14 documented as of this encounter
--- OUTSIDE RECORDS SUMMARY | 2024-09-09 09:35 | XMS_ITS | Encounter Summary ---
Author Organization [facility] Address [facility] [place] [address] Care Team Providers Care Photographs Curator Name Role Phone Caise García APRN Primary Care Provider [phone]- [phone] Reason for Referral * Consultation (Routine) - Closed Specialty Diagnoses / Procedures Referred By Anyi palma Referred To Contact Gynecology Oncology Diagnoses Endometrial cancer Augustus Grimes MD [address] [place] [address] Judy Horton MD [facility] [place] [address] Referral ID Status Reason Start Date Expiration Date V isits Requested Visits Authorized [id number] Closed Assume Subset of Care 06/20/2012 12/17/2012 1 1 Reason for Visit * Reason Comments Endometrial Cancer Encounter Details Date Type Department Care Team (Late st Contact Info) Description 06/20/2012 2:30 PM EDT Follow-Up Hematology Oncology at [address] [phone] Augustus Grimes MD [address] [place] [address] Endometrial cancer (Primary Dx) Discharge Disposition: [...] Sign Reading Time Taken Comments Blood Pressure 120/78 06/20/2012 2:05 PM EDT Pulse 70 06/20/2012 2:05 PM EDT Temperature 36.9 ??C (98.4 ??F) 06/20/2012 2:05 PM ED T Respiratory Rate 16 06/20/2012 2:05 PM EDT Oxygen Saturation 100% 06/20/2012 2:05 PM EDT Inhaled Oxygen Concentration - - Weight 56.2 kg (124 lb) 06/20/2012 2:05 PM EDT Height 157.4 cm (5' 1.97) 06/20/2012 2:05 PM ED T Body Mass Index 22.7 06/20/2012 2:05 PM EDT documented in this encounter Progress Notes * Augustus Grimes MD - 06/20/2012 2:57 PM EDT Diagnosis: Adenocarcinoma of the endometrium, [...] Farzana comes in today for followup. She has continued to improve after the completion of her therapyand really has no complaints or problems at this point. She had a good time riding the tram up to [employer] the other day and had no problems with hiking around or activity at all. Past medical history and social history are [...] is reviewed. White count is up to 2.6 ANC is 1.6 hemoglobin is up now to 11.6 and platelets at one 40,000. CMP is completely normal. Assessment/Plan: Farzana is doing well overall. Her blood counts are continuing to recover. At this point we'll get her followup post completion of therapy with PROPOSAL LEAD WRITER oncology at [facility]. If they order her scan before followup that'll be fine otherwise we'll order one after we see her back in 3 months with lab. She knows to call if any problems develop in the interim. We've ordered a CBC and CMP and she will call if anyproblems develop in the interim documented in this encounter Procedure Notes * Provider, Scanning - 06/20/2012 1:32 PM EDTAssociated Order(s): SCAN DOC: LAB documented in this encounter Plan of Treatment Scheduled Referrals Name Type Priority Associated Diagnoses Order Schedule REFERRAL TO GYNECOLOGIC ONCOLOGY Outpatient Referral Routine Endometrial cancer Ordered: 06/20/2012 documented as of this encounter Procedures Procedure Name Priority Date/Time Associated Diagnosis Comments LAB SCAN 06/20/2012 1:32 PM EDT documented in this encounter Results * SCAN DOC: LAB (06/20/2012 1:32 PM EDT) Narrative 06/20/2012 1:32 PM EDT Procedure Note Provider, Scanning - 06/20/2012 1:32 PM EDT Scanning Provider MEDIA MGR SCAN EXT O RDR/RSLT documented in this encounter Visit Diagnoses Diagnosis Endometrial cancer- Primary Malignant neoplasm of corpus uteri, except isthmus documented in this encounter Care Teams Photographs Curator Relationship Specialty Start Date End Date Casie García, TAPE LIBRARIAN PCP - General 01/15/12 11/25/14 documented as of this encounter
--- OUTSIDE RECORDS SUMMARY | 2024-09-09 09:35 | XMS_ITS | Encounter Summary ---
Author Organization [facility] Address [facility] [place] [address] Care Team Providers Care Chip Bin Conveyor Tender Name Role Phone Gus Pacheco MD Primary Care Provider [phone] -[phone] Reason for Visit * Reason Comments Radiation Treatment Encounter Details Date Type Department Care Team (Late st Contact Info) Description 12/19/2011 3:00 PM EST Follow-Up Radiation Oncology at [address] [phone] Lucero To MD [facility] [place] [address] Endometrial ca (Primary Dx) Social History Tobacco [...] Progress Notes * Lucero To MD - 12/19/2011 3:46 PM EST DIAGNOSIS: Endometrium, endometrioid type w/squamous diff; FIGO gr III; s/p total laparoscopic/robotic hys w/BSO, laparoscopic pelvic & paraaortic lymphadenectomy followed by carbo/taxol x 3. Path: Ovarian mets vs synchronous ovarian primary; + involvement of 1 (L) pelvic lymph node; stage IIIC1, pN1; 3 more carbo/taxol to follow xrt. CURRENT TREATMENT DOSE: 37.8 Gy ANTICIPATED TOTAL DOSE: 45 Gy + HDR Current # of xrt received: 21 Anticipated total # of xrt txs: 25 + 3 HDR Evaluation of port verification films: ok Changes in Medical Condition: No longer needs to take pyridium; dysuria resolved. Increased frequency of urination not as bad. Diarrhea continues; 3 imodium daily. Anorectal irritation resolved. Skinin tx'd area fine. No lower leg/feet swelling. Energy level the pits today, exhausted. Appetite notmuch. Nausea more today than it has been; plans to take compazine when she gets home. Physical Exam: A&Ox3, in NAD. Amb stable. Labs: 12/18/11 CBC: WBC 3.13, Hgb 10.5, Hct 31.4, Plts 156 K, ANC 1.86. Response to xrt: As expected. Radiation Related Symptoms: Increased frequency of urination, diarrhea, nausea, tiredness, decreased blood count. Treatment for Symptom Control: Imodium, Isaac's cream. Recommendation on Continuing Course of Tx: Cont. Completes external next wk. Brachy starts 12/28. documented in this encounter Plan of Treatment Not on file documented as of this encounter Visit Diagnoses Diagnosis Endometrial ca- Primary Malignant neoplasm of corpus uteri, except isthmus documented in this encounter Care Teams Chip Bin Conveyor Tender Relationship Specialty Start Date End Date Gus Pacheco MD [address] [place] [address] PCP - General 06/20/11 01/14/12 documented as of this encounter
--- OUTSIDE RECORDS SUMMARY | 2024-09-09 09:35 | XMS_ITS | Encounter Summary ---
Author Organization [facility] Address [facility] [place] [address] Care Team Providers Care Inpatient Nursing Aide Name Role Phone Gus Pacheco MD Primary Care Provider [phone] -[phone] Reason for Visit * Reason Comments Radiation Treatment Encounter Details Date Type Department Care Team (Latest Contact Info) Description 01/12/2012 1:00 PM EDT Procedure visit [place] [phone] Lucero To MD [facility] [place] [address] Endometrial ca (Primary Dx) Social History Tobacco [...] encounter Patient Instructions * Patient Instructions* Nneka Cleary RN - 01/12/2012 1:37 PM EDT Discharge Instructions after High Dose Radiation to the Vaginal Cuff Radiation treatment related side effects can occur anytime during the week and persist for up to four weeks after your last treatment. This can include urinary burning and frequency, and diarrhea. Cut back on fresh fruits & vegetables, high fiber foods, foods with bran & greasy foods if you experience diarrhea. If the diarrhea does not clear with dietary changes, then take imodium, which you can buy over the counter. Take 2 imodium after the 1st loose stool & then 1 imodium aftereach successive loose stool, not to exceed 8 imodium per day. If you have urinary burning which is bothersome, call Dr. To or, on the weekend, call the hospital core drill operator helper @ [phone] & ask for the radiation oncologist lieutenant colonel. A medicine can be prescribed to ease the burning. If you have vaginal burning/irritation, try soaking in epsom salts & lukewarm water. You can also apply beni's cream to the outside of your vagina. If you have any concerns/questions, call Dr. To @ [phone] or, on the weekend, call the hospital core drill operator helper @ [phone] & ask for the radiation oncologist lieutenant colonel. Fatigue is a normal reaction to radiation treatments. If you experience fatigue, do not stay in bedall day. Pace your activities by planning your most important tasks in the morning when your energymight be at it's highest. Practice good sleep hygiene habits -ie. Go to bed and get up at a regulartime, do not nap for more than 2 hours/day. Regular physical exercise can be helpful to increase your energy and sense of well being. Please call us if you experience these symptoms as we have recommendations to help you be more comfortable. Section of Radiation Oncology Your team members are: Dr. Lucero Platt, Senior Clinical Poultry Sexer MALINI Salgado Our normal business hours are- Sunday - Sunday 8 AM to 5 PM If you have questions about your radiation appointments please ask to speak to your elementary secretary. If you have questions for your nurse about radiation treatments, radiation side effects or you are not feeling well it is best to call early in the day. This allows your nurse to return your call by 5 PM the same day. If you call after 4 PM, your nurse will return your call by 5 PM the following day. A Radiation Oncology doctor is lieutenant colonel after our normal hours and on weekends. To call for urgent medical issues from radiation treatments that can not wait until normal business hours, please call and have the core drill operator helper page the Radiation Oncologist in call. documented in this encounter Progress Notes * Nneka Cleary RN - 01/12/2012 3:47 PM EDT Radiation Oncology Nursing Completion of Treatment Note Pt completed 3- HDR's for radiation treatment to the vaginal cuff for cancer treatment. . . Side effects/problems noted during treatment: some mild dysuria that resolved and diarrhea Controlled with immodium Teaching and discharge instructions reviewed: see under Patient Discharge Instructions Patient/family response to instructions: verbalizes intent to comply Expected follow up/referrals: in [address] To. Will receive a call from a nurse next week. Patient has our contact numbers : [phone]-weekday business hours [phone]- weekends, ask for radiation oncologist lieutenant colonel * Lucero To MD - 01/12/2012 1:32 PM EDT SenthilEb Gauthierking is here today for 3rd intravag brachy for endometrial ca, endometrioid type w/squamous diff, FIGO gr 3, s/p total laparoscopic/robotic hys w/BSO, laparoscopic pelvic & paraaortic lymphadenectomy followed by carbo/taxol x 3; path showing ovarian mets vs synchronous ovarian primary; + involvement 1 L pelvic lymph node; stage IIIC1, pN1; 3 more carbo/taxol to follow xrt. Mild dysuria last wk, relieved by pyridium & cleared @ present. Diarrhea not as bad as after 1st intravag brachy, controlled w/imodium. Exam shows skin in tx'd area to be in good condition. Intravag brachy done w/Ir-192 HDR, giving 5 Gy/1 fx @ vag surface. Pretx film showed cylinder to bein appropriate position. She tolerated tx well, w/o complication. She has now completed 15 Gy/3 fxsof Ir-192 HDR intravag brachy given w/2.6 cm cylinder, dose delivered to surface, from vag apex to 6 cm inferiorly. CBC today. Apt w/Dr. Grimes 4/3 for continuation of chemo. Her completed course of xrt can be summarized as follows: 11/20/11 through 12/25/11 45 Gy/25 fxs to pelvis. 12/29/11 through 01/12/12, 15 Gy/3 fxs to vaginal apex w/Ir-192 HDR & 2.6 cm vaginal cylinder. She tolerated tx well with diarrhea controlled w/imodium & diet & dysuria controlled w/pyridium. FU 1 mo. documented in this encounter Plan of Treatment Not on file documented as of this encounter Results * (ABNORMAL) CBC (with Diff) (01/12/2012 2:00 [...] in this encounter Visit Diagnoses Diagnosis Endometrial ca- Primary Malignant neoplasm of corpus uteri, except isthmus documented in this encounter Care Teams Inpatient Nursing Aide Relationship Specialty Start Date End Date Gus Pacheco MD [address] [place] [address] PCP - General 06/20/11 01/14/12 documented as of this encounter
--- OUTSIDE RECORDS SUMMARY | 2024-09-09 09:35 | XMS_ITS | Encounter Summary ---
Author Organization [facility] [place] [address] Care Team Providers Care Railroad Conductor Name Role Phone Casie García APRN Primary Care Provider +1- [phone] Reason for Visit * Reason Comments Endometrial Cancer neulasta Encounter Details Date Type Department Care Team (Late st Contact Info) Description 02/23/2012 1:00 PM EDT Office Visit Hematology Oncology at [address] [phone] CLINIC, DR LOPEZ HEM/ONC Michell Cuellar APRN [address] [place] [address], [place] [phone] Endometrial cancer (Primary Dx) Discharge Disposition: Home [...] Progress Notes * Coby Plata RN - 02/23/2012 1:32 PM EDT Treatment Started:1305 Treatment Ended:1320 Diagnosis: Endometrial cancer Treatment: neulasta 6 mg sc left arm documented in this encounter Procedure Notes * Provider, Scanning - 02/23/2012 3:42 PM EDTAssociated Order(s): SCAN DOC: CHEMOTHERAPY documented in this encounter Plan of Treatment Not on file documented as of this encounter Procedures Procedure Name Priority Date/Time Associated Diagnosis Comments CHEMOTHERAPY SCAN 02/23/2012 3:4 2 PM EDT documented in this encounter Results * SCAN DOC: CHEMOTHERAPY (02/23/2012 3:42 PM EDT) Narrative 02/23/2012 3:42 PM EDT Procedure Note Provider, Scanning - 02/23/2012 3:42 PM EDT Scanning Provider MEDIA MGR SCAN [...] 6 mg, Subcutaneous, ONCE, 1 dose, On Sun02/23/12 at 1300, Routine Given 02/23/2012 1:14 PM EDT 6 mg Left Arm documented in this encounter Care Teams Railroad Conductor Relationship Specialty Start Date End Date Casie García APRN PCP - General 01/15/12 11/25/14 documented as of this encounter
--- OUTSIDE RECORDS SUMMARY | 2024-09-09 09:35 | XMS_ITS | Encounter Summary ---
Author Organization [facility] Address [facility] [place] [address] Care Team Providers Care Chairlift Operator Name Role Phone Gus Pacheco MD Primary Care Provider +1 [phone] Reason for Visit * Reason Comments Radiation Treatment Encounter Details Date Type Department Care Team (Late st Contact Info) Description 11/28/2011 4:30 PM EST Follow-Up Radiation Oncology at [address] [phone] Lucero To MD [facility] [place] [address] Endometrial ca (Primary Dx) Discharge Disposition: Home [...] Sign Reading Time Taken Comments Blood Pressure 111/73 11/28/2011 3:07 PM EST Pulse 75 11/28/2011 3:07 PM EST Temperature 36.9 ??C (98.5 ??F) 11/28/2011 3:07 PM ES T Respiratory Rate 16 11/28/2011 3:07 PM EST Oxygen Saturation 99% 11/28/2011 3:07 PM EST Inhaled Oxygen Concentration - - Weight 58.1 kg (128 lb) 11/28/2011 3:07 PM EST Height - - Body Mass Index 23.43 11/15/2011 2:04 PM EST documented in this encounter Patient Instructions * Patient Instructions* Lucero To MD - 11/28/2011 3:42 PM EST Have blood work drawn every Sunday, starting 12/04, @ [facility], prior to radiotherapy. documented in this encounter Progress Notes * Lucero To MD - 11/28/2011 3:40 PM EST DIAGNOSIS: Endometrium, endometrioid type w/squamous diff; FIGO gr III; s/p total laparoscopic/robotic hys w/BSO, laparoscopic pelvic & paraaortic lymphadenectomy followed by carbo/taxol x 3. Path: Ovarian mets vs synchronous ovarian primary; + involvement of 1 (L) pelvic lymph node; stage IIIC1, pN1; 3 more carbo/taxol to follow xrt. CURRENT TREATMENT DOSE: 12.6 Gy ANTICIPATED TOTAL DOSE: 45 Gy + HDR Current # of xrt received: 7 Anticipated total # of xrt txs: 25 + 3 HDR Evaluation of port verification films: ok Changes in Medical Condition: A little tired. Skin in tx'd area ok; applying isaac's cream. No diarrhea. No problem w/urination. No vag disch/bleeding. No feet/leg swelling. No pain. Physical Exam: 128 lbs. A&Ox3, in NAD. Amb stable. Labs: 11/15/11 CBC: WBC 4.21, Hbg 12.6, Hct 37.5, Plts 134K, ANC 2.21. Response to xrt: As expected. Radiation Related Symptoms: Tiredness might be related to xrt. Treatment for Symptom Control: Isaac's cream. Recommendation on Continuing Course of Tx: Cont. Weekly CBC q Mon prior to xrt, starting 12/04. documented in this encounter Procedure Notes * Provider, Scanning - 12/04/2011 4:17 PM ESTAssociated Order(s): SCAN DOC: LAB documented in this encounter Plan of Treatment Not on file documented as of this encounter Procedures Procedure Name Priority Date/Time Associated Diagnosis Comments LAB SCAN 12/04/2011 4:17 PM EST documented in this encounter Results * SCAN DOC: LAB (12/04/2011 4:17 PM EST) Narrative 12/04/2011 4:17 PM EST Procedure Note Provider, Scanning - 12/04/2011 4:17 PM EST Scanning Provider MEDIA MGR SCAN EXT O RDR/RSLT documented in this encounter Visit Diagnoses Diagnosis Endometrial ca- Primary Malignant neoplasm of corpus uteri, except isthmus documented in this encounter Care Teams Chairlift Operator Relationship Specialty Start Date End Date Gus Pacheco MD [address] [place] [address] PCP - General 06/20/11 01/14/12 documented as of this encounter
--- OUTSIDE RECORDS SUMMARY | 2024-09-09 09:35 | XMS_ITS | Encounter Summary ---
Author Organization [facility] Address [facility] [place] [address] Care Team Providers Care Supervisor Blueprinting And Photocopy Name Role Phone Gus Pacheco MD Primary Care Provider +1 [phone] Reason for Visit * Reason Comments Follow-up Encounter Details Date Type Department Care Team (Late st Contact Info) Description 11/09/2011 10:00 AM EST Follow-Up Hematology Oncology at [address] [phone] Michell Cuellar APRN [address] [place] [address] Endometrial cancer (Primary Dx) Discharge Disposition: [...] Sign Reading Time Taken Comments Blood Pressure 117/77 11/09/2011 10:01 AM EST Pulse 80 11/09/2011 10:01 AM EST Temperature 37.2 ??C (99 ??F) 11/09/2011 10: 01 AM EST Respiratory Rate 18 11/09/2011 10:0 1 AM EST Oxygen Saturation 100% 11/09/2011 10: 01 AM EST Inhaled Oxygen Concentration - - Weight 58.5 kg (128 lb 15.5 oz) 012 10:01 AM EST Height 157.4 cm (5' 1.97) 11/09/2011 1 0:01 AM EST Body Mass Index 23.61 11/09/2011 10:01 AM EST documented in this encounter Progress Notes * Michell Cuellar, CRANIOLOGIST - 11/09/2011 9:13 AM EST Hematology/[place], [address] (ph) - [phone] (fax) ESTABLISHED PATIENT EVALUATION: Diagnosis: Adenocarcinoma of [...] Carbo/Taxol - final prior to Rad Onc. INTERIM HISTORY: Farzana returns to the clinic today withendometrial cancer status post 3 cycles of chemothreapy after surgery as above for follow up and recovery from toxicity associated w/chemotherapy. She is well, no SOB. No bleeding. INTERIM SOCIAL/FAMILY HISTORY: No interval change. Current outpatient prescriptions ordered prior to encounter Medication Sig Dispense Refill ??? zolpidem (AMBIEN) 5 mg tablet Take 10 mg by mouth nightly as needed. ??? prochlorperazine (COMPAZINE) 10 mg tablet Take 1 tablet by mouth every 6 hours as needed for Nausea for 30 doses. 30 tablet 5 ??? ibuprofen (ADVIL;MOTRIN) 600 mg tablet Take 1 tablet by mouth every 6 hours. 60 tablet 2 REVIEW OF SYSTEMS: Energy: stable Pain: Inter ittent abdominal cramping Appetite:good Fevers/chills/drenching sweats:No Bruising/bleeding/melena:No Recent infections:No HEENT: negative Nausea/vomiting/diarrhea/constipation:No Dysuria: No SOB/cough/chest pain:No Change in adenopathy or other masses:No Unexpected weight loss or gain:No Skin rashes or petechiae:No Musculoskeletal complaints:No Extremities: Negative upper and lower bilaterally Neurologic symptoms:No PHYSICAL EXAM: BP 117/77 Pulse 80 Temp(Src) 37.2 ??C (99 ??F) (Oral) Resp 18 Ht 157.4 cm (5' 1.97) Wt 58.5 kg (128 lb 15.5 oz) BMI 23.61 kg/m2 SpO2 100% NAD, A & O x 3. HEENT: Sclera anicteric, oral pharynx is clear. Poor dentition, gums pink, no redness or swelling observed. Skin: Without rash or petechia. Lymph: No [...] neurologic deficit. RADIOLOGY: no new studies LABORATORY: ANC 0.5, WBC 1.66, Hg 8.0, (8.5), MCV 66.9 PLT 124, cmp normal. ASSESSMENT/PLAN: Endometrial cancer - completed 3 cycles chemo, toxicity of tx, she is feeling clinically well. Radiation is scheduled to begin on November 20, 2011. Anemia - transfuse 2 units prbc, want to boost her for radiation, recheck cbc in one week. Neutropenia - likley her diana, will prophylax with Cipro, review precautions. RTC for follow up in one week w/RF DESIGN ENGINEER, cbc. And RTC to see MD in 8 weeks after completion of XRT for further planning. Patient was reminded to call in the interim should questions or concerns arise. documented in this encounter Procedure Notes * Provider, Scanning - 11/09/2011 10:08 AM ESTAssociated Order(s): SCAN DOC: LAB documented in this encounter Plan of Treatment Not on file documented as of this encounter Procedures Procedure Name Priority Date/Time Associated Diagnosis Comments LAB SCAN 11/09/2011 10:08 AM EST Endometrial cancer documented in this encounter Results * SCAN DOC: LAB (11/09/2011 10:08 AM EST) Narrative 11/09/2011 10:08 AM EST Procedure Note Provider, Scanning - 11/09/2011 10:08 AM EST Scanning Provider MEDIA MGR SCAN EXT O RDR/RSLT documented in this encounter Visit Diagnoses Diagnosis Endometrial cancer- Primary Malignant neoplasm of corpus uteri, except isthmus documented in this encounter Care Teams Supervisor Blueprinting And Photocopy Relationship Specialty Start Date End Date Gus Pacheco MD [address] [place] [address] PCP - General 06/20/11 01/14/12 documented as of this encounter
--- OUTSIDE RECORDS SUMMARY | 2024-09-09 09:35 | XMS_ITS | Encounter Summary ---
Author Organization [facility] [place] [address] Care Team Providers Care Labor Service Representative Name Role Phone Ricky Casieluis angel Miranda APRN Primary Care Provider +1- [phone] Encounter Details Date Type Department Care Team (Late st Contact Info) Description 02/22/2012 Notes Only Hematology Oncology at [address] [phone] Linda Tomlinson, CASE MONITOR OFFICE OF CARE MANAGEMENT Social History Tobacco [...] Progress Notes * Linda Tomlinson MSW - 02/22/2012 12:31 PM EDT Met with pt during infusion today. Pt requesting financial assistance from the [employer] fund to help towards 2 months back rent. Completed application per pt request and submitted application and invoicefor back rent. Pt hopeful her SS Disability will begin mid-February. She is still working with SS re anySSI benefit she may be able to get also. Shared some worried about her relationship with her estranged urvashi. Because of this estrangement jabari had limited contact with her 2 young granddaus but now her ex-son in law is bringing them for visits so she is reconnecting with them. Pt looking forward to her next/last treatment. She has some events coming up that she is looking forward to. Her son is getting in early March. She plans to celebrate the end of treatment by going [place] with her family and friends. Will follow up with pt re outcome of referral to [facility]. Will continue to follow. documented in this encounter Plan of Treatment Not on file documented as of this encounter Visit Diagnoses Not on filedocumented in this encounter Care Teams Labor Service Representative Relationship Specialty Start Date End Date Casie García APRN PCP - General 01/15/12 11/25/14 documented as of this encounter
--- OUTSIDE RECORDS SUMMARY | 2024-09-09 09:35 | XMS_ITS | Encounter Summary ---
Author Organization [facility] Address [facility] [place] [address] Care Team Providers Care Intellectual Property Paralegal Name Role Phone Gus Pacheco MD Primary Care Provider +1 -[phone] Reason for Visit * Reason Comments Radiation Treatment Encounter Details Date Type Department Care Team (Late st Contact Info) Description 12/12/2011 2:30 PM EST Office Visit Radiation Oncology at [address] [phone] Lucero To MD [facility] [place] [address] Uterine cancer (Primary Dx) Discharge Disposition: Home [...] Progress Notes * Lucero To MD - 12/12/2011 3:47 PM EST DIAGNOSIS: Endometrium, endometrioid type w/squamous diff; FIGO gr III; s/p total laparoscopic/robotic hys w/BSO, laparoscopic pelvic & paraaortic lymphadenectomy followed by carbo/taxol x 3. Path: Ovarian mets vs synchronous ovarian primary; + involvement of 1 (L) pelvic lymph node; stage IIIC1, pN1; 3 more carbo/taxol to follow xrt. CURRENT TREATMENT DOSE: 27 Gy ANTICIPATED TOTAL DOSE: 45 Gy + HDR Current # of xrt received: 15 Anticipated total # of xrt txs: 25 + 3 HDR Evaluation of port verification films: ok Changes in Medical Condition: Pyridium has decreased her dsyuria. Still has increased frequency of urination. Mild diarrhea, controlled w/imodium. Some anorectal irritation. Skin ok. No lower leg/feet swelling. Tired. Appetite fair. Nausea when wakes in AM, gone w/in a couple of hrs. Physical Exam: A&Ox3, in NAD. Amb stable. Skin in tx'd area w/mild hyperpigmentation, intact. Labs: 12/06/11 U/A: WBC 8-10, RBC few, bacteria many. 12/06/11 Urine cuture: No growth. 12/11/11 CBC: WBC 3.4, Hgb 10.3, Hct 30.7, Plts 107 K, ANC 2.4. Response to xrt: As expected. Radiation Related Symptoms: Dysuria & increased frequency of urination, diarrhea, nausea, tiredness. Treatment for Symptom Control: Pyridium, Imodium, Isaac's cream. Recommendation on Continuing Course of Tx: Cont. CTsim today for intravag cylinder brachy plan. documented in this encounter Procedure Notes * Provider, Scanning - 12/18/2011 4:55 PM ESTAssociated Order(s): SCAN DOC: LAB documented in this encounter Plan of Treatment Not on file documented as of this encounter Procedures Procedure Name Priority Date/Time Associated Diagnosis Comments LAB SCAN 12/18/2011 4:55 PM EST documented in this encounter Results * SCAN DOC: LAB (12/18/2011 4:55 PM EST) Narrative 12/18/2011 4:55 PM EST Procedure Note Provider, Scanning - 12/18/2011 4:55 PM EST Scanning Provider MEDIA MGR SCAN EXT O RDR/RSLT documented in this encounter Visit Diagnoses Diagnosis Uterine cancer- Primary Malignant neoplasm of uterus, part unspecified documented in this encounter Care Teams Intellectual Property Paralegal Relationship Specialty Start Date End Date Gus Pacheco MD [address] [place] [address] PCP - General 06/20/11 01/14/12 documented as of this encounter
--- OUTSIDE RECORDS SUMMARY | 2024-09-09 09:35 | XMS_ITS | Encounter Summary ---
Author Organization [facility] [place] [address] Care Team Providers Care Regulatory Assistant Name Role Phone Casie García APRN Primary Care Provider +1- [phone] Reason for Visit * Reason Onset Date Comments Fatigue 03/01/2012 not feeling well Encounter Details Date Type Department Care Team (Late st Contact Info) Description 03/01/2012 Telephone Hematology Oncology at [address] [phone] Coby Plata RN Fatigue (not feeling well) Social History Tobacco Use Types Packs/Day Years [...] encounter Miscellaneous Notes * Telephone Encounter - Coby Plata RN - 03/01/2012 11:22 AM EDT Patient states she is not feeling well at all. Unable to eat as each time she has a liquid stool only got a Yogurt in yesterday. Temp 99. Wobbly on feet. No vomiting. Spoke with Dr. Grimes who statedshe need sto go to Local ER for evaluation. Pt agreed. Report called to Kristina [place] at [facility] in ER. documented in this encounter Plan of Treatment Not on file documented as of this encounter Visit Diagnoses Not on filedocumented in this encounter Care Teams Regulatory Assistant Relationship Specialty Start Date End Date Casie García APRN PCP - General 01/15/12 11/25/14 documented as of this encounter
--- OUTSIDE RECORDS SUMMARY | 2024-09-09 09:35 | XMS_ITS | Encounter Summary ---
[place] [address] Care Team Providers Care Clinical Lab Clerk Name Role Phone Gus Pacheco MD Primary Care Provider +1 -[phone] Encounter Details Date Type Department Care Team (Late st Contact Info) Description 01/08/2012 Notes [place] [phone] Nneka Cleary, RN Social History Tobacco Use Types Packs/Day Years [...] as of this encounter Progress Notes * Nneka Cleray RN - 01/08/2012 3:43 PM EDT Radiation Oncology [employer] W[employer]CK[employer] Post Procedure Phone Note Procedure: x HDR Vaginal Cuff HDR ANY/Ring&Tandem/Tandem&Ovoids Procedure date: 01/05/12 Spoke on the phone to: Patient If not patient, whom? x Message left on answering machine Call attempted - unable to contact patient General condition as stated by the patient or designee: Excellent Good Fair Poor Other Are you feeling like yourself today? (level of consciousness) Baseline Sleepy Sleepless Other Nursing Post Procedure Information: Patient reports: YES NO Intervention and/or comments: urinary symptoms vaginal discharge vaginal bleeding fever and/or chills pain Nursing Notes: Paient/patient circulation representative verbalizes understanding of discharge instructions and phone number'sto call with any questions or concerns. Follow-up: Pt never called back . Will see again this week before her next HDR. documented in this encounter Plan of Treatment Not on file documented as of this encounter Visit Diagnoses Not on filedocumented in this encounter Care Teams Clinical Lab Clerk Relationship Specialty Start Date End Date Gus Pacheco MD [address] [place] [address] PCP - General 06/20/11 01/14/12 documented as of this encounter
--- OUTSIDE RECORDS SUMMARY | 2024-09-09 09:35 | XMS_ITS | Encounter Summary ---
Author Organization [facility] Address [facility] [address] Care Team Providers Care Tire And Tube Repairer Name Role Phone Gus Pacheco MD Primary Care Provider +1 -[phone] Reason for Visit * Reason Comments Radiation Treatment Encounter Details Date Type Department Care Team (Late st Contact Info) Description 11/21/2011 5:15 PM EST Follow-Up Radiation Oncology at [address] [phone] Sourav Travis MD Endometrial cancer (Primary Dx) Discharge Disposition: Home [...] Sign Reading Time Taken Comments Blood Pressure 126/79 11/21/2011 5:00 PM EST Pulse 70 11/21/2011 5:00 PM EST Temperature - - Respiratory Rate - - Oxygen Saturation 99% 11/21/2011 5:00 PM EST Inhaled Oxygen Concentration - - Weight 58.3 kg (128 lb 8 oz) 11/21/2011 5:00 PM EST Height - - Body Mass Index 23.53 11/15/2011 2:04 PM EST documented in this encounter Progress Notes * Sourav rTavis MD - 11/21/2011 6:01 PM EST ON TREATMENT VISIT: DATE:11/21/2011 PATIENT STATUS: Endometrial ca, endometrioid type w/squamous diff; FIGO gr III; tumor 4.8 cm; myometrial invasion < half (11 mm out of 29 mm); +myometrial LVSI; lower uterine segment involved by non-invasive tumor; cervix free of tumor; adenoca involving B ovaries & assoc'd w/endometriosis (see Comment); 11 R pelvic lymph nodes, all neg for malignancy; 5 L pelvic lymph nodes w/1 involved by met adenoca; paraaortic lymph node excision specimen showing nodular adipose tissue w/no lymph node identified; pN1[IIIC1]. Comment: The tumor involving the B ovaries is better differentiated than the endometrial ca & shows extensive mucinous differentiation w/interspersed foci of squamous differentiation. Ovarian endometriosis identified. It is possible the ovarian carcinomas represent synchronous primaries, but mets to ovaries cannot be excluded. Since there is a tumor met in a L pelvic lymph node, whether/not the ca in the ovaries represents mets does not alter the tumor stage (IIIC). Peritoneal fluid (washing): A few small clusters of atypical large cells present; cannot exclude the possibility of neoplasia. TREATMENT PLAN: RADIATION Site Technique Dose/ Fraction Fraction Number MeV p e TOTAL DOSE Treatment Dates pelvis I 3-D 180 25 p 4500 11/20 to DOSE to DATE:360 cGy in 2 FX RADIATION TREATMENT IMAGING: matches original approved images ON TREATMENT EVALUATION: MEDICAL: 0 PHYSICAL: 0 AIDS: LABS: TOXICITY:0 REFER TO NURSES UPDATED NOTES RESPONSE TO TREATMENT: MANAGEMENT PLAN: CONTINUE TREATMENT PLANNED: XX CHANGE TREATMENT HOLD TREATMENT STOP TREATMENT Discussion time with patient (face to face)5 min. documented in this encounter Plan of Treatment Not on file documented as of this encounter Visit Diagnoses Diagnosis Endometrial cancer- Primary Malignant neoplasm of corpus uteri, except isthmus documented in this encounter Care Teams Tire And Tube Repairer Relationship Specialty Start Date End Date Gus Pacheco MD [address] [place] [address] PCP - General 06/20/11 01/14/12 documented as of this encounter
--- OUTSIDE RECORDS SUMMARY | 2024-09-09 09:35 | XMS_ITS | Encounter Summary ---
Author Organization [facility] Address [facility] [place] [address] Care Team Providers Care Eyewear Manufacturing Tech Name Role Phone Gus Pacheco MD Primary Care Provider +1 -[phone] Encounter Details Date Type Department Care Team (Late st [facility]) Description 12/12/2011 Orders Only Radiation Oncology at [address] [phone] Lucero To MD [facility] [place] [address] Endometrial ca (Primary Dx) Social History Tobacco [...] isthmus documented in this encounter Care Teams Eyewear Manufacturing Tech Relationship Specialty Start Date End Date Gus Pacheco MD [address] [facility] [place] [id number] PCP - General 06/20/11 01/14/12 documented as of this encounter
--- OUTSIDE RECORDS SUMMARY | 2024-09-09 09:35 | XMS_ITS | Encounter Summary ---
Author Organization [facility] [place] [address] Care Team Providers Care Senior Interaction Designer Name Role Phone Casie García ABNER Primary Care Provider +1- [phone] Reason for Visit * Reason Comments Uterine Cancer neupogen shot Encounter Details Date Type Department Care Team (Late st Contact Info) Description 02/08/2012 1:00 PM EDT Office Visit Hematology Oncology at [address] [phone] CLINIC, DR [facility] HEM/ONC Augustus Grimes MD [address] [place] [address] Uterine cancer (Primary Dx) Discharge Disposition: [...] Progress Notes * Coby Plata RN - 02/08/2012 12:36 PM EDT Treatment Started: 1225 Treatment Ended: 1235 Diagnosis: Uterine cancer Treatment: Neupogen shot 480 mcg sc in right arm 1230 documented in this encounter Plan of Treatment Not on file documented as of this encounter Visit Diagnoses Diagnosis Uterine cancer- Primary Malignant neoplasm of uterus, part unspecified documented in this encounter Administered Medications Inactive Administered Medications - up to 3 most recent administrations Medication Order MAR Action Action Date Dose Rate Site filgrastim (NEUPOGEN) injection 480 mcg 480 mcg, Subcutaneous, ONCE, 1 dose, On Sue 02/08/12 at 1300, Routine Given 02/08/2012 12:30 PM EDT 480 mcg Rig ht Arm documented in this encounter Care Teams Senior Interaction Designer Relationship Specialty Start Date End Date Casie García, BLENDING PLANT OPERATOR PCP - General 01/15/12 11/25/14 documented as of this encounter
--- OUTSIDE RECORDS SUMMARY | 2024-09-09 09:35 | XMS_ITS | Encounter Summary ---
Author Organization [facility] [place] [address] Care Team Providers Care Supervising Law Enforcement Analyst Name Role Phone Casie García APRN Primary Care Provider +1- [phone] Reason for Visit * Reason Onset Date Comments Vaginal Bleeding 10/09/2012 Encounter Details Date Type Department Care Team (Late st Contact Info) Description 10/09/2012 Telephone [place] [phone] Olimpia Montano, RN Vaginal Bleeding Social History Tobacco Use Types Packs/Day Years [...] encounter Miscellaneous Notes * Telephone Encounter - Olimpia Montano RN - 10/09/2012 12:29 PM EST TELEPHONE NOTE Caller: Farzana Reason for call: Farzana calls to report she saw her PCP yesterday for what she thought was a UTI although her U/A was not conclusive. Her PCP did an internal which caused her to bleed quite heavily throughout the rest of yesterday. Since yesterday she has been spotting. Appointment offered with Lorri Duvall tomorrow. Assessment: vaginal bleeding Plan/Instructions: Appointment tomorrow with Lorri Duvall. Pt instructed to go to local ER if bleeding becomes severe ie soaking a maxi pad an hour. Pt agrees. documented in this encounter Plan of Treatment Not on file documented as of this encounter Visit Diagnoses Not on filedocumented in this encounter Care Teams Supervising Law Enforcement Analyst Relationship Specialty Start Date End Date Casie García APRN PCP - General 01/15/12 11/25/14 documented as of this encounter
--- OUTSIDE RECORDS SUMMARY | 2024-09-09 09:35 | XMS_ITS | Encounter Summary ---
[place] [address] Care Team Providers Care Civil Engineering Designer Name Role Phone Casie García APRN Primary Care Provider +1- [phone] Reason for Visit * Reason Onset Date Comments Vaginal Bleeding 10/09/2012 Encounter Details Date Type Department Care Team (Late st Contact Info) Description 10/09/2012 Telephone Hematology Oncology at [address] [phone] Fiona Pradhan, RN Vaginal Bleeding Social History Tobacco Use [...] Miscellaneous Notes * Telephone Encounter - Fiona Pradhan, RN - 10/09/2012 12:21 PM EST Patient has experienced bleeding from the vaginal/urinary area since 10/05. She is also experiencing pain with urination and assumed that she had a urinary tract infection. She was seen by her PCP's office. They were unable to determine where the bleeding was coming from. She was placed on trimethoprim- sulphamethoxazole. The PCP's office recommended that she consult [facility] call Dr. Horton office at [facility] to request an appointment IVANNA. Farzana stated that the bleeding seems slightly less today. She does have some bleeding after intercourse, but this has continued much longer and has been a larger volume. She also states that she has bilateral flank pain and her temperature is 101 F. Farzana agrees to call [facility] and speak with MARINE FARMER Oncology. documented in this encounter Plan of Treatment Not on file documented as of this encounter Visit Diagnoses Not on filedocumented in this encounter Care Teams Civil Engineering Designer Relationship Specialty Start Date End Date Casie García APRN PCP - General 01/15/12 11/25/14 documented as of this encounter
--- OUTSIDE RECORDS SUMMARY | 2024-09-09 09:35 | XMS_ITS | Encounter Summary ---
Author Organization [facility] [place] [address] Care Team Providers Care Commercial Baking Teacher Name Role Phone Gus Pacheco MD Primary Care Provider [phone] [phone] Reason for Visit * Reason Comments Ovarian Cancer Encounter Details Date Type Department Care Team (Late st Contact Info) Description 12/19/2011 2:00 PM EST Follow-Up Hematology Oncology at [address] [phone] Augustus Grimes MD [address] [place] [address] Endometrial cancer (Primary Dx) Discharge Disposition: [...] Sign Reading Time Taken Comments Blood Pressure 108/68 12/19/2011 2:10 PM EST Pulse 69 12/19/2011 2:10 PM EST Temperature 36.7 ??C (98.1 ??F) 12/19/2011 2:10 PM ES T Respiratory Rate 18 12/19/2011 2:10 PM EST Oxygen Saturation 99% 12/19/2011 2:10 PM EST Inhaled Oxygen Concentration - - Weight 58 kg (127 lb 13.9 oz) 12/19/2011 2:10 PM EST Height 157.4 cm (5' 1.97) 12/19/2011 2:10 PM ES T Body Mass Index 23.41 12/19/2011 2:10 PM EST documented in this encounter Progress Notes * Augustus Grimes MD - 12/19/2011 4:32 PM EST Diagnosis: Adenocarcinoma of the endometrium, [...] of tumor. Subjective: Farzana comes in today She is having quite a bit of GI upset post radiation therapy but is toleratingantiemetics well and overall is keeping her spirits up with the treatment. After the completion of radiation therapy here in [facility] she will go to [facility] for 3 consecutive weeks in December for a in tracavitary boost of radiation. Other than nausea and occasional diarrhea she is doing reasonably well Past medical history and social history are reviewed and unchanged from when I saw her 6 weeks ago. Review of Systems Constitutional: Negative [...] normal Neurologic: Normal Her laboratory is reviewed. Her white count is 3.13 hemoglobin is 10.5 hematocrit 31.4 mean cell volume still down at 75 platelet count 156. ANC is 1.86. With her on radiation therapy to decrease in white count is mostly from a low lymphocyte count Assessment/Plan: Farzana is doing well overall. She will not actually be through with radiation therapy to near the end of December. After a couple weeks off but like to see her back in in see about getting her started onthe last 3 cycles of chemotherapy. She remains iron deficient with no possibility because of GI symptoms she's having related to her treatment, of being able to take oral iron. We'll check a ferritinwhen she returns and if we have a week or 2 before we actually start the chemotherapy considerationto IV Venofer would be given. We will arrange to see her back the first week in January with a CBC CMP and ferritin. She'll let us know if any problems develop in the interim. documented in this encounter Procedure Notes * Provider, Scanning - 12/25/2011 4:41 PM ESTAssociated Order(s): SCAN DOC: LAB documented in this encounter Plan of Treatment Not on file documented as of this encounter Procedures Procedure Name Priority Date/Time Associated Diagnosis Comments LAB SCAN 12/25/2011 4:41 PM EST documented in this encounter Results * SCAN DOC: LAB (12/25/2011 4:41 PM EST) Narrative 12/25/2011 4:41 PM EST Procedure Note Provider, Scanning - 12/25/2011 4:41 PM EST Scanning Provider MEDIA MGR SCAN EXT O RDR/RSLT documented in this encounter Visit Diagnoses Diagnosis Endometrial cancer- Primary Malignant neoplasm of corpus uteri, except isthmus documented in this encounter Care Teams Commercial Baking Teacher Relationship Specialty Start Date End Date Gus Pacheco MD [address] [place] [address] PCP - General 06/20/11 01/14/12 documented as of this encounter
--- OUTSIDE RECORDS SUMMARY | 2024-09-09 09:35 | XMS_ITS | Encounter Summary ---
Author Organization [facility] Address [facility] [place] [address] Care Team Providers Care Justice Of The Peace Name Role Phone Ricky Casieluis angel Miranda APRN Primary Care Provider +1- [phone] Encounter Details Date Type Department Care Team (Late st Contact Info) Description 02/15/2012 Notes Only Hematology Oncology at [address] [phone] Linda Tomlinson MUSHROOM CULTIVATOR OFFICE OF CARE MANAGEMENT Social History Tobacco [...] Progress Notes * Linda Tomlinson MSW - 02/15/2012 11:53 AM EDT Follow up with pt during clinic visit. She still plans on utilizing some financial assistance through the [employer] for help with living expenses. She understands she has to bring in some bills so wecan submit an application for assistance. Pt indicated she did hear that her SSD income should start the middle of February. She is still waiting to hear about SSI. Will continue to follow pt and assist with yuniel to [employer] fund if she wants to. documented in this encounter Plan of Treatment Not on file documented as of this encounter Visit Diagnoses Not on filedocumented in this encounter Care Teams Justice Of The Peace Relationship Specialty Start Date End Date Casie García APRN PCP - General 01/15/12 11/25/14 documented as of this encounter
--- OUTSIDE RECORDS SUMMARY | 2024-09-09 09:35 | XMS_ITS | Encounter Summary ---
Author Organization [facility] [place] [address] Care Team Providers Care Director Employee Safety And Health Name Role Phone Casie García Ruth LEVINE Primary Care Provider +1- [phone] Reason for Visit * Reason Comments Endometrial Cancer cycle 5 carbo/taxol Encounter Details Date Type Department Care Team (Late st Contact Info) Description 02/22/2012 10:00 AM EDT Office Visit Hematology Oncology at [address] [phone] CLINIC, DR LOPEZ HEM/ONC Endometrial [...] of this encounter Progress Notes * Coby Pltaa RN - 02/22/2012 3:52 PM EDT INFUSION THERAPY ADMINISTRATION NOTES TIME TREATMENT STARTED: 944 TIME TREATMENT ENDED: 1549 DIAGNOSIS: endometrial cancer PROTOCOL:na CYCLE #: 5 REASON FOR VISIT: carbo/taxol SUBJECTIVE Farzana Garcia offers no complaints. OBJECTIVE LAB DATA: Labs reviewed and found adequate for treatment. REACTIONS (DESCRIPTION, TIME, INTERVENTION AND EFFECTIVENESS) none ASSESSMENT Farzana Garcia was awake, alert and he tolerated treatment well. PLAN Return to clinic tomorrow for neulasta and then in 3 weeks for cycle 6. documented in this encounter Plan of Treatment [...] mg, Intravenous, ONCE, 1 dose, On Sue 02/22/12 at 1000, Administer over 60 Minutes New Bag 02/22/2012 2:35 PM EDT 635 mg 313.5 mL/hr dexamethasone sodium (PF) 10 mg in sodium chloride 0.9% 51 mL IVPB Intravenous, at 204 mL/hr, ONCE, On Sue 02/22/12 at 1000, 1 dose, PRE CHEMO Given 02/22/2012 10:45 AM EDT 204 mL/hr famotidine (PEPCID) 20 mg, diphenhydrAMINE (BENADRYL) 25 mg in sodium chloride 0.9% 52.5 mL IVPB Intravenous, at 210 mL/hr, ONCE, On Sue 02/22/12 at 1000, 1 dose, PRE CHEMO Given 02/22/2012 10:12 AM EDT 210 mL/hr fosaprepitant (EMEND) 150 mg in sodium chloride 0.9% 155 mL infusion 150 mg, Intravenous, ONCE, 1 dose, On Sue 02/22/12 at 1000, Administer over 30 Minutes, PRE CHEMO New Bag 02/22/2012 11:01 AM EDT 150 mg 310 mL/hr paclitaxel (TAXOL) 285 mg in dextrose 5% Non-PVC 547.5 mL chemo infusion 285 mg, Intravenous, ONCE, 1 dose, On Sue 02/22/12 at 1000, Administer over 3 Hours New Bag 02/22/2012 11:33 AM EDT 285 mg 182.5 mL/hr palonosetron (ALOXI) injection 0.25 mg 0.25 mg, Intravenous, ONCE, 1 dose, On Sue 02/22/12 at 1000, Routine Given 02/22/2012 10:03 AM EDT 0.25 mg documented in this encounter Care Teams Director Employee Safety And Health Relationship Specialty Start Date End Date Casie García, ABNER PCP - General 01/15/12 11/25/14 documented as of this encounter
--- OUTSIDE RECORDS SUMMARY | 2024-09-09 09:35 | XMS_ITS | Encounter Summary ---
Author [facility] [place] [address] Care Team Providers Care Metal Mover Name Role Phone García Casieluis angel Miranda APRN Primary Care Provider [phone]- [phone] Reason for Visit * Reason Onset Date Comments Labs Only 02/09/2012 reveiw Encounter Details Date Type Department Care Team (Late st Contact Info) Description 02/09/2012 Telephone Hematology Oncology at [address] [phone] Coby Plata RN Labs Only (reveiw) Social History Tobacco Use Types Packs/Day Years [...] Telephone Encounter - Coby Plata RN - 02/09/2012 10:20 AM EDT Wbc 6.44, ANC 5.20, PLT 84, reveiwed labs with Dr. Grimes and he stated patient can get dental extraction, Dr. Manzo office called and relayed information. documented in this encounter Plan of Treatment Not on file documented as of this encounter Visit Diagnoses Not on filedocumented in this encounter Care Teams Metal Mover Relationship Specialty Start Date End Date Casie García APRN PCP - General 01/15/12 11/25/14 documented as of this encounter
--- OUTSIDE RECORDS SUMMARY | 2024-09-09 09:35 | XMS_ITS | Encounter Summary ---
Author Organization [facility] [place] [address] Care Team Providers Care Courier Name Role Phone Gus Pacheco MD Primary Care Provider +1 -[phone] Encounter Details Date Type Department Care Team (Late st Contact Info) Description 12/07/2011 Orders Only Radiation Oncology at [address] [phone] Neelima Herrera RN Dysuria (Primary Dx) Social History Tobacco Use Types [...] as of this encounter Progress Notes * Neelima Laboy RN - 12/07/2011 12:55 PM EST Radiation Oncology Nurse Note Called patient. Informed her that urine analysis is normal and that her dysuria is most likely a side effect of her radiotherapy. Dr To prescribed her pyridium. She was advised that this will cause urine to be a bright orang-red color and may stain clothing. She may take it three times a day asneeded. She was reminded to also drink plenty of fluids as well. Patient verbalized understanding of these instructions. documented in this encounter Plan of Treatment Not on file documented as of this encounter Visit Diagnoses Diagnosis Dysuria- Primary documented in this encounter Care Teams Courier Relationship Specialty Start Date End Date Gus Pacheco MD [address] [place] [address] PCP - General 06/20/11 01/14/12 documented as of this encounter
--- OUTSIDE RECORDS SUMMARY | 2024-09-09 09:35 | XMS_ITS | Encounter Summary ---
[place] [address] Care Team Providers Care Box Truck Owner Operator Name Role Phone Casie García APRN Primary Care Provider +1- [phone] Reason for Visit * Reason Onset Date Comments Other 02/06/2012 Encounter Details Date Type Department Care Team (Late st Contact Info) Description 02/06/2012 Telephone Hematology Oncology at [address] [phone] Areli Avalos, RN Other Social History Tobacco Use Types [...] encounter Miscellaneous Notes * Telephone Encounter - Areli Avalos, RN - 02/06/2012 10:26 AM EDT Phone call from patient to report that she believes she needs to have her tooth pulled, she is trying to make appointment with dentist, but dentist advised her to check with oncologist prior to proceeding. Per Dr. Grimes, patient can get labs drawn on Sunday, 02/11 and then have tooth pulled 02/12 or02/13, if counts adequate. Dr. Grimes to see patient on 02/14 for consideration of next cycle of chemotherapy. Phone call back to Farzana to instruct. She verbalizes understanding - states goingfor consult tomorrow. We will plan to check for labs on Sunday and notify Farzana as to if they are adequate to proceed. Phone call to Rosy at [facility] - [facility] and scheduled it for Sunday 02/11 at 1030 at patient request. documented in this encounter Plan of Treatment Not on file documented as of this encounter Visit Diagnoses Not on filedocumented in this encounter Care Teams Box Truck Owner Operator Relationship Specialty Start Date End Date Casie García APRN PCP - General 01/15/12 11/25/14 documented as of this encounter
--- OUTSIDE RECORDS SUMMARY | 2024-09-09 09:36 | XMS_ITS | Encounter Summary ---
Author Organization [facility] [place] [address] Care Team Providers Care Wire Wheeler Name Role Phone Gus Pacheco MD Primary Care Provider +1 -[phone] Reason for Visit * Reason Onset Date Comments Shoulder Pain 06/29/2011 Encounter Details Date Type Department Care Team (Late st Contact Info) Description 06/29/2011 Telephone [place] [phone] Olimpia Montano RN Shoulder Pain Social History Tobacco Use Types Packs/Day Years Used Date Smoking Tobacco: Never Smokeless Tobacco: Never Alcohol Use Standard Drinks/Week Comments No 0 (1 standard drink = 0.6 oz pur e alcohol) Sex and Gender Information Value Date Recorded Sex Assigned at Not on file Gender Identity Not on file Sexual Orientation Not on file documented as of this encounter Miscellaneous Notes * Telephone Encounter - Olimpia Montano RN - 06/29/2011 1:47 PM EDT TELEPHONE NOTE Caller: pt Reason for call: Pt calls stating she has pain under her shoulder blades. Explained to pt that the gas from surgery gets stuck under the shoulder blades and will take a few days to dissipate. Pt alsostates that the front of her legs tingle. I suggested it may have been the position she was placed in during surgery. Assessment: Pt feeling well otherwise Plan/Instructions: Pt will call if she has any concerns or if any of the above symptoms get worse. Pt agrees with plan. documented in this encounter Plan of Treatment Not on file documented as of this encounter Visit Diagnoses Not on filedocumented in this encounter Care Teams Wire Wheeler Relationship Specialty Start Date End Date Gus Pacheco MD [address] [facility] [place] [address] PCP - General 06/20/11 01/14/12 documented as of this encounter
--- OUTSIDE RECORDS SUMMARY | 2024-09-09 09:36 | XMS_ITS | Encounter Summary ---
Author Organization [facility] [place] [address] Care Team Providers Care Clearing Tub Worker Name Role Phone Gus Pacheco MD Primary Care Provider +1 -[phone] Reason for Visit * Reason Onset Date Comments Other 07/26/2011 Encounter Details Date Type Department Care Team (Late st Contact Info) Description 07/26/2011 Telephone [place] [phone] Olimpia Montano RN Other Social History Tobacco Use Types [...] Telephone Encounter - Olimpia Montano RN - 07/26/2011 1:55 PM EDT TELEPHONE NOTE Caller: pt Reason for call: Pt calls stating she is suppose to start chemo and XRT soon but she has several broken decaying teeth with some known gum infection. Asking if she should get it fixed before or afterchemo. Advised pt to get her teeth fixed before chemo. Assessment: needs dental work Plan/Instructions: Pt will follow up with her dentist re getting her teeth/mouth in good order for chemo. documented in this encounter Plan of Treatment Not on file documented as of this encounter Visit Diagnoses Not on filedocumented in this encounter Care Teams Clearing Tub Worker Relationship Specialty Start Date End Date Gus Pacheco MD [address] [place] [address] PCP - General 06/20/11 01/14/12 documented as of this encounter
--- OUTSIDE RECORDS SUMMARY | 2024-09-09 09:36 | XMS_ITS | Encounter Summary ---
Author Organization [facility] [place] [address] Care Team Providers Care Horticulture Superintendent Name Role Phone Gus Pacheco MD Primary Care Provider +1 -[phone] Encounter Details Date Type Department Care Team (Late st Contact Info) Description 08/09/2011 Notes Only Hematology Oncology at [address] [phone] Linda Tomlinson PHYSICIAN AIDE OFFICE OF CARE MANAGEMENT Social History Tobacco [...] Progress Notes * Linda Tomlinson MSW - 08/09/2011 3:40 PM EDT Reason for Referral - Assessment of social/emotional needs and to assist with financial stressors. Met with pt, parents and brother 08/07/11. Social Supports - Pt is single. She has 2 adult children - son Rick lives nearby and urvashi Fuchs lives in [place] but they are estranged. Pt is living with her parents. She has 2 brothers. Her Brother Velma present today. Living Situation/Daily Activities/Transportation - Pt is living with her parents. She is managing her daily activities. Her father will be driving her to her appointments. Gave pt a [facility] eugenio for assistance with transportation costs. Pt completed eugenio and brought in today. Eugenio completed and mailed in. Financial/Legal/Insurance Issues - Pt reports her unemployment is running out. She has applied for both SSI and SSDI. Her phone interview is schedule for today. She has [employer] for her insurance. She has limited resources. [facility] pt [facility] should she need some assistance with daily expenses as her financial situation is sorted out. Advance Directives - Pt indicated she completed her AD ~ 10 yrs ago. Encouraged her to review thesedocuments and if her wishes are the same they can stay in place. Did give her an updated AD form should she wish to make out a new document. Offered to assist her if needed. Spirituality - Pt indicated she does not belong to a alise community. She reports she receives a lot of support from the local [employer] group. Adjustment to Illness - Pt indicated she is coping well with the support of her fm. Assessment/Plan - Sorting out financial situation. Beginning to explore options for assistance. MSWto follow up with pt re this. Submitted [facility] eugenio and will follow up re outcome of her phone interview with SS. documented in this encounter Plan of Treatment Not on file documented as of this encounter Visit Diagnoses Not on filedocumented in this encounter Care Teams Horticulture Superintendent Relationship Specialty Start Date End Date Gus Pacheco MD [address] [facility] [place] [address] PCP - General 06/20/11 01/14/12 documented as of this encounter
--- OUTSIDE RECORDS SUMMARY | 2024-09-09 09:36 | XMS_ITS | Encounter Summary ---
Author Organization [facility] [place] [address] Care Team Providers Care Pharmacy Resident Name Role Phone Gus Pacheco MD Primary Care Provider +1 -[phone] Encounter Details Date Type Department Care Team (Late st Contact Info) Description 06/20/2011 10:00 AM EDT Clinical [place] [address] Social History Tobacco Use Types Packs/Day Years [...] Taken Comments Blood Pressure - - Pulse 85 06/20/2011 9:36 AM EDT Temperature - - Respiratory Rate - - Oxygen Saturation 99% 06/20/2011 9:36 AM EDT Inhaled Oxygen Concentration - - Weight - - Height - - Body Mass Index - - documented in this encounter Progress Notes * Carol Kumar RN - 06/20/2011 10:02 AM EDT Reviewed PAT questionnaire with patient today. Declined advance directive booklet. Patient stated that she would be doing a clear liquid diet as directed by the clinic prior to surgery. documented in this encounter Miscellaneous Notes * Miscellaneous - Delmar Angle Shearer - 07/02/2011 2:49 PM EDT documented in this encounter Plan of Treatment Not on file documented as of this encounter Procedures Procedure Name Priority Date/Time Associated Diagnosis Comments XR CHEST PA AND LATERAL Routine 06/20/2011 10:28 AM EDT documented in this encounter Results * XR CHEST ROUTINE PA & LATERAL (06/20/2011 10:28 AM EDT) Anatomical Region Laterality Modality Chest N/A Radiographic Tyesha ging 06/20/2011 10:2 8 AM EDT Impressions 06/22/2011 5:42 PM EDT IMPRESSION: ?? Normal chest. ??No evidence of pulmonary metastasis. ?? Film and interpretation reviewed by the attending Narrative 06/22/2011 5:42 PM EDT PA AND LATERAL VIEWS OF THE CHEST: INDICATION: ??Endometrial cancer, staging workup. COMPARISON: ??None. FINDINGS: ??The lungs are clear. ??No pleural effusion or pneumothorax. ?? Cardiomediastinal silhouette and pulmonary vasculature within normal limits. ?? No gross osseous abnormalities. Procedure Note Sydnie Murphy MD - 06/22/2011 PA AND LATERAL VIEWS OF THE CHEST: INDICATION: Endometrial cancer, staging workup. COMPARISON: None. FINDINGS: The lungs are clear. No pleural effusion or pneumothorax. Cardiomediastinal silhouette and pulmonary vasculature within normallimits. No gross osseous abnormalities. IMPRESSION IMPRESSION: Normal chest. No evidence of pulmonary metastasis. Film and interpretation reviewed by the attending Judy Horton MD IMG DX ORDERABLES documented in this encounter Visit Diagnoses Not on filedocumented in this encounter Care Teams Pharmacy Resident Relationship Specialty Start Date End Date Gus Pacheco MD [address] [place] [address] PCP - General 06/20/11 01/14/12 documented as of this encounter
--- OUTSIDE RECORDS SUMMARY | 2024-09-09 09:36 | XMS_ITS | Encounter Summary ---
Author Organization Count Includes [facility] [address] Care Team Providers Care Animal Humane Agent Supervisor Name Role Phone Gus Pacheco MD Primary Care Provider [phone] -[phone] Encounter Details Date Type Department Care Team (Latest Contact Info) Description 06/26/2011 2:02 PM EDT - 06/26/2011 11:59 PM EDT Hospital [place] [address] Judy Horton MD [facility] [place] [address] Discharge Disposition: Home Social History Tobacco Use [...] Sig Dispensed Refills Start Date End Date ibuprofen (ADVIL;MOTRIN) 600 mg tablet Take 1 tablet by mouth every 6 hours. 60 tablet 2 06/28/2011 07/15/2012 OXYcodone (ROXICODONE) 5 mg immediate release tablet Take 1 tablet by mouth every 3 hours as needed for Pain. 30 tablet 0 06/28/2011 10/31/2011 senna-docusate (PERICOLACE) 8.6-50 mg per tablet Take 1 tablet by mouth 2 times daily. 60 tablet 11 06/28/2011 10/31/2011 zolpidem (AMBIEN) 5 mg tablet Take 10 mg by mouth nightly as needed. 01/23/2012 documented as of this encounter Plan of Treatment Not on file documented as of this encounter Visit Diagnoses Not on filedocumented in this encounter Care Teams Animal Humane Agent Supervisor Relationship Specialty Start Date End Date Gus Pacheco MD [address] [facility] [place] [address] PCP - General 06/20/11 01/14/12 documented as of this encounter
--- OUTSIDE RECORDS SUMMARY | 2024-09-09 09:36 | XMS_ITS | Encounter Summary ---
Author Organization [facility] [place] [address] Care Team Providers Care Superintendent Measurement Name Role Phone Gus Pacheco MD Primary Care Provider +1 [phone] Encounter Details Date Type Department Care Team (Late st Contact Info) Description 08/28/2011 Notes Only Hematology Oncology at [address] [phone] Linda Tomlinson PSYCHIATRIC SOCIAL WORKER SUPERVISOR OFFICE OF CARE MANAGEMENT Social History Tobacco [...] Progress Notes * Linda Tomlinson MSW - 08/28/2011 4:26 PM EST Met with pt during clinic visit today. Reports she has been denied SSI but plans to appeal as she will have no income when her unemployment ends this week. Working on SS Disability also. Encourage ptto update DCF re change in income as may be eligible for increase in assistance with food. [facility] should she need help with some living expenses as this issue is sorted out. Made plan to follow up with pt next week. documented in this encounter Plan of Treatment Not on file documented as of this encounter Visit Diagnoses Not on filedocumented in this encounter Care Teams Superintendent Measurement Relationship Specialty Start Date End Date Gus Pacheco MD [address] [place] [address] PCP - General 06/20/11 01/14/12 documented as of this encounter
--- OUTSIDE RECORDS SUMMARY | 2024-09-09 09:36 | XMS_ITS | Encounter Summary ---
[place] [address] Care Team Providers Care Interactive Media Marketing Director Name Role Phone Gus Pacheco MD Primary Care Provider [phone] [phone] Encounter Details Date Type Department Care Team (Late st Contact Info) Description 06/23/2011 Abstract [place] [address] Mary Guerra, RN Social History Tobacco Use Types Packs/Day [...] on filedocumented in this encounter Care Teams Interactive Media Marketing Director Relationship Specialty Start Date End Date Gus Pacheco MD [address] [place] [address] PCP - General 06/20/11 01/14/12 documented as of this encounter
--- OUTSIDE RECORDS SUMMARY | 2024-09-09 09:36 | XMS_ITS | Encounter Summary ---
Author Organization [facility] Address [facility] [address] [address] Care Team Providers Care Ramp Attendant Name Role Phone Gus Pacheco MD Primary Care Provider [phone] [phone] Reason for Visit * Reason Comments Chemotherapy #1 Carbo/Taxol Encounter Details Date Type Department Care Team (Late st Contact Info) Description 09/15/2011 10:00 AM EST Office Visit Hematology Oncology at [address] [phone] CLINIC, DR LOPEZ HEM/ONC Graham Hollingsworth MD [facility] DR HEMATOLOGY [place] [address] Endometrial cancer (Primary Dx) Discharge Disposition: Home [...] Reading Time Taken Comments Blood Pressure 120/79 09/15/2011 9:52 AM EST Pulse 90 09/15/2011 9:52 AM EST Temperature 36.9 ??C (98.4 ??F) 09/15/2011 9:52 AM ES T Respiratory Rate 18 09/15/2011 9:52 AM EST Oxygen Saturation 99% 09/15/2011 9:52 AM EST Inhaled Oxygen Concentration - - Weight - - Height - - Body Mass Index - - documented in this encounter Progress Notes * Judy Leon RN - 09/15/2011 11:33 AM EST INFUSION THERAPY ADMINISTRATION NOTES DIAGNOSIS: Endometrial Cancer CYCLE #:1 REASON FOR VISIT: Carbo/Taxol SUBJECTIVE Jesus complains of being a little nervous, it is real now, being here and all OBJECTIVE IV ACCESS: Mediport (new-Placed at [facility]) BLOOD RETURN: Yes, excellent ANY S/S OF INFECTION/EXTRAVASATIONS:No IV FLUSHED WITH: 20cc NS and 500 Units Heparin IV DISCONTINUED:Yes Pre administration: Chemotherapy orders independently verified for drug name, route, and dosage per patient's height, weight and BSA by Judy Leon RN and Areli Avalos RN. At time of administration: Immediately prior to administration Judy Leon RN and Emeli De Los Santos RN , independently verified the patient's identity using the patient's name and date of , and confirmed the drug name, dose, volume, route, expiration date/time and rate of administration delivered via IV pump. Consent for treatment verified in CIS. REACTIONS (DESCRIPTION, TIME, INTERVENTION AND EFFECTIVENESS) 2:15pm Patient complained of a hot flash that was lasting longer than usual. Taxol paused and vital signs taken, 120/61-HR 79-T 36.9-RR 18-Sat 97%. Hot flash resolved and Taxol restarted at 2:33pm. ASSESSMENT Jesus was awake, alert and she tolerated treatment well. She was accompanied today by her parents who are her support people. PLAN Discussed chemo discharge instruction booklet, explained when to call Clinic and [facility]. Patient and family members state understanding. Patient to return to clinic per routine. documented in this [...] 600 mg, Intravenous, ONCE, 1 dose, On Sun09/15/11 at 1030, Administer over 60 Minutes New Bag 09/15/2011 3:30 PM EST 600 mg 310 mL/hr dexamethasone sodium (PF) 10 mg in sodium chloride 0.9% 51 mL IVPB Intravenous, at 204 mL/hr, ONCE, On Sun09/15/11 at 1030, 1 dose Given 09/15/2011 11:22 AM EST 204 mL/hr famotidine (PEPCID) 20 mg, diphenhydrAMINE (BENADRYL) 25 mg in sodium chloride 0.9% 52.5 mL IVPB Intravenous, at 210 mL/hr, ONCE, On Sun09/15/11 at 1030, 1 dose Given 09/15/2011 11:04 AM EST 210 mL/hr fosaprepitant (EMEND) 150 mg in sodium chloride 0.9% 155 mL infusion 150 mg, Intravenous, ONCE, 1 dose, On Sun09/15/11 at 1030, Administer over 30 Minutes New Bag 09/15/2011 10:10 AM EST 150 mg 310 mL/hr paclitaxel (TAXOL) 275 mg in dextrose 5% Non-PVC 545.8333 mL chemo infusion 275 mg, Intravenous, ONCE, 1 dose, On Sun09/15/11 at 1030, Administer over 3 Hours New Bag 09/15/2011 11:57 AM EST 275 mg 181.9 mL/hr palonosetron (ALOXI) injection 0.25 mg 0.25 mg, Intravenous, ONCE, 1 dose, On Sun09/15/11 at 1030, Routine Given 09/15/2011 11:00 AM EST 0.25 mg documented in this encounter Care Teams Ramp Attendant Relationship Specialty Start Date End Date Gus Pacheco MD [address] [place] [address] PCP - General 06/20/11 01/14/12 documented as of this encounter
--- OUTSIDE RECORDS SUMMARY | 2024-09-09 09:36 | XMS_ITS | Encounter Summary ---
Author Organization [facility] [place] [address] Care Team Providers Care Business Education Teacher Name Role Phone Gus Pacheco MD Primary Care Provider [phone] [phone] Reason for Visit * Reason Onset Date Comments Other 07/27/2011 Encounter Details Date Type Department Care Team (Late st Contact Info) Description 07/27/2011 Telephone [place] [phone] Olimpia Montano RN Other Social History Tobacco [...] Telephone Encounter - Olimpia Montano RN - 07/27/2011 10:00 AM EDT TELEPHONE NOTE Caller: Reason for call: Called pt with appointment in [facility] the [facility] on Aug [address] Armstrong for evaluation and planning. Assessment: appointment Plan/Instructions:Pt aware and agrees. documented in this encounter Plan of Treatment Not on file documented as of this encounter Visit Diagnoses Not on filedocumented in this encounter Care Teams Business Education Teacher Relationship Specialty Start Date End Date Gus Pacheco MD [address] [place] [address] PCP - General 06/20/11 01/14/12 documented as of this encounter
--- OUTSIDE RECORDS SUMMARY | 2024-09-09 09:36 | XMS_ITS | Encounter Summary ---
Author Organization [facility] [place] [address] Care Team Providers Care Net Software Engineer Name Role Phone Gus Pacheco MD Primary Care Provider [phone] [phone] Encounter Details Date Type Department Care Team (Late st Contact Info) Description 06/27/2011 12:36 PM EDT Anesthesia [place] [address] Regulo Montana MD [facility] [place] [address] Anesthesia Record Procedure Summary Procedure Name Responsible Anesthesiologist Anesthesia Start Time Anesthesia Stop Time ROBOTIC LAPAROSCOPY,TOTAL HYST, UTERUS<250GM, REM TUBE &/OR OVARY (WRVU 15) (Uterus) Regulo Montana MD 06/27/11 1236 06/27/11 1554 Events Date Time Event Comment 06/27/2011 1201 1236 Start 1554 Stop Meds * Agents No agents on file. * Blood No blood administrations on file. Lines, Drains, and Airways Type Details Placement Removal Urethral Catheter 06/27/11; indwelling double lumen catheter; latex; 16; inserted; 1; drainage bag to dependent drainage; 06/28/11; 0656 06/27/11 0000 by Jazmyne Alarcon RN 06/28/11 0656 by Emily Covarrubias RN Incision 06/27/11; abdomen; 06/19/22 (LDA cleanup utility RA#[id number]); 1715 (LDA cleanup utility RA#[id number]) 06/27/11 0000 by Jazmyne Alarcon RN 06/19/22 1715 by Jennifer Alaniz (RETIRED) Peripheral IV Line - Single Lumen 06/27/11; 06/28/11; 1522 06/27/11 0000 by Jazmyne Alarcon RN 06/28/11 1522 by Maylin Martin RN (RETIRED) Peripheral IV Line - Single Lumen 06/27/11 (placed by Cheryl Person RN); 1134; 06/28/11; 1522 06/27/11 1134 by Reba Estes RN 06/28/11 1522 by Maylin Martin RN documented in this encounter Social History Tobacco Use Types Packs/Day Years Used Date Smoking Tobacco: Never Smokeless Tobacco: Never Alcohol Use Standard Drinks/Week Comments No 0 (1 standard drink = 0.6 oz pur e alcohol) Sex and Gender Information Value Date Recorded Sex Assigned at Not on file Gender Identity Not on file Sexual Orientation Not on file documented as of this encounter OR Notes * Anesthesia Postprocedure Evaluation - Hernando Mcclain - 06/28/2011 12:25 PM EDT Patient: Farzana Garcia Procedure(s) Performed: LAPAROSCOPY,TOTAL HYST, UTERUS<250GM, SYDNEY TYBE &/OR OVARY, ROBOTIC ASSIST; LAPAROSCOPY,W\BILATERAL TOTAL PELVIC LYMPHADENECTOMY, PERIAORTIC LYMPH NODE SAMPLING, ROBOTIC Patient location: PACU Post-op pain: Adequate analgesia Post-op nausea: no nausea or vomiting Last Vitals: Filed Vitals: 06/28/11 0814 BP: 98/58 Pulse: 92 Temp: 36.9 ??C (98.4 ??F) Resp: 18 Post-op cardiovascular and respiratory status: is stable Level of consciousness: awake, alert and oriented Complications: no apparent complications Fluid Status: normal * Anesthesia Preprocedure Evaluation - Regulo Montana MD - 06/27/2011 11:57 AM EDT Images from the original note were not included. 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 Now hemoglobin is 8.6 with multiple antibodies. Also has history of PCOM aneurysm. Plan: GA Anesthetic plan and risks discussed with patient. Use of blood products discussed with and consented by. Plan discussed with resident. documented in this encounter Plan of Treatment Not on file documented as of this encounter Visit Diagnoses Not on filedocumented in this encounter Care Teams Net Software Engineer Relationship Specialty Start Date End Date Gus Pacheco MD [address] [place] [address] PCP - General 06/20/11 01/14/12 documented as of this encounter
--- OUTSIDE RECORDS SUMMARY | 2024-09-09 09:36 | XMS_ITS | Encounter Summary ---
Author Organization [facility] [place] [address] Care Team Providers Care Brokerage Purchase And Sale Clerk Name Role Phone Gus Pacheco MD Primary Care Provider [phone] [phone] Reason for Visit * Reason Comments Post Op Encounter Details Date Type Department Care Team (Latest Contact Info) Description 07/18/2011 11:19 AM EDT - 07/18/2011 11:59 PM EDT Hospital Encounter [place] [phone] Judy Horton MD [facility] [place] [address] Endometrial cancer Discharge Disposition: Home Social History [...] Sign Reading Time Taken Comments Blood Pressure 106/64 07/18/2011 11:30 AM EDT Pulse - - Temperature 37.1 ??C (98.8 ??F) 07/18/2011 11:30 AM E DT Respiratory Rate - - Oxygen Saturation - - Inhaled Oxygen Concentration - - Weight 55 kg (121 lb 4.1 oz) 07/18/2011 11:30 AM EDT Height - - Body Mass Index 22.17 06/27/2011 9:27 PM EDT documented in this encounter Medications at Time of Discharge [...] as of this encounter Progress Notes * Judy Horton MD - 07/29/2011 10:18 PM EDT Provider: Dr. Horton Patient Active Problem List Diagnoses ??? Endometrial cancer Grade 2 06/27/11: robotic TLH, BSO, PPALND ??? Brain aneurysm S/p surgery 2000 History of Present Illness: Jesus returns today for post-op check, s/p robotic assisted laparoscopic hysterectomy/BSO, pelvic and para-aortic lymphadenectomy on 06/27/2011. She had no leroy-operative complications and was discharged on POD 1. She feels well today, and has returned to her usual pre-operative functional status. She has no difficulties with bowel or bladder habits. She denies nausea orvomiting and is eating a regular diet. She has no vaginal bleeding. Her final pathology was reviewed: ---Pathologic Diagnosis--- A - Uterus, bilateral fallopian tubes and ovaries, resection: Specimen type: Hysterectomy and bilateral salpingo-oophorectomy Histologic type: Endometrial carcinoma, endometrioid type with squamous differentiation FIGO grade: III Architectural grade: 3 Nuclear grade: 2 Tumor size: 4.8 cm in diameter Myometrial invasion (no invasion, <1/2, >1/2): < 1/2 Depth of invasion (mm): 11.0 mm Width of myometrium (mm): 29.0 mm Myometrial lymphovascular space invasion: Present Lower uterine segment involvement: Involved by non-invasive tumor Cervical involvement: Cervix free of tumor Other: 1. Adenocarcinoma involving bilateral ovaries and associated with endometriosis 2. Adenomyosis 3. Bilateral fallopian tubes, no evidence of malignancy B - Right pelvic lymph nodes, excision: Eleven lymph nodes, no evidence of malignancy (0/11). C - Left pelvic lymph nodes, excision: Metastatic adenocarcinoma in one of five lymph nodes (1/5). D - Zoila-aortic lymph node, excision: Nodular adipose tissue, no lymph node identified. TNM Staging (AJCC, 7th ed., 2009): Primary tumor stage: See Comment Regional lymph nodes: pN1 [IIIC1] (Regional lymph node metastases to pelvic lymph nodes) Distant metastasis: pMX (Not applicable or not assessed) ---Comment--- The tumor involving the bilateral ovaries is better differentiated than the endometrial carcinoma and shows extensive mucinous differentiation with interspersed foci of squamous differentiation. Ovarian endometriosis is identified. It is possible that the ovarian carcinomas represent synchronous primaries, but metastases to the ovaries cannot be excluded. Since there is a tumor metastasis in a left pelvic lymph node, whether or not the carcinoma in the ovaries represents metastases does not alter the tumor stage (IIIC). Prior to Admission medications Medication Sig Start Date End Date Taking? Authorizing Provider ibuprofen (ADVIL;MOTRIN) 600 mg tablet Take 1 tablet by mouth every 6 hours. 06/28/11 Yes Ema Munguia MD senna-docusate (PERICOLACE) 8.6-50 mg per tablet Take 1 tablet by mouth 2 times daily. 06/28/11 Yes Ema Munguia MD zolpidem (AMBIEN) 5 mg tablet Take 10 mg by mouth nightly as needed. Yes Historical Provider, OXYcodone (ROXICODONE) 5 mg immediate release tablet Take 1 tablet by mouth every 3 hours as neededfor Pain. 06/28/11 Ema Munguia MD Allergies Allergen Reactions ??? Red Blood Cells Other (See Comments) Antibodies-Difficult to Crossmatch Review of Systems: Otherwise negative. Filed Vitals: 07/18/11 1130 BP: 106/64 Temp: 37.1 ??C (98.8 ??F) Weight: 55 kg (121 lb 4.1 oz) Physical Examination: Directed exam: Abdomen is obese without obvious abnormal mass, organomegaly or ascites. Incisions have healed well. There is no obvious hernia. Pelvic examination reveals normal external female genitalia, bimanual exam an intact vaginal cuff without induration or tenderness. Impression: Satisfactory post-op check. Her pathology is most consistent with dual primaries, with a Stage IIIC endometrial cancer and a Stage IB ovarian cancer. We had a very lengthy discussion withthe patient and her family about her pathology and the treatment options. I would support a combination of chemotherapy with carboplatin and paclitaxel x 3 cycles followed by pelvic radiotherapy, followed by an additional 3 cycles of chemotherapy. This would treat most adequately her dual primaries. We also discussed the option of cuff radiotherapy and chemotherapy and chemotherapy alone, both ofwhich might be adequate therapy, but might be undertreating given her relatively deep myoinvasion and LVSI. She would like to be treated in [facility]. Will arrange. Plan: Referral to [facility] for chemotherapy and radiation therapy. documented in this encounter Plan of Treatment Not on file documented as of this encounter Visit Diagnoses Diagnosis Endometrial cancer Malignant neoplasm of corpus uteri, except isthmus documented in this encounter Care Teams Brokerage Purchase And Sale Clerk Relationship Specialty Start Date End Date Gus Pacheco MD [address] [facility] [place] [address] PCP - General 06/20/11 01/14/12 documented as of this encounter
--- OUTSIDE RECORDS SUMMARY | 2024-09-09 09:36 | XMS_ITS | Encounter Summary ---
Author Organization [place] [address] Care Team Providers Care Diesel Locomotive Firer Name Role Phone Gus Pacheco MD Primary Care Provider [phone] [phone] Reason for Visit * Reason Onset Date Comments Results 07/11/2011 Encounter Details Date Type Department Care Team (Late st Contact Info) Description 07/11/2011 Telephone [place] [address] Judy Horton MD [facility] [place] [address] Results Social History Tobacco Use Types Packs/Day [...] Miscellaneous Notes * Telephone Encounter - Judy Horton MD - 07/11/2011 4:41 PM EDT Called patient with results. She has either Stage IIIC endometrial cancer or concomitant primaries.Would treat with chemotherapy. documented in this encounter Plan of Treatment Not on file documented as of this encounter Visit Diagnoses Not on filedocumented in this encounter Care Teams Diesel Locomotive Firer Relationship Specialty Start Date End Date Gus Pacheco MD [address] [place] [address] PCP - General 06/20/11 01/14/12 documented as of this encounter
--- OUTSIDE RECORDS SUMMARY | 2024-09-09 09:36 | XMS_ITS | Encounter Summary ---
Author Organization [facility] Address [facility] [place] [address] Care Team Providers Care Timber Harvester Operator Name Role Phone Neel Pacheco MD Primary Care Provider [phone] Encounter Details Date Type Department Care Team (Latest Contact Info) Description 06/27/2011 9:30 AM EDT - 06/28/2011 3:29 PM EDT Hospital Encounter [address] [place] [id number] Judy Millard MD [facility] [place] [address] Discharge Disposition: Home Social History Tobacco Use [...] Sign Reading Time Taken Comments Blood Pressure 90/50 06/28/2011 11:58 AM EDT Pulse 87 06/28/2011 11:58 AM EDT Temperature 37.1 ??C (98.8 ??F) 06/28/2011 11:58 AM E DT Respiratory Rate 16 06/28/2011 11:58 AM EDT Oxygen Saturation 95% 06/28/2011 11:58 AM EDT Inhaled Oxygen Concentration - - Weight 55.3 kg (122 lb) 06/27/2011 9:27 PM EDT Height 157.5 cm (5' 2.01) 06/27/2011 9:27 PM ED T Body Mass Index 22.31 06/27/2011 9:27 PM EDT documented in this encounter Discharge Instructions * Patient Instructions* Ema Gallegos MD - 06/28/2011 9:42 AM EDT For problems or concerns related to this hospitalization call: Weekdays 8am - 5pm: [phone] Nights and Weekends: [phone] and ask to speak to the gynecologic oncologist engine monitor Arrangements for VNA/home care: none PATIENT DISCHARGE INSTRUCTIONS Call your doctor if you develop: --A fever over 101 degrees --Severe pain --Heavy vaginal bleeding --Increasing pain, redness, or discharge at your incision --It is normal to have vaginal bleeding/spotting for up to three weeks following a hysterectomy Activity level: No heavy lifting, pushing or pulling for 6 weeks. No sexual intercourse, no tampons, nothing in the vagina for 6 weeks. Diet: You may resume your regular diet. Be sure you drink plenty of fluids. Please use senna twice daily for the entire time that you are taking pain medication to keep your bowel movements soft and regular. If you are constipated or have not had a bowel movement in 3 days, please use milk of magnesia, bisacodyl, or miralax as directed over the counter. Driving: Do not drive until you are off of all narcotic medications and you are not feeling pain; usually about 2 weeks. Shower/Bath: Showering is fine. Short baths are OK but you should avoid having any abdominal incision submerged for more than 10-15 minutes for the next 2 weeks. Wound Care: You have stitches just under the skin and these will dissolve on their own over the next couple of weeks. They do not need to be removed or altered.. Special Physician Instructions: 1. Ibuprofen is to be taken on a scheduled basis, this will help with inflammation and pain. 2. Oxycodone can be taken every 4 hours as needed for breakthough pain. This medication can be taken with ibuprofen. Senna is a stool softener that should be used everyday to prevent constipation as the pain medication can cause constipation. * Attachments The following attachments cannot be sent through Care Everywhere. * LAPAROSCOPICALLY ASSISTED VAGINAL HYSTERECTOMY: WHAT TO EXPECT AT HOME (HEBREW) documented in this encounter Medications at Time [...] as of this encounter Progress Notes * Emily Covarrubias RN - 06/28/2011 6:57 AM EDT Lemos catheter removed. DTV at 1100. * Judy Millard MD - 06/28/2011 6:50 AM EDT Inpatient Gynecological Oncology - Progress Note Admit Date: 06/27/2011 Hospital Day 1 day , POD #1 s/p robotic TLH, BSO, PPALND Problem List: No resolved problems to display. Active Hospital Problems Diagnoses ??? Endometrial cancer Resolved Hospital Problems Diagnoses Date Resolved Active Non-Hospital Problems Diagnoses ??? Brain aneurysm 24 Hour Events: To OR for above procedure Subjective: Patient reports that she is doing well this morning and her pain is better controlled. She did require one extra dose of IV dilaudid overnight yesterday. She is tolerating liquids without nausea or emesis. She ambulated once yesterday. She denies any SOB, CP, or flatus. Physical Exam: Last value Range last 24 hrs Temperature Temp: 37.2 ??C (99 ??F) Temp: [36.2 ??C (97.2 ??F)-37.2 ??C (99 ??F)] Heart Rate Heart Rate: 95 Heart Rate: [51-107] Blood Pressure BP: 90/54 mmHg BP: (90-119)/(40-65) Respiratory Rate Resp: 18 Resp: [12-19] SpO2 SpO2: 96 % SpO2: [93 %-100 %] Intake/Output Summary (Last 24 hours) at 06/28/11651 Last data filed at 06/28/11 0608 Gross per 24 hour Intake 6129 ml Output 2505 ml Net 3624 ml Physical Exam Constitutional: She appears well-developed and well-nourished. No distress. Cardiovascular: Normal rate, regular rhythm and normal heart sounds. Exam reveals no gallop and no friction rub. No murmur heard. Pulmonary/Chest: Effort normal and breath sounds normal. No respiratory distress. She has no wheezes. Abdominal: Soft. She exhibits no distension. No tenderness. She has no rebound and no guarding. Hypoactive BS Incision sites c/d/i without erythema or drainage Genitourinary: Lemos in place No vaginal bleeding Musculoskeletal: She exhibits no edema. Laboratory (Last 24 Hours): Recent Results (from the past 24 hour(s)) REFLEX LAB-ABORH TYPE MANUAL Component Value Range ??? Specimen OD [id number] ??? ABORh Type A Pos CBC (WITH DIFF) Component Value Range ??? WBC 6.0 4.0 - 10.0 (x10(3)/mcL) ??? RBC 3.27 (*) 3.93 - 5.22 (x10(6)/mcL) ??? Hemoglobin 7.0 (*) 11.2 - 15.7 (gm/dL) ??? Hematocrit 23.5 (*) 34.0 - 45.0 (%) ??? MCV 71.9 (*) 79.0 - 94.0 (fL) ??? MCH 21.4 (*) 26.6 - 32.2 (pg) ??? MCHC 29.8 (*) 32.0 - 36.5 (gm/dL) ??? Platelets 267 145 - 370 (x10(3)/mcL) ??? RDWSD Not Measured 35.0 - 46.0 (fL) ??? RDWCV Not Measured 10.9 - 14.4 (%) ??? MPV Not Measured 9.0 - 12.0 (fL) REFLEX LAB-SCAN, PERIPHERAL BLOOD Component Value Range ??? Plat Estimate Normal ??? RBC Morphology Abnormal ??? Microcytes gtr than 10 (/HPF) ??? Hypochromia Moderate ??? Ovalocytes 1-5 (/HPF) ??? Tear Drop Cells 1-5 (/HPF) ? ? Stippled RBCs Present (>1/HPF) REFLEX LAB-A-DIFF Component Value Range ??? Neutrophils % 83.2 (*) 34.0 - 71.0 (%) ??? Neutr Abs (ANC) 5.01 1.50 - 6.30 (x10(3)/mcL) ??? Lymphocytes % 7.6 (*) 19.0 - 53.0 (%) ??? Lymphocytes Abs 0.5 (*) 1.0 - 3.6 (x10(3)/mcL) ??? Monocytes % 7.1 4.0 - 13.0 (%) ??? Monocyte Abs 0.4 0.2 - 1.0 (x10(3)/mcL) ??? Eosinophils % 1.7 0.0 - 7.0 (%) ??? Eosinophils Abs 0.1 0.0 - 0.5 (x10(3)/mcL) ??? Basophils % 0.2 0.0 - 2.0 (%) ??? Basophils Abs 0.0 0.0 - 0.2 (x10(3)/mcL) ??? Immature Gran % 0.20 0.00 - 0.66 (%) ??? Crystal Gran Abs 0.01 0.00 - 0.05 (x10(3)/mcL) ELECTROLYTES PANEL Component Value Range ??? Sodium 135 135 - 145 (mmol/L) ??? Potassium 3.6 3.5 - 5.0 (mmol/L) ??? Chloride 103 98 - 107 (mmol/L) ??? CO2 24 22 - 31 (mmol/L) ??? Anion Gap 8 5 - 15 (mmol/L) BUN Component Value Range ??? BUN 8 8 - 18 (mg/dL) CREATININE, SERUM Component Value Range ??? Creatinine 0.48 (*) 0.70 - 1.20 (mg/dL) ? ? Estimated GFR >60 >=60 MAGNESIUM Component Value Range ??? Magnesium 0.73 0.69 - 1.07 (mmol/L) PHOSPHORUS Component Value Range ??? Phosphorus 3.9 2.5 - 4.5 (mg/dL) Assessment: Sunday Garcia is a 50 yo POD #1 s/p robotic TLH, BSO, PPALND doing well postoperatively. Plan: Pain Control: -- Adequate currently. Continue po oxycodone and ibuprofen. Patient likely got behind pain control overnight Cardiac/Heme: --BP and vitals stable with drop in hgb to 7.0 from 8.6. May consider transfusion today. Pulmonary: --Sating well on RA Gastrointestinal: --no nausea or vomiting. Continue to ADAT this morning Genitourinary: --good urine output. Will d/c lemos this morning Fluid/ Electrolytes: --will d/c IVFs this morning. --replete electrolytes as needed, none today Oncology: --Final pathology pending Disposition: --Anticipate d/c home later today pending tolerating a regular diet and voiding adequately EMA GALLEGOS MD 06/28/2011 I saw and evaluated the patient with Dr. Gallegos, and I confirmed the history and physical findings as outlined, and I agree with the note as written. She is hemodynamically stable, no indication for transfusion. Discharge this am. * Harsh Starr MD - 06/27/2011 9:58 PM EDT Gynecology - Progress Note- Post Op Check Sunday Garcia is an 50 y.o. woman post operative day 0 s/p Robotic TLH, BSO, PPALND for grade 2 adenocarinoma of uterus. Surgery had no complicaitons. Intraoperatively EBL ~ 50 cc. Subjective: She has complains of cramping pain.. Pain is controlled on narcotics PRN. She is not ambulating with assistance. Ptn is not hungry but tolerating liquids. She denies vomiting, abdominal pain, fussiness, diarrhea, cough and difficulty breathing. Physical Exam: Last Set of Vitals and range of vitals over past 24 hours: Last value Range last 24 hrs Temperature Temp: 36.6 ??C (97.9 ??F) Temp: [36.2 ??C (97.2 ??F)-36.6 ??C (97.9 ??F)] Heart Rate Heart Rate: 69 Heart Rate: [51-69] Blood Pressure BP: 98/54 mmHg BP: (96-119)/(40-65) Respiratory Rate Resp: 16 Resp: [12-19] SpO2 SpO2: 100 % SpO2: [93 %-100 %] Date 06/27/11 0700 - 06/28/11 0659 Shift 9832-4995 9683-3229 3443-7950 24 Hour Total I N T A K E I.V. (mL/kg/hr) 4817 4817 Shift Total (mL/kg) 4817 (87) 4817 (87) O U T P U T Urine (mL/kg/hr) 660 660 Blood 20 20 Shift Total (mL/kg) 680 (12.3) 680 (12.3) Weight (kg) 55.3 55.3 55.3 55.3 UOP: 300 cc in PACU, 360 : 132 hr. Physical Exam CV: RRR Pulm: CTAb Abd: Soft, appropriately tender, 4 incisions healing well Ext: no edema/tenderness. Laboratory (Last 24 Hours): Preop Hg 8.6 Assessment and Plan: Sunday Garcia is an 50 y.o. woman post operative day 0 s/p Robotic TLH, BSO, PPALND for grade 2 adenocarinoma of uterus. in stable condition, pain controlled and adequate urine output. Pain Control: --Ketorolac q8 hrs, oxycodone, dilaudid, tylenol PRN Cardiac: No issues. CBC in the AM Pulmonary: --incentive spiriometer at bedside Gastrointestinal: no nausea or vomiting. Lytes in the AM Genitourinary: good urine output keep lemos in place. Fluid/ Electrolytes: IVF . @ 100 Ambulation: change activity as tolerated Disposition: Home when medically stable HARSH STARR MD 06/27/2011 * Emily Covarrubias RN - 06/27/2011 9:38 PM EDT Oriented to room, bed and call system. VSS. Instructed on Incentive spirometer use and demonstratedunderstanding. Received 5mg PO Oxycodone x2 with good effect. Physical assessment per doc flowsheet. documented in this encounter H&P Notes * Urvashi Clinton - 06/27/2011 11:59 AM EDT Inpatient CONCRETE ENGINEER - Admission Interval Note I have reviewed the pre-procedure H&P completed by Dr Millard on 06/20/11. (x) Condition unchanged since H&P originally performed. Interval Note: Consent reviewed. A copy of this document will be sent to the patient's Primary Care Physician and/or Referring Physician. URVASHI CLINTON MD 06/27/2011 documented in this encounter Miscellaneous Notes * Miscellaneous - Provider, Scanning - 06/30/2011 12:14 PM EDT * Discharge Summary - Ema Gallegos MD - 06/28/2011 2:39 PM EDT Inpatient CONCRETE ENGINEER - Discharge Summary Patient Name: Sunday Garcia Patient Age: 50 y.o. Birthdate: 1960 Admit date: 06/27/2011 Discharge date and time: 06/28/2011 Attending Physician: Judy Millard MD Discharge Diagnoses (Hospital Problems) and Secondary Diagnoses (Chronic Problems): Active Hospital Problems Diagnoses ??? Endometrial cancer Grade 2 06/27/11: robotic TLH, BSO, PPALND Resolved Hospital Problems Diagnoses Date Resolved Active Non-Hospital Problems Diagnoses ??? Brain aneurysm S/p surgery 2000 Operations/Major Procedures: Operations: Total laparoscopic hysterectomy, bilateral salpingo-oophorectomy and pelvic and para-aortic lymphadenectomy (robot assisted) Other Major Procedures: None History of Presentation: (per clinic note) Sunday Garcia is a 50 y.o. white female, 2 , para 2001 , perimenopausal, who is kindly referred by Dr. Nunez for management of newly diagnosed grade 2 adenocarcinoma of the endometrium. The patient had normal monthly menses up until this spring, when they became more erratic and heavier. Last Sunday she began having very heavy vaginal bleedi ng, and when she nearly passed out, was taken to the ED, where she was found to have H/H of 3/12. She received 4 units of PBRCs and IVF resuscitation. Ultrasound and endometrial biopsy were performed, and Mirena placed. She continued to bleed, more like a normal menses. Endovaginal ultrasound was performed and revealed an endometrial stripe of 8 mm. Uterus measured 9.7 x 6 x 4 cm. Ovaries significant only for functional appearing ovarian cyst. An endometrial biopsy was performed and pathology reveals grade 2 endometrioid adenocarcinoma. Hospital Course: She tolerated the procedure well. EBL was 50ml. Her pain was well controlled with IV toradol x2 doses and then po pain meds. She was tolerating regular diet on POD#1. She ambulated without difficulty. Her lemos was discontinued on POD#1 and she voided without difficulty. She was discharged to home in good condition and in good spirits on POD#1. Patient's hemoglobin dropped to 7.0 from 8.6 preoperatively likely secondary to dilutional effect from 6L of intraoperative fluids. Patient was asymptomatic postoperatively. Important Studies and Lab Data: Labs: Results for SUNDAY GARCIA ( ) as of 06/28/2011 09:40 06/28/2011 04:17 WBC 6.0 RBC 3.27 (L) Hemoglobin 7.0 (L) Hematocrit 23.5 (L) MCV 71.9 (L) MCH 21.4 (L) MCHC 29.8 (L) RDWSD Not Measured RDWCV Not Measured Platelets 267 Studies: none Pending Studies and Lab Data: Final pathology Discharge Conditions/Prognosis: Good Discharge to: Home Discharge Medications: Current Discharge Medication List New Meds Details ibuprofen (ADVIL;MOTRIN) 600 mg Take 600 mg by mouth every 6 hours. Qty: 60 tablet Refills: 2 OXYcodone (ROXICODONE) 5 mg Take 5 mg by mouth every 3 hours as needed for Pain. Qty: 30 tablet Refills: 0 senna-docusate (PERICOLACE) 1 tablet Take 1 tablet by mouth 2 times daily. Qty: 60 tablet Refills: 11 Continued medications, unchanged Details zolpidem (AMBIEN) 10 mg Take 10 mg by mouth nightly as needed. Qty: Refills: Updated Allergies/ADRs: Allergies Allergen Reactions ??? Red Blood Cells Other (See Comments) Antibodies-Difficult to Crossmatch Follow-up Recommendations for Providers: See below Instructions Given to Patient at Discharge: Provider Instructions For problems or concerns related to this hospitalization call: Weekdays 8am - 5pm: [phone] Nights and Weekends: [phone] and ask to speak to the gynecologic oncologist engine monitor Arrangements for VNA/home care: none PATIENT DISCHARGE INSTRUCTIONS Call your doctor if you develop: --A fever over 101 degrees --Severe pain --Heavy vaginal bleeding --Increasing pain, redness, or discharge at your incision --It is normal to have vaginal bleeding/spotting for up to three weeks following a hysterectomy Activity level: No heavy lifting, pushing or pulling for 6 weeks. No sexual intercourse, no tampons, nothing in the vagina for 6 weeks. Diet: You may resume your regular diet. Be sure you drink plenty of fluids. Please use senna twice daily for the entire time that you are taking pain medication to keep your bowel movements soft and regular. If you are constipated or have not had a bowel movement in 3 days, please use milk of magnesia, bisacodyl, or miralax as directed over the counter. Driving: Do not drive until you are off of all narcotic medications and you are not feeling pain; usually about 2 weeks. Shower/Bath: Showering is fine. Short baths are OK but you should avoid having any abdominal incision submerged for more than 10-15 minutes for the next 2 weeks. Wound Care: You have stitches just under the skin and these will dissolve on their own over the next couple of weeks. They do not need to be removed or altered.. Special Physician Instructions: 1. Ibuprofen is to be taken on a scheduled basis, this will help with inflammation and pain. 2. Oxycodone can be taken every 4 hours as needed for breakthough pain. This medication can be taken with ibuprofen. Senna is a stool softener that should be used everyday to prevent constipation as the pain medication can cause constipation. General Instructions None Future Appointments and Orders Future Appointments: Provider: Department: Dept Phone: Center: 07/18/2011 11:40 AM Judy Millard MD [facility] [phone] None Provider Contact Information: NEEL PACHECO MD [phone] Discharge References/Attachments: Discharge References/Attachments None Signed: EMA GALLEGOS MD 06/28/2011 * Plan of Care - Samina Chilel RN - 06/28/2011 11:18 AM EDT Problem: Pain, Acute (Adult, Obstetric) Goal: Acute Pain: Acceptable Pain Control/Comfort Level - Pain, Acute (Adult, Obstetric) Outcome: Present (see interventions, notes) Continues to report abdominal pain at laparoscopic incision sites; reports pain radiates to back, probably from lying in bed. Ambulating to nurses station and sitting in chair, reports position changes assist with back pain. Receiving scheduled ibuprofen and PRN oxycodone with good effect. Discussed staying on top of pain management. Problem: Skin Integrity Impairment, Risk/Actual (Adult, Obstetric) Goal: Skin Integrity Impairment, Risk/Actual: Skin Integrity/Wound Healing Outcome: Present (see interventions, notes) Pt with 5 lap sites to abdomen with dermabond; CDI. Well approximated, no redness or drainage. Otherwise skin intact. * Plan of Care - Emily Covarrubias RN - 06/28/2011 2:00 AM EDT Problem: Pain, Acute (Adult, Obstetric) Goal: Acute Pain: Acceptable Pain Control/Comfort Level - Pain, Acute (Adult, Obstetric) Outcome: Present (see interventions, notes) Patient c/o abdominal pain r/t laparoscopic incision radiating to lower back. Pain well controlled with prn Oxycodone. Problem: Skin Integrity Impairment, Risk/Actual (Adult, Obstetric) Goal: Skin Integrity Impairment, Risk/Actual: Skin Integrity/Wound Healing Outcome: Present (see interventions, notes) Patient with 5 lap sites to abdomen. VESSEL ENGINEER with [place] marroquin in place. No redness or drainage. Otherwise skin intact. * Op Note - Urvashi Clinton - 06/27/2011 2:34 PM EDT [facility] [place] Patient Name: Sunday Garcia : [id number] MR#: [id number] Case Date: 06/27/2011 Surgeon: Surgeon(s) and Role: * JUDY MILLARD MD - Primary * URVASHI CLINTON MD - Resident-Surgeon Chief * BELA WEBB - LARYR Anesthesia: General endotracheal. Preoperative Diagnosis: Grade 2 endometrial adenocarcinoma. Postoperative Diagnosis: Grade 2 endometrial adenocarcinoma; final pathology and stage pending. Procedures 1. Total laparoscopic/robotic hysterectomy with bilateral salpingo-oophorectomy. 2. Laparoscopic pelvic and paraaortic lymphadenectomy. Specimens 1. Pelvic washings. 2. Uterus, cervix, fallopian tubes, and ovaries. 3. Left, right, pelvic and paraaortic lymph nodes, respectively. Drains: Lemos catheter. Counts correct times two. Urine Output: 300 mL Estimated Blood Loss: 50 mL. IV Fluid: 4000 mL of crystalloid. Indications for Surgery: This is a 50 y.o. year-old woman who is referred with an outside diagnosisof Grade II Endometrial adenocarcinoma. She was counseled on her diagnosis as well as the surgical plan. She voiced an understanding of the diagnosis, plan, and risks and wished to proceed. Written consent was obtained for the procedures performed. Findings 1. Exam under anesthesia: Bulky uterus, cervix, and ovaries with no evidence of vaginal or cervicalmetastasis. 2. Laparoscopy: Normal upper abdomen. No evidence of extrauterine disease, carcinomatosis, or ascites. The ovaries were grossly normal. 3. Residual disease: No gross residual disease. Procedure in Detail: The patient was identified and consent was reaffirmed. She was taken to the operating room and placed in low lithotomy position with stirrups after induction of anesthesia. An exam was conducted and the findings are discussed above. An antiseptic preparation of the abdomen, perineum, and vagina was performed and the patient was sterilely draped. A Lemos catheter was inserted into the bladder. ISABELL/ALESHIA system was placed into the uterus for manipulation. A surgical pause was performed, correctly identifying the intended procedures, etc., for this patient. A 12-mm transverse incision was made 5 cm above the umbilicus, through which a Veress needle wasinserted and the abdomen was insufflated to tympany with carbon dioxide gas. A 12-mm Optiview trocar was then inserted and the laparoscope was placed, verifying a successful atraumatic entry. Additional 8-mm trocars and a 12-mm right upper quadrant neurosurgical physician assistant port were placed in the usual locations without difficulty, under direct visualization. The patient was placed in steep Trendelenburg position and pelvic washings were obtained. The robotwas docked in the usual manner. Using sharp and electrosurgical dissection, the round ligaments were desiccated and divided bilaterally. A bladder flap was developed to a point over the upper vagina with sharp and electrosurgical dissection. The adnexa were skeletonized and the vessels were desiccated and divided bilaterally after identification of the ureters bilaterally. The adnexa were then skeletonized about the cornua. The uterine vessels were then skeletonized, desiccated and divided bilaterally, as were the uterosacral ligaments. The left ovarian cyst was noted to have some adhesions to the posterior uterosacral ligament on theleft and also the serosa of the rectum. These adhesions were divided with the monopolar electrocautery. The hysterectomy was then completed by making a circumferential colpotomy incision over the KOHring with monopolar scissor energy and then the specimen was withdrawn through the vagina. The findings are discussed above. A pelvic and paraaortic lymphadenectomy was performed in the usual fashion. All lymph node bearing tissue was collected distally to the circumflex iliac veins, proximally to the mid common iliac arteries, laterally to the mid psoas muscles, medially to the superior vesical arteries, and dorsally tothe obturator nerves. Similarly, a paraaortic lymphadenectomy was performed by collecting all lymph node bearing tissue proximally to just caudal to the ELI from both the right side. After the specimens were removed, the vaginal cuff was closed in the usual fashion with running 0-Vicryl suture at each angle. The abdomen and pelvis were then irrigated with saline. The robot was undocked. The 12-mm port sites were closed with 0-Vicryl using a Cash-Wilbert ligature passer and the skin incisions were closed with 4-0 Vicryl. Dermabond was applied to each site. The patient was returned to a supine position as anesthesia was discontinued. She was then extubatedand taken to the PACU in stable condition, and accompanied by the anesthesiologist and surgeons. Dr. Millard, the attending physician, was present for the entire procedure. Complications: None. Antibiotics: 1 gm (s) cefazolin at induction of anesthesia. DVT Prophylaxis: 5000 units of heparin subcutaneously and SCDs continuously applied to the lower extremities. * Miscellaneous - Provider, Scanning - 06/27/2011 10:32 AM EDT documented in this encounter Plan of Treatment Not on file documented as of this encounter Procedures Procedure Name Priority Date/Time Associated Diagnosis Comments CREATININE Routine 06/28/2011 4:18 AM EDT BUN Routine 06/28/2011 4:18 AM EDT PHOSPHORUS Routine 06/28/2011 4:18 AM EDT MAGNESIUM Routine 06/28/2011 4:18 AM EDT ELECTROLYTES PANEL Routine 06/28/2011 4: 18 AM EDT SCAN, PERIPHERAL BLOOD Routine 1 4:17 AM EDT DIFFERENTIAL, AUTOMATED Routine 06/28/2011 4:17 AM EDT CBC (WITH DIFF) Routine 06/28/2011 4:17 AM EDT SPECIMEN TO PATHOLOGY Routine 06/27/2011 3:15 PM EDT SURGICAL PATHOLOGY REPORT Routine 06/27/2011 3:09 PM EDT SPECIMEN TO PATHOLOGY Routine 06/27/2011 3:00 PM EDT SPECIMEN TO PATHOLOGY Routine 06/27/2011 2:45 PM EDT SPECIMEN TO PATHOLOGY Routine 06/27/2011 2:27 PM EDT NON-AUTOMOTIVE UPHOLSTERER FINAL REPORT Routine 06/27/2011 1:58 PM EDT CYTOPATHOLOGY NON-GYNECOLOGICAL Routine 06/27/2011 1:48 PM EDT ROBOTIC LAPAROSCOPY,W\BILATERA L TOTAL PELVIC LYMPHADENECTOMY, PERIAORTIC LYMPH NODE SAMPLING (WRVU 15.6) 06/27/2011 12:44 PM EDT ENDOMETRIAL CANCER ROBOTIC LAPAROSCOPY,TOTAL HYST, UTERUS<250GM, REM TUBE &/OR OVARY (WRVU 15) 06/27/2011 12:44 PM EDT ENDOMETRIAL CANCER ABORH TYPE MANUAL STAT 06/27/2011 9:5 6 AM EDT documented in this encounter Results * Phosphorus (06/28/2011 4:18 AM EDT) Phosphorus 3.9 2.5 - 4.5 mg/dL [facility] Blood specimen (specimen) 06/28/2011 4:18 AM EDT 06/28/2011 4:34 AM EDT Judy Millard MD CHEMISTRY ORDERABLES [facility] * Magnesium (06/28/2011 4:18 AM EDT) Magnesium 0.73 0.69 - 1.07 mmol/L [facility] Blood specimen (specimen) 06/28/2011 4:18 AM EDT 06/28/2011 4:34 AM EDT Judy Millard MD CHEMISTRY ORDERABLES MELANIE QUIROZ * (ABNORMAL) Creatinine, serum (06/28/2011 4:18 AM EDT) Creatinine 0.48(L) 0.70 - 1.20 mg/dL [facility] Est Glomerular Filtration Rate >60 >=60 [facility] Comment: The National Kidney Disease Education Program (NKDEP) has recommended all laboratories report estimated GFR (eGFR) along with plasma creatinine measurements to assist you with recognition of early kidney disease. Caveats: ??Plasma creatinine should be at steady-state (unchanged within the past week). For patients multiply eGFR by 1.2.MDRD equation has not been validated for pediatric patients and is only valid for patients with age >= 18 years. At present, NKDEP does NOT recommend using [...] with diabetic kidney disease. References: http://nkdep.nih.gov/resources/NKDEP_Suggestn4Labs_0606_508.pdf http://www.kidney.org/professionals/kls/pdf/faq_gfr.pdf Blood specimen (specimen) 06/28/2011 4:18 AM EDT 06/28/2011 4:34 AM EDT Judy Millard MD CHEMISTRY ORDERABLES MELANIE QUIROZ * BUN (06/28/2011 4:18 AM EDT) Blood Urea Nitrogen 8 8 - 18 mg/dL CERNER MILLENNIUM Blood specimen (specimen) 06/28/2011 4:18 AM EDT 06/28/2011 4:34 AM EDT Judy Millard MD CHEMISTRY ORDERABLES Performing Organization Address [facility] de Phone Number CERMELISSA KANGENNIUM * Electrolytes panel (06/28/2011 4:18 AM EDT) Sodium 135 135 - 145 mmol/L CERNER MILLENNIUM Potassium 3.6 3.5 - 5.0 mmol/L CERNER MILLENNIUM Comment: Please note: ??Patients with WBC >100,000 may have falsely elevated Potassium levels. ??For accurate Potassium quantification in these patients send serum separator tube (gold top) for subsequent determinations. ??Contact the Clinical Chemistry Laboratory if there are any questions. Chloride 103 98 - 107 mmol/L CERNER MILLENNIUM Carbon Dioxide 24 22 - 31 mmol/L CERNER MILLENNIUM Anion Gap 8 5 - 15 mmol/L CERNER MILLENNIUM Blood specimen (specimen) 06/28/2011 4:18 AM EDT 06/28/2011 4:34 AM EDT Judy Millard MD CHEMISTRY ORDERABLES Performing Organization Address [facility] Co de Phone Number MELANIE JENSENIUM * (ABNORMAL) REFLEX LAB-A-DIFF (06/28/2011 4:17 AM EDT) Neutrophil % 83.2(H) 34.0 - 71.0 % CERNER MILLENNIUM Neutrophil Absolute 5.01 1.50 - 6.30 x10(3)/mc L CERNER MILLENNIUM Lymph % 7.6(L) 19.0 - 53.0 % CERNER MILLENNIUM Lymphocytes Abs 0.5(L) 1.0 - 3.6 x10(3)/mc L CERNER MILLENNIUM Monocyte % 7.1 4.0 - 13.0 % CERNER MILLENNIUM Monocyte Abs 0.4 0.2 - 1.0 x10(3)/mc L CERNER MILLENNIUM Eos % 1.7 0.0 - 7.0 % CERNER MILLENNIUM Eosinophils Abs 0.1 0.0 - 0.5 x10(3)/mc L CERNER MILLENNIUM Basophil % 0.2 0.0 - 2.0 % CERNER MILLENNIUM Baso Absolute 0.0 0.0 - 0.2 x10(3)/mc L CERNER MILLENNIUM Immature Gran % 0.20 0.00 - 0.66 % CERNER MILLENNIUM Comment: Immature granulocytes(IG's)percentage and absolute count will include metamyelocytes, myelocytes, and promyelocytes. Blood smears from CBCs yielding IG's will be scanned manually for concordance. If this scan disagrees with the automated IG or if promyelocytes are noted, a manual differential will be performed. Immature Gran Absolute 0.01 0.00 - 0.05 x10(3)/mc L CERNER MILLENNIUM Blood specimen (specimen) 06/28/2011 4:17 AM EDT 06/28/2011 4:34 AM EDT Judy Millard MD HEMATOLOGY ORDERABLE S MELANIE JENSENIUM * REFLEX LAB-SCAN, PERIPHERAL BLOOD (06/28/2011 4:17 AM EDT) Plat estimate Normal CERNER MILLENNIUM RBC Morphology Abnormal CERNE R MILLENNIUM Microcyte gtr than 10 /HPF CERNER MILLENNIUM Hypochromia Moderate CERNER MILLENNIUM Ovalocytes 1-5 /HPF CERNER MILLENNIUM Tear Cell 1-5 /HPF CERNER MILLENNIUM Stippled RBC Present >1/HPF CERNER MILLENNIUM Blood specimen (specimen) 06/28/2011 4:17 AM EDT 06/28/2011 4:34 AM EDT Judy Millard MD HEMATOLOGY ORDERABLE S MELANIE JENSENIUM * (ABNORMAL) CBC (with Diff) (06/28/2011 4:17 AM EDT) White Blood Cell 6.0 4.0 - 10.0 x10(3)/mc L CERNER MILLENNIUM Red Blood Cell 3.27(L) 3.93 - 5.22 x10(6)/mc L CERNER MILLENNIUM Hemoglobin 7.0(L) 11.2 - 15.7 gm/dL CERNER MILLENNIUM Hematocrit 23.5(L) 34.0 - 45.0 % CERNER MILLENNIUM Mean Cell Volume 71.9(L) 79.0 - 94.0 fL CERNER MILLENNIUM Mean Cell Hemoglobin 21.4(L) 26.6 - 32.2 pg CERNER MILLENNIUM Mean Cell Hemoglobin Concentration 29.8(L) 32.0 - 36.5 gm/dL CERNER MILLENNIUM Platelet 267 145 - 370 x10(3)/mc L CERNER MILLENNIUM RDW Standard Deviation Not Measured 35.0 - 46.0 fL CERNER MILLENNIUM RDW coefficient of variation Not Measured 10.9 - 14.4 % CERNER MILLENNIUM Mean Platelet Volume Not Measured 9.0 - 12.0 fL CERNER MILLENNIUM Blood specimen (specimen) 06/28/2011 4:17 AM EDT 06/28/2011 4:34 AM EDT Judy Millard MD HEMATOLOGY ORDERABLE S [facility] * Specimen to Pathology (surgical or derm) (06/27/2011 3:15 PM EDT) AP Specimen 06/27/2011 3:15 PM EDT 06/27/2011 3:15 PM EDT Narrative [facility] - 06/27/2011 3:15 PM EDT Specimen requisition ordered. ??Separate Pathology report to follow Judy Millard MD PATHOLOGY/CYTOLOGY O RDERABLES [facility] * Surgical Pathology Report (06/27/2011 3:09 PM EDT) Pathologist [facility] Surgical Pathology Report [id number] ? Location: [facility]; 0105; A The signing pathologist has (i) examined the relevant preparation(s) for the specimen(s) and (ii) rendered or confirmed the diagnosis(es). . ?Pathology Surgical Pathology Final Report Clinical Information Specimen Submitted: A - Uterus cervix tubes and ovaries B - Right pelvic lymph nodes C - Left pelvic lymph nodes D - Nidia-aortic lymph node Clinical History/Diagnosis: Endometrial cancer Gross Description A - Labeled/Fixative: ?Uterus, cervix, tubes, ovaries; fresh. Qty/Size/Weight: ? Single, 9.2 x 6.2 x 5.7 cm, 272 g. Tissue Description: ?Uterus and bilateral fallopian tubes and ? ovaries. ?? Endometrial tumor ?Greatest dimension: ?4.8 x 4.5 x 1.8 cm. ?Qualitative description: Tumor involves predominantly the right ? posterior endometrium. ??It is also present ? anteriorly and crosses to the left half of ? the uterus. ??The tumor mass is predominantly ?papillary projections with a vaguely nodular ? appearance. ??There are focal areas of ? hemorrhage. ?Myometrial invasion ? (<1/2 or >1/2): ? Less than half. ?Cervical involvement: ?Not identified grossly. ?Gross lymphatic or ? vascular invasion: ?Not identified grossly. Endometrium: ? Remaining uninvolved endometrium is thin, ? red-brown. Myometrium: ?? Lesions: ?None identified. ?? Thickness: ?2.1 cm. Uterine serosa: ?Chase-pink, smooth, and glistening. Cervix: ?Chase-pink and unremarkable. Ovaries and fallopian tubes ?? Right ovary ?Dimensions: ?3.6 x 1.5 x 2.1 cm. ?Outer surface: ? There is focal cystic structure, well ? circumscribed, 0.8 cm. ?Cut surface: ? Shows a circumscribed, red-brown, ? blood-filled cyst. ??Otherwise unremarkable. ?? Right tube: ? 6.5 cm. ?? Left ovary: ?Dimensions: ?4.3 x 3.1 x 2.6 cm. ?Outer surface: ? Smooth and glistening and unremarkable. ?Cut surface: ? Shows yellow-friend, heterogenous mass that ? has focal firm and yellow-pink soft areas ? with focal gelatinous blue areas. ??The mass ? consists of papillary projections with a ? mucus-filled cavity. ??This mass distorts and ?fills the entire ovary. ?? Left tube: ?5.0 cm. ??Slightly dilated distally. . Gross Description Sections/Processin g: ? Business Process Manager sections are submitted as ? follows: ??(1) squamocolumnar junction 12 ? o'clock; (2) squamocolumnar junction 6 ? o'clock; (3-8) anterior endocervical canal ? sectioned from 9 to 3 o'clock; (9-15) ? posterior endocervical canal sectioned from ? 3 to 9 o'clock (yellow ink indicates uterine ?side); (16-17) full-thickness tumor; (18-19) ? full-thickness tumor; (20) posterior ? endometrium; (21) packaging sales representative section of ? tumor in anterior endometrium; (22-24) left ? ovarian mass; (25) left fallopian tube; (26) ?right ovary; (27) right fallopian tube and ? ovary. ?? (R27) B - Labeled/Fixative: Right pelvic lymph nodes, fresh. Qty/Size/Weight: ?Multiple, 5.0 x 4.0 x 2.0 cm. Tissue Description: ?? Yellow, lobular adipose tissue. ??Sectioning ?reveals eleven lymph nodes, the largest 3.6 cm. Sections/Processin g: ??(1) one node; (2) three nodes; (3) three nodes; (4) ?one node, bisected; (5-6) one node; (7-11) one node, ?serially sectioned; (12-17) one lymph node, serially ?sectioned. ??(R17) C - Labeled/Fixative: Left pelvic lymph nodes, fresh. Qty/Size/Weight: ?Multiple, aggregating 3.5 x 2.5 x 1.2 cm. Tissue Description: ?? Yellow, lobular adipose tissue. ??Sectioning ?reveals five lymph nodes, the largest 2.5 cm. Sections/Processin g: ??(1) two nodes; (2-5) one lymph node, serially ?sectioned; (6-9) one lymph node, serially sectioned; ?(10-16) largest lymph node, serially sectioned. ?(R16) D - Labeled/Fixative: Periaortic lymph node, saline. Qty/Size/Weight: ?Single, 2.1 x 1.2 x 0.3 cm. Tissue Description: ?? Yellow, lobular adipose tissue. ??Definitive node not ?identified. Sections/Processin g: ??(T1) ??aje/HMF Microscopic Description Slides reviewed, microscopic description not recorded. 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 FIGO grade: ?III ?Architectural grade: ?3 ?Nuclear grade: ?2 Tumor size: ? 4.8 cm in diameter Myometrial invasion (no invasion, <1/2, >1/2): ?? < 1/2 ?? Depth of invasion (mm): ?? 11.0 mm ?? Width of myometrium (mm): 29.0 mm Myometrial lymphovascular ?? space invasion: ?Present Lower uterine segment involvement: ?Involved by non-invasive tumor Cervical involvement: ? Cervix free of tumor Other: ?1. Adenocarcinoma involving ? bilateral ovaries and associated . Diagnosis ? with endometriosis (see Comment) ?2. Adenomyosis ?3. Bilateral fallopian tubes, no evidence ? of malignancy B - Right pelvic lymph nodes, excision: ?Eleven lymph nodes, no evidence of malignancy (0/11). 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 D - Zoila-aortic lymph node, excision: ?Nodular adipose tissue, no lymph node identified. TNM Staging ??(AJCC, 7th ed., 2009): Primary tumor stage: ?See Comment Regional lymph nodes: ? pN1 ??[IIIC1] ??(Regional lymph node metastases ? to pelvic lymph nodes) Distant metastasis: ? pMX ??(Not applicable or not assessed) CR-0 06/30/11 JLG 07/03/11 Verified by: ? Virgilio LUNSFORD, Chepe Baca ?Pathologist ?(Electronic Signature) The attending pathologist whose signature appears on this report has reviewed all diagnostic slides and has edited the gross and/or microscopic portion of the report in rendering the final pathologic diagnosis. Comment ??The tumor involving the bilateral ovaries is better differentiated than the endometrial carcinoma and shows extensive mucinous differentiation with interspersed foci of squamous differentiation. ??Ovarian endometriosis is identified. It is possible that the ovarian carcinomas represent synchronous primaries, but metastases to the ovaries cannot be excluded. Since there is a tumor metastasis in a left pelvic lymph node, whether or not the carcinoma in the ovaries represents metastases does not alter the tumor stage (IIIC). [facility] 06/27/2011 3:09 PM EDT Judy Millard MD PATHOLOGY/CYTOLOGY O KG Performing Organization Address [facility] de Phone Number [facility] * Specimen to Pathology (surgical or derm) (06/27/2011 3:00 PM EDT) AP Specimen 06/27/2011 3:00 PM EDT 06/27/2011 3:00 PM EDT Narrative [facility] - 06/27/2011 3:00 PM EDT Specimen requisition ordered. ??Separate Pathology report to follow Judy Millard MD PATHOLOGY/CYTOLOGY O KG Performing Organization Address [facility] Co de Phone Number [facility] * Specimen to Pathology (surgical or derm) (06/27/2011 2:45 PM EDT) AP Specimen 06/27/2011 2:45 PM EDT 06/27/2011 2:45 PM EDT Narrative MELANIE QUIROZ - 06/27/2011 2:45 PM EDT Specimen requisition ordered. ??Separate Pathology report to follow Judy Millard MD PATHOLOGY/CYTOLOGY O KG Performing Organization Address [facility] de Phone Number [facility] * Specimen to Pathology (surgical or derm) (06/27/2011 2:27 PM EDT) AP Specimen 06/27/2011 2:27 PM EDT 06/27/2011 2:27 PM EDT Narrative MELANIE QUIROZ - 06/27/2011 2:27 PM EDT Specimen requisition ordered. ??Separate Pathology report to follow Judy Millard MD PATHOLOGY/CYTOLOGY O KG Performing Organization Address [facility] Phone Number [facility]IE [facility] * Non-House Manager Final Report (06/27/2011 1:58 PM EDT) Non-House Manager Final Report [id number] ? Location: [facility]; [place]; The signing pathologist has (i) examined the relevant preparation(s) for the specimen(s) and (ii) rendered or confirmed the diagnosis(es). . ? Pathology Non-House Manager Cytology Final Report Clinical Information Specimen Source : ?? Peritoneal fluid (washing) Pertinent Clinical Data and Significant Therapy: ?? Endometrial cancer Clinical Impression : ?? Peritoneal washings Pertinent Radiologic Findings ??: ?? (none provided) Gross Description: ?? Received fresh, approximately 125 ml total volume of clear, red fluid with light flecks. ?? Total Preparation: Liquid Based Prep 1. Interpretation Specimen submitted is satisfactory. Diagnosis Atypical 06/28/11 ?Screened by: ? FMQ ?Rescreened by: ?? FCL,EJG 07/01/11 ?Verified by: ? Moiz LUNSFORD, Jhoan Benavidez ? Cytopathologist ? (Electronic Signature) Comment Peritoneal fluid (washing): A few small clusters of atypical large cells are present; cannot exclude the possibility of neoplasia. Dr. Poole has reviewed this case and concurs with the diagnosis. MELANIE QUIROZ 06/27/2011 1:58 PM EDT Judy Millard MD PATHOLOGY/CYTOLOGY O RDERABLES Performing Organization Address City/[facility]/ZIP Co de Phone Number MELANIE QUIROZ * Cytopathology Non-Gynecological (06/27/2011 1:48 PM EDT) AP Specimen 06/27/2011 1:48 PM EDT 06/27/2011 1:48 PM EDT Narrative KRISTINMELISSA JENSENIUM - 06/27/2011 1:48 PM EDT Specimen requisition ordered. ??Separate Pathology report to follow Judy Millard MD PATHOLOGY/CYTOLOGY O RDERABLES Performing Organization Address City/[facility]/ZIP Co de Phone Number MELANIE QUIROZ * REFLEX LAB-ABORH TYPE MANUAL (06/27/2011 9:56 AM EDT) Expires at [id number] on: [id number] KRISTINMELISSA KANGGRISELDAIUM ABORH Type A Pos MELANIE QUIROZ Blood specimen (specimen) 06/27/2011 9:56 AM EDT 06/27/2011 10:08 AM EDT Judy Millard MD BLOOD BANK LAB ORDER NAHED Performing Organization Address City/State/[facility] Co de Phone Number [facility] documented in this encounter Visit Diagnoses Diagnosis Endometrial cancer- Primary Malignant neoplasm of corpus uteri, except isthmus documented in this encounter Administered Medications Inactive Administered Medications - up to 3 most recent administrations Medication Order MAR Action Action Date Dose Rate Site docusate sodium (COLACE) capsule 100 mg 100 mg, Oral, 2 TIMES DAILY, First dose on Sun06/27/11 at 2115, Until Discontinued, Routine Given 06/28/2011 8:00 AM EDT 100 mg Given 06/27/2011 9:45 PM EDT 100 mg HYDROmorphone (PF) (DILAUDID) 2 mg/mL injection 0.2 mg 0.2 mg, Intravenous, EVERY 4 HOURS PRN, 2 doses, Starting on Sun06/27/11 at 2059, Until Sun06/28/11 at 1733, Pain, severe pain, Routine Given 06/28/2011 2:59 AM EDT 0.2 mg HYDROmorphone (PF) (DILAUDID) 2 mg/mL injection 0.2-0.4 mg 0.2-0.4 mg, Intravenous, EVERY 5 MIN PRN, Starting on Sun06/27/11 at 1601, Until Sun06/27/11 at 1945, Pain, For moderate pain give: 0.2 mg every 5 minute prn For severe pain give: 0.4 mg every 5 minutes prn Maximum dose: 4 mg per hour Hold for respiratory rate less than 10 per minute., PACU Recovery, Routine Given 06/27/2011 4:59 PM EDT 0.4 mg HYDROmorphone (PF) (DILAUDID) 2 mg/mL injection 0.2-0.4 mg 0.2-0.4 mg, Intravenous, ONCE, 1 dose, On Sun06/28/11 at 0430, Routine Given 06/28/2011 4:30 AM EDT 0.4 mg ibuprofen (ADVIL;MOTRIN) tablet 600 mg 600 mg, Oral, EVERY 6 HOURS SCHEDULED, First dose on Sun06/28/11 at 1200, Until Discontinued, - Begin after ketorolac discontinued. , Routine Given 06/28/2011 11:58 AM EDT 600 mg influenza virus vaccine (PF) (FLUZONE/FLUVIRIN) 45 mcg (15 mcg x 3)/0.5 mL IM injection 0.5 mL 0.5 mL, Intramuscular, PRIOR TO DISCHARGE, 1 dose, Starting on Sun06/28/11 at 0900, Until Sun06/28/11 at 1127, Per Protocol, Routine Given 06/28/2011 11:27 AM EDT 0.5 mLs Right Arm ketorolac (TORADOL) injection 15 mg 15 mg, Intravenous, EVERY 8 HOURS SCHEDULED, 3 doses, First dose on Sun06/27/11 at 1630, Last dose on Sun06/28/11 at 0600, Routine Given 06/28/2011 6:00 AM EDT 15 mg Given 06/27/2011 10:18 PM EDT 15 mg Given 06/27/2011 4:30 PM EDT 15 mg lactated ringers infusion 1,000 mL 1,000 mL, at 100 mL/hr, Intravenous, CONTINUOUS, Starting on Sun06/27/11 at 1630, Until Sun06/28/11 at 0649 New Bag 06/28/2011 2:16 AM EDT 1,000 mLs 100 mL /hr New Bag 06/27/2011 4:15 PM EDT 1,000 mLs 100 mL/hr ondansetron (ZOFRAN) injection 4 mg 4 mg, Intravenous, EVERY 30 MIN PRN, 2 doses, Starting on Sun06/27/11 at 1601, Until Sun06/27/11 at 1945, Nausea, May repeat 4 mg once in 30 minutes. Consider prochlorperazine if ineffective., PACU Recovery, Routine Given 06/27/2011 6:30 PM EDT 4 mg ondansetron (ZOFRAN) tablet 4 mg 4 mg, Oral, EVERY 8 HOURS PRN, Starting on Sun06/28/11 at 1049, Until Sun06/28/11 at 1733, Nausea, STAT Given 06/28/2011 10:53 AM EDT 4 mg OXYcodone (ROXICODONE) immediate release tablet 5 mg 5 mg, Oral, EVERY 3 HOURS PRN, Starting on Sun06/27/11 at 1631, Until Sun06/28/11 at 1733, Pain, May repeat once within 30-60 minutes if pain unrelieved., Routine Given 06/28/2011 11:58 AM EDT 5 mg Given 06/28/2011 9:00 AM EDT 5 mg Given 06/28/2011 6:00 AM EDT 5 mg zolpidem (AMBIEN) tablet 10 mg 10 mg, Oral, NIGHTLY PRN, Starting on Sun06/27/11 at 2059, Until Sun06/28/11 at 1733, Sleep, Routine Given 06/27/2011 9:45 PM EDT 10 mg documented in this encounter Active and Recently Administered Medications Times are shown in EDT. Scheduled Medication Order 06/26/2011 06/27/2011 06/28/2011 ceFAZolin (ANCEF) 1g in dextrose 5% 50mL (COMPLETED) 1,000 mg (1 g), Intravenous, ONCE, 1 dose, On Sun06/27/11 at 1130, Administer over 30 Minutes, Redose after 4 hours., Day of Surgery (Day of Procedure) 1130 (Due)1258 (Given - Provider: Hernando Mcclain) docusate sodium (COLACE) capsule 100 mg (CANCELED) 100 mg, Oral, 2 TIMES DAILY, First dose on Sun06/27/11 at 2115, Until Discontinued, Routine 2145 (Given - Provider: Emily Covarrubias RN) 0800 (Given - Provider: Samina Chilel, HIWOT) HYDROmorphone (PF) (DILAUDID) 2 mg/mL injection 0.2-0.4 mg (COMPLETED) 0.2-0.4 mg, Intravenous, ONCE, 1 dose, On Sun06/28/11 at 0430, Routine 0430 (Given - Provid er: Sandro Clarke RN) ibuprofen (ADVIL;MOTRIN) tablet 600 mg(Linked Group 1) 600 mg, Oral, EVERY 6 HOURS SCHEDULED, First dose on Sun06/28/11 at 1200, Until Discontinued, - Begin after ketorolac discontinued. , Routine 1158 (Given - Provid er: Samina Chilel RN) ketorolac (TORADOL) injection 15 mg (COMPLETED)(Linked Group 1) 15 mg, Intravenous, EVERY 8 HOURS SCHEDULED, 3 doses, First dose on Sun06/27/11 at 1630, Last dose on Sun06/28/11 at 0600, Routine 1630 (Given - Provider: Wendy Christie RN)2218 (Given - Provider: Emily Covarrubias RN) 0600 (Given - Provider: Emily Covarrubias RN) Continuous Medication Order 06/26/2011 06/27/2011 06/28/2011 lactated ringers infusion 1,000 mL (CANCELED) 1,000 mL, at 100 mL/hr, Intravenous, CONTINUOUS, Starting on Sun06/27/11 at 1630, Until Sun06/28/11 at 0649 1615 (New Bag - Provider: Wendy Christie RN) 0216 (New Bag - Provider: Emily Covarrubias RN)0656 (Stopped - Provider: Emily Covarrubias RN) PRN Medication Order 06/26/2011 06/27/2011 06/28/2011 HYDROmorphone (PF) (DILAUDID) 2 mg/mL injection 0.2 mg (CANCELED) 0.2 mg, Intravenous, EVERY 4 HOURS PRN, 2 doses, Starting on Sun06/27/11 at 2059, Until Sun06/28/11 at 1733, Pain, severe pain, Routine 0259 (Given - Provider: Emily Covarrubias RN) HYDROmorphone (PF) (DILAUDID) 2 mg/mL injection 0.2-0.4 mg (CANCELED) 0.2-0.4 mg, Intravenous, EVERY 5 MIN PRN, Starting on Sun06/27/11 at 1601, Until Sun06/27/11 at 1945, Pain, For moderate pain give: 0.2 mg every 5 minute prn For severe pain give: 0.4 mg every 5 minutes prn Maximum dose: 4 mg per hour Hold for respiratory rate less than 10 per minute., PACU Recovery, Routine 1659 (Given - Provider: Wendy Christie RN) influenza virus vaccine (PF) (FLUZONE/FLUVIRIN) 45 mcg (15 mcg x 3)/0.5 mL IM injection 0.5 mL (COMPLETED) 0.5 mL, Intramuscular, PRIOR TO DISCHARGE, 1 dose, Starting on Sun06/28/11 at 0900, Until Sun06/28/11 at 1127, Per Protocol, Routine 1127 (Given - Provider: Judy Welsh RN - Comment: lot # [id number] exp date: 03/02) ondansetron (ZOFRAN) injection 4 mg (CANCELED)(Linked Group 2) 4 mg, Intravenous, EVERY 30 MIN PRN, 2 doses, Starting on Sun06/27/11 at 1601, Until Sun06/27/11 at 1945, Nausea, May repeat 4 mg once in 30 minutes. Consider prochlorperazine if ineffective., PACU Recovery, Routine 183 (Given - Provider: Wendy Christie, HIWOT) ondansetron (ZOFRAN) tablet 4 mg (CANCELED) 4 mg, Oral, EVERY 8 HOURS PRN, Starting on Sun06/28/11 at 1049, Until Sun06/28/11 at 1733, Nausea, STAT 1053 (Given - Provider: Judy Welsh RN) OXYcodone (ROXICODONE) immediate release tablet 5 mg 5 mg, Oral, EVERY 3 HOURS PRN, Starting on Sun06/27/11 at 1631, Until Sun06/28/11 at 1733, Pain, May repeat once within 30-60 minutes if pain unrelieved., Routine 2102 (Given - Provider: Emily Covarrubias RN)214 (Given - Provider: Emily Covarrubias RN) 0131 (Given - Provider: Emily Covarrubias RN)0218 (Given - Provider: Emily Covarrubias, RN)0600 (Given - Provider: Emily Covarrubias RN)0900 (Given - Provider: Samina Chilel, HIWOT)1158 (Given - Provider: Samina Chilel, HIWOT) zolpidem (AMBIEN) tablet 10 mg (CANCELED) 10 mg, Oral, NIGHTLY PRN, Starting on Sun06/27/11 at 2059, Until Sun06/28/11 at 1733, Sleep, Routine 2144 (Given - Provider: Emily Covarrubias RN) Linked Groups Order Group 1: ketorolac (TORADOL) injection 15 mg (COMPLETED)Jump to med 15 mg, Intravenous, EVERY 8 HOURS SCHEDULED, 3 doses, First dose on Sun06/27/11 at 1630, Last dose on Sun06/28/11 at 0600, Routine Followed by ibuprofen (ADVIL;MOTRIN) tablet 600 mgJump to med 600 mg, Oral, EVERY 6 HOURS SCHEDULED, First dose on Sun06/28/11 at 1200, Until Discontinued, - Begin after ketorolac discontinued. , Routine Group 2: ondansetron (ZOFRAN) injection 4 mg (CANCELED)Jump to med 4 mg, Intravenous, EVERY 30 MIN PRN, 2 doses, Starting on Sun06/27/11 at 1601, Until Sun06/27/11 at 1945, Nausea, May repeat 4 mg once in 30 minutes. 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
--- OUTSIDE RECORDS SUMMARY | 2024-09-09 09:36 | XMS_ITS | Encounter Summary ---
Author Organization [facility] [place] [address] Care Team Providers Care Gasoline Engine Assembler Name Role Phone Gus Pacheco MD Primary Care Provider [phone] Reason for Visit * Reason Comments Endometrial Cancer NEW PATIENT Encounter Details Date Type Department Care Team (Latest Contact Info) Description 06/20/2011 8:19 AM EDT - 06/20/2011 11:59 PM EDT Hospital Encounter [place] [phone] Judy Horton MD [facility] G[place] [address] Endometrial cancer; Brain aneurysm Discharge Disposition: Home Social History Tobacco Use [...] Sign Reading Time Taken Comments Blood Pressure 115/62 06/20/2011 8:29 AM EDT Pulse - - Temperature - - Respiratory Rate - - Oxygen Saturation - - Inhaled Oxygen Concentration - - Weight 56.9 kg (125 lb 6.4 oz) 06/20/2011 8:29 A M EDT Height 157 cm (5' 1.81) 06/20/2011 8:29 AM EDT Body Mass Index 23.08 06/20/2011 8:29 AM EDT documented in this encounter Medications at [...] Progress Notes * Judy Horton MD - 06/20/2011 8:58 AM EDT Provider: Dr. Horton Reason for Visit: management of newly diagnosed endometrial cancer Problem List: Patient Active Problem List Diagnoses Code ??? Endometrial cancer 182.0L ??? Brain aneurysm 437.3AC History of Present Illness: Farzana Garcia is a 50 y.o. white female, 2, para 2001, perimenopausal, who is kindly referred by Dr. Nunez for management of newly diagnosed grade 2 adenocarcinomaof the endometrium. The patient had normal monthly menses up until this spring, when they became more erratic and heavier. Last Sunday she began having very heavy vaginal bleeding, and when she nearly passed out, was taken to the ED, where she was found to have H/H of 3/12. She received 4 units of PBRCs and IVF resuscitation. Ultrasound and endometrial biopsy were performed, and Mirena placed. She is continuing to bleed, more like a normal menses. Endovaginal ultrasound was performed and revealed an endometrial stripe of 8 mm. Uterus measured 9.7 x 6 x 4 cm. Ovaries significant only for functional appearing ovarian cyst. An endometrial biopsy was performed and pathology reveals grade 2 endometrioid adenocarcinoma. Gynecologic history: 2, para 2 with 2 vaginal deliveries. Menstrual history unremarkable prior to this spring, as noted above. She has not been on estrogen replacement therapy or any hormonaltherapy prior to Mirena. Past Medical History Diagnosis Date ??? Endometrial cancer 06/20/2011 ??? Brain aneurysm 06/20/2011 Past Surgical History: Past Surgical History Procedure Date ??? Cholecystectomy ??? Brain aneurysm surgery Prior to Admission medications Medication Sig Start Date End Date Taking? Authorizing Provider zolpidem (AMBIEN) 5 mg tablet Take 10 mg by mouth nightly as needed. Yes Historical Provider, Allergies as of 06/20/2011 ??? (No Known Allergies) Review of Systems: positive for insomnia, some fatigue and dyspnea with exertion, improved after transfusion. No angina with exertion. all other systems negative Family History: History reviewed. No pertinent family history.. Social History: History Social History ??? Marital Status: Spouse Name: N/A Number of Children: N/A ??? 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 Not on file. Social History Main Topics ??? Smoking status: Never Smoker ??? Smokeless tobacco: Not on file ??? Alcohol Use: No ??? Drug Use: No ??? Sexually Active: Yes Other Topics Concern ??? Not on file Social History Narrative ??? No narrative on file Filed Vitals: 06/20/11 0829 BP: 115/62 Height: 157 cm (5' 1.81) Weight: 56.881 kg (125 lb 6.4 oz) Physical Examination: Gen: Farzana Garcia is a pleasant WF in NAD, appropriate in dress and demeanor HEENT: No adenopathy or thyromegaly Lungs: clear to auscultation and percussion Cor: heart RRR without murmurs. Abdomen: soft, protruberant with ascites, palpable abdominal/pelvic mass; no organomegaly Extremities: without edema, clubbing, cyanosis Skin: no rash or lesion Pelvic exam: normal external genitalia, BUS negative. Vagina and cervix without lesions. Ongoing active bleeding. Bimanual exam shows a short firm 4 cm cervical canal, uterus 8 week size with no adnexal masses. Uterus non-tender, mobile, AVAF. Impression: Farzana Garcia is a 50 y.o. white female, with a grade 2 adenocarcinoma of the endometrium, clinical stage I. She has had some irregular bleeding and a history of fatigue and dyspnea on exertion for over a year. I suspect that she has been anemic, and then with the very heavy bleeding episode, bled to an h/h of 3/12. She feels better now after transfusion with hgb of 8 than she has in several months. We discussed the pathophysiology around the development of leroy-menopausal endometrial cancer. We discussed the role of surgical staging vs. Radiation vs. Chemotherapy or hormonal therapy, and she understands that primary surgical therapy is her best option. She understands that she might require post-operative radiotherapy. We would recommend hysterectomy/BSO, pelvic washings and selective pelvic and para-aortic lymphadenectomy. The patient is a candidate for minimally invasive surgery, and robotic assisted laparoscopic hysterectomy was recommended as surgical method of choicefor her today. The patient understands the recommendations for surgery. She also understands the indications, risks and benefits of surgery. She understands that the risks of surgery include, but arenot limited to: bleeding, blood transfusion, infection, damage to bowel, bladder, blood vessels, ureters or nerves. She understands the expected post-operative course. After full discussion of the indications, risks and benefits and alternatives of the surgery, the patient wishes to proceed with robotic assisted laparoscopic hysterectomy/BSO, washings, and lymphadenectomy. The appropriate paperwork was completed, and the patient was sent to pre-admission testing for ongoing evaluation. documented in this encounter Plan of Treatment Not on file documented as of this encounter Visit Diagnoses Diagnosis Endometrial cancer Malignant neoplasm of corpus uteri, except isthmus Brain aneurysm Cerebral aneurysm, nonruptured documented in this encounter Care Teams Gasoline Engine Assembler Relationship Specialty Start Date End Date Gus Pacheco MD [address] [place] [address] PCP - General 06/20/11 01/14/12 documented as of this encounter
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
--- OUTSIDE RECORDS SUMMARY | 2024-09-09 09:36 | XMS_ITS | Encounter Summary ---
Author Organization [facility] Address [facility] [place] [address] Care Team Providers Care Grass Farmer Name Role Phone Gus Pacheco MD Primary Care Provider [phone] [phone] Reason for Visit * Reason Comments Radiation Consult endometrial cancer Encounter Details Date Type Department Care Team (Late st Contact Info) Description 08/21/2011 10:00 AM EDT Office Visit Radiation Oncology at [address] [phone] Lucero To MD [facility] [place] [address] Endometrial ca (Primary Dx) Discharge Disposition: Home [...] Sign Reading Time Taken Comments Blood Pressure 108/72 08/21/2011 9:00 AM EDT Pulse 78 08/21/2011 9:00 AM EDT Temperature 37 ??C (98.6 ??F) 08/21/2011 9:00 AM EDT Respiratory Rate 16 08/21/2011 9:00 AM EDT Oxygen Saturation 100% 08/21/2011 9:00 AM EDT Inhaled Oxygen Concentration - - Weight 57.2 kg (126 lb) 08/21/2011 9:00 AM EDT Height - - Body Mass Index 23.07 08/07/2011 2:56 PM EDT documented in this encounter Progress Notes * Lucero To MD - 08/21/2011 10:56 AM EDT Subjective: Patient ID: Farzana Garcia is a 51 y.o. female referred by Dr. Grimes for eval for xrt for endometrial ca. HPI Presented w/h/o normal monthly menses until this spring when they became more erratic & heavier. In 06/01 began having very heavy vaginal bleeding, nearly passed out, was taken to ED & found to have H/H of 312; given 4 units pRBC & IVF. Endovag U/S: Endometrial stripe of 8 mm. Uterus 9.7 x 6 x 4 cm. Functional appearing ovarian cyst. Endometrial bx showed gr 2 endometrioid adenoca. Mirena placed. 06/20/[address] Millard, w/exam showing abdomen to be soft, protuberant w/ascites, palpable abdominal/pelvic mass, normal ext genitalia, BUS neg, vagina & cervix w/o lesions, ongoing active bleeding, bimanual exam showing short firm 4 cm cervical canal, uterus 8 wk size w/no adnexal masses, uterus non-tender, mobile, AVAF. 06/22/11 CXR: Normal. 06/27/11 total laparoscopic/robotic hys w/B S-O, laparoscopic pelvic & paraaortic lymphadenectomy. Findings: EUA showing bulky uterus, cervix & ovaries w/no evidence of vaginal/cervical met. Laparoscopy showing nl upper abdomen, no evidence of extrauterine dz, carcinomatosis/ascites, ovaries grossly nl. L ovarian cyst noted to have adhesions to post uterosacral ligament on L & also serosa of rectum. Path: Endometrial ca, endometrioid type w/squamous diff; FIGO gr III; tumor 4.8 cm; myometrial invasion < half (11 mm out of 29 mm); +myometrial LVSI; lower uterine segment involved by non-invasive tumor; cervix free of tumor; adenoca involving B ovaries & assoc'd w/endometriosis (see Comment); 11 R pelvic lymph nodes, all neg for malignancy; 5 L pelvic lymph nodes w/1 involved by met adeno ca; paraaortic lymph node excision specimen showing nodular [...] present; cannot exclude the possibility of neoplasia. 07/29/11 postop check w/Dr. Millard, w/exam showing intact vaginal cuff w/o induration/tenderness; rec for carbo/taxol x 3 followed by xrt, followed by 3 carbo/taxol x 3. 08/08/[address] Grimes, w/rec for postop chemo of carbo/taxol x 3, followed by xrt & then 3 more cycles of carbo/taxol. Ms. Garcia informs me anticipated start date of chemo is wk prior to Thanksgi. She is accompanied by her parents today. Review of Systems Healed ok from surgery. No pain; minor discomfort across lower abdomen/suprapubicarea, like gas/feeling bloated; level 2; does not need to take analgesic for it. No vag disch/bleeding. No problem urinating. No problem w/BM. Energy level good. No leg swelling. Objective: Physical Exam Constitutional: She is oriented to person, place, and time. She appears well- developed and well-nourished. No distress. HENT: Head: Normocephalic. Eyes: Conjunctivae and EOM are normal. Right eye exhibits no discharge. Left eye exhibits no discharge. No scleral icterus. Neck: No tracheal deviation present. Pulmonary/Chest: Effort normal and breath sounds normal. No stridor. No respiratory distress. She has no wheezes. She has no rales. She exhibits no tenderness. Abdominal: Soft. She exhibits no distension and no mass. No tenderness. She has no rebound and no guarding. Genitourinary: There is no rash, tenderness, lesion or injury on the right labia. There is no rash,tenderness, lesion or injury on the left labia. Examined in lithotomy position. Normal external genitalia. Speculum exam shows normal urethra; vaginal vault well-healed. Bimanual exam w/o worrisome finding. Musculoskeletal: Normal range of motion. She exhibits no edema and no tenderness. Lymphadenopathy: She has no cervical adenopathy. Right: No inguinal adenopathy present. Left: No inguinal adenopathy present. Neurological: She is alert and oriented to person, place, and time. No cranial nerve deficit. She exhibits normal muscle tone. Coordination normal. Skin: She is not diaphoretic. Psychiatric: She has a normal mood and affect. Her behavior is normal. Judgment and thought contentnormal. Assessment and Plan: Stage IIIC endometrial ca w/ovarian mets or synchronous ovarian primary. Rec'd xrt to increase likelihood of cancer control. Xrt would be comprised of a course of external beam xrt to pelvis followed by intravag brachy, sandwiched between 3 cycles of carbo/taxol @ each end. The external beam xrt would be given in 25 daily txs & the intravag brachy boost would be given once/wk x 3 treatments, starting 1 wk after completion of the external beam. Possible side effects/complications of xrt to pelvis discussed, w/acute/immediate side effects including: Diarrhea, increased frequency of urination, anorectal irritation, burning w/urination, anorectal bleeding, urinary bleeding, nausea, skin pinkening, skin soreness, peeling of skin, loss of pubic hair, which may be permanent, vulvo-vaginal itchiness/irritation, tiredness. Late/mcc side effects/complications discussed include: Swelling of lower extremities, bowel obstruction, chronic diarrhea, chronic anorectal irritation, chronic increased frequency of urination, chronic burning w/urination, bleeding from rectum/bladder, vaginal shrinkage/narrowing, vaginal dryness, vaginal ulcer, vesico-vaginal fistula, recto-vaginal fistula. Discussed use of vag dilator after completion of xrt, to decrease vaginal shrinkage/narrowing. Need for CTsim prior to xrt discussed. She would like to proceed w/plan for xrt & will return the wk after completion of her 3rd cycleof carbo/taxol for sim. Xrt will start 3-4 wks after the 3rd cycle of carbo/taxol. CBC will be checked weekly during xrt. Xrt tx plan: Conformal MLC, non-custom immobilization device, external beam + brachy. CTSim for external beam: Non-custom immobilization device, vaginal marker, conformal MLC. No problem-specific visit notes found for this encounter. * BenoitNeelima RN - 08/21/2011 10:02 AM EDT RADIATION ONCOLOGY NURSING INITIAL NURSING ASSESSMENT ADVANCE DIRECTIVES: In EDH no___ Has documents _yes____ Will bring in _yes___ PRESENTING SYSTEMS and PATHOLOGY: heavy vaginal bleeding, requiring blood transfusion. Uterine and ovarian cancer. REVIEW OF SYSTEMS:Review of Systems Constitutional: Positive for weight loss. Lost 70 lbs over last year. unintentional HENT: Negative for hearing loss and tinnitus. Eyes: Negative. Negative for blurred vision and double vision. Respiratory: Positive for cough (dry cough). Negative for hemoptysis, sputum production and shortness of breath. Cardiovascular: Negative. Negative for chest pain and palpitations. Gastrointestinal: Negative. Negative for heartburn, nausea, vomiting, abdominal pain, diarrhea, constipation and blood in stool. Genitourinary: Negative. Negative for dysuria, urgency, frequency and hematuria. Musculoskeletal: Joint pain: knees or feet: both side. Skin: Negative. Neurological: Negative. Negative for dizziness, tingling, tremors, speech change, seizures and headaches. Endo/Heme/Allergies: Negative. Negative for environmental allergies. Does not bruise/bleed easily. Psychiatric/Behavioral: Negative for depression. The patient is not nervous/anxious. Insomnia: takes ambien with partial relief, PCP areli burns, but she had wierd dreams Prior Radiotherapy: no___ Prior Chemotherapy: no RADIATION SPECIFIC REVIEW: NO: YES: Claustrophobia or requires sedation for MRIs x Allergy to CT or MRI contrast agent or iodine or shellfish x Diabetic and on metformin x Metal in body, implanted device, worked with metal, body piercings,braces Clip in brain Dentures or hearing device x Pacemaker x Difficulty breathing while lying flat x Kidney problems/creatinine x SOCIAL ASSESSMENT: See EDH social assessment information entered. Support Systems: lives with parents Barriers to treatment: none LEARNING STYLE: Visual and verbal, wants written material and verbal discussion. RADIATION SPECIFIC TEACHING: x_ NCI Radiation Therapy and You and folder given documented in this encounter Plan of Treatment Not on file documented as of this encounter Visit Diagnoses Diagnosis Endometrial ca- Primary Malignant neoplasm of corpus uteri, except isthmus documented in this encounter Care Teams Grass Farmer Relationship Specialty Start Date End Date Gus Pacheco MD [address] [place] [address] PCP - General 06/20/11 01/14/12 documented as of this encounter
--- OUTSIDE RECORDS SUMMARY | 2024-09-09 09:36 | XMS_ITS | Encounter Summary ---
Author Organization [facility] Address [facility] [place] [address] Care Team Providers Care Bricklayer Apprentice Name Role Phone Gus Pacheco MD Primary Care Provider [phone] Encounter Details Date Type Department Care Team (Late st [facility]) Description 08/23/2011 Orders Only Radiation Oncology at [address] [phone] Lucero To MD [facility] [place] [address] Endometrial ca (Primary Dx) Social History Tobacco [...] isthmus documented in this encounter Care Teams Bricklayer Apprentice Relationship Specialty Start Date End Date Gus Pacheco MD [address] [facility] [place] [id number] PCP - General 06/20/11 01/14/12 documented as of this encounter
--- OUTSIDE RECORDS SUMMARY | 2024-09-09 09:36 | XMS_ITS | Encounter Summary ---
[place] [address] Care Team Providers Care Icicle Machine Operator Name Role Phone Gus Pacheco MD Primary Care Provider [phone] Reason for Visit * Reason Onset Date Comments Other 08/10/2011 follow up Encounter Details Date Type Department Care Team (Late st Contact Info) Description 08/10/2011 Telephone Hematology Oncology at [address] [phone] Linda Tomlinson MSW OFFICE OF [...] Telephone Encounter - Linda Tomlinson MSW - 08/10/2011 8:58 AM EDT TC follow up with pt. Informed her her [facility] yuniel was completed and mailed in. Reminder her to call them in about a week to do the phone interview. Inquired re outcome of her phone interview withSS. Pt reports she has applied for both SS Disability and SSI. Disability process has started. Pt needs to follow up with SS after her unemployment ends to follow up on SSI. Will plan to follow to assist as indicated. documented in this encounter Plan of Treatment Not on file documented as of this encounter Visit Diagnoses Not on filedocumented in this encounter Care Teams Icicle Machine Operator Relationship Specialty Start Date End Date Gus Pacheco MD [address] [place] [address] PCP - General 06/20/11 01/14/12 documented as of this encounter
--- OUTSIDE RECORDS SUMMARY | 2024-09-09 09:36 | XMS_ITS | Encounter Summary ---
Author Organization [facility] [place] [address] Care Team Providers Care Painter And Body Work Name Role Phone Gus Pacheco MD Primary Care Provider [phone] [phone] Encounter Details Date Type Department Care Team (Latest Contact Info) Description 06/20/2011 9:32 AM EDT - 06/20/2011 11:59 PM EDT Hospital [place] [phone] Judy Horton MD [facility] [place] [address] Discharge Disposition: Home Social History Tobacco Use [...] Procedure Name Priority Date/Time Associated Diagnosis Comments AB COMMENT Routine 06/23/2011 2:59 PM EDT ANTIBODY IDENTIFICATION Routine 06/23/20 11 2:59 PM EDT ANTIBODY SCREEN MANUAL Routine 1 10:12 AM EDT AB COMMENT Routine 06/20/2011 10:12 AM EDT SCAN, PERIPHERAL BLOOD Routine 1 10:12 AM EDT DIFFERENTIAL, AUTOMATED Routine 06/20/20 11 10:12 AM EDT ANTIBODY IDENTIFICATION Routine 06/20/20 11 10:12 AM EDT ABO/RH TYPING Routine 06/20/2011 10:12 AM EDT CBC (WITH DIFF) Routine 06/20/2011 10:12 AM EDT ANTIBODY SCREEN Routine 06/20/2011 10:12 AM EDT DIRECT ANTIGLOBULIN TEST Routine 06/20/2011 10:12 AM EDT ABORH TYPE MANUAL Routine 06/20/2011 10: 00 AM EDT TYPE AND SCREEN ([facility]/DANNI) Routine 06/20/2011 9:56 AM EDT documented in this encounter Results * REFLEX LAB-AB COMMENT (06/23/2011 2:59 PM EDT) [facility] TRANSFUSION MEDICINE. INTERPRETATION of antibody screen: The patient's specimen has two red cell alloantibodies, anti-JKa, and anti-M, that are capable of causing hemolysis. Future units for transfusion will need to be selected as antigen negative and compatible at the antiglobulin phase. ??These steps will add about an hour to unit preparation time, but compatible units should be identifiable in inventory. JDG 07/04/2011 [facility] Comment: Darwin Brooks, Transfusion ??Medicine Verified:07/04/11 Blood specimen (specimen) 06/23/2011 2:59 PM EDT 06/23/2011 2:59 PM EDT Judy Horton MD BLOOD BANK LAB ORDER NAHED [facility] * REFLEX LAB-ANTIBODY IDENTIFICATION (06/23/2011 2:59 PM EDT) Ab Identified Anti-Jka [facility] Blood specimen (specimen) 06/23/2011 2:59 PM EDT 06/23/2011 2:59 PM EDT Judy Horton MD BLOOD BANK LAB ORDER NAHED Performing Organization Address City/[facility]/ZIP Co de Phone Number [facility] * REFLEX LAB-ANTIBODY SCREEN MANUAL (06/20/2011 10:12 AM EDT) AB Screen Interp Positive [facility] Blood specimen (specimen) 06/20/2011 10:12 AM EDT 06/20/2011 10:41 AM EDT Judy Horton MD BLOOD BANK LAB ORDER NAHED Performing Organization Address City/[facility] Co de Phone Number [facility] * REFLEX LAB-AB COMMENT (06/20/2011 10:12 AM EDT) Ab Information TRANSFUSION MEDICINE. INTERPRETATION of antibody screen: The patient's specimen has two red cell alloantibodies, anti-JKa, and anti-M, that are capable of causing hemolysis. Future units for transfusion will need to be selected as antigen negative and compatible at the antiglobulin phase. ??These steps will add about an hour to unit preparation time, but compatible units should be identifiable in inventory. JDG 07/04/2011 [facility] Comment: Darwin Brooks, Transfusion ??Medicine Verified:07/04/11 Blood specimen (specimen) 06/20/2011 10:12 AM EDT 06/20/2011 10:41 AM EDT Judy Horton MD BLOOD BANK LAB ORDER NAHED Performing Organization Address City/[facility] Co de Phone Number [facility] * DIRECT ANTIGLOBULIN TEST (06/20/2011 10:12 AM EDT) LAURIE Poly Positive [facility] LAURIE IgG Negative [facility] LAURIE C3d Positive [facility] Blood specimen (specimen) 06/20/2011 10:12 AM EDT 06/20/2011 10:41 AM EDT Judy Horton MD BLOOD BANK LAB ORDER NAHED Performing Organization Address [facility] de Phone Number [facility] * REFLEX LAB-ANTIBODY IDENTIFICATION (06/20/2011 10:12 AM EDT) Ab Identified Anti-M [facility] Blood specimen (specimen) 06/20/2011 10:12 AM EDT 06/20/2011 10:41 AM EDT Judy Horton MD BLOOD BANK LAB ORDER NAHED Performing Organization Address [facility] de Phone Number [facility] * (ABNORMAL) REFLEX LAB-A-DIFF (06/20/2011 10:12 AM EDT) Neutrophil % 74.2(H) 34.0 - 71.0 % [facility] Neutrophil Absolute 5.40 1.50 - 6.30 x10(3)/mc L [facility] Lymph % 12.8(L) 19.0 - 53.0 % [facility] Lymphocytes Abs 0.9(L) 1.0 - 3.6 x10(3)/mc L [facility] Monocyte % 11.6 4.0 - 13.0 % [facility] MILLENNIUM Monocyte Abs 0.8 0.2 - 1.0 x10(3)/mc L CERNER MILLENNIUM Eos % 0.6 0.0 - 7.0 % [facility] MILLENNIUM Eosinophils Abs 0.0 0.0 - 0.5 x10(3)/mc L CERNER MILLENNIUM Basophil % 0.8 0.0 - 2.0 % [facility] MILLENNIUM Baso Absolute 0.1 0.0 - 0.2 x10(3)/mc L CERNER MILLENNIUM [...] x10(3)/mc L [facility]EN[facility] Blood specimen (specimen) 06/20/2011 10:12 AM EDT 06/20/2011 10:41 AM EDT Judy Horton MD HEMATOLOGY ORDERABLE S [facility] * REFLEX LAB-SCAN, PERIPHERAL BLOOD (06/20/2011 10:12 AM EDT) Plat estimate Normal [facility]ER MILLENNIUM RBC Morphology Abnormal CERNE R MILLENNIUM Microcyte gtr than 10 /HPF [facility] MILLENNIUM Hypochromia Moderate [facility] MILLENNIUM Ovalocytes 1-5 /HPF [facility]ERNER MILLENNIUM Tear Cell 1-5 /HPF CERNER MILLENNIUM Schistocyte 1-5 /HPF [facility]ERN[facility] MILLENNIUM Jackson Cells 1-5 /HPF CERNER MILLENNIUM Plat, Giant Less than 1 /HPF [facility] MILLENNIUM Blood specimen (specimen) 06/20/2011 10:12 AM EDT 06/20/2011 10:41 AM EDT Judy Horton MD HEMATOLOGY ORDERABLE S [facility] * REFLEX LAB-ANTIBODY SCREEN (06/20/2011 10:12 AM EDT) Ab Screen Interp Positive CERNER PEARLENNIUM Expires at [id number] on: [id number] [facility] MILLENNIUM Blood specimen (specimen) 06/20/2011 10:12 AM EDT 06/20/2011 10:41 AM EDT Judy Horton MD BLOOD BANK LAB ORDER NAHED Performing Organization Address City/[facility]/ZIP Co de Phone Number [facility]IE JENSENI[facility] * REFLEX LAB-ABO/RH TYPING (06/20/2011 10:12 AM EDT) ABORH Type A Pos CERMELISSA KANGENNIUM Blood specimen (specimen) 06/20/2011 10:12 AM EDT 06/20/2011 10:41 AM EDT Judy Horton MD BLOOD BANK LAB ORDER NAHED Performing Organization Address City/[facility]/ZIP Co de Phone Number MELANIE QUIROZ * (ABNORMAL) CBC (with Diff) (06/20/2011 10:12 AM EDT) White Blood Cell 7.3 4.0 - 10.0 x10(3)/mc L CERNER MILLENNIUM Red Blood Cell 4.25 3.93 - 5.22 x10(6)/mc L CERNER MILLENNIUM Hemoglobin 8.6(L) 11.2 - 15.7 gm/dL [facility]ERNER MILLENNIUM Hematocrit 29.3(L) 34.0 - 45.0 % CERNER MILLENNIUM Mean Cell Volume 68.9(L) 79.0 - 94.0 fL CERNER MILLENNIUM Mean Cell Hemoglobin 20.2(L) 26.6 - 32.2 pg CERNER MILLENNIUM Mean Cell Hemoglobin Concentration 29.4(L) 32.0 - 36.5 gm/dL CERNER MILLENNIUM Platelet 329 145 - 370 x10(3)/mc L CERNER MILLENNIUM RDW Standard Deviation Not Measured 35.0 - 46.0 fL CERNER MILLENNIUM RDW coefficient of variation Not Measured 10.9 - 14.4 % CERNER MILLENNIUM Mean Platelet Volume Not Measured 9.0 - 12.0 fL CERNER MILLENNIUM Blood specimen (specimen) 06/20/2011 10:12 AM EDT 06/20/2011 10:41 AM EDT Judy Horton MD HEMATOLOGY ORDERABLE S [facility]ELANIE JENSENIUM * REFLEX LAB-ABORH TYPE MANUAL (06/20/2011 10:00 AM EDT) Expires at [id number] on: [id number] MELANIE JENSENIUM Comment: Corrected from 07/03/11 00:00:00 EDT [Unknown] on 06/21/11 14:27:44 EDT by Jemma Muro Type A Pos MELANIE JENSENIUM Blood specimen (specimen) 06/20/2011 10:00 AM EDT 06/20/2011 10:05 AM EDT Judy Horton MD BLOOD BANK LAB ORDER NAHED MELANIE QUIROZ documented in this encounter Visit Diagnoses Not on filedocumented in this encounter Care Teams Painter And Body Work Relationship Specialty Start Date End Date Gus Pacheco MD [address] [place] [address] PCP - General 06/20/11 01/14/12 documented as of this encounter
--- OUTSIDE RECORDS SUMMARY | 2024-09-09 09:36 | XMS_ITS | Encounter Summary ---
[place] [address] Care Team Providers Care Sericulturist Name Role Phone Gus Pacheco MD Primary Care Provider [phone] Reason for Visit * Reason Onset Date Comments Other 08/10/2011 Scheduling Encounter Details Date Type Department Care Team (Late st Contact Info) Description 08/10/2011 Telephone Hematology Oncology at [address] [phone] Augustus Grimes MD [address] [place] [address] Other (Scheduling) Social History Tobacco Use Types Packs/Day Years [...] Telephone Encounter - Kira Raymond RN - 08/10/2011 1:24 PM EDT Consulted with Dr. Grimes. Per Dr. Grimes, the date change for the port placement is fine. * Telephone Encounter - Tari Vega - 08/10/2011 12:50 PM EDT Anneliese from Dr. Gusman's office called to let us know that they will not be able to get Farzana in for port placement before 08/28 as Farzana had to cancel her appointment with them for a family emergency. They do have Farzana now scheduled for port placement on 08/31 in the afternoon @ [facility]. documented in this encounter Plan of Treatment Not on file documented as of this encounter Visit Diagnoses Not on filedocumented in this encounter Care Teams Sericulturist Relationship Specialty Start Date End Date Gus Pacheco MD [address] [facility] [address] PCP - General 06/20/11 01/14/12 documented as of this encounter
--- OUTSIDE RECORDS SUMMARY | 2024-09-09 09:36 | XMS_ITS | Encounter Summary ---
Author Organization [facility] Address [facility] [place] [address] Care Team Providers Care Packaging Tech Name Role Phone Neel Pacheco MD Primary Care Provider [phone] Encounter Details Date Type Department Care Team (Late st Contact Info) Description 06/27/2011 11:40 AM EDT - 06/27/2011 3:12 PM EDT Surgery [place] [phone] Judy Millard MD [facility] [place] [address] ROBOTIC LAPAROSCOPY,TOTAL HYST, UTERUS<250GM, REM TUBE &/OR OVARY (WRVU 15) Social History Tobacco Use Types Packs/Day Years [...] Sign Reading Time Taken Comments Blood Pressure 114/65 06/27/2011 11:21 AM EDT Pulse 61 06/27/2011 11:21 AM EDT Temperature 36.6 ??C (97.9 ??F) 06/27/2011 11:21 AM E DT Respiratory Rate 16 06/27/2011 11:21 AM EDT Oxygen Saturation 99% 06/27/2011 11:21 AM EDT Inhaled Oxygen Concentration - - Weight 55.3 kg (122 lb) 06/27/2011 11:21 AM EDT Height 157.5 cm (5' 2) 06/27/2011 11:21 AM EDT Body Mass Index 22.31 06/27/2011 9:27 PM EDT documented in this encounter Discharge Instructions * Patient Instructions* Ema Gallegos MD - 06/28/2011 9:42 AM EDT For problems or concerns related to this hospitalization call: Weekdays 8am - 5pm: [phone] Nights and Weekends: [phone] and ask to speak to the gynecologic oncologist inserter promotional item Arrangements for VNA/home care: none PATIENT DISCHARGE [...] VAGINAL HYSTERECTOMY: WHAT TO EXPECT AT HOME (MONGOLIAN) documented in this encounter Medications at Time [...] %] Intake/Output Summary (Last 24 hours) at 06/28/11 0652 Last data filed at 06/28/11 0608 Gross [...] MANUAL Component Value Range ??? Specimen OD [id number] ??? ABORh Type A Pos CBC (WITH [...] % SpO2: [93 %-100 %] Date 06/27/11 07 - 06/28/11 0659 Shift 7820-8029 9205-5183 5624-8186 24 Hour Total I N T A [...] Clinton - 06/27/2011 11:59 AM EDT Inpatient BAKERY TEAM LEADER - Admission Interval Note I have reviewed the pre-procedure H&P completed by Dr Millard on 06/20/11. (x) Condition unchanged since H&P originally performed. Interval Note: Consent reviewed. A copy of this document will be sent to the patient's Primary Care Physician and/or Referring Physician. URVASHI CLINTON MD 06/27/2011 documented in this encounter Miscellaneous Notes * Miscellaneous - Provider, Hernesto - 06/30/2011 12:14 PM EDT * Discharge Summary - Ema Gallegos MD - 06/28/2011 2:39 PM EDT Inpatient BAKERY TEAM LEADER - Discharge Summary Patient Name: Sunday Garcia [...] this hospitalization call: Weekdays 8am - 5pm: [phone] Nights and Weekends: [phone] and ask to speak to the gynecologic oncologist inserter promotional item Arrangements for VNA/home care: none PATIENT DISCHARGE [...] 07/18/2011 11:40 AM Judy Millard MD [employer] Technician 3k [phone] None Provider Contact Information: NEEL PACHECO MD [phone] Discharge References/Attachments: Discharge References/Attachments None Signed: EMA [...] Patient with 5 lap sites to abdomen. MIKEL with [place] marroquin in place. No redness or drainage. Otherwise skin intact. * Op Note - Urvashi Clinton - 06/27/2011 2:34 PM EDT [facility] Operative Note Patient Name: Sunday Garcia : [id number] MR#: [id number] Case Date: 06/27/2011 Surgeon: Surgeon(s) and Role: * JUDY MILLARD MD - Primary * URVASHI CLINTON MD - Resident-Surgeon Chief * BELA JUAREZ Anesthesia: General endotracheal. Preoperative Diagnosis: Grade 2 [...] trocars and a 12-mm right upper quadrant evaluation assistant port were placed in the usual [...] TO PATHOLOGY Routine 06/27/2011 2:27 PM EDT NON-QUALITY ASSURANCE MONITOR FINAL REPORT Routine 06/27/2011 1:58 PM EDT [...] EDT) Phosphorus 3.9 2.5 - 4.5 mg/dL [facility] Blood specimen (specimen) 06/28/2011 4:18 AM EDT 06/28/2011 4:34 AM EDT Judy Millard MD CHEMISTRY ORDERABLES [facility] * Magnesium (06/28/2011 4:18 AM EDT) Magnesium 0.73 0.69 - 1.07 mmol/L [facility] Blood specimen (specimen) 06/28/2011 4:18 AM EDT 06/28/2011 4:34 AM EDT Judy Millard MD CHEMISTRY ORDERABLES Performing Organization Address City/State/[facility] Co de Phone Number [facility] * (ABNORMAL) Creatinine, serum (06/28/2011 4:18 AM EDT) Creatinine 0.48(L) 0.70 - 1.20 mg/dL [facility] Est Glomerular Filtration Rate >60 >=60 [facility] Comment: The National Kidney Disease Education Program [...] EDT Judy Millard MD CHEMISTRY ORDERABLES MELANIE JENSENIUM * BUN (06/28/2011 4:18 AM EDT) Blood Urea Nitrogen 8 8 - 18 mg/dL CERNER MILLENNIUM Blood specimen (specimen) 06/28/2011 4:18 AM EDT 06/28/2011 4:34 AM EDT Judy Millard MD CHEMISTRY ORDERABLES Performing Organization Address [facility] de Phone Number MELANIE JENSENIUM * Electrolytes panel (06/28/2011 4:18 AM EDT) [...] Millard MD CHEMISTRY ORDERABLES Performing Organization Address [facility] Co de Phone Number MELANIE JENSENIUM * [...] Millard MD HEMATOLOGY ORDERABLE S MELANIE QUIROZ * REFLEX LAB-SCAN, PERIPHERAL BLOOD (06/28/2011 4:17 [...] HEMATOLOGY ORDERABLE S CERNER MILLENNIUM * (ABNORMAL) CBC (with Diff) (06/28/2011 4:17 [...] Millard MD HEMATOLOGY ORDERABLE S MELANIE QUIROZ * Specimen to Pathology (surgical or derm) (06/27/2011 3:15 PM EDT) AP Specimen 06/27/2011 3:15 PM EDT 06/27/2011 3:15 PM EDT Narrative CERNER MILLENNIUM - 06/27/2011 3:15 PM EDT Specimen requisition ordered. ??Separate Pathology report to follow Judy Millard MD PATHOLOGY/CYTOLOGY O RDERABLES [facility] * Surgical Pathology Report (06/27/2011 3:09 PM EDT) Pathologist [facility] Surgical Pathology Report [id number] ? Location: [facility]; 0105; A The signing pathologist has (i) [...] distally. . Gross Description Sections/Processin g: ? Octave Board Assembler sections are submitted as ? follows: ??(1) squamocolumnar junction 12 ? o'clock; (2) squamocolumnar junction 6 ? o'clock; (3-8) anterior endocervical canal ? sectioned from 9 to 3 o'clock; (9-15) ? posterior endocervical canal sectioned from ? 3 to 9 o'clock (yellow ink indicates uterine ?side); (16-17) full-thickness tumor; (18-19) ? full-thickness tumor; (20) posterior ? endometrium; (21) bilingual call center representative section of ? 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 D - Zoila-aortic lymph node, excision: ?Nodular [...] does not alter the tumor stage (IIIC). [facility] 06/27/2011 3:09 PM EDT Judy Millard MD PATHOLOGY/CYTOLOGY O KG Performing Organization Address City/[facility] Co de Phone Number MELANIE [facility] * Specimen to Pathology (surgical or derm) (06/27/2011 3:00 PM EDT) AP Specimen 06/27/2011 3:00 PM EDT 06/27/2011 3:00 PM EDT Narrative [facility] - 06/27/2011 3:00 PM EDT Specimen requisition ordered. ??Separate Pathology report to follow Judy Millard MD PATHOLOGY/CYTOLOGY O KG Performing Organization Address [facility] de Phone Number MELANIE QUIROZ * Specimen to Pathology (surgical or derm) (06/27/2011 2:45 PM EDT) AP Specimen 06/27/2011 2:45 PM EDT 06/27/2011 2:45 PM EDT Narrative MELANIE QUIROZ - 06/27/2011 2:45 PM EDT Specimen requisition ordered. ??Separate Pathology report to follow Judy Millard MD PATHOLOGY/CYTOLOGY O KG Performing Organization Address [facility] de Phone Number MELANIE QUIROZ * Specimen to Pathology (surgical or derm) (06/27/2011 2:27 PM EDT) AP Specimen 06/27/2011 2:27 PM EDT 06/27/2011 2:27 PM EDT Narrative MELANIE QUIROZ - 06/27/2011 2:27 PM EDT Specimen requisition ordered. ??Separate Pathology report to follow Judy Millard MD PATHOLOGY/CYTOLOGY O KG Performing Organization Address [facility] de Phone Number MELANIE QUIROZ * Non-Clip Loading Machine Feeder Final Report (06/27/2011 1:58 PM EDT) Non-Clip Loading Machine Feeder Final Report [id number] ? [facility]; A The signing pathologist has (i) examined the relevant preparation(s) for the specimen(s) and (ii) rendered or confirmed the diagnosis(es). . ? Pathology Non-Clip Loading Machine Feeder Cytology Final Report Clinical Information Specimen Source [...] ?Screened by: ? FMQ ?Rescreened by: ?? FCL,CHENG 07/01/11 ?Verified by: ? Moiz LUNSFORD, Jhoan Benavidez ? Cytopathologist ? (Electronic Signature) Comment Peritoneal fluid (washing): A few small clusters of atypical large cells are present; cannot exclude the possibility of neoplasia. Dr. Poole has reviewed this case and concurs with the diagnosis. MELANIE QUIROZ 06/27/2011 1:58 PM EDT Judy Millard MD PATHOLOGY/CYTOLOGY O RDMARCIE [facility]IE [facility] * Cytopathology Non-Gynecological (06/27/2011 1:48 PM EDT) AP Specimen 06/27/2011 1:48 PM EDT 06/27/2011 1:48 PM EDT Narrative [facility] - 06/27/2011 1:48 PM EDT Specimen requisition ordered. ??Separate Pathology report to follow Judy Millard MD PATHOLOGY/CYTOLOGY O RDERADENNIS [facility] * REFLEX LAB-ABORH TYPE MANUAL (06/27/2011 9:56 AM EDT) Expires at 5314 on: [id number] [facility] Type A Pos MELANIE QUIROZ Blood specimen (specimen) 06/27/2011 9:56 AM EDT 06/27/2011 10:08 AM EDT Judy Millard MD BLOOD BANK LAB ORDER NAHED MELANIE QUIROZ documented in this encounter Visit Diagnoses Not on filedocumented in this encounter Administered Medications Inactive Administered Medications - up to 3 most recent administrations Medication Order MAR Action Action Date Dose Rate Site ceFAZolin (ANCEF) 1g in dextrose 5% 50mL 1,000 mg (1 g), Intravenous, ONCE, 1 dose, On Sun06/27/11 at 1130, Administer over 30 Minutes, Redose after 4 hours., Day of Surgery (Day of Procedure) Given 06/27/2011 12:58 PM EDT 1 g docusate sodium (COLACE) capsule 100 mg 100 [...] Covarrubias RN) 0800 (Given - Provider: Samina Chilel RN) HYDROmorphone (PF) (DILAUDID) 2 mg/mL injection [...] 0600, Routine 1630 (Given - Provider: Wendy Christie, RN)2218 (Given - Provider: Emily Covarrubias, RN) 0600 (Given - Provider: Emily Covarrubias, RN) Continuous Medication Order 06/26/2011 06/27/2011 06/28/2011 lactated ringers infusion 1,000 mL (CANCELED) 1,000 mL, at 100 mL/hr, Intravenous, CONTINUOUS, Starting on Sun06/27/11 at 1630, Until Sun06/28/11 at 0649 1615 (New Bag - Provider: Wendy Christie RN) 0216 (New Bag - Provider: Emily Covarrubias, RN)0656 (Stopped - Provider: Emily Covarrubias, RN) PRN Medication Order 06/26/2011 06/27/2011 06/28/2011 HYDROmorphone (PF) (DILAUDID) 2 mg/mL injection 0.2 mg (CANCELED) 0.2 mg, Intravenous, EVERY 4 HOURS PRN, 2 doses, Starting on Sun06/27/11 at 2059, Until Sun06/28/11 at 1733, Pain, severe pain, Routine 0259 (Given - Provider: Emily Covarrubias, RN) HYDROmorphone (PF) (DILAUDID) 2 mg/mL injection [...] Recovery, Routine 1659 (Given - Provider: Wendy Christie, RN) influenza virus vaccine (PF) (FLUZONE/FLUVIRIN) 45 mcg (15 mcg x 3)/0.5 mL IM injection 0.5 mL (COMPLETED) 0.5 mL, Intramuscular, PRIOR TO DISCHARGE, 1 dose, Starting on Sun06/28/11 at 0900, Until Sun06/28/11 at 1127, Per Protocol, Routine 1127 (Given - Provider: Judy Welsh RN - Comment: lot # [id number] exp date: 03/02) ondansetron (ZOFRAN) injection 4 mg (CANCELED)(Linked Group 2) 4 mg, Intravenous, EVERY 30 MIN PRN, 2 doses, Starting on Sun06/27/11 at 1601, Until Sun06/27/11 at 1945, Nausea, May repeat 4 mg once in 30 minutes. Consider prochlorperazine if ineffective., PACU Recovery, Routine 1830 (Given - Provider: Wendy Christie RN) ondansetron (ZOFRAN) tablet 4 mg (CANCELED) 4 [...] Routine 2102 (Given - Provider: Emily Covarrubias RN)2145 (Given - Provider: Emily Covarrubias RN) 0131 (Given - Provider: Emily Covarrubias RN)0218 (Given - Provider: Emily Covarrubias RN)0600 (Given - Provider: Emily Covarrubias RN)0900 (Given - Provider: Samina Chilel, HIWOT)1158 (Given - Provider: Samina Chilel, HIWOT) zolpidem (AMBIEN) tablet 10 mg (CANCELED) 10 mg, Oral, NIGHTLY PRN, Starting on Sun06/27/11 at 2059, Until Sun06/28/11 at 1733, Sleep, Routine 2145 (Given - Provider: Emily Covarrubias RN) Linked [...] Recovery documented in this encounter Care Teams Packaging Tech Relationship Specialty Start Date End Date Neel Pacheco MD [address] [place] [address] PCP - General 06/20/11 01/14/12 documented as of this encounter
--- OUTSIDE RECORDS SUMMARY | 2024-09-09 09:36 | XMS_ITS | Encounter Summary ---
Author Organization [facility] [place] [address] Care Team Providers Care Automatic Transmission Mechanic Name Role Phone Gus Pacheco MD Primary Care Provider [phone] [phone] Encounter Details Date Type Department Care Team (Latest Contact Info) Description 06/23/2011 9:16 AM EDT - 06/23/2011 11:59 PM EDT [place] [address] Judy Horton MD [facility] [place] [address] Discharge Disposition: Home Social History Tobacco Use [...] on filedocumented in this encounter Care Teams Automatic Transmission Mechanic Relationship Specialty Start Date End Date Gus Pacheco MD [address] [place] [address] PCP - General 06/20/11 01/14/12 documented as of this encounter
--- OUTSIDE RECORDS SUMMARY | 2024-09-09 09:36 | XMS_ITS | Encounter Summary ---
Author Organization [facility] [place] [address] Care Team Providers Care Cask Maker Name Role Phone Gus Pacheco MD Primary Care Provider [phone] [phone] Encounter Details Date Type Department Care Team (Late st Contact [facility]) Description 08/28/2011 2:30 PM EST Follow-Up Hematology Oncology at [address] [phone] Augustus Grimes MD [address] [place] [id number] Chemotherapy-induced nausea and vomiting (Primary Dx); Endometrial cancer Discharge Disposition: Home Social History [...] Sign Reading Time Taken Comments Blood Pressure 121/77 08/28/2011 2:11 PM EST Pulse 77 08/28/2011 2:11 PM EST Temperature 36.8 ??C (98.2 ??F) 08/28/2011 2:11 PM ES T Respiratory Rate 18 08/28/2011 2:11 PM EST Oxygen Saturation 100% 08/28/2011 2:11 PM EST Inhaled Oxygen Concentration - - Weight 56.5 kg (124 lb 9 oz) 08/28/2011 2:11 PM EST Height 157.4 cm (5' 1.97) 08/28/2011 2:11 PM ES T Body Mass Index 22.81 08/28/2011 2:11 PM EST documented in this encounter Progress Notes * Augustus Grimes MD - 08/28/2011 3:37 PM EST Diagnosis: Adenocarcinoma of the endometrium, [...] Subjective: Farzana comes in today for followup regarding her endometrial cancer and is starting chemotherapy. When I first saw her she wanted to delay things a bit for her to be able to finish some scheduled dental work . Her port placement has also been delayed until the dental work is done but fortunately allthe dental work will be complete this Sunday. She is scheduled to have her port placed this . We went over chemotherapy again with plans being for 3 cycles of chemotherapy than radiation therapy followed by 3 more cycles of chemotherapy. She has met with radiation therapy and will be simulated following the completion of her first 3 cycles of chemotherapy with Carboplatinum and Taxol. A ll of her questions were answered today and we went over things again in detail. Review of Systems Constitutional: Negative for fever, [...] supraclavicular, and axillary nodes normal Neurologic: Normal Laboratory is reviewed. Her creatinine is 0.7 CMP is otherwise normal CEA 125 is 13. CBC shows a white count of 6 point 9 hemoglobin 9.9 hematocrit of 32.3 and platelet count of 330,000. Her ANC is 4.14 Assessment/Plan: Farzana is nearly ready to start her adjuvant therapy with carboplatinum and Taxol. She will have a port in this and we'll make arrangements to start treatment this next Sunday. In looking at her baseline lab it is noted she has an iron deficiency anemia. She'll need to start iron at some point but I would prefer to wait until we see how she does with the first cycle of chemotherapy . If the first week goes well after chemotherapy on Sunday then consideration to starting her on oral ironcould be given. As noted she had no further questions regarding chemotherapy and will be ready to start on Sunday. Chemotherapy orders were written today . Plans are for 3 cycles of carboplatinum andTaxol with carboplatin dosed at area under the curve 6 and Taxol at 175 mg per meter squared both given once every 3 weeks for 3 cycles. This will be followed by radiation therapy to begin about 3-4 weeks after the chemotherapy is complete. Several weeks after the completion of radiation therapy then consideration of another 3 cycles of chemotherapy would be given. As noted risks and side effectswere gone over in detail including the possibility of an allergic reaction with a taxane and also the possibility of long-term neuropathy, neutropenia and its effects on the immune system. A prescription for Compazine has been called in as well to have on hand should she develop nausea posttreatment . documented in this encounter H&P Notes * Delmar, Underpresser Hand - 08/29/2011 10:16 AM EST documented in this encounter Procedure Notes * Provider, Scanning - 09/18/2011 3:44 PM ESTAssociated Order(s): SCAN DOC: CHEMOTHERAPY documented in this encounter Plan of Treatment Not on file documented as of this encounter Procedures Procedure Name Priority Date/Time Associated Diagnosis Comments CHEMOTHERAPY SCAN 09/18/2011 3:4 4 PM EST documented in this encounter Results * SCAN DOC: CHEMOTHERAPY (09/18/2011 3:44 PM EST) Narrative 09/18/2011 3:44 PM EST Procedure Note Provider, Scanning - 09/18/2011 3:44 PM EST Scanning Provider MEDIA MGR SCAN EXT O RDR/RSLT documented in this encounter Visit Diagnoses Diagnosis Chemotherapy-induced nausea and vomiting- Primary Nausea with vomiting Endometrial cancer Malignant neoplasm of corpus uteri, except isthmus documented in this encounter Care Teams Cask Maker Relationship Specialty Start Date End Date Gus Pacheco MD [address] [place] [address] PCP - General 06/20/11 01/14/12 documented as of this encounter
[2024-09-09 14:34] LABS: Hemoglobin A1C 5.6 % (<5.7)
[2024-09-09 14:54] LABS: ALT 54 U/L (14-59); AST 39 U/L (15-37); Albumin 4.4 g/dL (3.4-5.0); Alkaline Phosphatase 50 U/L (46-116); Anion Gap 8.8 mmol/L (3-11); BUN 17 mg/dL (7-18); Bilirubin, Total 0.69 mg/dL (0.2-1.0); CO2 31.2 mmol/L (21.0-32.0); CREATININE 1.2 mg/dL (0.55-1.02); Calcium 9.5 mg/dL (8.5-10.1); Calculated LDL 107 mg/dL (<100); Chloride 105 mmol/L (98-107); Cholesterol 198 mg/dL (<200); Estimated GFR 51.18 (mL/min/1.73m2); Glucose 105 mg/dL (74-106); HDL Cholesterol 43 mg/dL (40-60); Potassium 4.7 mmol/L (3.5-5.1); Sodium 145 mmol/L (136-145); Total Protein 7.6 g/dL (6.4-8.2); Triglyceride 242 mg/dL (<150); Vitamin D 25 Total 39.5 ng/mL (30-100)
[2024-09-09 23:49] LABS: CA 125 15 U/mL (<30)
== END 2024-09-09 09:31 | disposition home or self-care (01) ==
LOC: NCHCN 09:30
PROVIDERS: PCP Family Medicine; Visit Provider Family Medicine
DX: I10 Essential (primary) hypertension (principal); R73.03 Prediabetes; E78.1 Pure hyperglyceridemia; Z00.00 Encounter for general adult medical examination without abnormal findings
CPT/HCPCS: 80053; 80061; 82306; 86304; 83036

== ENCOUNTER 2025-07-10 01:09 | Outpatient (CLI) | payer OTHER, SELFPAY ==
[2025-07-10 07:37] LABS: Hemoglobin A1C 5.6 % (<5.7)
[2025-07-10 08:49] LABS: ALT 48 U/L (14-59); AST 34 U/L (15-37); Albumin 3.9 g/dL (3.4-5.0); Alkaline Phosphatase 38 U/L (46-116); Anion Gap 8.2 mmol/L (3-11); BUN 20 mg/dL (7-18); Bilirubin, Total 0.6 mg/dL (0.2-1.0); CO2 28.8 mmol/L (21.0-32.0); Calcium 9.4 mg/dL (8.5-10.1); Calculated LDL 106 mg/dL (<100); Chloride 105 mmol/L (98-107); Cholesterol 193 mg/dL (<200); Estimated GFR 63.30 (mL/min/1.73m2); Glucose 121 mg/dL (74-106); HDL Cholesterol 37 mg/dL (>or=50); Potassium 3.8 mmol/L (3.5-5.1); Sodium 142 mmol/L (136-145); Total Protein 7.2 g/dL (6.4-8.2); Triglyceride 252 mg/dL (<150); Vitamin D 25 Total 34 ng/mL (30-100)
== END 2025-07-10 01:10 | disposition home or self-care (01) ==
PROVIDERS: PCP Family Medicine; Visit Provider Family Medicine
DX: R73.03 Prediabetes (principal); I10 Essential (primary) hypertension; E78.1 Pure hyperglyceridemia; R53.83 Other fatigue
CPT/HCPCS: 36415; 80053; 80061; 82306; 83036